=== PATIENT | female | born 1970 | race American Indian/Alaskan Native ===

== ENCOUNTER 2016-07-25 22:22 | Emergency (ER) | payer SELFPAY ==
[2016-07-25] MEDS ORDERED: KEPPRA 1,000 MG/NS 0.75% 100ML 1,000 MG/100 ML BAG IV ONE (22:24)
[2016-07-25] MEDS ORDERED: ATIVAN IV ONE (22:24)
[2016-07-25] MEDS ORDERED: BENADRYL ONE (22:54)
[2016-07-25] MEDS ORDERED: BENADRYL IV ONE (22:57)
--- NOTE | 2016-07-26 01:03 | Emergency Department Report ---
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 Patient had a seizure while at work. Patient has been noncompliant with his seizure medication because she ran out and missed her follow-up appointment. Patient's preceding symptoms include dizziness which is typical prior to her seizures. She denies tongue laceration or urinary incontinence. No pain reported. - Related Data Home Medications Medication Instructions Recorded Confirmed Last Taken HYDROcodone/APAP 5-325 [Alva 1 each PO Q6HR PRN 06/22/15 07/25/16 Unknown 5-325 mg TAB] Meclizine [Antivert] 25 mg PO TID PRN 06/22/15 07/25/16 Unknown Ondansetron [Zofran Odt] 4 mg PO Q8HR 06/22/15 07/25/16 Unknown diphenhydrAMINE [Benadryl CAP] 25 mg PO Q8HR PRN 06/22/15 07/25/16 Unknown Cyclobenzaprine [Flexeril] 10 mg PO TID PRN 07/25/16 07/25/16 Unknown Previous Rx's Medication Instructions Recorded Last Taken Type levETIRAcetam [Keppra TAB] 500 mg PO BID #60 tablet 07/26/16 Unknown Rx Allergies Allergy/AdvReac Type Severity Reaction Status Date / Time promethazine HCl Allergy Unknown Verified 05/14/14 13:31 [From Phenergan] sulfamethoxazole Allergy Hives Verified 05/14/14 13:31 [From Bactrim] trimethoprim [From Bactrim] Allergy Hives Verified 05/14/14 13:31 ED Review of Systems ROS: Stated complaint: CONVULSIONS Other details as noted in HPI Comment: All other systems reviewed and negative Other: Constitutional: No fevers chills Eyes: No eye pain visual changes ENT: No ear pain or throat pain Neck: Denies pain Respiratory: Denies cough wheezing shortness of breath Cardiovascular: Denies chest pain, palpitations, syncope GI: Denies abdominal pain, nausea, vomiting, diarrhea : Denies dysuriay Musculoskeletal: Denies back pain Skin: Denies rash, lesions, erythema Neurologic: Denies headache, numbness, weakness Psychiatric: Denies suicidal ideation, hallucinations ED Past Medical Hx - Past Medical History Previous Medical History?: Yes Hx Hypertension: Yes Hx CVA: No Hx Heart Attack/AMI: No Hx Congestive Heart Failure: No Hx Diabetes: No Hx Deep Vein Thrombosis: No Hx Pulmonary Embolism: No Hx GERD: Yes Hx Liver Disease: No Hx Renal Disease: No Hx Sickle Cell Disease: No Hx Arthritis: Yes Hx Headaches / Migraines: Yes Hx Seizures: Yes Hx Kidney Stones: No Hx Psychiatric Treatment: No Hx Asthma: No Hx COPD: No Hx Tuberculosis: No Hx Dementia: No Hx HIV: No Additional medical history: Recurrent symptomatic anemia. Menorrhagia. Uterine fibroids. Vertigo - Surgical History Hx Coronary Stent: No Hx Open Heart Surgery: No Hx Pacemaker: No Hx Internal Defibrillator: No Hx Cholecystectomy: No Hx Appendectomy: No Hx Breast Surgery: No Additional Surgical History: 3 C- Sections. Right knee repair at age 10. fx femur - Social History Smoking Status: Never Smoker Substance Use Type: None - Medications Home Medications: Home Medications Medication Instructions Recorded Confirmed Last Taken Type HYDROcodone/APAP 5-325 [Alva 1 each PO Q6HR PRN 06/22/15 07/25/16 Unknown History 5-325 mg TAB] Meclizine [Antivert] 25 mg PO TID PRN 06/22/15 07/25/16 Unknown History Ondansetron [Zofran Odt] 4 mg PO Q8HR 06/22/15 07/25/16 Unknown History diphenhydrAMINE [Benadryl CAP] 25 mg PO Q8HR PRN 06/22/15 07/25/16 Unknown History Cyclobenzaprine [Flexeril] 10 mg PO TID PRN 07/25/16 07/25/16 Unknown History levETIRAcetam [Keppra TAB] 500 mg PO BID #60 tablet 07/26/16 Unknown Rx ED Physical Exam - General Limitations: Other - Other Other exam information: General: No limitations, patient is alert in no acute distress Head exam: Atraumatic, normocephalic Eyes exam: Normal appearance ENT: Moist mucous membrane, normal oropharynx Neck exam: Normal inspection, full range of motion, no meningismus nontender Respiratory exam: Clear to auscultation bilateral, no wheezes, rales, crackles Cardiovascular: Normal rate and rhythm, normal heart sounds Abdomen: Soft, nondistended, and nontender, with normal bowel sounds, no rebound, or guarding Extremity: Full range of motion normal inspection no deformity Back: Normal Inspection, full range of motion, no tenderness Neurologic: Alert, oriented x3, cranial nerves intact, no motor or sensory deficit Psychiatric: normal affect, normal mood Skin: Warm, dry, intact ED Course Vital Signs 07/25/16 22:26 Temperature 98.7 F Pulse Rate 104 H Respiratory 24 Rate Blood Pressure 113/73 O2 Sat by Pulse 99 Oximetry - Reevaluation(s) Reevaluation #1: 07/26/16 01:23 Patient received Ativan 1 mg and Keppra 1000 in the ED. Benadryl given for itching ED Medical Decision Making - Medical Decision Making Seizure likely secondary to medication noncompliance. Patient has a known history of seizure without other complaints. Patient received Keppra and Ativan ED. Will be discharged on her current Keppra dose. - Differential Diagnosis medication noncompliance, breakthrough seizure Critical Care Time: No Critical care attestation.: If time is entered above; I have spent that time in minutes in the direct care of this critically ill patient, excluding procedure time. ED Disposition Clinical Impression: Seizure, Noncompliance with medication regimen Disposition: DISCHARGED TO HOME OR SELFCARE Is pt being admited?: No Does the pt Need Aspirin: No Condition: Stable Instructions: Recurrent Seizures Adult (ED) Additional Instructions: Take your medication as prescribed. Follow-up with your doctor. Return if symptoms worsen Prescriptions: levETIRAcetam [Keppra TAB] 500 mg PO BID #60 tablet Referrals: PRIMARY CARE, [Referring] - 3-5 Days Time of Disposition: :24
[2016-07-26 01:09] VITALS: BP 111/60
== END 2016-07-26 01:35 | disposition home or self-care (01) ==
LOC: ED 22:22
DX: R56.9 Unspecified convulsions (principal); Z91.14 Patient's other noncompliance with medication regimen; I10 Essential (primary) hypertension; K21.9 Gastro-esophageal reflux disease without esophagitis; M19.90 Unspecified osteoarthritis, unspecified site; Z88.8 Allergy status to other drugs, medicaments and biological substances; Z88.2 Allergy status to sulfonamides
CPT/HCPCS: 96374; 96375; 99283; J1200; J1953; J2060

== ENCOUNTER 2016-08-22 23:53 | Emergency (ER) | payer BC ==
[2016-08-23 00:01] VITALS: BP 142/86
[2016-08-23 00:47] LABS: Mean Corpuscular HGB Conc 29 % (30-34); Platelet Count 606 K/mm3 (140-440); Red Blood Count 5.51 M/mm3 (3.65-5.03); White Blood Count 11.8 K/mm3 (4.5-11.0)
[2016-08-23 00:54] LABS: Hematocrit 32.1 % (30.3-42.9); Hemoglobin 9.4 gm/dl (10.1-14.3); Mean Corpuscular Hemoglobin 17 pg (28-32); Mean Corpuscular Volume 58 fl (79-97); Red Cell Distribution Width 28.2 % (13.2-15.2)
[2016-08-23 01:14] LABS: Alanine Aminotransferase 20 units/L (7-56); Albumin 4.6 g/dL (3.9-5); Albumin/Globulin Ratio 1.4 %; Alkaline Phosphatase 95 units/L (35-129); Anion Gap 21 mmol/L; BUN/Creatinine Ratio 8.57; Blood Urea Nitrogen 6 mg/dL (7-17); Calcium 9.2 mg/dL (8.4-10.2); Carbon Dioxide 20 mmol/L (22-30); Glucose 125 mg/dL (65-100); Lipase 28 units/L (13-60); Sodium 137 mmol/L (137-145)
[2016-08-23 02:25] LABS: Anisocytosis 3+; Basophils % (Manual) 0 % (0.0-1.8); Blastocytes % (Manual) 0 %; Hypochromasia 3+; Microcytosis 2+
[2016-08-23 02:26] LABS: Diff Status Complete; Platelet Estimate Appears Increased
--- NOTE | 2016-08-27 14:48 | ED Elopement Review ---
ED Pt Elopement review - Results review Lab results: Laboratory Tests 08/23/16 08/23/16 08/23/16 00:34 00:34 00:34 WBC 11.8 H RBC 5.51 H Hgb 9.4 L Hct 32.1 D MCV 58 L D MCH 17 L MCHC 29 L RDW 28.2 H Plt Count 606 H Add Manual Diff Complete Total Counted 100 Seg Neuts % (Manual) 70.0 Band Neutrophils % 0 Lymphocytes % (Manual) 22.0 Reactive Lymphs % (Man) 0 Monocytes % (Manual) 7.0 Eosinophils % (Manual) 1.0 Basophils % (Manual) 0 Metamyelocytes % 0 Myelocytes % 0 Promyelocytes % 0 Blast Cells % 0 Nucleated RBC % 1.0 H Seg Neutrophils # Man 8.3 H Band Neutrophils # 0.0 Lymphocytes # (Manual) 2.6 Abs React Lymphs (Man) 0.0 Monocytes # (Manual) 0.8 Eosinophils # (Manual) 0.1 Basophils # (Manual) 0.0 Metamyelocytes # 0.0 Myelocytes # 0.0 Promyelocytes # 0.0 Blast Cells # 0.0 WBC Morphology Not Reportable Hypersegmented Neuts Not Reportable Hyposegmented Neuts Not Reportable Hypogranular Neuts Not Reportable Smudge Cells Not Reportable Toxic Granulation Not Reportable Toxic Vacuolation Not Reportable Dohle Bodies Not Reportable Pelger-Huet Anomaly Not Reportable Ronaldo Rods Not Reportable Platelet Estimate Appears increased Clumped Platelets Not Reportable Plt Clumps, EDTA Not Reportable Large Platelets Not Reportable Giant Platelets Not Reportable Platelet Satelliting Not Reportable Plt Morphology Comment Not Reportable RBC Morphology Not Reportable Dimorphic RBCs Not Reportable Polychromasia Not Reportable Hypochromasia 3+ Poikilocytosis Not Reportable Anisocytosis 3+ Microcytosis 2+ Macrocytosis Not Reportable Spherocytes Not Reportable Pappenheimer Bodies Not Reportable Sickle Cells Not Reportable Target Cells Not Reportable Tear Drop Cells Not Reportable Ovalocytes Not Reportable Helmet Cells Not Reportable Fernandez-[place] Bodies Not Reportable [place] Rings Not Reportable [place] Cells Not Reportable Bite Cells Not Reportable Crenated Cell Not Reportable Elliptocytes Not Reportable Acanthocytes (Spur) Not Reportable Rouleaux Not Reportable Hemoglobin C Crystals Not Reportable Schistocytes Not Reportable Malaria parasites Not Reportable Celso Bodies Not Reportable Hem Pathologist Commnt No Sodium 137 Potassium 4.0 Chloride 100.0 Carbon Dioxide 20 L Anion Gap 21 BUN 6 L Creatinine 0.7 Estimated GFR > 60 BUN/Creatinine Ratio 8.57 Glucose 125 H Calcium 9.2 Total Bilirubin 0.30 AST 27 ALT 20 Alkaline Phosphatase 95 Total Protein 8.0 Albumin 4.6 Albumin/Globulin Ratio 1.4 Lipase 28 HCG, Qual Negative - Call Back decision Pt Call Back Decision: No action required
== END 2016-08-23 02:00 | disposition left against medical advice (07) ==
LOC: ED 23:53
DX: R10.9 Unspecified abdominal pain (principal); Z53.21 Procedure and treatment not carried out due to patient leaving prior to being seen by health care provider
CPT/HCPCS: 36415; 80053; 83690; 84703; 85007; 85025

== ENCOUNTER 2016-12-07 10:08 | Emergency (ER) | payer BC ==
[2016-12-07] MEDS ORDERED: ATIVAN PO ONE (10:16)
[2016-12-07] MEDS ORDERED: NACL 0.9% 1000 ML 1,000 ML IV ONE (10:22)
--- NOTE | 2016-12-07 10:28 | Emergency Department Report ---
ED Dizziness HPI - General Chief Complaint: Dizziness Stated Complaint: CHEST PAIN Time Seen by Provider: 12/07/16 10:13 Source: patient Mode of arrival: Stretcher Limitations: No Limitations - History of Present Illness Initial Comments: 46-year-old female here with complaint of dizziness. Patient has a known history of vertigo and again to feel spinning while walking home. This is consistent with her prior episodes of vertigo. She has a headache but she's had this headache for approximately 1 month. She is a known history of seizures as well. She does not feel she seized. She felt somewhat short of breath and had some mild chest pain with this episode of vertigo. This is common with her episodes of vertigo. She normally takes meclizine but did not have it on her. No fevers chills nausea vomiting. -: Gradual Timing: sudden onset Description: "room spinning" History of Same: Yes History of Trauma: No Severity: moderate Improves With: medication Worsens With: nothing Associated Symptoms: chest pain, shortness of breath, weakness. denies: diaphoresis, fever/chills, loss of appetite, malaise, rash, seizure, syncope - Related Data Home Medications Medication Instructions Recorded Confirmed Last Taken Meclizine [Antivert] 25 mg PO TID PRN 06/22/15 12/07/16 12/06/16 diphenhydrAMINE [Benadryl CAP] 25 mg PO Q8HR PRN 06/22/15 12/07/16 12/06/16 Loratadine [Claritin] 10 mg PO DAILY 12/07/16 12/07/16 12/06/16 Melatonin [Melatin] 3 mg PO DAILY 12/07/16 12/07/16 12/06/16 Previous Rx's Medication Instructions Recorded Last Taken Type levETIRAcetam [Keppra TAB] 500 mg PO BID #60 tablet 08/22/16 12/06/16 Rx Allergies Allergy/AdvReac Type Severity Reaction Status Date / Time promethazine HCl Allergy Unknown Verified 05/14/14 13:31 [From Phenergan] sulfamethoxazole Allergy Hives Verified 05/14/14 13:31 [From Bactrim] trimethoprim [From Bactrim] Allergy Hives Verified 05/14/14 13:31 ED Review of Systems ROS: Stated complaint: CHEST PAIN Other details as noted in HPI Comment: All other systems reviewed and negative Constitutional: weakness. denies: chills, fever Eyes: denies: eye pain, eye discharge, vision change ENT: denies: ear pain, throat pain Respiratory: shortness of breath. denies: cough, wheezing Cardiovascular: chest pain. denies: palpitations Endocrine: no symptoms reported Gastrointestinal: denies: abdominal pain, nausea, diarrhea Genitourinary: denies: urgency, dysuria, discharge Musculoskeletal: denies: back pain, joint swelling, arthralgia Skin: denies: rash, lesions Neurological: vertigo. denies: headache, weakness, paresthesias Psychiatric: denies: anxiety, depression Hematological/Lymphatic: denies: easy bleeding, easy bruising ED Past Medical Hx - Past Medical History Hx Hypertension: Yes Hx CVA: No Hx Heart Attack/AMI: No Hx Congestive Heart Failure: No Hx Diabetes: No Hx Deep Vein Thrombosis: No Hx Pulmonary Embolism: No Hx GERD: Yes Hx Liver Disease: No Hx Renal Disease: No Hx Sickle Cell Disease: No Hx Arthritis: Yes Hx Headaches / Migraines: Yes Hx Seizures: Yes Hx Kidney Stones: No Hx Psychiatric Treatment: No Hx Asthma: No Hx COPD: No Hx Tuberculosis: No Hx Dementia: No Hx HIV: No Additional medical history: Recurrent symptomatic anemia. Menorrhagia. Uterine fibroids. Vertigo - Surgical History Hx Coronary Stent: No Hx Open Heart Surgery: No Hx Pacemaker: No Hx Internal Defibrillator: No Hx Cholecystectomy: No Hx Appendectomy: No Hx Breast Surgery: No Additional Surgical History: 3 C- Sections. Right knee repair at age 10. fx femur - Family History Family history: no significant - Social History Smoking Status: Never Smoker Substance Use Type: None - Medications Home Medications: Home Medications Medication Instructions Recorded Confirmed Last Taken Type Meclizine [Antivert] 25 mg PO TID PRN 06/22/15 12/07/16 12/06/16 History diphenhydrAMINE [Benadryl CAP] 25 mg PO Q8HR PRN 06/22/15 12/07/16 12/06/16 History levETIRAcetam [Keppra TAB] 500 mg PO BID #60 tablet 08/22/16 12/07/16 12/06/16 Rx Loratadine [Claritin] 10 mg PO DAILY 12/07/16 12/07/16 12/06/16 History Melatonin [Melatin] 3 mg PO DAILY 12/07/16 12/07/16 12/06/16 History ED Physical Exam - General Limitations: No Limitations General appearance: alert, in no apparent distress - Head Head exam: Present: atraumatic, normocephalic - Eye Eye exam: Present: normal appearance, PERRL, EOMI. Absent: scleral icterus, conjunctival injection - ENT ENT exam: Present: mucous membranes moist - Neck Neck exam: Present: normal inspection - Respiratory Respiratory exam: Present: normal lung sounds bilaterally. Absent: respiratory distress, wheezes, rales - Cardiovascular Cardiovascular Exam: Present: regular rate, normal rhythm, normal heart sounds. Absent: systolic murmur, diastolic murmur, rubs, gallop - GI/Abdominal GI/Abdominal exam: Present: soft, normal bowel sounds. Absent: distended, tenderness, guarding - Extremities Exam Extremities exam: Present: normal inspection - Back Exam Back exam: Present: normal inspection - Neurological Exam Neurological exam: Present: alert, oriented X3 - Expanded Neurological Exam Expanded Patient oriented to: Present: person, place, time Speech: Present: fluid speech Cranial nerves: EOM's Intact: Normal Cerebellar function: Finger to Nose: Normal (somewhat tremulous on finger to nose), Romberg: Normal Upper motor neuron: Sergo Neglect: Normal Motor strength exam: RUE: 5, LUE: 5, RLE: 5, LLE: 5 - Psychiatric Psychiatric exam: Present: normal affect, normal mood - Skin Skin exam: Present: warm, dry, intact, normal color. Absent: rash ED Course Vital Signs 12/07/16 12/07/16 10:10 11:50 Temperature 98.1 F Pulse Rate 77 78 Respiratory 20 14 Rate Blood Pressure 148/91 Blood Pressure 128/79 [Left] O2 Sat by Pulse 100 100 Oximetry ED Medical Decision Making - Lab Data Result diagrams: 12/07/16 10:30 12/07/16 10:30 Laboratory Results - last 24 hr 12/07/16 12/07/16 12/07/16 10:30 10:30 10:30 WBC 6.8 RBC 4.53 Hgb 9.5 L Hct 31.4 MCV 69 L MCH 21 L MCHC 30 RDW 20.0 H Plt Count 527 H Add Manual Diff Complete Total Counted 100 Seg Neuts % (Manual) 54.0 Band Neutrophils % 0 Lymphocytes % (Manual) 34.0 Reactive Lymphs % (Man) 0 Monocytes % (Manual) 7.0 Eosinophils % (Manual) 5.0 H Basophils % (Manual) 0 Metamyelocytes % 0 Myelocytes % 0 Promyelocytes % 0 Blast Cells % 0 Nucleated RBC % Not Reportable Seg Neutrophils # Man 3.7 Band Neutrophils # 0.0 Lymphocytes # (Manual) 2.3 Abs React Lymphs (Man) 0.0 Monocytes # (Manual) 0.5 Eosinophils # (Manual) 0.3 Basophils # (Manual) 0.0 Metamyelocytes # 0.0 Myelocytes # 0.0 Promyelocytes # 0.0 Blast Cells # 0.0 WBC Morphology Not Reportable Hypersegmented Neuts Not Reportable Hyposegmented Neuts Not Reportable Hypogranular Neuts Not Reportable Smudge Cells Not Reportable Toxic Granulation Not Reportable Toxic Vacuolation Not Reportable Dohle Bodies Not Reportable Pelger-Huet Anomaly Not Reportable Ronaldo Rods Not Reportable Platelet Estimate Not Reportable Clumped Platelets Not Reportable Plt Clumps, EDTA Not Reportable Large Platelets Not Reportable Giant Platelets Not Reportable Platelet Satelliting Not Reportable Plt Morphology Comment Not Reportable RBC Morphology Not Reportable Dimorphic RBCs Not Reportable Polychromasia Not Reportable Hypochromasia 2+ Poikilocytosis 1+ Anisocytosis 2+ Microcytosis 2+ Macrocytosis Not Reportable Spherocytes Not Reportable Pappenheimer Bodies Not Reportable Sickle Cells Not Reportable Target Cells Not Reportable Tear Drop Cells Not Reportable Ovalocytes Not Reportable Helmet Cells Not Reportable Fernandez-[place] Bodies Not Reportable [place] Rings Not Reportable [place] Cells Not Reportable Bite Cells Not Reportable Crenated Cell Not Reportable Elliptocytes Not Reportable Acanthocytes (Spur) Not Reportable Rouleaux Not Reportable Hemoglobin C Crystals Not Reportable Schistocytes Not Reportable Malaria parasites Not Reportable Celso Bodies Not Reportable Hem Pathologist Commnt No Sodium 138 Potassium 3.9 Chloride 101.0 Carbon Dioxide 22 Anion Gap 19 BUN 6 L Creatinine 0.6 L Estimated GFR > 60 BUN/Creatinine Ratio 10.00 Glucose 109 H Calcium 8.7 Magnesium 1.80 Total Bilirubin 0.20 AST 60 H ALT 115 H Alkaline Phosphatase 110 Troponin T < 0.010 Total Protein 7.4 Albumin 4.2 Albumin/Globulin Ratio 1.3 Urine Color Urine Turbidity Urine pH Ur Specific [place] Urine Protein Urine Glucose (UA) Urine Ketones Urine Blood Urine Nitrite Urine Bilirubin Urine Urobilinogen Ur Leukocyte Esterase Urine WBC (Auto) Urine RBC (Auto) U Epithel Cells (Auto) Urine Bacteria (Auto) Urine Mucus 12/07/16 10:55 WBC RBC Hgb Hct MCV MCH MCHC RDW Plt Count Add Manual Diff Total Counted Seg Neuts % (Manual) Band Neutrophils % Lymphocytes % (Manual) Reactive Lymphs % (Man) Monocytes % (Manual) Eosinophils % (Manual) Basophils % (Manual) Metamyelocytes % Myelocytes % Promyelocytes % Blast Cells % Nucleated RBC % Seg Neutrophils # Man Band Neutrophils # Lymphocytes # (Manual) Abs React Lymphs (Man) Monocytes # (Manual) Eosinophils # (Manual) Basophils # (Manual) Metamyelocytes # Myelocytes # Promyelocytes # Blast Cells # WBC Morphology Hypersegmented Neuts Hyposegmented Neuts Hypogranular Neuts Smudge Cells Toxic Granulation Toxic Vacuolation Dohle Bodies Pelger-Huet Anomaly Ronaldo Rods Platelet Estimate Clumped Platelets Plt Clumps, EDTA Large Platelets Giant Platelets Platelet Satelliting Plt Morphology Comment RBC Morphology Dimorphic RBCs Polychromasia Hypochromasia Poikilocytosis Anisocytosis Microcytosis Macrocytosis Spherocytes Pappenheimer Bodies Sickle Cells Target Cells Tear Drop Cells Ovalocytes Helmet Cells Fernandez-[place] Bodies [place] Rings [place]anna Cells Bite Cells Crenated Cell Elliptocytes Acanthocytes (Spur) Rouleaux Hemoglobin C Crystals Schistocytes Malaria parasites Celso Bodies Hem Pathologist Commnt Sodium Potassium Chloride Carbon Dioxide Anion Gap BUN Creatinine Estimated GFR BUN/Creatinine Ratio Glucose Calcium Magnesium Total Bilirubin AST ALT Alkaline Phosphatase Troponin T Total Protein Albumin Albumin/Globulin Ratio Urine Color Yellow Urine Turbidity Clear Urine pH 7.0 Ur Specific [place] 1.013 Urine Protein <15 mg/dl Urine Glucose (UA) Neg Urine Ketones Neg Urine Blood Neg Urine Nitrite Neg Urine Bilirubin Neg Urine Urobilinogen < 2.0 Ur Leukocyte Esterase Neg Urine WBC (Auto) 1.0 Urine RBC (Auto) 3.0 U Epithel Cells (Auto) 3.0 Urine Bacteria (Auto) 2+ Urine Mucus Few - EKG Data -: EKG Interpreted by Me - EKG Data 12/07/16 10:27 Normal sinus rhythm rate 81 normal axis normal intervals no ST-T wave changes - Medical Decision Making 46-year-old female here with episode of vertigo. This is similar to previous episodes were in the past. She did describe some chest pain with her symptoms. Given this history for workup for a potential cardiac cause of the my suspicion is very low for this. Plan to give her dose of Ativan orally. She has a normal neurological exams no need for head CT at this point. Plan EKG labs troponin chest x-ray and plan to reassess. Patient feeling better after single dose of Ativan. Symptoms are not entirely resolved at this point. Plan to give her her oral meclizine and will discharge home. Portions of this chart were dictated with dictation software. There may be dictation errors contained within this note. Critical care attestation.: If time is entered above; I have spent that time in minutes in the direct care of this critically ill patient, excluding procedure time. ED Disposition Clinical Impression: Vertigo Disposition: DC-01 TO HOME OR SELFCARE Is pt being admited?: No Condition: Stable Instructions: Vertigo (ED) Additional Instructions: Please follow-up with your regular doctor. Referrals: PRIMARY CARE, [Primary Care Provider] - 3-5 Days
[2016-12-07 10:46] LABS: Hematocrit 31.4 % (30.3-42.9); Hemoglobin 9.5 gm/dl (10.1-14.3); Mean Corpuscular HGB Conc 30 % (30-34); Platelet Count 527 K/mm3 (140-440); Red Blood Count 4.53 M/mm3 (3.65-5.03); White Blood Count 6.8 K/mm3 (4.5-11.0)
[2016-12-07 10:47] LABS: Mean Corpuscular Hemoglobin 21 pg (28-32); Mean Corpuscular Volume 69 fl (79-97)
[2016-12-07 11:19] LABS: Bacteria,Urine 2+ /HPF (Negative); Bilirubin,Urine NEG (Negative); Blood,Urine NEG (Negative); Ketones,Urine NEG (Negative); Leukocyte Esterase,Urine NEG (Negative); Mucus,Urine FEW /HPF; Nitrite,Urine NEG (Negative); Protein,Urine <15 mg/dL mg/dL (Negative); Urobilinogen,Urine < 2.0 mg/dL (<2.0)
--- NOTE | 2016-12-07 11:21 | XRay Report ---
CHEST ONE VIEW INDICATION: Weakness. COMPARISON: 08/21/2016. FINDINGS: Portable, single, frontal chest radiograph demonstrates normal cardiomediastinal silhouette. Clear lungs. Unremarkable bones. Extrinsic EKG leads. CONCLUSION: No acute disease in the chest. Thank you for the opportunity to participate in this patient's care.
[2016-12-07 11:40] LABS: Alanine Aminotransferase 115 units/L (7-56); Albumin 4.2 g/dL (3.9-5); Albumin/Globulin Ratio 1.3 %; Alkaline Phosphatase 110 units/L (35-129); Anion Gap 19 mmol/L; Blood Urea Nitrogen 6 mg/dL (7-17); Calcium 8.7 mg/dL (8.4-10.2); Carbon Dioxide 22 mmol/L (22-30); Glucose 109 mg/dL (65-100); Potassium 3.9 mmol/L (3.6-5.0); Sodium 138 mmol/L (137-145); Total Protein 7.4 g/dL (6.3-8.2)
[2016-12-07 11:45] LABS: Basophils % (Manual) 0 % (0.0-1.8); Blastocytes % (Manual) 0 %
[2016-12-07 11:46] LABS: Anisocytosis 2+; Diff Status Complete; Hypochromasia 2+; Microcytosis 2+; Poikilocytosis 1+
[2016-12-07] MEDS ORDERED: ANTIVERT PO ONE (12:46)
[2016-12-07 13:09] VITALS: BP 117/75
== END 2016-12-07 13:12 | disposition home or self-care (01) ==
LOC: ED 10:08
DX: R42 Dizziness and giddiness (principal); I10 Essential (primary) hypertension; K21.9 Gastro-esophageal reflux disease without esophagitis; M19.90 Unspecified osteoarthritis, unspecified site; R56.9 Unspecified convulsions; Z88.2 Allergy status to sulfonamides; Z88.8 Allergy status to other drugs, medicaments and biological substances
CPT/HCPCS: 36415; 71010; 80053; 81001; 83735; 84484; 85007; 85025; 93005; 93010; 96360; 99284; J7030

== ENCOUNTER 2017-02-10 14:08 | Outpatient (CLI) | payer BC ==
--- NOTE | 2017-02-11 07:55 | Ultrasound Report ---
ULTRASOUND PELVIC COMPLETE ULTRASOUND TRANSVAGINAL HISTORY: Pelvic pain, uterine fibroids. TECHNIQUE: Transabdominal and transvaginal ultrasound with color and spectral doppler interrogation. The uterus is enlarged and heterogeneous measuring 14 x 9 x 10 cm. At least 3 fibroids are identified on today's exam. A large submucosal fibroid in the posterior wall measures 7.2 x 5.8 x 6.7 cm. An intramural fibroid in the anterior wall measures 2.7 x 3.4 x 3.6 cm. An intramural fibroid in the right lateral wall measures 2.1 x 2.6 x 2.9 cm. All 3 fibroids demonstrate scattered focal calcifications and trace flow on color Doppler interrogation. The endometrial stripe is displaced anteriorly but is otherwise within normal limits measuring 9 mm. The cervix is unremarkable. The ovaries are normal size, contour and echotexture. No adnexal cyst or mass. No pelvic fluid collection. IMPRESSION: Uterine fibroid disease as described. When comparing to the previous pelvic ultrasound on 11/01/14, there appears to be mild progression of disease.
== END 2017-02-10 14:09 | disposition home or self-care (01) ==
LOC: US 14:08
PROVIDERS: ATTEND Obstetrics & Gynecology
DX: D25.0 Submucous leiomyoma of uterus (principal); D25.1 Intramural leiomyoma of uterus
CPT/HCPCS: 76830; 76856

== ENCOUNTER 2017-03-23 23:27 | Emergency (ER) | payer BC ==
[2017-03-24] MEDS ORDERED: SUBLIMAZE IV ONE (01:57)
[2017-03-24] MEDS ORDERED: ZOFRAN IV ONE (01:57)
--- NOTE | 2017-03-24 01:58 | Emergency Department Report ---
ED General Adult HPI - General Chief complaint: Pain General Stated complaint: VOMITING Time Seen by Provider: 03/24/17 01:49 Source: patient, RN notes reviewed, old records reviewed Mode of arrival: Ambulatory Limitations: No Limitations - History of Present Illness Initial comments: This is a 46-year-old female who was previously unknown to this provider. Past medical history includes hypertension, seizure disorder, anemia, fibroids, 3, para 3003. Private network architect manager: Dr. Santa De Guzman Patient is scheduled for dilatation and curettage with hysteroscopy later on this morning. She is sent to the ER by her network architect manager for lower abdominal pain, cramping, nausea and vomiting. This started after the patient took Cytotec. The abdominal pain is crampy, increases with palpation and decreases with rest. It does not radiate anywhere. Patient vomited 2, nonbloody and nonbilious. Patient has only had a preoperative evaluation by anesthesia, please see their notes. Patient indicates that prior to taking the medication, she was feeling "fine." -: Sudden Location: abdomen Radiation: non-radiation Quality: aching Consistency: constant Improves with: rest Worsens with: movement Associated Symptoms: nausea/vomiting. denies: confusion, chest pain, cough - Related Data Home Medications Medication Instructions Recorded Confirmed Last Taken Meclizine [Antivert] 25 mg PO TID PRN 06/22/15 03/17/17 12/06/16 diphenhydrAMINE [Benadryl CAP] 25 mg PO Q8HR PRN 06/22/15 03/17/17 12/06/16 Loratadine [Claritin] 10 mg PO DAILY PRN 12/07/16 03/17/17 12/06/16 Melatonin [Melatin] 3 mg PO HS PRN 12/07/16 03/17/17 12/06/16 Previous Rx's Medication Instructions Recorded Last Taken Type levETIRAcetam [Keppra TAB] 500 mg PO BID #60 tablet 08/22/16 12/06/16 Rx Allergies Allergy/AdvReac Type Severity Reaction Status Date / Time hydromorphone [From Dilaudid] Allergy Itching Verified 03/17/17 11:27 promethazine HCl Allergy Unknown Verified 03/17/17 11:27 [From Phenergan] sulfamethoxazole Allergy Hives Verified 03/17/17 11:27 [From Bactrim] trimethoprim [From Bactrim] Allergy Hives Verified 03/17/17 11:27 ED Review of Systems ROS: Stated complaint: VOMITING Other details as noted in HPI Constitutional: malaise. denies: fever Eyes: denies: eye discharge ENT: denies: epistaxis Respiratory: denies: cough Cardiovascular: denies: chest pain Gastrointestinal: abdominal pain, nausea, vomiting Genitourinary: as per HPI Musculoskeletal: as per HPI Skin: as per HPI Neurological: as per HPI Psychiatric: as per HPI ED Past Medical Hx - Past Medical History Hx Hypertension: Yes Hx CVA: No Hx Heart Attack/AMI: No Hx Congestive Heart Failure: No Hx Diabetes: No Hx Deep Vein Thrombosis: No Hx Pulmonary Embolism: No Hx GERD: Yes Hx Liver Disease: No Hx Renal Disease: No Hx Sickle Cell Disease: Yes (Trait only) Hx Arthritis: Yes (left leg) Hx Headaches / Migraines: Yes (migraines) Hx Seizures: Yes ("Petite Mal" last ? 11/2016) Hx Kidney Stones: No Hx Psychiatric Treatment: No Hx Asthma: No Hx COPD: No Hx Tuberculosis: No Hx Dementia: No Hx HIV: No Additional medical history: Recurrent symptomatic anemia. Menorrhagia. Uterine fibroids. Vertigo - Surgical History Hx Coronary Stent: No Hx Open Heart Surgery: No Hx Pacemaker: No Hx Internal Defibrillator: No Hx Cholecystectomy: No Hx Appendectomy: No Hx Breast Surgery: No Additional Surgical History: 3 C- Sections. Right knee repair at age 10. fx femur - Social History Smoking Status: Never Smoker Substance Use Type: None - Medications Home Medications: Home Medications Medication Instructions Recorded Confirmed Last Taken Type Meclizine [Antivert] 25 mg PO TID PRN 06/22/15 03/17/17 12/06/16 History diphenhydrAMINE [Benadryl CAP] 25 mg PO Q8HR PRN 06/22/15 03/17/17 12/06/16 History levETIRAcetam [Keppra TAB] 500 mg PO BID #60 tablet 08/22/16 03/17/17 12/06/16 Rx Loratadine [Claritin] 10 mg PO DAILY PRN 12/07/16 03/17/17 12/06/16 History Melatonin [Melatin] 3 mg PO HS PRN 12/07/16 03/17/17 12/06/16 History ED Physical Exam - General Limitations: No Limitations General appearance: alert, in no apparent distress - Head Head exam: Present: atraumatic, normocephalic - Eye Eye exam: Present: normal appearance, EOMI. Absent: nystagmus - ENT ENT exam: Present: normal exam, normal orophraynx, mucous membranes moist, normal external ear exam - Neck Neck exam: Present: normal inspection, full ROM - Respiratory Respiratory exam: Present: normal lung sounds bilaterally. Absent: respiratory distress - Cardiovascular Cardiovascular Exam: Present: regular rate, normal rhythm, normal heart sounds. Absent: systolic murmur, diastolic murmur, rubs, gallop - GI/Abdominal GI/Abdominal exam: Present: soft, tenderness, normal bowel sounds, other ( suprapubic lower abdominal tenderness, no rebound, guarding or peritoneal signs) . Absent: distended, guarding, rebound, rigid, pulsatile mass - Extremities Exam Extremities exam: Present: normal inspection, full ROM, normal capillary refill. Absent: pedal edema, joint swelling, calf tenderness - Back Exam Back exam: Present: normal inspection, full ROM. Absent: paraspinal tenderness , vertebral tenderness - Neurological Exam Neurological exam: Present: alert, oriented X3, normal gait, other (Extraocular movements intact. Tongue midline. No facial droop. Facial sensation intact to light touch in the V1, V2, V3 distribution bilaterally. 5 and 5 strength in 4 extremities.. Sensation is intact to light touch in 4 extremities.). Absent : motor sensory deficit - Psychiatric Psychiatric exam: Present: normal affect, normal mood - Skin Skin exam: Present: warm, dry, intact, normal color. Absent: rash ED Course Vital Signs 03/23/17 03/23/17 03/23/17 23:26 23:30 23:31 Temperature 97.5 F L Pulse Rate 107 H Respiratory 20 Rate Blood Pressure 141/91 127/84 O2 Sat by Pulse 96 95 99 Oximetry 03/23/17 03/24/17 03/24/17 23:34 00:59 01:16 Temperature 97.5 F L Pulse Rate 106 H 82 Respiratory 20 18 18 Rate Blood Pressure 133/90 141/91 O2 Sat by Pulse 99 98 100 Oximetry 03/24/17 03/24/17 03/24/17 01:31 01:45 02:07 Temperature Pulse Rate 80 79 77 Respiratory 15 18 12 Rate Blood Pressure 123/74 117/78 117/78 O2 Sat by Pulse 98 99 Oximetry 03/24/17 03/24/17 03/24/17 02:15 02:31 02:45 Temperature Pulse Rate 74 71 73 Respiratory 18 13 16 Rate Blood Pressure 119/73 117/78 110/75 O2 Sat by Pulse 97 99 99 Oximetry 03/24/17 03/24/17 03/24/17 03:00 03:15 03:31 Temperature Pulse Rate 67 67 66 Respiratory 13 14 14 Rate Blood Pressure 108/68 108/68 110/72 O2 Sat by Pulse 100 99 98 Oximetry 03/24/17 03/24/17 03/24/17 03:45 04:00 04:15 Temperature Pulse Rate 67 82 67 Respiratory 14 15 15 Rate Blood Pressure 111/73 119/69 111/73 O2 Sat by Pulse 99 99 99 Oximetry 03/24/17 03/24/17 04:31 04:45 Temperature Pulse Rate 64 65 Respiratory 14 10 L Rate Blood Pressure 124/79 119/71 O2 Sat by Pulse 99 98 Oximetry - Reevaluation(s) Reevaluation #1: 03/24/17 05:06 Patient has had an uneventful course in the ER. She feels improved. As per discussion with her network architect manager she will be discharged to go to the preoperative area. ED Medical Decision Making - Lab Data Vital Signs 03/23/17 03/23/17 03/23/17 23:26 23:30 23:31 Temperature 97.5 F L Pulse Rate 107 H Respiratory 20 Rate Blood Pressure 141/91 127/84 O2 Sat by Pulse 96 95 99 Oximetry 03/23/17 03/24/17 03/24/17 23:34 00:59 01:16 Temperature 97.5 F L Pulse Rate 106 H 82 Respiratory 20 18 18 Rate Blood Pressure 133/90 141/91 O2 Sat by Pulse 99 98 100 Oximetry 03/24/17 01:31 Temperature Pulse Rate 80 Respiratory 15 Rate Blood Pressure 123/74 O2 Sat by Pulse 98 Oximetry - Medical Decision Making Differential diagnosis, including but not limited to: Dysfunctional uterine bleeding, medication side effect Assessment and plan: 46-year-old female who was scheduled for elective gynecologic surgery later on today. She was sent to the ER by her network architect manager for symptomatic relief. Patient has already had an outpatient perioperative/ preoperative evaluation. I see no reason to repeat her laboratory studies. She is treated with Zofran and fentanyl. Her case was discussed with me by her covering network architect manager, Dr. Heaton prior to arrival to the ER. She requested that we observe the patient in the ER and treat her symptoms, and then discharge her prior to 5:30 AM so she may present for her elective surgery. Critical care attestation.: If time is entered above; I have spent that time in minutes in the direct care of this critically ill patient, excluding procedure time. ED Disposition Clinical Impression: Uterine fibroid Disposition: DC- TO HOME OR SELFCARE Is pt being admited?: No Condition: Good Instructions: Uterine Fibroids (ED) Additional Instructions: Continue current outpatient medications. Please go right to the perioperative area/preoperative area where you are supposed to get her surgery. Please return to the ER right away with new pain, worsened pain, migration of pain, fevers, chills, lethargy, irritability, projectile vomiting, change in mental status, confusion, inability to tolerate liquid feeds. Referrals: JADA NEVAREZ MD [Primary Care Provider] - 3-5 Days SANTA DE GUZMAN MD [Staff Physician] - 3-5 Days
[2017-03-24 05:01] VITALS: BP 119/71
== END 2017-03-24 06:36 | disposition home or self-care (01) ==
LOC: ED 23:27
DX: D25.9 Leiomyoma of uterus, unspecified (principal); I10 Essential (primary) hypertension; K21.9 Gastro-esophageal reflux disease without esophagitis; M19.90 Unspecified osteoarthritis, unspecified site; G43.909 Migraine, unspecified, not intractable, without status migrainosus; R56.9 Unspecified convulsions; Z98.890 Other specified postprocedural states; Z88.1 Allergy status to other antibiotic agents; Z88.6 Allergy status to analgesic agent
CPT/HCPCS: 96374; 96375; 99282; J2405; J3010

== ENCOUNTER 2017-03-24 06:08 | Day surgery (SDC) | payer BC ==
--- NOTE | 2017-03-22 10:26 | Anesthesia Consultation ---
Anesthesia Consult and Med Hx Date of service: 03/24/17 - Airway Anesthetic Teeth Evaluation: Poor ROM Head & Neck: Adequate Mental/Hyoid Distance: Adequate Mallampati Class: Class II Intubation Access Assessment: Probably Good - Pulmonary Exam CTA: Yes - Cardiac Exam Cardiac Exam: RRR - Pre-Operative Health Status ASA Pre-Surgery Classification: ASA3 Proposed Anesthetic Plan: General - Pulmonary Hx Smoking: No Hx Asthma: No COPD: No Hx Pneumonia: No - Cardiovascular System Hx Hypertension: Yes Hx Heart Attack/AMI: No Hx Angina: Yes Hx Pacemaker: No Hx Internal Defibrillator: No - Central Nervous System Hx Seizures: Yes ("Pet[place] Mal" last ? 11/2016) Hx Back Pain: Yes Hx Psychiatric Problems: No - Gastrointestinal Hx Ulcer: Yes - Endocrine Hx Renal Disease: No Hx End Stage Renal Disease: No Hx Liver Disease: No - Hematic Hx Anemia: Yes Hx Sickle Cell Disease: Yes (Trait only) - Other Systems Hx Cancer: No - Additional Comments Anesthesia Medical History Comments: Cardiac clearance on chart. EF 50%
[2017-03-22 10:39] LABS: Eosinophils % (Auto) 4.3 % (0.0-4.3); Hematocrit 26.6 % (30.3-42.9); Mean Corpuscular HGB Conc 30 % (30-34); Platelet Count 519 K/mm3 (140-440); Red Blood Count 4.43 M/mm3 (3.65-5.03); White Blood Count 6.8 K/mm3 (4.5-11.0)
[2017-03-22 10:40] LABS: Mean Corpuscular Hemoglobin 18 pg (28-32); Mean Corpuscular Volume 60 fl (79-97); Red Cell Distribution Width 20.6 % (13.2-15.2)
--- NOTE | 2017-03-23 22:42 | History and Physical Report ---
History of Present Illness Date of examination: 03/22/17 Chief complaint: Dysfunctional Uterine Bleeding, Fibroid Uterus History of present illness: Pt is a 46 year old -[place] female with a known history of uterine fibroids and dysfunctional uterine bleeding who presents for endometrial sampling after failed attempt at in-office biopsy. 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 Family/Genetic History: diabetes, hypertension, cancer Social history: no significant social history Medications and Allergies Allergies Allergy/AdvReac Type Severity Reaction Status Date / Time hydromorphone [From Dilaudid] Allergy Itching Verified 03/17/17 11:27 promethazine HCl Allergy Unknown Verified 03/17/17 11:27 [From Phenergan] sulfamethoxazole Allergy Hives Verified 03/17/17 11:27 [From Bactrim] trimethoprim [From Bactrim] Allergy Hives Verified 03/17/17 11:27 Home Medications Medication Instructions Recorded Confirmed Last Taken Type Meclizine [Antivert] 25 mg PO TID PRN 06/22/15 03/17/17 12/06/16 History diphenhydrAMINE [Benadryl CAP] 25 mg PO Q8HR PRN 06/22/15 03/17/17 12/06/16 History levETIRAcetam [Keppra TAB] 500 mg PO BID #60 tablet 08/22/16 03/17/17 12/06/16 Rx Loratadine [Claritin] 10 mg PO DAILY PRN 12/07/16 03/17/17 12/06/16 History Melatonin [Melatin] 3 mg PO HS PRN 12/07/16 03/17/17 12/06/16 History Active Meds: Active Medications Famotidine (Pepcid) 20 mg IV PREOP NR Stop: 03/24/17 23:00 Lactated Ringer's (Lactated Ringers) 1,000 mls @ 100 mls/hr IV DIRECT VINCENT Midazolam HCl (Versed) 2 mg IV PREOP NR Stop: 03/24/17 23:00 Review of Systems All systems: negative - Vital Signs Vital signs: Vital Signs Temp Pulse Resp BP 98.5 F 78 16 128/78 03/22/17 10:00 03/22/17 10:00 03/22/17 10:00 03/22/17 10:00 Temp Pulse Resp BP Pulse Ox 98.5 F 78 16 128/78 03/22/17 10:00 03/22/17 10:00 03/22/17 10:00 03/22/17 10:00 - Physical Exam Breasts: Positive: deferred Cardiovascular: Regular rate Lungs: Positive: Clear to auscultation Abdomen: Positive: soft Uterus: Positive: enlarged Extremities: Positive: normal Results Result Diagrams: 03/22/17 10:05 All other labs normal. Assessment and Plan A: Dysfunctional Uterine Bleeding Fibroid Uterus Anemia Failed In-office Biopsy P: Proceed with dilation and curettage, hysteroscopy with possible Myosure endometrial sampling
[~2017-03-24 06:08] MED LIST: ANCEF/STERILE WATER 2 GM/20 ML 2 GM/20 ML SYRINGE IV NR; LACTATED RINGERS 1,000 ML IV SCH; PEPCID IV NR; VERSED IV NR
[2017-03-24] MEDS ORDERED: DIPRIVAN 10 MG/ML IV ONE (07:06)
[2017-03-24] MEDS ORDERED: SUBLIMAZE ONE (07:06)
[2017-03-24] MEDS ORDERED: MONSEL'S TP ONE (07:19)
[2017-03-24] MEDS ORDERED: SILVER NITRATE TP ONE (07:19)
[2017-03-24] MEDS ORDERED: NACL 0.9% IR ONE ×2 (07:19→07:20)
--- NOTE | 2017-03-24 07:21 | Anesthesia Day of Surgery ---
Anesthesia Day of Surgery - Day of Surgery Patient Examined: Yes Patient H&P Reviewed: Yes Patient is NPO: Yes Cardiac Clearance: Yes
[2017-03-24] MEDS ORDERED: DILAUDID IV PRN (07:22)
[2017-03-24] MEDS ORDERED: TRANSDERM-SCOP TD ONE (07:33)
[2017-03-24] MEDS ORDERED: ZOFRAN IV PRN (08:00)
[2017-03-24] MEDS ORDERED: PERCOCET 5/325 PO PRN (08:00)
[2017-03-24] MEDS ORDERED: XYLOCAINE MPF 2% ONE (08:24)
[2017-03-24] MEDS ORDERED: QUELICIN ONE (08:24)
[2017-03-24] MEDS ORDERED: ZOFRAN ONE (08:24)
[2017-03-24] MEDS ORDERED: DECADRON ONE (08:24)
[2017-03-24] MEDS ORDERED: MORPHINE IV PRN (09:00)
--- NOTE | 2017-03-24 09:06 | Short Stay Summary ---
Short Stay Documentation Date of service: 03/24/17 - History H&P: dictated Social history: no significant social history - Allergies and Medications Current Medications: Allergies hydromorphone [From Dilaudid] Allergy (Verified 03/17/17 11:27) Itching promethazine HCl [From Phenergan] Allergy (Verified 03/17/17 11:27) Unknown sulfamethoxazole [From Bactrim] Allergy (Verified 03/17/17 11:27) Hives trimethoprim [From Bactrim] Allergy (Verified 03/17/17 11:27) Hives Home Medications Medication Instructions Recorded Confirmed Last Taken Type Meclizine [Antivert] 25 mg PO TID PRN 06/22/15 03/24/17 03/22/17 History diphenhydrAMINE [Benadryl CAP] 25 mg PO Q8HR PRN 06/22/15 03/24/17 03/23/17 History levETIRAcetam [Keppra TAB] 500 mg PO BID #60 tablet 08/22/16 03/24/17 03/23/17 Rx Loratadine [Claritin] 10 mg PO DAILY PRN 12/07/16 03/24/17 1 Week Ago History ~03/17/17 Melatonin [Melatin] 3 mg PO HS PRN 12/07/16 03/24/17 03/22/17 History Active Medications Famotidine (Pepcid) 20 mg IV PREOP NR Stop: 03/24/17 23:00 Last Admin: 03/24/17 07:00 Dose: 20 mg Cefazolin Sodium (Ancef/Sterile Water 2 Gm/20 Ml) 2 gm in 20 mls @ 80 mls/hr IV PREOP NR PRN Reason: Protocol Stop: 03/24/17 23:59 Lactated Ringer's (Lactated Ringers) 1,000 mls @ 100 mls/hr IV DIRECT VINCENT Last Admin: 03/24/17 06:59 Dose: 100 mls/hr Midazolam HCl (Versed) 2 mg IV PREOP NR Stop: 03/24/17 23:00 Last Admin: 03/24/17 07:31 Dose: 2 mg Morphine Sulfate (Morphine) 2 mg IV Q10MIN PRN PRN Reason: Pain, Moderate (4-6) Stop: 03/24/17 16:00 Ondansetron HCl (Zofran) 4 mg IV ONCE PRN PRN Reason: Nausea And Vomiting Oxycodone/Acetaminophen (Percocet 5/325) 1 tab PO ONCE PRN PRN Reason: Pain, Moderate (4-6) - Physical exam Breasts: deferred - Brief post op/procedure progress note Date of procedure: 03/24/17 Pre-op diagnosis: #1 Dysfunctional uterine bleeding Post-op diagnosis: same Procedure: Hysteroscopy, Endometrial sampling with myosure Anesthesia: GETA Findings: #1 16-18 week size uterus on bimanual exam #2 Multiple large submucosal fibroids #3 Scant endometrium Surgeon: ROSEMARY OSORIO Estimated blood loss: minimal Pathology: list (endometrial curettings) Specimen disposition: to lab Condition: stable - Hospital course Hospital course: Patient underwent hysteroscopy with Myosure endometrial sampling which she tolerated well. She was observed in the PACU until she met discharge criteria. - Disposition Condition at discharge: Good Disposition: DC- TO HOME OR SELFCARE - Discharge Diagnoses (1) Dysfunctional uterine bleeding Status: Acute (2) Fibroid uterus Status: Acute Qualifiers: Uterine leiomyoma location: unspecified location Qualified Code(s): D25.9 - Leiomyoma of uterus, unspecified Short Stay Discharge Plan Activity: other (nothing in vagina for 4 weeks) Weight Bearing Status: Full Weight Bearing Diet: regular Additional Instructions: REMOVE SCOPOLAMINE PATCH FROM BEHIND LEFT EAR. Follow up with: PRIMARY CAREMD [Primary Care Provider] - 7 Days ROSEMARY OSORIO MD [Staff Physician] - 04/07/17 (follow up ) Forms: Outpatient Surgery DC Inst. Prescriptions: Ibuprofen [Motrin] 600 mg PO Q6H PRN #30 tablet PRN Reason: Pain oxyCODONE /ACETAMINOPHEN [Percocet 5/325] 1 tab PO Q6HR PRN #40 tablet PRN Reason: Pain
--- NOTE | 2017-03-24 09:06 | Operative Report ---
Operative Report Operative Report: Date of procedure: 03/24/2017 Preoperative diagnosis: #1 Dysfunctional uterine bleeding #2 Fibroid uterus Postoperative diagnosis: Same Procedure: #1 Hysteroscopy #2 Endometrial sampling with Myosure Surgeon: Santa De Guzman M.D. Anesthesia: Gen. endotracheal anesthesia Findings: #1 16-18 week size uterus on bimanual exam #2 Multiple large submucosal fibroids #3 Scant endometrium Estimated blood loss: 25 mL Deficit: 600 mL Drains: None Specimens: Endometrial curettings to pathology Disposition: Stable to PACU Indication for procedure: Patient is a 46-year-old female 3 para 3003 with a history of dysfunctional uterine bleeding and uterine fibroids who presents for hysteroscopy and endometrial sampling secondary to failed attempted in office endometrial biopsy. Operation in detail: After the risks, benefits, alternatives, and complications with the patient she gave informed consent for the procedure. She subsequently taken to the operating room with her IV noted to be running well and placed in the dorsal supine position. Gen. endotracheal anesthesia was then induced without difficulty. The patient was then placed in the dorsal lithotomy position and prepped and draped in the normal sterile fashion. A timeout was performed. The bladder was then drained with a rubber catheter. An open sided bivalve speculum was placed into the vagina for adequate visualization of the cervix. The anterior lip of the cervix was grabbed and grasped with single-tooth tenaculum. An attempt to pass the sound easily was unsuccessful. The cervix was then sequentially dilated to a #19 [place] dilator. The hysteroscope was then placed into the uterine cavity with visualization of the endometrial cavity containing a large submucosal fibroid as well as intramural fibroids that abutted the endometrial cavity. The Myosure device was used in a standard fashion to obtain a sample of endometrium which was subsequently sent to pathology. At this time all instruments were removed from the endometrial cavity. The single-tooth tenaculum was removed from the cervix and the puncture sites were noted to be hemostatic. At this time she was removed from the vagina and the procedure was ended. The patient was replaced into the dorsal supine position and extubated without difficulty. She was subsequently taken to the PACU in stable condition. All instrument and lap counts were correct 2.
[2017-03-24 11:02] VITALS: BP 120/73
--- NOTE | 2017-03-24 17:52 | Post Anesthesia Evaluation ---
- Post Anesthesia Evaluation Patient Participated: Yes Airway Patent: Yes Stable Respiratory Function: Yes Nausea/Vomiting: No Temp > 96.8F: Yes Pain Manageable: Yes Adequeate Hydration: Yes Anesthesia Complications: No
== END 2017-03-24 10:38 | disposition home or self-care (01) ==
LOC: OR 06:08
PROVIDERS: ATTEND Obstetrics & Gynecology
DX: D25.0 Submucous leiomyoma of uterus (principal); D25.1 Intramural leiomyoma of uterus; D57.3 Sickle-cell trait; K21.9 Gastro-esophageal reflux disease without esophagitis; I10 Essential (primary) hypertension; I25.2 Old myocardial infarction; G40.909 Epilepsy, unspecified, not intractable, without status epilepticus; Z98.890 Other specified postprocedural states; Z98.61 Coronary angioplasty status; Z79.899 Other long term (current) drug therapy; Z88.2 Allergy status to sulfonamides; Z88.8 Allergy status to other drugs, medicaments and biological substances
CPT/HCPCS: 36415; 58558; 84703; 85025; 86850; 86900; 86901; 88305; A4217; C1782; J0330; J0690; J1100; J2250; J2405; J2704; J3010; J7120

== ENCOUNTER 2017-04-14 06:34 | Inpatient (IN) | payer BC ==
[2017-04-12 16:57] LABS: Basophils % (Auto) 0.8 % (0.0-1.8); Eosinophils % (Auto) 3.6 % (0.0-4.3); Mean Corpuscular HGB Conc 29 % (30-34); Platelet Count 521 K/mm3 (140-440); Red Blood Count 4.65 M/mm3 (3.65-5.03); White Blood Count 8.8 K/mm3 (4.5-11.0)
[2017-04-12 16:58] LABS: Hematocrit 27.2 % (30.3-42.9); Hemoglobin 7.8 gm/dl (10.1-14.3); Mean Corpuscular Hemoglobin 17 pg (28-32); Mean Corpuscular Volume 59 fl (79-97); Red Cell Distribution Width 20.6 % (13.2-15.2)
[2017-04-12 17:04] LABS: Anion Gap 16 mmol/L; BUN/Creatinine Ratio 9; Blood Urea Nitrogen 6 mg/dL (7-17); Calcium 8.7 mg/dL (8.4-10.2); Carbon Dioxide 24 mmol/L (22-30); Glucose 105 mg/dL (65-100); Potassium 4.1 mmol/L (3.6-5.0); Sodium 139 mmol/L (137-145)
--- NOTE | 2017-04-13 22:18 | History and Physical Report ---
History of Present Illness Date of examination: 04/13/17 Chief complaint: symptomatic uterine fibroids, symptomatic anemia, pelvic pain, dysfunctional uterine bleeding History of present illness: Pt is a 46 year old -[place] female who presents for definitive treatment of symptomatic uterine fibroids, symptomatic anemia requiring transfusion, dysfunctional uterine bleeding, and pelvic pain. 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 ( Hysteroscopy with Mysoure endometrial sampling ), section (x 3 ), other (cardiac catheterization ) [employer]PER[employer]OR [employer]AVE [employer] History: fibroids Family/Genetic History: diabetes, hypertension, cancer Social history: no significant social history Medications and Allergies Allergies Allergy/AdvReac Type Severity Reaction Status Date / Time hydromorphone [From Dilaudid] Allergy Itching Verified 04/13/17 07:50 misoprostol [From Cytotec] Allergy N&V Verified 04/13/17 07:50 promethazine HCl Allergy Unknown Verified 04/13/17 07:50 [From Phenergan] sulfamethoxazole Allergy Hives Verified 04/13/17 07:50 [From Bactrim] trimethoprim [From Bactrim] Allergy Hives Verified 04/13/17 07:50 Home Medications Medication Instructions Recorded Confirmed Last Taken Type Meclizine [Antivert] 25 mg PO TID PRN 06/22/15 04/12/17 03/22/17 History diphenhydrAMINE [Benadryl CAP] 25 mg PO Q8HR PRN 06/22/15 04/12/17 03/23/17 History levETIRAcetam [Keppra TAB] 500 mg PO BID #60 tablet 08/22/16 04/12/17 03/23/17 Rx Loratadine [Claritin] 10 mg PO DAILY PRN 12/07/16 04/12/17 1 Week Ago History ~03/17/17 Melatonin [Melatin] 3 mg PO HS PRN 12/07/16 04/12/17 03/22/17 History Ibuprofen [Motrin] 600 mg PO Q6H PRN #30 tablet 03/24/17 04/12/17 Unknown Rx oxyCODONE /ACETAMINOPHEN [Percocet 1 tab PO Q6HR PRN #40 tablet 03/24/17 Unknown Rx 5/325] Active Meds: Active Medications Cefazolin Sodium (Ancef/Sterile Water 2 Gm/20 Ml) 2 gm in 20 mls @ 80 mls/hr IV PREOP VINCENT PRN Reason: Protocol Lactated Ringer's (Lactated Ringers) 1,000 mls @ 100 mls/hr IV DIRECT VINCENT Sodium Chloride (Nacl 0.9% 500 Ml) 500 mls @ 0 mls/hr IV ONCE ONE PRN Reason: As Directed Stop: 04/14/17 04:01 Review of Systems All systems: negative - Vital Signs Vital signs: Vital Signs Temp Pulse Resp BP 98.2 F 88 16 116/68 04/12/17 16:20 04/12/17 16:20 04/12/17 16:20 04/12/17 16:20 Temp Pulse Resp BP Pulse Ox 98.2 F 88 16 116/68 04/12/17 16:20 04/12/17 16:20 04/12/17 16:20 04/12/17 16:20 - Physical Exam Breasts: Positive: deferred Cardiovascular: Regular rate Lungs: Positive: Clear to auscultation Abdomen: Positive: soft Uterus: Positive: enlarged Extremities: Positive: normal Results Result Diagrams: 04/12/17 16:30 04/12/17 16:30 All other labs normal. Assessment and Plan A: Dysfunctional Uterine Bleeding Fibroid Uterus Pelvic Pain Previous x 3 Anemia Hypertension Seizure Disorder Vertigo P: Transfuse pt 2 units of PRBCs preoperatively then recheck hemoglobin and hematocrit prior to surgery Cell saver during procedure Proceed with total abdominal hysterectomy, bilateral salpingectomy, possible oophorectomy and other indicated procedures.
[~2017-04-14 06:34] MED LIST changes: -ANCEF/STERILE WATER 2 GM/20 ML 2 GM/20 ML SYRINGE IV NR; +ANCEF/STERILE WATER 2 GM/20 ML 2 GM/20 ML SYRINGE IV SCH; +NACL 0.9% 500 ML 500 ML IV ONE; -PEPCID IV NR; -VERSED IV NR
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
[2017-04-14] MEDS ORDERED: NACL 0.9% 1000 ML 1,000 ML ONE ×2 (08:43→08:51)
[2017-04-14] MEDS ORDERED: VERSED IV NR (09:00)
[2017-04-14] MEDS ORDERED: SUBLIMAZE IV NR (09:00)
[2017-04-14] MEDS ORDERED: NEURONTIN PO NR (09:00)
[2017-04-14] MEDS ORDERED: TRANSDERM-SCOP TD NR (09:00)
[2017-04-14] MEDS ORDERED: PEPCID IV NR (09:00)
[2017-04-14] MEDS ORDERED: XYLOCAINE MPF 2% ONE (09:12)
[2017-04-14] MEDS ORDERED: ZEMURON IV ONE ×2 (09:14→11:04)
[2017-04-14] MEDS ORDERED: ACD-A 500 ML IV ONE (09:34)
[2017-04-14] MEDS ORDERED: SUBLIMAZE ONE (10:23)
[2017-04-14] MEDS ORDERED: NEO SYNEPHRINE/NS Syringe(OR USE) IV ONE (11:04)
[2017-04-14] MEDS ORDERED: DECADRON ONE (11:04)
[2017-04-14] MEDS ORDERED: ARTIFICIAL TEARS OPHTH OINT ONE (11:05)
[2017-04-14] MEDS ORDERED: ZOFRAN ONE (11:05)
[2017-04-14] MEDS ORDERED: NACL 0.9% IR ONE ×2 (11:20)
[2017-04-14] MEDS ORDERED: ACD-A IV ONE (11:20)
[2017-04-14] MEDS ORDERED: ROBINUL ONE ×2 (12:52)
--- NOTE | 2017-04-14 13:13 | Post Operative Note ---
Date of procedure: 04/14/17 Pre-op diagnosis: Symptomatic uterine fibroids, pelvic pain, Anemia, Dysfunctional Uterine Bl Post-op diagnosis: same Findings: 1) 14-16 wk sized uterus with multiple fibroids 2) Normal appearing ovaries and fallopian tubes 3) Dense adhesions of the peritoneum to the anterior surface of the uterus Procedure: Total abdominal hysterectomy, bilateral salpingectomy, lysis of adhesions Anesthesia: GETA Surgeon: ROSEMARY OSORIO Cleat Maker: JEREMIHA HAGER Estimated blood loss: other (400 mL) Pathology: list (uterus, cervix, fibroid, bilateral fallopian tubes) Specimen disposition: to lab Condition: stable Disposition: PACU
--- NOTE | 2017-04-14 13:13 | Operative Report ---
Operative Report Operative Report: Date of procedure: April 14, 2017 Preoperative diagnosis: 1) Dysfunctional Uterine Bleeding 2) Pelvic Pain 3) Fibroid Uterus 4) Anemia Postoperative diagnosis: Same 5) Intraabdominal adhesions Procedure: Total Abdominal Hysterectomy, Bilateral Salpingectomy , Lysis of Adhesions Surgeon: Santa De Guzman MD Software Applications Specialist: Natasha Verdin MD Anesthesia:GETA Findings: 1) 14-16 wk sized uterus with multiple uterine fibroids 2) Normal appearing ovaries and tubes EBL: 400 mL IVF: 2500 mL Urine output: 650 mL, clear at the end of the procedure Drains: Shelton to gravity Cell Saver: 125 mL given back to the patient Specimen: Uterus, cervix, bilateral fallopian tubes and fibroid to pathology Complications: None. Counts correct x 2. Disposition: Stable to PACU Indication for procedure: Pt is a 46 year old -[place] female who presents for definitive management of pelvic pain, dysfunctional uterine bleeding causing symptomatic anemia and uterine fibroids. Operation in detail: After the risks, benefits, alternatives and complications were explained to the patient she gave informed consent for the procedure. She was subsequently taken to the operating room with her IV noted to be running well and placed in the dorsal supine position. SCDs were noted to be in place and functioning. General endotracheal anesthesia was induced without difficulty. She was then placed in the dorsal supine position and prepped and draped in a normal sterile fashion. A shelton catheter was inserted and the bladder was emptied. A timeout was performed. A Pfannenstiel skin incision was made with the knife and carried down to the fascia with the Bovie. The fascia was then incised in the midline with the Bovie , and the fascial incision was extended with the Bovie. The anterior edge was then grasped with two Kochers, tented up and dissected off the rectus muscles. The posterior edge was then grasped with two Kochers, tented up, and dissected off the rectus muscles. The rectus muscles were then blunty. The peritoneum was entered sharply between two Monica clamps. The peritoneal incision was then stretched with good visualization of the bladder. Intraabdominal survery was completed and noted as above. Dense adhesions of the parietal peritoneum to the right anterior surface were lysed with Bovie cautery for 20 minutes of the case. Once the uterus was mobilized, the uterus was delivered through the incision. The right round ligament was transected during the previous lysis of adhesions. The anterior leaf of the broad ligament was dissected to the midline of the vesico-uterine peritoneum. An avascular window was created, and the right utero- ovarian ligament and fallopian tube were clamped, cut and suture ligated with 0- Vicryl. The left round ligament was transected and suture ligated. The fallopian tube and utero-ovarian ligaments were also doubly clamped, cut and suture ligated with 0 Vicryl. The anterior leaf of the broad ligament on the left side was also dissected to the midline of the vesico-uterine peritoneum. A moist sponge stick was used to move the bladder inferiorly off of the cervix. A fibroid on the right side of the uterus near the level of the uterine arteries was excised and sent to pathology. Next, both uterine arteries were doubly clamped, cut and suture ligated with 0-Vicryl. The uterus was then amputated and handed off the operative field. The cervix was then grasped with a single- toothed tenaculum. The cardinal ligaments and utero-sacral ligaments were then sequentially clamped, cut and suture ligated with 0-Vicryl. Sharply curved Zeppelin clamps were then placed at the angles of the vagina. The cervix was then excised and sent to pathology. Soham stitches were then used to reapproximate the vaginal angles. The remainder of the vaginal cuff was then reapproximated with figure of eights of 0-Vicryl. Hemostasis was noted. The fallopian tubes were then excised bilaterally and sent to pathology. The remaining pedicles suture ligated with 0-Vicryl. Hemostasis was noted. The abdomen was then irrigated and all pedicles were noted to be hemostatic. Malik AH was then sprinkled over the pedicles. Next, all retractors, laps and instruments were removed from the peritoneal cavity. The peritoneum, rectus muscles, and fascia were reapproximated with 0 Vicryl in an interrupted fashion with figure of eights. The skin was reapproximated with 4-0 Vicryl in a subcuticular fashion. The incision was then covered with steristrips and a pressure dressing. The procedure was then ended. The pt was then extubated without difficulty and taken to the PACU in stable condition. All instrument, lap and needle counts were correct x 2.
[2017-04-14] MEDS ORDERED: MORPHINE IV PRN (13:43)
[2017-04-14] MEDS: MORPHINE IV PRN ×2 (14:10→14:28)
[2017-04-14] MEDS ORDERED: MORPHINE PCA 30MG/30ML IV SCH (15:34)
[2017-04-14] MEDS ORDERED: ZOFRAN IV PRN (15:34)
[2017-04-14] MEDS ORDERED: DULCOLAX PR PRN (15:34)
[2017-04-14] MEDS ORDERED: NARCAN 0.4 MG/1 ML IV PRN ×2 (15:34)
[2017-04-14] MEDS ORDERED: PHENERGAN PR PRN (15:34)
[2017-04-14] MEDS ORDERED: ANCEF/NS 1 GM/50 ML 1 GM/50 ML BAG IV SCH (15:34)
[2017-04-14] MEDS ORDERED: REGLAN IV PRN (15:34)
[2017-04-14] MEDS ORDERED: D5LR 1,000 ML IV SCH (15:34)
[2017-04-14] MEDS: ceFAZolin 1 GM in NACL 0.9% 20 ML IV SCH (17:22)
[2017-04-14] MEDS: TORADOL IV SCH ×2 (17:48→23:16)
[2017-04-14 17:54] LABS: Hematocrit 37.1 % (30.3-42.9); Hemoglobin 11.8 gm/dl (10.1-14.3)
[2017-04-14] MEDS: COLACE PO SCH (22:00)
[2017-04-14] MEDS: PEPCID IV SCH (23:16)
[2017-04-15] MEDS: ceFAZolin 1 GM in NACL 0.9% 20 ML IV SCH ×3 (01:35→16:41)
[2017-04-15] MEDS: BENADRYL IV PRN (02:44)
[2017-04-15] MEDS: MILK OF MAGNESIA PO PRN (04:11)
[2017-04-15 05:31] LABS: Hematocrit 34.6 % (30.3-42.9); Hemoglobin 10.9 gm/dl (10.1-14.3)
[2017-04-15 06:06] LABS: Anion Gap 19 mmol/L; BUN/Creatinine Ratio 7; Blood Urea Nitrogen 4 mg/dL (7-17); Calcium 8.6 mg/dL (8.4-10.2); Carbon Dioxide 22 mmol/L (22-30); Chloride 102.4 mmol/L (98-107); Glucose 96 mg/dL (65-100); Potassium 4.1 mmol/L (3.6-5.0); Sodium 139 mmol/L (137-145)
[2017-04-15] MEDS: TORADOL IV SCH ×3 (06:53→18:10)
--- NOTE | 2017-04-15 08:52 | Progress Note ---
Assessment and Plan A: POD#1 s/p MARE/bilateral salpingectomy Anemia s/p 2 units PRBCs P: Routine postoperative care. 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 Subjective - Subjective Date of service: 04/15/17 Principal diagnosis: POD#1 s/p MARE Interval history: Pt without complaints. Patient reports: pain well controlled, ambulating normally, no voiding normally (shelton ), no nauseated [place]: doing well Objective - Vital Signs Latest vital signs: Vital Signs Temp Pulse Pulse Resp BP BP Pulse Ox 04/15/17 04:13 16 04/15/17 03:49 97.9 F 65 18 131/81 100 04/14/17 23:29 97.7 F 71 18 118/70 97 04/14/17 20:04 97.7 F 79 18 125/82 99 04/14/17 19:30 70 99 04/14/17 17:48 20 04/14/17 15:41 97.5 F L 89 16 120/79 04/14/17 14:40 17 04/14/17 14:30 15 04/14/17 14:28 20 04/14/17 14:10 16 04/14/17 13:30 90 15 103/73 100 04/14/17 13:15 75 15 99/70 100 04/14/17 13:10 78 15 104/65 100 04/14/17 13:05 98.8 F 83 14 96/67 100 04/14/17 10:14 99.1 F 90 16 121/76 100 04/14/17 10:10 99.1 F 90 18 121/76 100 04/14/17 10:05 99.1 F 93 H 20 124/76 100 04/14/17 10:00 99.1 F 90 11 L 141/84 100 04/14/17 09:55 99.1 F 84 14 140/82 100 04/14/17 09:50 99.1 F 80 13 142/91 100 04/14/17 09:45 99.1 F 80 13 142/91 100 04/14/17 09:40 99.1 F 78 23 148/84 100 04/14/17 09:35 99.1 F 77 13 148/84 100 04/14/17 09:30 99.1 F 70 18 140/89 100 04/14/17 09:15 99 F 72 18 147/80 100 04/14/17 09:00 98 F 75 18 135/76 100 04/14/17 08:50 98.9 F 73 18 129/81 100 Intake and Output 04/14/17 04/15/17 04/15/17 22:59 06:59 14:59 Intake Total 590 Output Total 1300 1650 Balance -1300 -1060 Intake: Oral 590 Output: Urine 1300 1650 Indwelling Catheter 1300 1650 Other: Total, Intake Amount 590 Total, Output Amount 150 1650 Voiding Method Indwelling Catheter Weight 45.359 kg 45.4 kg - Exam Breasts: Present: deferred Cardiovascular: Present: Regular rate Lungs: Present: Clear to auscultation Abdomen: Present: soft, normal bowel sounds Extremities: Present: normal - Labs Labs: Abnormal lab results 04/12/17 04/15/17 Range/Units 16:30 04:11 BUN 4 L (7-17) mg/dL Creatinine 0.6 L (0.7-1.2) mg/dL Crossmatch See Detail
[2017-04-15] MEDS ORDERED: MORPHINE IV PRN (08:57)
[2017-04-15] MEDS: PEPCID IV SCH ×2 (09:34→22:12)
[2017-04-15] MEDS: PERCOCET 5/325 PO PRN ×3 (09:34→22:16)
[2017-04-15] MEDS: KEPPRA PO SCH ×2 (09:36→22:12)
[2017-04-15] MEDS: COLACE PO SCH ×2 (09:36→22:12)
[2017-04-15] MEDS ORDERED: PROTONIX IV SCH (10:00)
[2017-04-15] MEDS: BENADRYL PO PRN ×2 (11:35→22:37)
--- NOTE | 2017-04-15 16:16 | Query-Anemia ---
Dear Date: 04/15/17 Traffic Expert/KIMBERLY:[place]ion Phone#:[phone] Exercise your independent professional judgment when responding to this query. Questions asked do not imply a particular answer is desired or expected. We greatly appreciate your clarification on this issue. Clinical Documentation States: 46 year old female was admitted on 04/14/17. Operative Report(Dr. 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 Progress NoteDrJustin De Guzman on 04/15/17) states" Assessment and Plan POD#1 s/p MARE/bilateral salpingectomy Anemia s/p 2 units PRBCs " Clinical Findings Show: 04/12/17 04/04/17 04/15/17 Hgb 7.8 11.8 10.9 Hct 27.2 37.2 34.6 Etiology: [ ] Anemia due to acute blood loss [ X] Anemia due to chronic blood loss [ ] Anemia secondary to ESRD [ ] Anemia secondary to neoplastic disease [ ] Iron deficiency anemia due to malabsorption [ ] GI Bleed from: [ ] Anemia of chronic disease ,Other: [ ] Precipitous Drop in Hemoglobin [ ] Precipitous Drop in Hematocrit [ X] Other:___Pt was transfused 2 units of PRBCs the morning of surgery. Will repeat H/H in the morning (04/16) [ ] Unable to determine [ ] Comment/Explanation: Present on Admission: [X ] Yes (Y) [ ] Clinically undeterminable (W) [ ] No (N) Please also document response in your Progress Notes and/or Discharge Summary and indicate if the condition was present on admission. CLARE
[2017-04-16] MEDS: PERCOCET 5/325 PO PRN ×2 (08:02→13:28)
--- NOTE | 2017-04-16 08:21 | Progress Note ---
Assessment and Plan A: POD#2 s/p MARE/bilateral salpingectomy Anemia s/p 2 units PRBCs P: Routine postoperative care. Subjective - Subjective Date of service: 04/16/17 Principal diagnosis: POD#2 s/p MARE Interval history: No overnight events. Patient reports: appetite normal, voiding normally, pain well controlled, flatus , ambulating normally, no bowel movement Objective - Vital Signs Latest vital signs: Vital Signs Temp Pulse Resp BP Pulse Ox 04/16/17 04:30 98.2 F 72 18 102/62 93 04/16/17 00:41 97.7 F 72 18 96/56 95 04/15/17 21:01 97.6 F 69 18 111/65 100 04/15/17 16:28 98.0 F 64 20 113/61 100 04/15/17 11:39 59 L 20 100/63 100 04/15/17 08:53 98.0 F 63 18 117/75 100 Intake and Output 04/15/17 04/16/17 04/16/17 22:59 06:59 14:59 Intake Total 120 620 Output Total 350 200 Balance -230 420 Intake: Oral 120 620 Output: Urine 350 200 Void 350 200 Other: Total, Intake Amount 120 620 Total, Output Amount 350 200 Voiding Method Toilet # Bowel Movements 0 - Exam Breasts: Present: deferred Cardiovascular: Present: Regular rate Lungs: Present: Clear to auscultation Abdomen: Present: soft, normal bowel sounds Extremities: Present: normal Incision: Present: dressed
[2017-04-16] MEDS ORDERED: MOTRIN PO PRN (09:00)
[2017-04-16] MEDS: ceFAZolin 1 GM in NACL 0.9% 20 ML IV SCH ×2 (09:26→17:26)
[2017-04-16] MEDS: TORADOL IV SCH ×4 (11:28→20:36)
[2017-04-16 11:51] LABS: Hematocrit 34.6 % (30.3-42.9); Hemoglobin 10.7 gm/dl (10.1-14.3)
[2017-04-16] MEDS: COLACE PO SCH ×2 (13:27→21:51)
[2017-04-16] MEDS: PEPCID IV SCH ×2 (13:29→21:52)
[2017-04-16] MEDS: KEPPRA PO SCH ×2 (13:29→21:52)
[2017-04-16] MEDS: BENADRYL IV PRN (13:29)
[2017-04-16] MEDS: BENADRYL PO PRN (21:52)
[2017-04-17] MEDS: ceFAZolin 1 GM in NACL 0.9% 20 ML IV SCH ×2 (10:01→16:39)
[2017-04-17] MEDS: COLACE PO SCH ×2 (10:10→21:50)
[2017-04-17] MEDS: KEPPRA PO SCH ×2 (10:10→21:56)
[2017-04-17] MEDS: PERCOCET 5/325 PO PRN ×2 (10:11→17:02)
[2017-04-17] MEDS: MILK OF MAGNESIA PO PRN (10:11)
[2017-04-17] MEDS: PEPCID IV SCH (10:12)
[2017-04-17] MEDS: TORADOL IV SCH ×2 (11:00→16:39)
[2017-04-17] MEDS: BENADRYL PO PRN ×2 (11:40→21:54)
--- NOTE | 2017-04-17 17:18 | Progress Note ---
Assessment and Plan A: POD#3 s/p MARE/bilateral salpingectomy Anemia s/p 2 units PRBCs- stable Wound infection P: Routine postoperative care. Begin PO Clindamycin Anticipate discharge tomorrow Subjective - Subjective Date of service: 04/17/17 Principal diagnosis: POD#3 s/p MARE Interval history: Pt c/o indurated area in midline of incision Patient reports: appetite normal, voiding normally, pain well controlled, flatus , ambulating normally, no bowel movement, no nauseated Objective - Vital Signs Latest vital signs: Vital Signs Temp Pulse Resp BP BP Pulse Ox 04/17/17 12:19 97.9 F 69 18 131/81 97 04/17/17 11:11 18 04/17/17 09:34 98.5 F 97 H 18 113/78 97 04/17/17 08:55 98.8 F 99 H 18 113/78 98 04/17/17 04:05 98.1 F 88 18 108/73 04/17/17 00:00 98.0 F 67 18 130/75 04/16/17 20:36 18 04/16/17 20:00 98.1 F 71 18 140/84 Intake and Output 04/17/17 04/17/17 04/17/17 06:59 14:59 22:59 Intake Total 240 360 Balance 240 360 Intake: Oral 240 360 Other: Total, Intake Amount 240 360 Voiding Method Toilet # Voids Void 4 1 # Bowel Movements 0 - Exam Breasts: Present: deferred Cardiovascular: Present: Regular rate Lungs: Present: Clear to auscultation Abdomen: Present: soft, abnormal bowel sounds (hypoactive ) Extremities: Present: normal Incision: Present: intact (with induration and somewhat purulent area in midline of incision)
[2017-04-17] MEDS: CLEOCIN PO SCH ×2 (18:33→21:50)
[2017-04-17] MEDS ORDERED: CITRATE OF MAGNESIA PO ONE (23:25)
--- NOTE | 2017-04-18 08:52 | Progress Note ---
Assessment and Plan A: POD#4 s/p MARE/bilateral salpingectomy Anemia s/p 2 units PRBCs- stable Wound infection P: Routine postoperative care. Discharge today. Subjective - Subjective Date of service: 04/18/17 Principal diagnosis: POD#4 s/p MARE Interval history: Pt asking to go home. She had a small bowel movement this morning. Patient reports: appetite normal, voiding normally, pain well controlled, flatus , bowel movement, ambulating normally : doing well Objective - Vital Signs Latest vital signs: Vital Signs Temp Pulse Resp BP BP Pulse Ox 04/18/17 04:00 98.1 F 72 18 114/72 04/18/17 00:00 98.0 F 82 16 116/80 04/17/17 20:00 98.4 F 76 20 115/81 96 04/17/17 17:05 98.2 F 72 18 110/80 97 04/17/17 12:19 97.9 F 69 18 131/81 97 04/17/17 11:11 18 04/17/17 09:34 98.5 F 97 H 18 113/78 97 04/17/17 08:55 98.8 F 99 H 18 113/78 98 Intake and Output 04/17/17 04/18/17 04/18/17 22:59 06:59 14:59 Intake Total 600 Balance 600 Intake: Oral 360 Intake, Free Water 240 Other: Total, Intake Amount 360 # Voids Void 1 # Bowel Movements 0 - Exam Breasts: Present: deferred Cardiovascular: Present: Regular rate Lungs: Present: Clear to auscultation Abdomen: Present: soft Extremities: Present: normal Incision: Present: intact (one area of drainage at the center of incision )
--- NOTE | 2017-04-18 08:55 | Discharge Summary ---
Providers - Providers Date of Admission: 04/14/17 06:34 Date of discharge: 04/18/17 Attending physician: ROSEMARY DE GUZMAN Primary care physician: STAFFING RN Hospitalization Reason for admission: other (hysterectomy ) Procedure details: Please see operative note. Incision: normal, intact Other procedures: none complications: none Hospital course: Pt underwent abdominal hysterectomy which she tolerated well. Her postoperative course was uncomplicated and she met discharge criteria on POD#4. She will follow up in the office in [address] De Guzman. 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 Qualified Code(s): D50.0 - Iron deficiency anemia secondary to blood loss (chronic) (2) S/P abdominal hysterectomy Status: Acute (3) Seizure disorder Status: Acute (4) Anemia requiring transfusions Status: Chronic (5) Uterine fibroid Status: Chronic Qualifiers: Uterine leiomyoma location: unspecified location Qualified Code(s): D25.9 - Leiomyoma of uterus, unspecified Plan - Discharge Medications Prescriptions: Ibuprofen [Motrin] 800 mg PO Q8HR PRN #30 tablet PRN Reason: Pain levETIRAcetam [Keppra] 500 mg PO BID #60 tablet Ondansetron [Zofran TAB] 4 mg PO Q12H PRN #30 tablet PRN Reason: Nausea oxyCODONE /ACETAMINOPHEN [Percocet 5/325] 1 tab PO Q6HR PRN #30 tablet PRN Reason: Pain - Provider Discharge Summary Activity: routine, no sex for 6 weeks, no heavy lifting 4 weeks, no strenuous exercise Diet: routine Instructions: routine Additional instructions: [] Smoking cessation referral if applicable(refer to patient education folder for contact #) [] Refer to [facility]'s [facility] Booklet Call your doctor immediately for: * Fever > 100.5 * Heavy vaginal bleeding ( >1 pad per hour) * Severe persistent headache * Shortness of breath * Reddened, hot, painful area to leg or breast * Drainage or odor from incision. * Keep incision clean and dry at all times and follow doctor's instructions regarding bathing/showering - Follow up plan Follow up: JADA NEVAREZ MD [Primary Care Provider] - 7 Days ROSEMARY DE GUZMAN MD [Staff Physician] - 04/22/17 (incision check - please call for appt )
[2017-04-18] MEDS: COLACE PO SCH (09:00)
[2017-04-18] MEDS: CLEOCIN PO SCH (09:00)
[2017-04-18] MEDS: KEPPRA PO SCH (09:00)
[2017-04-18 09:02] VITALS: BP 134/86
[2017-04-18] MEDS: PEPCID IV SCH (09:35)
== END 2017-04-18 10:05 | disposition home or self-care (01) | DRG 742 ==
LOC: 3A 06:34 → OB 14:05
PROVIDERS: ADMIT Obstetrics & Gynecology; ATTEND Obstetrics & Gynecology
PROC: 0UT94ZZ Resection of Uterus, Percutaneous Endoscopic Approach (ICD-10-PCS; principal; 2017-04-14)
PROC: 0DNW4ZZ Release Peritoneum, Percutaneous Endoscopic Approach (ICD-10-PCS; 2017-04-14)
PROC: 0UT74ZZ Resection of Bilateral Fallopian Tubes, Percutaneous Endoscopic Approach (ICD-10-PCS; 2017-04-14)
PROC: 30233N1 Transfusion of Nonautologous Red Blood Cells into Peripheral Vein, Percutaneous Approach (ICD-10-PCS; 2017-04-14)
DX: D25.9 Leiomyoma of uterus, unspecified (principal); T81.4XXA Infection following a procedure, initial encounter; D50.0 Iron deficiency anemia secondary to blood loss (chronic); N93.8 Other specified abnormal uterine and vaginal bleeding; Z88.8 Allergy status to other drugs, medicaments and biological substances; I10 Essential (primary) hypertension; Z83.3 Family history of diabetes mellitus; Z82.49 Family history of ischemic heart disease and other diseases of the circulatory system; G40.909 Epilepsy, unspecified, not intractable, without status epilepticus
CPT/HCPCS: 36415; 36430; 64450; 80048; 84703; 85014; 85018; 85025; 86850; 86900; 86901; 86920; 88307; J0690; J1100; J1200; J1885; J2250; J2270; J2370; J2405; J3010; J7030; J7120; J7121; P9016

== ENCOUNTER 2017-07-06 14:21 | Outpatient (CLI) | payer BC ==
--- NOTE | 2017-07-07 07:30 | Mammography Report ---
Bilateral mammogram: Compared to 08/07/11. CAD study utilized. Findings: Scattered lingular parenchyma bilaterally. Focal circumscribed 1 cm asymmetry noted upper-outer anterior right breast. No microcalcification. Benign axillary nodes. Impression: New focal asymmetry right breast. Recommend spot mag and if necessary sonographic examination. BI-RADS CATEGORY: 0 = Needs additional imaging evaluation ACR BI-RADS MAMMOGRAPHIC CODES: 0 = Needs additional imaging evaluation; 1 = Negative; 2 = Benign; 3 = Probably benign; 4 = Suspicious; 5 = Malignant; 6 = Known biopsy-proven malignancy COMMENT: 1. Dense breast tissue, i.e., adenosis, fibrocystic changes, etc., may obscure an underlying neoplasm. 2. Approximately 10% of cancers are not detected with mammography. 3. A negative mammography report should not delay biopsy if a clinically suspicious mass is present. COMMENT: Patient follow-up letters are generated in [place].
== END 2017-07-06 14:22 | disposition home or self-care (01) ==
LOC: MAMMO 14:21
PROVIDERS: ATTEND Obstetrics & Gynecology
DX: Z12.31 Encounter for screening mammogram for malignant neoplasm of breast (principal)
CPT/HCPCS: 77067

== ENCOUNTER 2017-07-16 08:54 | Outpatient (CLI) | payer BC ==
--- NOTE | 2017-07-16 10:08 | Mammography Report ---
Right mammogram and right breast ultrasound: Call back for right asymmetry. Lateral compression imaging of the breast demonstrates normal fibroglandular appearing tissue. There is a question of a focal elongated area of tissue density in the upper breast corresponding to the asymmetry on the prior exam. This is somewhat inhomogeneous and has no particularly suspicious characteristics. Ultrasound of the upper half of the breast fails to identify any echogenic abnormality. Impression: Persistent right breast asymmetry having no suspicious characteristics or correlation on CC projection nor ultrasound. Probably benign. Recommendation: Repeat right mammogram in 6 months. BI-RADS CATEGORY: 3 = Probably benign ACR BI-RADS MAMMOGRAPHIC CODES: 0 = Needs additional imaging evaluation; 1 = Negative; 2 = Benign; 3 = Probably benign; 4 = Suspicious; 5 = Malignant; 6 = Known biopsy-proven malignancy COMMENT: 1. Dense breast tissue, i.e., adenosis, fibrocystic changes, etc., may obscure an underlying neoplasm. 2. Approximately 10% of cancers are not detected with mammography. 3. A negative mammography report should not delay biopsy if a clinically suspicious mass is present.
--- NOTE | 2017-07-16 13:53 | Cat Scan Report ---
CT pelvis with contrast: Pain. Transverse images are obtained from the iliac crests to the ischium following IV and oral contrast administration. Coronal and sagittal 2-D reformatted images are included. The left ovary measures approximately 3.5 cm. There are at least 2 cysts within the ovary with the larger measuring 17 and 22 mm respectively. The right ovary contains a less well defined smaller cyst. The uterus is been removed. A small volume of cul-de-sac fluid is present. The visualized bowel is unremarkable. There is no adenopathy. No bone lesions. Impression: Left ovarian cysts.
== END 2017-07-16 08:55 | disposition home or self-care (01) ==
LOC: MAMMO 08:54
PROVIDERS: ATTEND Obstetrics & Gynecology
DX: N83.202 Unspecified ovarian cyst, left side (principal); N83.201 Unspecified ovarian cyst, right side; N64.89 Other specified disorders of breast; R92.2 Inconclusive mammogram; D64.9 Anemia, unspecified; I25.10 Atherosclerotic heart disease of native coronary artery without angina pectoris; Z90.710 Acquired absence of both cervix and uterus
CPT/HCPCS: 72193; 76642; 77065; Q9967

== ENCOUNTER 2017-08-01 01:17 | Emergency (ER) | payer BC ==
[2017-08-01] MEDS ORDERED: ASPIRIN PO ONE (01:35)
[2017-08-01 02:03] LABS: Hematocrit 43.7 % (30.3-42.9); Hemoglobin 13.9 gm/dl (10.1-14.3); Mean Corpuscular HGB Conc 32 % (30-34); Mean Corpuscular Volume 73 fl (79-97); Platelet Count 358 K/mm3 (140-440); Red Blood Count 5.99 M/mm3 (3.65-5.03); Red Cell Distribution Width 16.1 % (13.2-15.2)
[2017-08-01 02:08] LABS: BUN/Creatinine Ratio 13; Blood Urea Nitrogen 8 mg/dL (7-17); Calcium 9.4 mg/dL (8.4-10.2); Hemolysis Index 49
[2017-08-01 02:30] LABS: Mean Corpuscular Hemoglobin 23 pg (28-32)
[2017-08-01] MEDS ORDERED: TORADOL ONE (04:09)
[2017-08-01 04:18] VITALS: BP 162/87
[2017-08-01] MEDS ORDERED: TORADOL IM ONE (04:20)
--- NOTE | 2017-08-01 04:40 | Emergency Department Report ---
ED Chest Pain HPI - General Chief Complaint: Chest Pain Stated Complaint: CHEST PAIN Time Seen by Provider: 08/01/17 02:41 Source: patient Mode of arrival: Ambulatory Limitations: No Limitations - History of Present Illness Initial Comments: Ms. Serra is a 46-year-old female with history of GERD who presents with 2 days of chest pain. She felt as if it was gas. She took Maalox and Pepto- Bismol without relief. Pain has been constant. She also has left arm swelling and left arm pain. Gradual onset of symptoms. No change with exertion or movement. Pain is been constant. She is admitted able to work and watch her grandchildren in spite of the pain. She's had normal cardiac cath. She does not have any cardiac risk factors. She recently returned to work May after hysterectomy for uterine fibroids and anemia. She has had previous chest pain similar. Usually chest pain is related to anemia and GERD. MD Complaint: chest pain -: Gradual, days(s) (2) Onset: during rest Pain Location: substernal Pain Radiation: LUE Severity: moderate Severity scale (0 -10): 10 Quality: aching Consistency: constant Improves With: nothing Worsens With: nothing re: denies: nausea, vomting, dyspnea, sense of impending doom Other Symptoms: cough - Related Data Home Medications Medication Instructions Recorded Confirmed Last Taken Meclizine [Antivert] 25 mg PO TID PRN 06/22/15 04/14/17 04/09/17 diphenhydrAMINE [Benadryl CAP] 25 mg PO Q8HR PRN 06/22/15 04/14/17 04/13/17 Loratadine [Claritin] 10 mg PO DAILY PRN 12/07/16 04/14/17 04/09/17 Melatonin [Melatin] 3 mg PO HS PRN 12/07/16 04/14/17 04/09/17 Previous Rx's Medication Instructions Recorded Last Taken Type levETIRAcetam [Keppra TAB] 500 mg PO BID #60 tablet 08/22/16 04/11/17 Rx Ibuprofen [Motrin] 600 mg PO Q6H PRN #30 tablet 03/24/17 04/09/17 Rx oxyCODONE /ACETAMINOPHEN [Percocet 1 tab PO Q6HR PRN #40 tablet 03/24/17 Rx 5/325] Ibuprofen [Motrin] 800 mg PO Q8HR PRN #30 tablet 04/15/17 Unknown Rx Ondansetron [Zofran TAB] 4 mg PO Q12H PRN #30 tablet 04/15/17 Unknown Rx levETIRAcetam [Keppra] 500 mg PO BID #60 tablet 04/15/17 Unknown Rx oxyCODONE /ACETAMINOPHEN [Percocet 1 tab PO Q6HR PRN #30 tablet 04/15/17 Unknown Rx 5/325] Clindamycin [Clindamycin CAP] 300 mg PO Q6H #28 capsule 04/18/17 Unknown Rx Allergies Allergy/AdvReac Type Severity Reaction Status Date / Time hydromorphone [From Dilaudid] Allergy Itching Verified 04/13/17 07:50 misoprostol [From Cytotec] Allergy N&V Verified 04/13/17 07:50 promethazine HCl Allergy Unknown Verified 04/13/17 07:50 [From Phenergan] sulfamethoxazole Allergy Hives Verified 04/13/17 07:50 [From Bactrim] trimethoprim [From Bactrim] Allergy Hives Verified 04/13/17 07:50 Heart Score - HEART Score History: Slightly suspicious EKG: Normal Age: 45-65 Risk factors: No known risk factors Troponin: < normal limit HEART Score: 1 ED Review of Systems ROS: Stated complaint: CHEST PAIN Other details as noted in HPI Comment: All other systems reviewed and negative Constitutional: denies: fever, malaise Respiratory: cough Cardiovascular: chest pain ED Past Medical Hx - Past Medical History Previous Medical History?: Yes Hx Hypertension: Yes Hx CVA: No Hx GERD: Yes Hx Sickle Cell Disease: Yes (Trait only) Hx Arthritis: Yes (left leg) Hx Headaches / Migraines: Yes (migraines) Hx Seizures: Yes Hx Psychiatric Treatment: No Additional medical history: Recurrent symptomatic anemia. Menorrhagia. Uterine fibroids. Vertigo - Surgical History Past Surgical History?: Yes Additional Surgical History: 3 C- Sections. Right knee repair at age 10. fx femur - Social History Smoking Status: Never Smoker Substance Use Type: None - Medications Home Medications: Home Medications Medication Instructions Recorded Confirmed Last Taken Type Meclizine [Antivert] 25 mg PO TID PRN 06/22/15 04/14/17 04/09/17 History diphenhydrAMINE [Benadryl CAP] 25 mg PO Q8HR PRN 06/22/15 04/14/17 04/13/17 History levETIRAcetam [Keppra TAB] 500 mg PO BID #60 tablet 08/22/16 04/14/17 04/11/17 Rx Loratadine [Claritin] 10 mg PO DAILY PRN 12/07/16 04/14/17 04/09/17 History Melatonin [Melatin] 3 mg PO HS PRN 12/07/16 04/14/17 04/09/17 History Ibuprofen [Motrin] 600 mg PO Q6H PRN #30 tablet 03/24/17 04/14/17 04/09/17 Rx oxyCODONE /ACETAMINOPHEN [Percocet 1 tab PO Q6HR PRN #40 tablet 03/24/1704/13/17 Rx 5/325] Ibuprofen [Motrin] 800 mg PO Q8HR PRN #30 tablet 04/15/17 Unknown Rx Ondansetron [Zofran TAB] 4 mg PO Q12H PRN #30 tablet 04/15/17 Unknown Rx levETIRAcetam [Keppra] 500 mg PO BID #60 tablet 04/15/17 Unknown Rx oxyCODONE /ACETAMINOPHEN [Percocet 1 tab PO Q6HR PRN #30 tablet 04/15/17 Unknown Rx 5/325] Clindamycin [Clindamycin CAP] 300 mg PO Q6H #28 capsule 04/18/17 Unknown Rx ED Physical Exam - General Limitations: No Limitations General appearance: alert, in no apparent distress - Head Head exam: Present: atraumatic, normocephalic - Eye Eye exam: Present: normal appearance - ENT ENT exam: Present: mucous membranes moist - Neck Neck exam: Present: normal inspection - Respiratory Respiratory exam: Present: normal lung sounds bilaterally. Absent: respiratory distress, wheezes, rales, rhonchi - Cardiovascular Cardiovascular Exam: Present: regular rate, normal rhythm. Absent: systolic murmur, diastolic murmur, rubs, gallop - GI/Abdominal GI/Abdominal exam: Present: soft. Absent: distended, tenderness, guarding, rebound - Extremities Exam Extremities exam: Present: normal inspection - Back Exam Back exam: Present: normal inspection - Neurological Exam Neurological exam: Present: alert, oriented X3 - Psychiatric Psychiatric exam: Present: normal affect, normal mood - Skin Skin exam: Present: warm, dry, intact, normal color. Absent: rash - Other Other exam information: Left upper extremity no tenderness no edema 2+ radial pulse bilaterally median ulnar nerve intact range of motion ED Course Vital Signs 08/01/17 08/01/17 08/01/17 01:26 02:42 02:45 Temperature 97.5 F L Pulse Rate 76 72 Respiratory 18 21 23 Rate Blood Pressure 169/94 155/94 Blood Pressure [Left] O2 Sat by Pulse 100 100 Oximetry 08/01/17 08/01/17 08/01/17 02:54 03:00 03:01 Temperature 98 F Pulse Rate 58 L 70 Respiratory 15 20 16 Rate Blood Pressure 160/93 Blood Pressure 155/94 [Left] O2 Sat by Pulse 100 100 100 Oximetry 08/01/17 08/01/17 08/01/17 03:15 03:30 03:45 Temperature Pulse Rate 74 62 63 Respiratory 14 24 15 Rate Blood Pressure 160/93 149/91 149/91 Blood Pressure [Left] O2 Sat by Pulse 100 100 100 Oximetry 08/01/17 08/01/17 04:00 04:22 Temperature Pulse Rate 66 Respiratory 17 14 Rate Blood Pressure 162/87 Blood Pressure [Left] O2 Sat by Pulse 99 Oximetry AMENA score - Amena Score Age > 65: (0) No Aspirin use within the Past 7 Days: (0) No 3 or more CAD Risk Factors: (0) No 2 or more Angina events in past 24 hrs: (1) Yes Known CAD with more than 50% Stenosis: (0) No Elevated Cardiac Markers: (0) No ST Deviation Greater than 0.5mm: (0) No AMENA Score: 1 ED Medical Decision Making - Lab Data Result diagrams: 08/01/17 01:37 08/01/17 01:37 Laboratory Results - last 24 hr 08/01/17 08/01/17 01:37 01:37 WBC 10.2 RBC 5.99 H Hgb 13.9 Hct 43.7 H MCV 73 L MCH 23 L MCHC 32 RDW 16.1 H Plt Count 358 Sodium 140 Potassium 3.9 Chloride 98.6 Carbon Dioxide 24 Anion Gap 21 BUN 8 Creatinine 0.6 L Estimated GFR > 60 BUN/Creatinine Ratio 13 Glucose 97 Calcium 9.4 Troponin T < 0.010 Vital Signs - 24 hr 08/01/17 08/01/17 08/01/17 01:26 02:42 02:45 Temperature 97.5 F L Pulse Rate 76 72 Respiratory 18 21 23 Rate Blood Pressure 169/94 155/94 Blood Pressure [Left] O2 Sat by Pulse 100 100 Oximetry 08/01/17 08/01/17 08/01/17 02:54 03:00 03:01 Temperature 98 F Pulse Rate 58 L 70 Respiratory 15 20 16 Rate Blood Pressure 160/93 Blood Pressure 155/94 [Left] O2 Sat by Pulse 100 100 100 Oximetry 08/01/17 08/01/17 08/01/17 03:15 03:30 03:45 Temperature Pulse Rate 74 62 63 Respiratory 14 24 15 Rate Blood Pressure 160/93 149/91 149/91 Blood Pressure [Left] O2 Sat by Pulse 100 100 100 Oximetry 08/01/17 08/01/17 04:00 04:22 Temperature Pulse Rate 66 Respiratory 17 14 Rate Blood Pressure 162/87 Blood Pressure [Left] O2 Sat by Pulse 99 Oximetry - Medical Decision Making Ms. Serra presents with 2 days of constant chest pain atypical for ACS. No indication of PE. Possibly musculoskeletal pain. I do not see significant edema. ?peripheral neuropathy such as carpal tunnel I strongly encouraged her to f/u with her PCP I review cardiac cath obtained June 2015. Normal coronary artery anatomy. Normal EF. Critical care attestation.: If time is entered above; I have spent that time in minutes in the direct care of this critically ill patient, excluding procedure time. ED Disposition Clinical Impression: Chest pain, Arm pain, left Disposition: DC-01 TO HOME OR SELFCARE Is pt being admited?: No Does the pt Need Aspirin: No Condition: Stable Instructions: Chest Pain (ED) Referrals: KEYLA DAMIAN DO [Primary Care Provider] - 3-5 Days Forms: Work/School Release Form(ED)
[2017-08-01 05:37] LABS: Anisocytosis 1+; Total Cells Counted 100
[2017-08-01 05:38] LABS: Platelet Estimate Consistent w Auto
== END 2017-08-01 06:05 | disposition home or self-care (01) ==
LOC: ED 01:17
DX: R07.9 Chest pain, unspecified (principal); M79.602 Pain in left arm; I10 Essential (primary) hypertension; K21.9 Gastro-esophageal reflux disease without esophagitis
CPT/HCPCS: 36415; 80048; 84484; 85007; 85025; 93005; 93010; 96372; 99284; J1885

== ENCOUNTER 2017-08-03 13:30 | Outpatient (CLI) | payer BC ==
[2017-08-03 14:18] LABS: Creatine Kinase MB 1.2 ng/mL (0.0-4.0)
[2017-08-03 14:22] LABS: % Iron Saturation 14.77 %; Chol/HDL Ratio 5.96 %; HDL Cholesterol 26 mg/dL (40-59); Iron 52 ug/dL (37-170); LDL Cholesterol,Direct 114 mg/dL (50-130); Total Iron Binding Capacity 352 mcg/dL (250-450); Transferrin 301 mg/dl (192-382)
--- NOTE | 2017-08-03 23:51 | XRay Report ---
FINAL REPORT PROCEDURE: XR WRIST 2V LT TECHNIQUE: LEFT wrist radiographs, AP and lateral views. HISTORY: PAIN,CARPALTUNNEL COMPARISON: No prior studies are available for comparison. FINDINGS: Fracture(s)and/or Dislocation(s): None. Alignment: Normal. Joint space(s): Mild narrowing of the joint spaces. Soft tissues: Normal. Bone mineralization: Normal. Foreign bodies: None. IMPRESSION: No evidence of an acute fracture or dislocation. Mild arthritis.
--- NOTE | 2017-08-03 23:52 | XRay Report ---
FINAL REPORT PROCEDURE: XR FOREARM LT TECHNIQUE: LEFT forearm radiographs, AP and lateral views. CPT 64327 HISTORY: PAIN, CARPALTUNNEL COMPARISON: No prior studies are available for comparison. FINDINGS: Fracture (s) and/or Dislocation(s): None . Joint space(s): Mild narrowing of the joint spaces. Soft tissues: Normal . Bone mineralization: Normal . Foreign bodies: None . IMPRESSION: No evidence of an acute fracture. Mild arthritis.
== END 2017-08-03 13:31 | disposition home or self-care (01) ==
LOC: XRAY 13:30
PROVIDERS: ATTEND Internal Medicine Hematology & Oncology
DX: M19.032 Primary osteoarthritis, left wrist (principal); M19.042 Primary osteoarthritis, left hand; Z79.899 Other long term (current) drug therapy
CPT/HCPCS: 36415; 80061; 82306; 82553; 83036; 83550; 84484

== ENCOUNTER 2017-11-19 08:21 | Outpatient (CLI) | payer BC ==
--- NOTE | 2017-11-19 13:34 | Ultrasound Report ---
Chest 9 sonography colon History: Pelvic pain. Left lower quadrant. Findings: Patient status post hysterectomy. Right ovary 1.9 x 1.3 x 1.2 cm. No mass. Left ovary 4.1 x 2.2 x 3.7 cm. Cyst in the left ovary measures 1.6 x 1.8 x 1.6 cm. Impression: Left ovarian cyst.
== END 2017-11-19 08:22 | disposition home or self-care (01) ==
LOC: US 08:21
PROVIDERS: ATTEND Obstetrics & Gynecology
DX: N83.202 Unspecified ovarian cyst, left side (principal); Z90.710 Acquired absence of both cervix and uterus; Z88.5 Allergy status to narcotic agent; Z88.8 Allergy status to other drugs, medicaments and biological substances; Z88.9 Allergy status to unspecified drugs, medicaments and biological substances
CPT/HCPCS: 76830; 76856

== ENCOUNTER 2017-12-28 13:51 | Outpatient (CLI) | payer BC ==
--- NOTE | 2017-12-28 15:16 | Mammography Report ---
Right mammogram and right breast ultrasound: Followup examination to prior mammogram on July 16. Comparison is also made to prior mammography on July 06. In the CC projection there is asymmetric appearing dense tissue in the upper-outer right breast. On the current examination this is noted superiorly and appear somewhat dense or than seen on the prior exams. The small nodular density identified initially on July 06 is no longer noted as a discrete finding and could be obscured by the larger density. Right breast ultrasound in the upper outer portion demonstrates that in the 9:00 location there is an irregular shaped almost completely anechoic mass but having fine speckled echoes within it. It measures 7.4 x 10 mm. There is no enhancement of distal echoes. No internal flow with color imaging. This was not present on the prior ultrasound on 07/16. Impression: Interval development of right breast mass which may represent a cyst but not conclusive. Recommendation: Ultrasound guided aspiration/biopsy. The patient has been informed of the findings and recommendation. BI-RADS CATEGORY: 4 = Suspicious ACR BI-RADS MAMMOGRAPHIC CODES: 0 = Needs additional imaging evaluation; 1 = Negative; 2 = Benign; 3 = Probably benign; 4 = Suspicious; 5 = Malignant; 6 = Known biopsy-proven malignancy COMMENT: 1. Dense breast tissue, i.e., adenosis, fibrocystic changes, etc., may obscure an underlying neoplasm. 2. Approximately 10% of cancers are not detected with mammography. 3. A negative mammography report should not delay biopsy if a clinically suspicious mass is present.
== END 2017-12-28 13:52 | disposition home or self-care (01) ==
LOC: MAMMO 13:51
PROVIDERS: ATTEND Surgery
DX: R92.8 Other abnormal and inconclusive findings on diagnostic imaging of breast (principal); I25.10 Atherosclerotic heart disease of native coronary artery without angina pectoris; I10 Essential (primary) hypertension; K21.9 Gastro-esophageal reflux disease without esophagitis; M19.90 Unspecified osteoarthritis, unspecified site; Z90.710 Acquired absence of both cervix and uterus

== ENCOUNTER 2018-01-03 15:33 | Outpatient (CLI) | payer BC ==
[2018-01-03 15:54] LABS: Basophils # (Auto) 0.1 K/mm3 (0.0-0.1); Basophils % (Auto) 1.3 % (0.0-1.8); Eosinophils # (Auto) 0.4 K/mm3 (0.0-0.4); Eosinophils % (Auto) 4.6 % (0.0-4.3); Hematocrit 41.2 % (30.3-42.9); Hemoglobin 13.3 gm/dl (10.1-14.3); Lymphocytes # (Auto) 2.6 K/mm3 (1.2-5.4); Lymphocytes % (Auto) 32.3 % (13.4-35.0); Mean Corpuscular HGB Conc 32 % (30-34); Mean Corpuscular Hemoglobin 24 pg (28-32); Mean Corpuscular Volume 75 fl (79-97); Monocytes # (Auto) 0.4 K/mm3 (0.0-0.8); Monocytes % (Auto) 4.5 % (0.0-7.3); Platelet Count 323 K/mm3 (140-440); Red Blood Count 5.48 M/mm3 (3.65-5.03); Red Cell Distribution Width 14.7 % (13.2-15.2)
[2018-01-03 16:14] LABS: Alanine Aminotransferase 67 units/L (7-56); Albumin 4.5 g/dL (3.9-5); BUN/Creatinine Ratio 13; Blood Urea Nitrogen 9 mg/dL (7-17); Calcium 9.3 mg/dL (8.4-10.2); Chol/HDL Ratio 5.35 %; HDL Cholesterol 28 mg/dL (40-59); Hemolysis Index 12; LDL Cholesterol,Direct 114 mg/dL (50-130)
== END 2018-01-03 15:34 | disposition home or self-care (01) ==
LOC: LAB 15:33
PROVIDERS: ATTEND Internal Medicine Hematology & Oncology
DX: D64.9 Anemia, unspecified (principal); R53.83 Other fatigue; I25.10 Atherosclerotic heart disease of native coronary artery without angina pectoris; I10 Essential (primary) hypertension; K21.9 Gastro-esophageal reflux disease without esophagitis; M19.90 Unspecified osteoarthritis, unspecified site
CPT/HCPCS: 36415; 80053; 80061; 82306; 83036; 85025

== ENCOUNTER 2018-01-06 09:28 | Outpatient (CLI) | payer BC ==
--- NOTE | 2018-01-06 11:51 | Ultrasound Report ---
ULTRASOUND GUIDED NEEDLE CORE BIOPSY RIGHT BREAST WITH CLIP PLACEMENT: 01/06/18 CLINICAL: Complex cyst versus solid right breast mass. COMPARISON :12/28/17 FINDINGS: The procedure was explained to the patient and informed consent was obtained. Ultrasound demonstrated the previously described lesion at 9 o'clock 5 cm from the nipple. The margin is irregular and it contains internal echoes. No posterior enhancement but mild shadowing. I determined that a cyst aspiration was not indicated based on the morphology of the lesion. I marked the breast with a felt tip marker and a time out was called. The skin was prepped with Betadine and anesthetized with 1% lidocaine. Needle core biopsy was performed through a tiny dermatotomy using ultrasound guidance, 2% lidocaine with epinephrine for deep anesthesia and a 14-gauge Achieve biopsy device. 4 cores were obtained and placed in formalin. A clip was deployed within the mass. The patient tolerated the procedure well and there were no apparent complications. Hemostasis was achieved with minimal pressure and a sterile dressing was applied. A two view mammogram demonstrated satisfactory placement of the clip. However, the clip position is discordant with the original asymmetry marked on the mammogram. She left the department in good condition and was given instructions for wound care and followup. IMPRESSION: Uncomplicated ultrasound guided needle core biopsy with clip placement right breast.
--- NOTE | 2018-01-06 12:50 | Mammography Report ---
RIGHT DIGITAL DIAGNOSTIC MAMMOGRAM: 01/06/18 09:28:00 CLINICAL: For clip placement immediately status post ultrasound guided needle biopsy of a mass at 9 o'clock 5 cm from the nipple. COMPARISON:12/28/17 FINDINGS: A biopsy clip is now identified at 9 o'clock. However, no distinct lesion is identified mammographically at the clip. The clip position is discordant with the original asymmetry on the MLO view identified at screening. However after reviewing comparison mammograms going back to 2011, the asymmetry appears to be stable. IMPRESSION: Satisfactory clip deployment after ultrasound biopsy. Although the clip position is discordant with a mammographic asymmetry, the clip position is concordant with the ultrasound finding. BI-RADS CATEGORY: 4--Suspicious Pathology pending.
== END 2018-01-06 09:29 | disposition home or self-care (01) ==
LOC: SPVWC 09:28
PROVIDERS: ATTEND Surgery
DX: D24.1 Benign neoplasm of right breast (principal); D50.0 Iron deficiency anemia secondary to blood loss (chronic); I10 Essential (primary) hypertension; G40.909 Epilepsy, unspecified, not intractable, without status epilepticus; I25.118 Atherosclerotic heart disease of native coronary artery with other forms of angina pectoris; K21.9 Gastro-esophageal reflux disease without esophagitis; M19.90 Unspecified osteoarthritis, unspecified site; Z98.891 History of uterine scar from previous surgery; Z88.2 Allergy status to sulfonamides; Z88.8 Allergy status to other drugs, medicaments and biological substances; Z79.899 Other long term (current) drug therapy; Z79.1 Long term (current) use of non-steroidal anti-inflammatories (NSAID); Z82.49 Family history of ischemic heart disease and other diseases of the circulatory system; Z82.61 Family history of arthritis; Z82.5 Family history of asthma and other chronic lower respiratory diseases; Z83.3 Family history of diabetes mellitus; Z84.1 Family history of disorders of kidney and ureter
CPT/HCPCS: 19083; 77065; 88305; A4648

== ENCOUNTER 2018-01-12 13:09 | Emergency (ER) | payer BC ==
[~2018-01-12 13:09] MED LIST changes: -ANCEF/STERILE WATER 2 GM/20 ML 2 GM/20 ML SYRINGE IV SCH; +ATIVAN IV ONE; -LACTATED RINGERS 1,000 ML IV SCH; -NACL 0.9% 500 ML 500 ML IV ONE
[2018-01-12] MEDS ORDERED: NACL 0.9% 1000 ML 1,000 ML IV ONE (13:18)
[2018-01-12] MEDS ORDERED: KEPPRA 1,000 MG/NS 0.75% 100ML 1,000 MG/100 ML BAG IV ONE (13:18)
--- NOTE | 2018-01-12 13:24 | Emergency Department Report ---
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 patient had a seizure which was witnessed by the staff and patient was immediately brought to emergency department for evaluation. Patient had a seizure and initially was able to state that she did not have urinary incontinence and did not bite her tongue. Patient then had a second seizure while here in the emergency department. Patient stated prior to her seizure that she is on Keppra therapy which she states she's been compliant with. - Related Data Home Medications Medication Instructions Recorded Confirmed Last Taken diphenhydrAMINE [Benadryl CAP] 25 mg PO Q8HR PRN 06/22/15 01/12/18 04/13/17 Previous Rx's Medication Instructions Recorded Last Taken Type Ondansetron [Zofran TAB] 4 mg PO Q12H PRN #30 tablet 04/15/17 Unknown Rx levETIRAcetam [Keppra] 500 mg PO BID #60 tablet 04/15/17 Unknown Rx oxyCODONE /ACETAMINOPHEN [Percocet 1 tab PO Q6HR PRN #30 tablet 04/15/17 Unknown Rx 5/325] levETIRAcetam [Keppra TAB] 500 mg PO BID #60 tablet 01/12/18 Unknown Rx Allergies Allergy/AdvReac Type Severity Reaction Status Date / Time hydromorphone [From Dilaudid] Allergy Itching Verified 04/13/17 07:50 misoprostol [From Cytotec] Allergy N&V Verified 04/13/17 07:50 promethazine HCl Allergy Unknown Verified 04/13/17 07:50 [From Phenergan] sulfamethoxazole Allergy Hives Verified 04/13/17 07:50 [From Bactrim] trimethoprim [From Bactrim] Allergy Hives Verified 04/13/17 07:50 ED Review of Systems ROS: Stated complaint: Seizure Other details as noted in HPI Constitutional: denies: chills, fever Eyes: denies: eye pain, eye discharge, vision change ENT: denies: ear pain, throat pain Respiratory: denies: cough, shortness of breath, wheezing Cardiovascular: denies: chest pain, palpitations Endocrine: no symptoms reported Gastrointestinal: denies: abdominal pain, nausea, diarrhea Genitourinary: denies: urgency, dysuria, discharge Musculoskeletal: denies: back pain, joint swelling, arthralgia Skin: denies: rash, lesions Neurological: other (seizure). denies: headache, weakness, paresthesias Psychiatric: denies: anxiety, depression Hematological/Lymphatic: denies: easy bleeding, easy bruising ED Past Medical Hx - Past Medical History Hx Hypertension: Yes Hx CVA: No Hx GERD: Yes Hx Sickle Cell Disease: Yes (Trait only) Hx Arthritis: Yes (left leg) Hx Headaches / Migraines: Yes (migraines) Hx Seizures: Yes Hx Psychiatric Treatment: No Additional medical history: Recurrent symptomatic anemia. Menorrhagia. Uterine fibroids. Vertigo - Surgical History Additional Surgical History: 3 C- Sections. Right knee repair at age 10. fx femur - Social History Smoking Status: Never Smoker Substance Use Type: None - Medications Home Medications: Home Medications Medication Instructions Recorded Confirmed Last Taken Type diphenhydrAMINE [Benadryl CAP] 25 mg PO Q8HR PRN 06/22/15 01/12/18 04/13/17 History Ondansetron [Zofran TAB] 4 mg PO Q12H PRN #30 tablet 04/15/17 01/12/18 Unknown Rx levETIRAcetam [Keppra] 500 mg PO BID #60 tablet 04/15/17 01/12/18 Unknown Rx oxyCODONE /ACETAMINOPHEN [Percocet 1 tab PO Q6HR PRN #30 tablet 04/15/17 Unknown Rx 5/325] levETIRAcetam [Keppra TAB] 500 mg PO BID #60 tablet 01/12/18 Unknown Rx ED Physical Exam - General Limitations: Altered Mental Status General appearance: postictal - Head Head exam: Present: atraumatic, normocephalic - Eye Eye exam: Present: normal appearance - ENT ENT exam: Present: mucous membranes dry - Neck Neck exam: Present: normal inspection - Respiratory Respiratory exam: Present: normal lung sounds bilaterally. Absent: respiratory distress - Cardiovascular Cardiovascular Exam: Present: regular rate, normal rhythm. Absent: systolic murmur, diastolic murmur, rubs, gallop - GI/Abdominal GI/Abdominal exam: Present: soft, normal bowel sounds - Extremities Exam Extremities exam: Present: normal inspection - Back Exam Back exam: Present: normal inspection - Neurological Exam Neurological exam: Present: alert, other (moving all four extremities) - Psychiatric Psychiatric exam: Present: normal affect, normal mood - Skin Skin exam: Present: warm, dry, intact, normal color. Absent: rash ED Course Vital Signs 01/12/18 01/12/18 01/12/18 13:12 13:13 13:30 Temperature 98.1 F Pulse Rate 90 89 92 H Respiratory 24 16 18 Rate Blood Pressure 152/87 128/92 O2 Sat by Pulse 99 99 97 Oximetry 01/12/18 01/12/18 01/12/18 14:10 14:30 15:00 Temperature Pulse Rate 101 H 84 79 Respiratory 12 19 13 Rate Blood Pressure 128/92 129/100 123/79 O2 Sat by Pulse 100 99 99 Oximetry ED Medical Decision Making - Lab Data Result diagrams: 01/12/18 13:26 01/12/18 13:26 - Radiology Data Radiology results: image reviewed - Medical Decision Making Patient received Keppra and Ativan while here in the emergency department. Patient has had no subsequent seizures while being here in emergency department since the initial one. patient states that she has only been taking her Keppra 500 mg therapy once a day and she needs to be taking it twice a day. Patient comfortable with the dispostion to home and will follow up with her neurologist as well as her PCP. - Differential Diagnosis Seizure; Intracranial Hemorrhage; Dehydration; Anemia Critical care attestation.: If time is entered above; I have spent that time in minutes in the direct care of this critically ill patient, excluding procedure time. ED Disposition Clinical Impression: Seizure Disposition: DC-01 TO HOME OR SELFCARE Is pt being admited?: No Condition: Stable Instructions: Epilepsy (ED) Prescriptions: levETIRAcetam [Keppra TAB] 500 mg PO BID #60 tablet Referrals: PRIMARY CARE, [Primary Care Provider] - 3-5 Days Time of Disposition: 17:32
[2018-01-12 13:39] LABS: Basophils # (Auto) 0.1 K/mm3 (0.0-0.1); Eosinophils # (Auto) 0.3 K/mm3 (0.0-0.4); Hematocrit 41.8 % (30.3-42.9); Hemoglobin 13.2 gm/dl (10.1-14.3); Lymphocytes # (Auto) 2.1 K/mm3 (1.2-5.4); Lymphocytes % (Auto) 29.4 % (13.4-35.0); Mean Corpuscular HGB Conc 32 % (30-34); Mean Corpuscular Volume 77 fl (79-97); Monocytes # (Auto) 0.4 K/mm3 (0.0-0.8); Monocytes % (Auto) 5.5 % (0.0-7.3); Platelet Count 326 K/mm3 (140-440); Red Blood Count 5.45 M/mm3 (3.65-5.03); Red Cell Distribution Width 14.7 % (13.2-15.2)
[2018-01-12 13:42] LABS: Mean Corpuscular Hemoglobin 24 pg (28-32)
[2018-01-12] MEDS ORDERED: ATIVAN ONE (13:45)
[2018-01-12 14:14] LABS: Alanine Aminotransferase 61 units/L (7-56); Albumin 4.4 g/dL (3.9-5); BUN/Creatinine Ratio 10; Blood Urea Nitrogen 6 mg/dL (7-17); Hemolysis Index 6
--- NOTE | 2018-01-12 14:50 | Cat Scan Report ---
CT HEAD WITHOUT CONTRAST: HISTORY: Seizure. TECHNIQUE: Sequential 2.5mm CT images. COMPARISON: none. FINDINGS: Cerebral Parenchyma: Within normal limits. Cerebellum: Within normal limits. Brainstem: Within normal limits. Ventricles: Normal. Sella: Normal. Extra-axial spaces: Normal. Basal Cisterns: Normal. Intracranial Hemorrhage: None. Midline Shift: None. Calvarium: Normal. Sinuses: Normal. Mastoid Air Cells: Normal. Visualized Orbits: Normal. IMPRESSION: Cranial CT scan within normal limits.
[2018-01-12 15:27] VITALS: BP 123/79
[2018-01-12 16:47] LABS: Bilirubin,Urine NEG (Negative); Blood,Urine NEG (Negative); Color,Urine Amber (Yellow); Protein,Urine <15 mg/dL mg/dL (Negative); RBC,Urine < 1.0 /HPF (0.0-6.0); Urobilinogen,Urine < 2.0 mg/dL (<2.0)
[2018-01-12 16:49] LABS: HCG Qualitative,Urine Negative (Negative)
[2018-01-12 17:10] LABS: Amphetamine Screen,Urine PRESUMPTIVE NEGATIVE; Benzodiazepines Screen,Urine PRESUMPTIVE NEGATIVE; Cannabinoid Screen,Urine PRESUMPTIVE NEGATIVE; Cocaine Screen,Urine PRESUMPTIVE NEGATIVE; Methadone Screen,Urine PRESUMPTIVE NEGATIVE; Opiate Screen,Urine PRESUMPTIVE NEGATIVE
== END 2018-01-12 17:44 | disposition home or self-care (01) ==
LOC: ED 13:09
DX: R56.9 Unspecified convulsions (principal); I10 Essential (primary) hypertension; K21.9 Gastro-esophageal reflux disease without esophagitis; G43.909 Migraine, unspecified, not intractable, without status migrainosus; M13.88 Other specified arthritis, other site; D57.3 Sickle-cell trait; Z88.4 Allergy status to anesthetic agent; Z88.2 Allergy status to sulfonamides; Z79.899 Other long term (current) drug therapy
CPT/HCPCS: 36415; 70450; 80053; 80307; 81001; 81025; 85025; 96374; 96375; 99284; G0480; J1953; J2060; 80320

== ENCOUNTER 2018-01-18 13:28 | Emergency (ER) | payer BC ==
[2018-01-18] MEDS ORDERED: ASPIRIN PO ONE (13:39)
[2018-01-18] MEDS ORDERED: KEPPRA 1,000 MG/NS 0.75% 100ML 0 MG/0 ML BAG IV ONE (13:51)
[2018-01-18] MEDS ORDERED: ATIVAN IV ONE (13:53)
--- NOTE | 2018-01-18 13:53 | Emergency Department Report ---
ED Seizure HPI - General Chief Complaint: Seizure Stated Complaint: SEIZURE Time Seen by Provider: 01/18/18 13:43 Source: patient, EMS Mode of arrival: Stretcher Limitations: No Limitations - History of Present Illness Initial Comments: Patient is 47 years old female with past medical history of seizure on Keppra 500 twice a day. Patient brought to the ER via EMS after one episode of tonic colonic seizure. Patient was still post ictal when she moved to the ER. Patient stated that she had a chest pain before she started having the seizure and her blood pressure was high also. She stated that WHEN ever Her blood pressure is high she would have a seizure. She also complained about headache but admitted that she had history of headache migraine. She stated that she had a cardiac cath in 2016 and she was told that it was normal. MD Complaint: seizure -: Sudden Description of Episode: loss of consciousness, tonic-clonic movement, post- event confusion Witnessed:: Yes Seizure History: known seizure disorder Place: work Possible Precipitating Event: none - Related Data Home Medications Medication Instructions Recorded Confirmed Last Taken diphenhydrAMINE [Benadryl CAP] 25 mg PO Q8HR PRN 06/22/15 01/12/18 04/13/17 Previous Rx's Medication Instructions Recorded Last Taken Type Ondansetron [Zofran TAB] 4 mg PO Q12H PRN #30 tablet 04/15/17 Unknown Rx levETIRAcetam [Keppra] 500 mg PO BID #60 tablet 04/15/17 Unknown Rx oxyCODONE /ACETAMINOPHEN [Percocet 1 tab PO Q6HR PRN #30 tablet 04/15/17 Unknown Rx 5/325] levETIRAcetam [Keppra TAB] 500 mg PO BID #60 tablet 01/12/18 Unknown Rx Allergies Allergy/AdvReac Type Severity Reaction Status Date / Time hydromorphone [From Dilaudid] Allergy Itching Verified 04/13/17 07:50 misoprostol [From Cytotec] Allergy N&V Verified 04/13/17 07:50 promethazine HCl Allergy Unknown Verified 04/13/17 07:50 [From Phenergan] sulfamethoxazole Allergy Hives Verified 04/13/17 07:50 [From Bactrim] trimethoprim [From Bactrim] Allergy Hives Verified 04/13/17 07:50 ED Review of Systems ROS: Stated complaint: SEIZURE Other details as noted in HPI Comment: All other systems reviewed and negative Constitutional: denies: chills, fever Respiratory: denies: cough, orthopnea, shortness of breath, SOB with exertion, SOB at rest, wheezing Cardiovascular: chest pain. denies: palpitations, dyspnea on exertion Gastrointestinal: denies: abdominal pain, nausea, vomiting, diarrhea, constipation, hematemesis, melena, hematochezia Neurological: headache. denies: weakness, numbness, paresthesias, confusion, abnormal gait, vertigo ED Past Medical Hx - Past Medical History Previous Medical History?: Yes Hx Hypertension: Yes Hx CVA: No Hx GERD: Yes Hx Sickle Cell Disease: Yes (Trait only) Hx Arthritis: Yes (left leg) Hx Headaches / Migraines: Yes (migraines) Hx Seizures: Yes Hx Psychiatric Treatment: No Additional medical history: Recurrent symptomatic anemia. Menorrhagia. Uterine fibroids. Vertigo - Surgical History Past Surgical History?: Yes Additional Surgical History: 3 C- Sections. Right knee repair at age 10. fx femur - Social History Smoking Status: Never Smoker Substance Use Type: None - Medications Home Medications: Home Medications Medication Instructions Recorded Confirmed Last Taken Type diphenhydrAMINE [Benadryl CAP] 25 mg PO Q8HR PRN 06/22/15 01/12/18 04/13/17 History Ondansetron [Zofran TAB] 4 mg PO Q12H PRN #30 tablet 04/15/17 01/12/18 Unknown Rx levETIRAcetam [Keppra] 500 mg PO BID #60 tablet 04/15/17 01/12/18 Unknown Rx oxyCODONE /ACETAMINOPHEN [Percocet 1 tab PO Q6HR PRN #30 tablet 04/15/17 Unknown Rx 5/325] levETIRAcetam [Keppra TAB] 500 mg PO BID #60 tablet 01/12/18 Unknown Rx ED Physical Exam - General Limitations: No Limitations General appearance: alert, in no apparent distress, anxious - Head Head exam: Present: atraumatic, normocephalic, normal inspection - Eye Eye exam: Present: normal appearance, PERRL - ENT ENT exam: Present: normal exam, normal orophraynx, mucous membranes moist - Neck Neck exam: Present: normal inspection, full ROM. Absent: tenderness, meningismus, lymphadenopathy, thyromegaly - Respiratory Respiratory exam: Present: normal lung sounds bilaterally. Absent: respiratory distress, wheezes, rales, rhonchi, stridor, chest wall tenderness, accessory muscle use, decreased breath sounds, prolonged expiratory - Cardiovascular Cardiovascular Exam: Present: regular rate, normal rhythm, normal heart sounds - GI/Abdominal GI/Abdominal exam: Present: soft, normal bowel sounds. Absent: distended, tenderness, guarding, rebound, rigid, organomegaly, mass, bruit, pulsatile mass , hernia - Extremities Exam Extremities exam: Present: normal inspection, full ROM, normal capillary refill - Back Exam Back exam: Present: normal inspection, full ROM. Absent: tenderness, CVA tenderness (R), CVA tenderness (L), muscle spasm, paraspinal tenderness, vertebral tenderness - Neurological Exam Neurological exam: Present: alert, oriented X3, CN II-XII intact, normal gait, reflexes normal - Skin Skin exam: Present: warm, intact, normal color ED Course Vital Signs 01/18/18 01/18/18 01/18/18 13:35 14:00 14:05 Temperature 98 F Pulse Rate 84 72 Respiratory 16 16 20 Rate Blood Pressure 135/92 Blood Pressure [Left] O2 Sat by Pulse 99 99 99 Oximetry 01/18/18 01/18/18 01/18/18 14:47 15:06 15:26 Temperature Pulse Rate 76 79 85 Respiratory 14 15 15 Rate Blood Pressure 135/82 142/89 Blood Pressure 123/87 [Left] O2 Sat by Pulse 99 97 Oximetry 01/18/18 15:56 Temperature Pulse Rate Respiratory 16 Rate Blood Pressure Blood Pressure [Left] O2 Sat by Pulse Oximetry - Reevaluation(s) Reevaluation #1: 01/18/18 14:58 Patient stated that she is feeling fine. No seizure activity observed in the ER. ED Medical Decision Making - Lab Data Result diagrams: 01/18/18 14:06 01/18/18 14:06 - Radiology Data Radiology results: report reviewed Referring Physician: GUME DIEGO Patient Name: IBAN SARKAR Date of : 1970 Sex: Female Report Date: 2018-01-18 Report Status: Finalized Findings [facility] [address] [place] [address] Cat Scan Report Signed Patient: IBAN SARKAR MR#: [id number] : 1970 Acct:[id number] Age/Sex: 47 / F ADM Date: 01/18/18 Loc: ED Attending Dr: Ordering Physician: GUME DIEGO Date of Service: 01/18/18 Procedure(s): CT head/brain wo con Accession Number(s): [id number] cc: GUME DIEGO CT HEAD WITHOUT CONTRAST: HISTORY: Headache, high blood pressure. TECHNIQUE: Sequential 2.5mm CT images. COMPARISON: 01/12/18. FINDINGS: Cerebral Parenchyma: Within normal limits. Cerebellum: Within normal limits. Brainstem: Within normal limits. Ventricles: Normal. Sella: Normal. Extra-axial spaces: Normal. Basal Cisterns: Normal. Intracranial Hemorrhage: None. Midline Shift: None. Calvarium: Normal. Sinuses: Normal. Mastoid Air Cells: Normal. Visualized Orbits: Normal. IMPRESSION: Cranial CT scan within normal limits. Transcribed By: TTR Dictated By: TAMIKO SQUIRES JR, MD Electronically Authenticated By: TAMIKO SQUIRES JR, MD Signed Date/Time: 01/18/181516 DD/ 16 TD/TT: 01/18/181516 - Medical Decision Making Patient is 47 years old female with past medical history of seizure on Keppra 500 twice a day. Patient brought to the ER via EMS after one episode of tonic colonic seizure. Patient was still post ictal when she moved to the ER. Patient stated that she had a chest pain before she started having the seizure and her blood pressure was high also. She stated that WHEN ever Her blood pressure is high she would have a seizure. She also complained about headache but admitted that she had history of headache migraine. She stated that she had a cardiac cath in 2016 and she was told that he was normal. Patient stated that she feel much better. no seizure observed in the ER. Patient received Keppra, ativan and morphine. Ct scan brain is negative for acute finding. Critical care attestation.: If time is entered above; I have spent that time in minutes in the direct care of this critically ill patient, excluding procedure time. ED Disposition Clinical Impression: Seizure, Malignant hypertension, Headache Disposition: DC-01 TO HOME OR SELFCARE Is pt being admited?: No Condition: Stable Instructions: Acute Headache (ED), Hypertension (ED), Recurrent Seizures Adult (ED) Referrals: PRIMARY CARE,MD [Primary Care Provider] - 3-5 Days Forms: Work/School Release Form(ED)
[2018-01-18 14:16] LABS: Basophils # (Auto) 0.1 K/mm3 (0.0-0.1); Basophils % (Auto) 1.3 % (0.0-1.8); Eosinophils # (Auto) 0.3 K/mm3 (0.0-0.4); Eosinophils % (Auto) 3.3 % (0.0-4.3); Hematocrit 40.6 % (30.3-42.9); Hemoglobin 13.6 gm/dl (10.1-14.3); Lymphocytes # (Auto) 1.7 K/mm3 (1.2-5.4); Lymphocytes % (Auto) 18.9 % (13.4-35.0); Mean Corpuscular HGB Conc 33 % (30-34); Mean Corpuscular Volume 75 fl (79-97); Monocytes # (Auto) 0.3 K/mm3 (0.0-0.8); Platelet Count 366 K/mm3 (140-440); Red Blood Count 5.42 M/mm3 (3.65-5.03); Red Cell Distribution Width 14.5 % (13.2-15.2)
[2018-01-18 14:18] LABS: Mean Corpuscular Hemoglobin 25 pg (28-32)
[2018-01-18] MEDS ORDERED: KEPPRA 500 MG/NS 0.82% 100 ML 500 MG/100 ML BAG IV ONE (14:30)
[2018-01-18 14:46] LABS: BUN/Creatinine Ratio 8; Blood Urea Nitrogen 5 mg/dL (7-17); Calcium 9.2 mg/dL (8.4-10.2); Hemolysis Index 16
[2018-01-18] MEDS ORDERED: MORPHINE IV ONE (15:17)
[2018-01-18] MEDS ORDERED: ZOFRAN IV ONE (15:17)
--- NOTE | 2018-01-18 15:19 | Cat Scan Report ---
CT HEAD WITHOUT CONTRAST: HISTORY: Headache, high blood pressure. TECHNIQUE: Sequential 2.5mm CT images. COMPARISON: 01/12/18. FINDINGS: Cerebral Parenchyma: Within normal limits. Cerebellum: Within normal limits. Brainstem: Within normal limits. Ventricles: Normal. Sella: Normal. Extra-axial spaces: Normal. Basal Cisterns: Normal. Intracranial Hemorrhage: None. Midline Shift: None. Calvarium: Normal. Sinuses: Normal. Mastoid Air Cells: Normal. Visualized Orbits: Normal. IMPRESSION: Cranial CT scan within normal limits.
[2018-01-18 15:27] VITALS: BP 123/87
== END 2018-01-18 16:58 | disposition home or self-care (01) ==
LOC: ED 13:28
DX: G40.909 Epilepsy, unspecified, not intractable, without status epilepticus (principal); I10 Essential (primary) hypertension; G43.909 Migraine, unspecified, not intractable, without status migrainosus; K21.9 Gastro-esophageal reflux disease without esophagitis; M19.90 Unspecified osteoarthritis, unspecified site; Z88.8 Allergy status to other drugs, medicaments and biological substances
CPT/HCPCS: 36415; 70450; 80048; 84484; 85025; 96374; 96375; 99285; J1953; J2060; J2270; J2405

== ENCOUNTER 2018-07-05 12:55 | Outpatient (CLI) | payer BC ==
--- NOTE | 2018-07-05 14:29 | Mammography Report ---
BILATERAL DIGITAL DIAGNOSTIC MAMMOGRAM with CAD: 07/05/18 12:55:00 CLINICAL: Status post right benign surgical excision 02/21/18 COMPARISON:07/06/17 FINDINGS: The breasts are heterogeneously dense, which may obscure small masses. Right outer postsurgical scar.No mass, suspicious architectural distortion or suspicious calcifications. IMPRESSION: No mammographic evidence of malignancy. BI-RADS CATEGORY: 2 - - Benign RECOMMENDATION: Routine mammographic screening in one year. ACR BI-RADS MAMMOGRAPHIC CODES: 0 = Needs additional imaging evaluation; 1 = Negative; 2 = Benign; 3 = Probably benign; 4 = Suspicious; 5 = Malignant; 6 = Known biopsy-proven malignancy COMMENT: 1. Dense breast tissue, i.e., adenosis, fibrocystic changes, etc., may obscure an underlying neoplasm. 2. Approximately 10% of cancers are not detected with mammography. 3. A negative mammography report should not delay biopsy if a clinically suspicious mass is present. COMMENT: Patient follow-up letters are generated by our [employer] application.
== END 2018-07-05 12:56 | disposition home or self-care (01) ==
LOC: SPVWC 12:55
PROVIDERS: ATTEND Surgery
DX: R92.8 Other abnormal and inconclusive findings on diagnostic imaging of breast (principal); I10 Essential (primary) hypertension
CPT/HCPCS: 77066

== ENCOUNTER 2018-08-17 13:48 | Outpatient (CLI) | payer BC ==
[2018-08-17 14:21] LABS: Basophils # (Auto) 0.1 K/mm3 (0.0-0.1); Basophils % (Auto) 1.4 % (0.0-1.8); Eosinophils # (Auto) 0.3 K/mm3 (0.0-0.4); Eosinophils % (Auto) 4.9 % (0.0-4.3); Hematocrit 42.8 % (30.3-42.9); Hemoglobin 13.8 gm/dl (10.1-14.3); Lymphocytes # (Auto) 1.9 K/mm3 (1.2-5.4); Lymphocytes % (Auto) 28.5 % (13.4-35.0); Mean Corpuscular HGB Conc 32 % (30-34); Mean Corpuscular Volume 77 fl (79-97); Monocytes # (Auto) 0.3 K/mm3 (0.0-0.8); Monocytes % (Auto) 4.6 % (0.0-7.3); Platelet Count 263 K/mm3 (140-440); Red Blood Count 5.59 M/mm3 (3.65-5.03); Red Cell Distribution Width 14.5 % (13.2-15.2)
[2018-08-17 14:36] LABS: Alanine Aminotransferase 85 units/L (7-56)
== END 2018-08-17 13:49 | disposition home or self-care (01) ==
LOC: LAB 13:48
PROVIDERS: ATTEND Psychiatry & Neurology Neurology
DX: D64.9 Anemia, unspecified (principal); R56.9 Unspecified convulsions; I25.10 Atherosclerotic heart disease of native coronary artery without angina pectoris; I10 Essential (primary) hypertension; E78.00 Pure hypercholesterolemia, unspecified; K21.9 Gastro-esophageal reflux disease without esophagitis; Z90.710 Acquired absence of both cervix and uterus
CPT/HCPCS: 36415; 80177; 84450; 84460; 85025

== ENCOUNTER 2018-09-22 18:59 | Emergency (ER) | payer BC ==
[~2018-09-22 18:59] MED LIST changes: -ATIVAN IV ONE; +ATIVAN IV PRN
[2018-09-22] MEDS ORDERED: KEPPRA 1,000 MG/NS 0.75% 100ML 1,000 MG/100 ML BAG IV ONE ×2 (19:08→19:09)
[2018-09-22] MEDS ORDERED: ATIVAN ONE (19:28)
[2018-09-22 19:43] LABS: Hematocrit 40.2 % (30.3-42.9); Hemoglobin 13.1 gm/dl (10.1-14.3); Mean Corpuscular HGB Conc 33 % (30-34); Mean Corpuscular Volume 76 fl (79-97); Platelet Count 273 K/mm3 (140-440); Red Blood Count 5.26 M/mm3 (3.65-5.03)
[2018-09-22] MEDS ORDERED: VIMPAT PO STA (19:56)
[2018-09-22] MEDS ORDERED: PEPCID IV ONE (19:56)
[2018-09-22] MEDS ORDERED: NACL 0.9% 500 ML 500 ML IV ONE (19:57)
--- NOTE | 2018-09-22 19:58 | Emergency Department Report ---
ED General Adult HPI - General Chief complaint: Seizure Stated complaint: SEIZURE Time Seen by Provider: 09/22/18 19:42 Source: patient, RN notes reviewed, old records reviewed Mode of arrival: Stretcher Limitations: No Limitations - History of Present Illness Initial comments: Cardiology: cath by Dr Garcia, [facility] Neurology: Joann Peralta Past medical history: Reported seizure disorder, on Keppra, 500 mg twice daily, vimpat 100 mg qhs, history of hypertension, anemia, fibroids and hysterectomy Patient had a cardiac catheterization in this hospital June 2015, which was negative for angiographic disease. In addition, patient has presented to this hospital in the past with chest pain and nonspecific upper extremity complaints, the patient was seen by my colleague, Dr. Campos, in July 2017, for chest pain, and nonspecific neurologic symptoms. It was surmised that the patient likely has peripheral neuropathy and/or carpal tunnel syndrome. This is a 48-year-old female. 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 The patient is brought to the ER after reportedly having a seizure on the floor. The patient had a negative MRI in June 2018. Patient endorses compliance with her antiepileptic drug medication. She reports not missing any doses. Her last seizure was last month. The patient thinks that she hit her head. She has a mild headache. She has no neck pain. She has no loss of vision. She has no fevers. She denies urinary symptoms. She also complains of left-sided shoulder and chest wall pain. The pain is apparently intermittent since 2015. A the shoulder pain stops at the shoulder, increases with palpation of the chest wall, and decreases with rest. She endorses intermittent upper extremity numbness. This has been present since 2015. She has no vomiting or diaphoresis. She denies DVT or pulmonary embolus risk factors. She reports her chest wall discomfort is present for the past 72 hours. -: Gradual, Sudden, days(s), year(s) Location: left, lower extremity Radiation: extremity Severity scale (0 -10): 0 Quality: burning, aching Consistency: intermittent Improves with: rest Worsens with: movement - Related Data Home Medications Medication Instructions Recorded Confirmed Last Taken diphenhydrAMINE [Benadryl CAP] 25 mg PO Q8HR PRN 06/22/15 02/21/18 02/20/18 Butalbital/Aspirin/Caffeine 1 each PO BID PRN 02/17/18 02/21/18 02/14/18 [Obqvwu-Skljifw-Ntlwf 50-325-40] Meclizine [Antivert] 25 mg PO TID PRN 02/17/18 02/21/18 02/14/18 Metoprolol [Lopressor TAB] 25 mg PO DAILY 02/17/18 02/21/18 02/20/18 ` Ondansetron [Zofran TAB] 4 mg PO Q6H PRN 02/17/18 02/21/18 02/14/18 Simvastatin 20 mg PO DAILY 02/17/18 02/21/18 02/20/18 oxyCODONE /ACETAMINOPHEN 1 tab PO Q6H PRN 02/17/18 02/21/18 02/20/18 Previous Rx's Medication Instructions Recorded Last Taken Type levETIRAcetam [Keppra TAB] 500 mg PO BID #60 tablet 01/12/18 02/20/18 Rx Ibuprofen [Ibuprofen 800] 800 mg PO Q8HR PRN #25 tablet 02/21/18 Unknown Rx Allergies Allergy/AdvReac Type Severity Reaction Status Date / Time hydromorphone [From Dilaudid] Allergy Itching Verified 02/17/18 16:25 misoprostol [From Cytotec] Allergy N&V Verified 02/17/18 16:25 promethazine HCl Allergy Unknown Verified 02/17/18 16:25 [From Phenergan] sulfamethoxazole Allergy Hives Verified 02/17/18 16:25 [From Bactrim] trimethoprim [From Bactrim] Allergy Hives Verified 02/17/18 16:25 lisinopril AdvReac Cough Verified 02/17/18 16:25 ED Review of Systems ROS: Stated complaint: SEIZURE Other details as noted in HPI Constitutional: malaise. denies: diaphoresis, fever Eyes: denies: eye discharge ENT: denies: epistaxis Respiratory: denies: wheezing Cardiovascular: chest pain Gastrointestinal: denies: vomiting Genitourinary: denies: urgency Musculoskeletal: arthralgia, myalgia Skin: denies: lesions Neurological: paresthesias, confusion Psychiatric: anxiety ED Past Medical Hx - Past Medical History Hx Hypertension: Yes (RECENTLY DX) Hx CVA: No Hx GERD: Yes Hx Sickle Cell Disease: Yes (Trait only) Hx Arthritis: Yes (left leg AND ARM) Hx Headaches / Migraines: Yes (migraines) Hx Seizures: Yes (Last seizure 2017) Hx Psychiatric Treatment: No Hx HIV: No Additional medical history: Recurrent symptomatic anemia. Menorrhagia. Uterine fibroids. Vertigo - Surgical History Additional Surgical History: 3 C- Sections. Right knee repair at age 10. fx femur - Social History Smoking Status: Never Smoker - Medications Home Medications: Home Medications Medication Instructions Recorded Confirmed Last Taken Type diphenhydrAMINE [Benadryl CAP] 25 mg PO Q8HR PRN 06/22/15 02/21/18 02/20/18 History levETIRAcetam [Keppra TAB] 500 mg PO BID #60 tablet 01/12/18 02/21/18 02/20/18 Rx Butalbital/Aspirin/Caffeine 1 each PO BID PRN 02/17/18 02/21/18 02/14/18 History [Ojztje-Mdrdzxe-Yfgei 50-325-40] Meclizine [Antivert] 25 mg PO TID PRN 02/17/18 02/21/18 02/14/18 History Metoprolol [Lopressor TAB] 25 mg PO DAILY 02/17/18 02/21/18 02/20/18 History ` Ondansetron [Zofran TAB] 4 mg PO Q6H PRN 02/17/18 02/21/18 02/14/18 History Simvastatin 20 mg PO DAILY 02/17/18 02/21/18 02/20/18 History oxyCODONE /ACETAMINOPHEN 1 tab PO Q6H PRN 02/17/18 02/21/18 02/20/18 History Ibuprofen [Ibuprofen 800] 800 mg PO Q8HR PRN #25 tablet 02/21/18 Unknown Rx ED Physical Exam - General Limitations: No Limitations General appearance: alert, in no apparent distress - Head Head exam: Present: atraumatic, normocephalic - Eye Eye exam: Present: normal appearance, EOMI, other (visual acuity intact to finger counting, color perception, reading at a close distance). Absent: nyst agmus - ENT ENT exam: Present: normal exam, normal orophraynx, mucous membranes moist, normal external ear exam - Neck Neck exam: Present: normal inspection, full ROM. Absent: tenderness, meningismus - Respiratory Respiratory exam: Present: normal lung sounds bilaterally, chest wall tenderness, other (there is no breast redness, tenderness, pus or streaking. There is reproducible left-sided lateral chest wall tenderness. Chaperoned by nurse Kathryn Judd). Absent: respiratory distress, wheezes, rales, rhonchi, stridor - Cardiovascular Cardiovascular Exam: Present: regular rate, normal rhythm, normal heart sounds. Absent: bradycardia, tachycardia, irregular rhythm, systolic murmur, diastolic murmur, rubs, gallop - GI/Abdominal GI/Abdominal exam: Present: soft. Absent: distended, tenderness, guarding, rebound, rigid, pulsatile mass - Extremities Exam Extremities exam: Present: normal inspection, full ROM, other (2+ pulses noted in the bilateral upper, lower extremities. Compartments soft. No long bony tenderness. The pelvis is stable.). Absent: pedal edema, joint swelling, calf tenderness - Back Exam Back exam: Present: normal inspection, full ROM. Absent: tenderness, CVA tenderness (R), CVA tenderness (L), paraspinal tenderness, vertebral tenderness - Neurological Exam Neurological exam: Present: alert, oriented X3, normal gait, other (Extraocular movements intact. Tongue midline. No facial droop. Facial sensation intact to light touch in the V1, V2, V3 distribution bilaterally. 5 and 5 strength in 4 extremities.. Sensation is intact to light touch in 4 extremities.). Absent: motor sensory deficit - Psychiatric Psychiatric exam: Present: anxious - Skin Skin exam: Present: warm, dry, intact, normal color. Absent: rash ED Course Vital Signs 09/22/18 09/22/18 09/22/18 18:58 19:00 19:08 Temperature Pulse Rate 82 Respiratory 20 Rate Blood Pressure Blood Pressure 120/79 [Right] O2 Sat by Pulse 99 99 99 Oximetry 09/22/18 09/22/18 09/22/18 19:15 19:30 19:42 Temperature Pulse Rate Respiratory 14 Rate Blood Pressure 132/77 132/77 Blood Pressure [Right] O2 Sat by Pulse 99 99 99 Oximetry 09/22/18 09/22/18 09/22/18 19:46 20:00 20:15 Temperature Pulse Rate Respiratory Rate Blood Pressure 120/76 141/94 135/97 Blood Pressure [Right] O2 Sat by Pulse 98 95 95 Oximetry 05/09/22/18 09/22/18 21:31 21:45 22:00 Temperature Pulse Rate Respiratory Rate Blood Pressure 164/104 164/104 158/104 Blood Pressure [Right] O2 Sat by Pulse 99 97 100 Oximetry 09/22/18 09/22/18 09/22/18 22:11 22:15 22:31 Temperature 98.3 F Pulse Rate Respiratory Rate Blood Pressure 164/104 164/104 Blood Pressure [Right] O2 Sat by Pulse 96 96 Oximetry 09/22/18 09/22/18 09/22/18 22:45 23:00 23:15 Temperature Pulse Rate Respiratory Rate Blood Pressure 164/104 121/82 121/82 Blood Pressure [Right] O2 Sat by Pulse 97 96 96 Oximetry 09/22/18 23:32 Temperature Pulse Rate 80 Respiratory Rate Blood Pressure Blood Pressure [Right] O2 Sat by Pulse Oximetry - Reevaluation(s) Reevaluation #1: 09/23/18 00:32 X-ray of the chest is negative for acute disease. ED Medical Decision Making - Lab Data Result diagrams: 09/22/18 19:25 09/22/18 19:25 Vital Signs 09/22/18 09/22/18 09/22/18 18:58 19:00 19:08 Temperature Pulse Rate 82 Respiratory 20 Rate Blood Pressure Blood Pressure 120/79 [Right] O2 Sat by Pulse 99 99 99 Oximetry 09/22/18 09/22/18 09/22/18 19:15 19:30 19:42 Temperature Pulse Rate Respiratory 14 Rate Blood Pressure 132/77 132/77 Blood Pressure [Right] O2 Sat by Pulse 99 99 99 Oximetry 09/22/18 09/22/18 09/22/18 19:46 20:00 20:15 Temperature Pulse Rate Respiratory Rate Blood Pressure 120/76 141/94 135/97 Blood Pressure [Right] O2 Sat by Pulse 98 95 95 Oximetry 09/22/18 09/22/18 09/22/18 21:31 21:45 22:00 Temperature Pulse Rate Respiratory Rate Blood Pressure 164/104 164/104 158/104 Blood Pressure [Right] O2 Sat by Pulse 99 97 100 Oximetry 09/22/18 09/22/18 09/22/18 22:11 22:15 22:31 Temperature 98.3 F Pulse Rate Respiratory Rate Blood Pressure 164/104 164/104 Blood Pressure [Right] O2 Sat by Pulse 96 96 Oximetry 09/22/18 09/22/18 09/22/18 22:45 23:00 23:15 Temperature Pulse Rate Respiratory Rate Blood Pressure 164/104 121/82 121/82 Blood Pressure [Right] O2 Sat by Pulse 97 96 96 Oximetry 09/22/18 23:32 Temperature Pulse Rate 80 Respiratory Rate Blood Pressure Blood Pressure [Right] O2 Sat by Pulse Oximetry Lab Results 09/22/18 09/22/18 09/22/18 Range/Units 19:25 19:25 20:10 WBC 8.6 (4.5-11.0) K/mm3 RBC 5.26 H (3.65-5.03) M/mm3 Hgb 13.1 (10.1-14.3) gm/dl Hct 40.2 (30.3-42.9) % MCV 76 L (79-97) fl MCH 25 L (28-32) pg MCHC 33 (30-34) % RDW 15.0 (13.2-15.2) % Plt Count 273 (140-440) K/mm3 PT 13.4 (12.2-14.9) Sec. INR 0.96 (0.87-1.13) APTT 29.0 (24.2-36.6) Sec. D-Dimer 141.38 (0-234) ng/mlDDU Sodium 135 L (137-145) mmol/L Potassium 3.5 L (3.6-5.0) mmol/L Chloride 99.5 (98-107) mmol/L Carbon Dioxide 19 L (22-30) mmol/L Anion Gap 20 mmol/L BUN 11 (7-17) mg/dL Creatinine 0.7 (0.7-1.2) mg/dL Estimated GFR > 60 ml/min BUN/Creatinine Ratio 16 % Glucose 105 H (65-100) mg/dL Calcium 8.8 (8.4-10.2) mg/dL Magnesium 1.90 (1.7-2.3) mg/dL Troponin T (0.00-0.029) ng/mL Urine Color (Yellow) Urine Turbidity (Clear) Urine pH (5.0-7.0) Ur Specific [place] (1.003-1.030) Urine Protein (Negative) mg/dL Urine Glucose (UA) (Negative) mg/dL Urine Ketones (Negative) mg/dL Urine Blood (Negative) Urine Nitrite (Negative) Urine Bilirubin (Negative) Urine Urobilinogen (<2.0) mg/dL Ur Leukocyte Esterase (Negative) Urine WBC (Auto) (0.0-6.0) /HPF Urine RBC (Auto) (0.0-6.0) /HPF U Epithel Cells (Auto) (0-13.0) /HPF Urine Bacteria (Auto) (Negative) /HPF Salicylates (2.8-20.0) mg/dL Urine Opiates Screen Urine Methadone Screen Acetaminophen (10.0-30.0) ug/mL Ur Barbiturates Screen Ur Phencyclidine Scrn Ur Amphetamines Screen U Benzodiazepines Scrn Urine Cocaine Screen U Marijuana (THC) Screen Drugs of Abuse Note 09/22/18 09/22/18 09/22/18 Range/Units 20:10 20:10 20:10 WBC (4.5-11.0) K/mm3 RBC (3.65-5.03) M/mm3 Hgb (10.1-14.3) gm/dl Hct (30.3-42.9) % MCV (79-97) fl MCH (28-32) pg MCHC (30-34) % RDW (13.2-15.2) % Plt Count (140-440) K/mm3 PT (12.2-14.9) Sec. INR (0.87-1.13) APTT (24.2-36.6) Sec. D-Dimer (0-234) ng/mlDDU Sodium (137-145) mmol/L Potassium (3.6-5.0) mmol/L Chloride (98-107) mmol/L Carbon Dioxide (22-30) mmol/L Anion Gap mmol/L BUN (7-17) mg/dL Creatinine (0.7-1.2) mg/dL Estimated GFR ml/min BUN/Creatinine Ratio % Glucose (65-100) mg/dL Calcium (8.4-10.2) mg/dL Magnesium (1.7-2.3) mg/dL Troponin T < 0.010 (0.00-0.029) ng/mL Urine Color (Yellow) Urine Turbidity (Clear) Urine pH (5.0-7.0) Ur Specific [place] (1.003-1.030) Urine Protein (Negative) mg/dL Urine Glucose (UA) (Negative) mg/dL Urine Ketones (Negative) mg/dL Urine Blood (Negative) Urine Nitrite (Negative) Urine Bilirubin (Negative) Urine Urobilinogen (<2.0) mg/dL Ur Leukocyte Esterase (Negative) Urine WBC (Auto) (0.0-6.0) /HPF Urine RBC (Auto) (0.0-6.0) /HPF U Epithel Cells (Auto) (0-13.0) /HPF Urine Bacteria (Auto) (Negative) /HPF Salicylates 0.4 L (2.8-20.0) mg/dL Urine Opiates Screen Urine Methadone Screen Acetaminophen < 5.0 L (10.0-30.0) ug/mL Ur Barbiturates Screen Ur Phencyclidine Scrn Ur Amphetamines Screen U Benzodiazepines Scrn Urine Cocaine Screen U Marijuana (THC) Screen Drugs of Abuse Note 09/22/18 09/22/18 09/22/18 Range/Units 21:35 21:35 22:23 WBC (4.5-11.0) K/mm3 RBC (3.65-5.03) M/mm3 Hgb (10.1-14.3) gm/dl Hct (30.3-42.9) % MCV (79-97) fl MCH (28-32) pg MCHC (30-34) % RDW (13.2-15.2) % Plt Count (140-440) K/mm3 PT (12.2-14.9) Sec. INR (0.87-1.13) APTT (24.2-36.6) Sec. D-Dimer (0-234) ng/mlDDU Sodium (137-145) mmol/L Potassium (3.6-5.0) mmol/L Chloride (98-107) mmol/L Carbon Dioxide (22-30) mmol/L Anion Gap mmol/L BUN (7-17) mg/dL Creatinine (0.7-1.2) mg/dL Estimated GFR ml/min BUN/Creatinine Ratio % Glucose (65-100) mg/dL Calcium (8.4-10.2) mg/dL Magnesium (1.7-2.3) mg/dL Troponin T < 0.010 (0.00-0.029) ng/mL Urine Color Straw (Yellow) Urine Turbidity Clear (Clear) Urine pH 7.0 (5.0-7.0) Ur Specific [place] 1.011 (1.003-1.030) Urine Protein <15 mg/dl (Negative) mg/dL Urine Glucose (UA) Neg (Negative) mg/dL Urine Ketones Neg (Negative) mg/dL Urine Blood Sm (Negative) Urine Nitrite Neg (Negative) Urine Bilirubin Neg (Negative) Urine Urobilinogen < 2.0 (<2.0) mg/dL Ur Leukocyte Esterase Neg (Negative) Urine WBC (Auto) < 1.0 (0.0-6.0) /HPF Urine RBC (Auto) 4.0 (0.0-6.0) /HPF U Epithel Cells (Auto) 1.0 (0-13.0) /HPF Urine Bacteria (Auto) 1+ (Negative) /HPF Salicylates (2.8-20.0) mg/dL Urine Opiates Screen Presumptive negative Urine Methadone Screen Presumptive negative Acetaminophen (10.0-30.0) ug/mL Ur Barbiturates Screen Presumptive negative Ur Phencyclidine Scrn Presumptive negative Ur Amphetamines Screen Presumptive negative U Benzodiazepines Scrn Presumptive negative Urine Cocaine Screen Presumptive negative U Marijuana (THC) Screen Presumptive negative Drugs of Abuse Note Disclamer - EKG Data 09/22/18 23:58 EKG #1 shows a normal sinus rhythm, 87 bpm, normal axis, normal intervals, high left ventricular voltage, this EKG is not consistent with ST elevation myocardial infarction. EKG #2. To be unchanged from prior EKG. Both EKGs are unchanged when compared to prior EKG from 2017 - Radiology Data Radiology results: report reviewed, image reviewed CT scan of the brain is negative for acute disease. - Medical Decision Making Differential diagnosis, including but not limited to: Breakthrough seizure, intracranial injury, concussion, postictal confusion, costochondritis, GERD, gastritis, peripheral neuropathy, pulmonary embolus Assessment and plan: 48-year-old female here with 2 complaints. Complaint #1, reported breakthrough seizure. Patient is on antiepileptic drug medication. She was given additional doses of her medications here in the emergency room. She is clinically sober, with a Gino Coma Scale of 15. She walks with a steady gait.Patient is clinically sober at this time. The cervical spine is cleared through nexus and [place] c spine rule She had an unremarkable MRI of the brain within the past 3 months. She is counseled to continue her current outpatient AED medications, not to drive or operate motor vehicles, and she can follow up with her outpatient neurologist. Patient is observed in the emergency room for greater than 4 hours without clinical decompensation, we'll recurrent convulsive event. Complaint #2, chest pain: Had a negative cardiac cath. This was done in 2016. Patient is low risk by the heart score, low risk by well's criteria, troponin negative 2, EKG unchanged 2, chest wall pain appears to be reproducible, has a negative d-dimer, and is perc negative The patient may follow up with her outpatient primary care doctor or electrical lineman for further evaluation of her chronic chest wall pain. Her primary care doctor or neurologist can follow up for her nonspecific left upper extremity presumed peripheral neuropathy, which as documented in prior medical records, has been present since July 2017. Critical care attestation.: If time is entered above; I have spent that time in minutes in the direct care of this critically ill patient, excluding procedure time. ED Disposition Clinical Impression: Chest wall pain, Seizure Disposition: [id number] TO HOME OR SELFCARE Is pt being admited?: No Does the pt Need Aspirin: No Condition: Stable Additional Instructions: Do not drive or operate motor vehicles for the next 6 months. Please continue current outpatient seizure medications. Please follow-up with your primary care doctor or electrical lineman for chest wall pain within the next 3-5 days. Please follow-up with your primary care doctor or neurology specialist for breakthrough seizures within the next 7-10 days. Please return to the emergency room right away with new pain, worsening pain, migration of pain, projectile vomiting, change in mental status, confusion, inability to tolerate liquid feeds. The patient may take [id number] ibuprofen, or acetaminophen, as needed for chest wall pain, and upper extremity discomfort. Referrals: TYLER GARCIA MD [Staff Physician] - 3-5 Days SARAI BLUM MD [Staff Physician] - 7-10 days
[2018-09-22 20:05] LABS: BUN/Creatinine Ratio 16; Blood Urea Nitrogen 11 mg/dL (7-17); Calcium 8.8 mg/dL (8.4-10.2); Hemolysis Index 22
[2018-09-22 20:37] LABS: INR 0.96 (0.87-1.13)
--- NOTE | 2018-09-22 21:10 | Cat Scan Report ---
PROCEDURE: CT HEAD/BRAIN WO CON TECHNIQUE: Computerized tomography of the head was performed without contrast material. CT DOSE LENGTH PRODUCT: 805.4 mGycm HISTORY: Head. Seizure. COMPARISONS: Prior CT scan of the brain 01/18/2018 . FINDINGS: Brain: Brain density appears normal. No evidence of intracranial hemorrhage. No parenchymal hemorr brittni, mass lesions or mass effect are seen. No abnormal extra-axial fluid collects or masses are see n. Ventricles: Ventricles are normal size and are midline. Bone Windows: No evidence of skull fracture. Paranasal sinuses: Visualized portions are clear. Mastoid air cells: Clear. IMPRESSION: Negative unenhanced CT scan of the brain. If clinically indicated MRI of the brain could be obtained for further evaluation. This document is electronically signed by Alfred Brenner MD., Sep 22 2018 09:08:10 PM ET
[2018-09-22] MEDS ORDERED: TORADOL IV ONE (21:49)
[2018-09-22 22:20] LABS: Bacteria,Urine 1+ /HPF (Negative); Bilirubin,Urine NEG (Negative); Blood,Urine SM (Negative); Color,Urine Straw (Yellow); Protein,Urine <15 mg/dL mg/dL (Negative); Urobilinogen,Urine < 2.0 mg/dL (<2.0); WBC,Urine < 1.0 /HPF (0.0-6.0)
[2018-09-22 22:24] LABS: Amphetamine Screen,Urine PRESUMPTIVE NEGATIVE; Benzodiazepines Screen,Urine PRESUMPTIVE NEGATIVE; Cannabinoid Screen,Urine PRESUMPTIVE NEGATIVE; Cocaine Screen,Urine PRESUMPTIVE NEGATIVE; Methadone Screen,Urine PRESUMPTIVE NEGATIVE; Opiate Screen,Urine PRESUMPTIVE NEGATIVE
[2018-09-22 23:18] VITALS: BP 121/82
--- NOTE | 2018-09-23 00:59 | XRay Report ---
PROCEDURE: XR CHEST 1V AP TECHNIQUE: Chest radiograph single view. HISTORY: cp COMPARISONS: No priors FINDINGS: Heart: Normal. Mediastinum/Vessels: Normal. Lungs/Pleural space: Normal. Bony thorax: No acute osseous abnormality. Life support devices: None. IMPRESSION: No acute cardiopulmonary abnormality. This document is electronically signed by Alfred Fernandez MD., Sep 23 2018 12:57:32 AM ET
== END 2018-09-23 01:00 | disposition home or self-care (01) ==
LOC: ED 18:59
DX: R07.89 Other chest pain (principal); G40.909 Epilepsy, unspecified, not intractable, without status epilepticus; I10 Essential (primary) hypertension; K21.9 Gastro-esophageal reflux disease without esophagitis; M19.90 Unspecified osteoarthritis, unspecified site; G43.909 Migraine, unspecified, not intractable, without status migrainosus; Z88.6 Allergy status to analgesic agent; Z88.1 Allergy status to other antibiotic agents; Z88.2 Allergy status to sulfonamides; Z88.8 Allergy status to other drugs, medicaments and biological substances
CPT/HCPCS: 36415; 70450; 71045; 80048; 80307; 81001; 83735; 84484; 85027; 85379; 85610; 85730; 93005; 93010; 96374; 96375; 99284; G0480; J1885; J1953; J2060; J7040; 80320

== ENCOUNTER 2018-10-03 11:16 | Outpatient (CLI) | payer BC ==
--- NOTE | 2018-10-03 13:18 | XRay Report ---
LEFT FOREARM: History: Left forearm pain. AP and lateral views of the forearm demonstrate normal mineralization and contours for this patient's age. No destructive changes are noted and the adjacent soft tissues are normal. IMPRESSION: Normal left forearm.
--- NOTE | 2018-10-03 13:19 | XRay Report ---
LEFT HUMERUS: History: Left humerus pain. AP and lateral views of the humerus demonstrate normal mineralization and contours for this patient's age. No destructive changes are noted and the adjacent soft tissues are normal. IMPRESSION: Normal left humerus.
--- NOTE | 2018-10-03 13:19 | XRay Report ---
LEFT SHOULDER, 3 views: History: Left shoulder pain. Routine views demonstrate normal bony and soft tissue structures with normal joint alignment of the shoulder. IMPRESSION: Normal study.
[2018-10-03 14:08] LABS: Iron 61 ug/dL (37-170); Total Iron Binding Capacity 266 mcg/dL (250-450)
== END 2018-10-03 11:17 | disposition home or self-care (01) ==
LOC: XRAY 11:16
PROVIDERS: ATTEND Internal Medicine Hematology & Oncology
DX: M25.512 Pain in left shoulder (principal); M79.602 Pain in left arm; M79.632 Pain in left forearm; D50.9 Iron deficiency anemia, unspecified; E78.00 Pure hypercholesterolemia, unspecified; I10 Essential (primary) hypertension; K21.9 Gastro-esophageal reflux disease without esophagitis; Z90.710 Acquired absence of both cervix and uterus
CPT/HCPCS: 36415; 82607; 82728; 82747; 83550

== ENCOUNTER 2018-10-13 09:15 | Emergency (ER) | payer BC ==
[2018-10-13] MEDS ORDERED: KEPPRA 1,000 MG/NS 0.75% 100ML 1,000 MG/100 ML BAG IV ONE ×2 (09:24)
[2018-10-13] MEDS ORDERED: ATIVAN ONE (09:28)
[2018-10-13] MEDS ORDERED: NACL 0.9% 1000 ML 1,000 ML IV ONE (09:33)
[2018-10-13] MEDS ORDERED: ATIVAN IV ONE (09:34)
--- NOTE | 2018-10-13 09:34 | Emergency Department Report ---
ED Seizure HPI - General Chief Complaint: Seizure Stated Complaint: SEIZURE Time Seen by Provider: 10/13/18 09:20 Source: patient Mode of arrival: Stretcher Limitations: No Limitations, Other - History of Present Illness Initial Comments: Patient is a 48-year-old female Emergency room with complaints of seizure activity. Patient was in our vascular lab today having a stress test and began having a seizure on the treadmill. The vascular lab in place and brought her down to be evaluated in the ER. Patient has a known history of seizure. Patient states she took all of her medications but she missed her Keppra this morning due to having to be nothing by mouth for her stress test. MD Complaint: seizure -: Sudden - Related Data Home Medications Medication Instructions Recorded Confirmed Last Taken diphenhydrAMINE [Benadryl CAP] 25 mg PO Q8HR PRN 06/22/15 02/21/18 02/20/18 Butalbital/Aspirin/Caffeine 1 each PO BID PRN 02/17/18 02/21/18 02/14/18 [Hefure-Bvecwjr-Idjmh 50-325-40] Meclizine [Antivert] 25 mg PO TID PRN 02/17/18 02/21/18 02/14/18 Metoprolol [Lopressor TAB] 25 mg PO DAILY 02/17/18 02/21/18 02/20/18 ` Ondansetron [Zofran TAB] 4 mg PO Q6H PRN 02/17/18 02/21/18 02/14/18 Simvastatin 20 mg PO DAILY 02/17/18 02/21/18 02/20/18 oxyCODONE /ACETAMINOPHEN 1 tab PO Q6H PRN 02/17/18 02/21/18 02/20/18 Previous Rx's Medication Instructions Recorded Last Taken Type levETIRAcetam [Keppra TAB] 500 mg PO BID #60 tablet 01/12/18 02/20/18 Rx Ibuprofen [Ibuprofen 800] 800 mg PO Q8HR PRN #25 tablet 02/21/18 Unknown Rx Amoxicillin/K Clav Tab [Augmentin 1 tab PO Q12HR 7 Days #14 tab 10/13/18 Unknown Rx 875 mg] Allergies Allergy/AdvReac Type Severity Reaction Status Date / Time hydromorphone [From Dilaudid] Allergy Itching Verified 02/17/18 16:25 misoprostol [From Cytotec] Allergy N&V Verified 02/17/18 16:25 promethazine HCl Allergy Unknown Verified 02/17/18 16:25 [From Phenergan] sulfamethoxazole Allergy Hives Verified 02/17/18 16:25 [From Bactrim] trimethoprim [From Bactrim] Allergy Hives Verified 02/17/18 16:25 lisinopril AdvReac Cough Verified 02/17/18 16:25 ED Review of Systems ROS: Stated complaint: SEIZURE Other details as noted in HPI Constitutional: denies: chills, fever Eyes: denies: eye pain, eye discharge, vision change ENT: denies: ear pain, throat pain Respiratory: denies: cough, shortness of breath, wheezing Cardiovascular: denies: chest pain, palpitations Endocrine: no symptoms reported Gastrointestinal: denies: abdominal pain, nausea, diarrhea Genitourinary: denies: urgency, dysuria, discharge Musculoskeletal: denies: back pain, joint swelling, arthralgia Skin: denies: rash, lesions Neurological: denies: headache, weakness, paresthesias Psychiatric: denies: anxiety, depression Hematological/Lymphatic: denies: easy bleeding, easy bruising ED Past Medical Hx - Past Medical History Previous Medical History?: Yes Hx Hypertension: Yes (RECENTLY DX) Hx CVA: No Hx GERD: Yes Hx Sickle Cell Disease: Yes (Trait only) Hx Arthritis: Yes (left leg AND ARM) Hx Headaches / Migraines: Yes (migraines) Hx Seizures: Yes (Last seizure 2017) Hx Psychiatric Treatment: No Hx HIV: No Additional medical history: Recurrent symptomatic anemia. Menorrhagia. Uterine fibroids. Vertigo - Surgical History Past Surgical History?: Yes Additional Surgical History: 3 C- Sections. Right knee repair at age 10. fx femur - Family History Family history: no significant - Social History Smoking Status: Never Smoker Substance Use Type: None - Medications Home Medications: Home Medications Medication Instructions Recorded Confirmed Last Taken Type diphenhydrAMINE [Benadryl CAP] 25 mg PO Q8HR PRN 06/22/15 02/21/18 02/20/18 History levETIRAcetam [Keppra TAB] 500 mg PO BID #60 tablet 01/12/18 02/21/18 02/20/18 Rx Butalbital/Aspirin/Caffeine 1 each PO BID PRN 02/17/18 02/21/18 02/14/18 History [Mcbuvi-Hgmyagd-Endmz 50-325-40] Meclizine [Antivert] 25 mg PO TID PRN 02/17/18 02/21/18 02/14/18 History Metoprolol [Lopressor TAB] 25 mg PO DAILY 02/17/18 02/21/18 02/20/18 History ` Ondansetron [Zofran TAB] 4 mg PO Q6H PRN 02/17/18 02/21/18 02/14/18 History Simvastatin 20 mg PO DAILY 02/17/18 02/21/18 02/20/18 History oxyCODONE /ACETAMINOPHEN 1 tab PO Q6H PRN 02/17/18 02/21/18 02/20/18 History Ibuprofen [Ibuprofen 800] 800 mg PO Q8HR PRN #25 tablet 02/21/18 Unknown Rx Amoxicillin/K Clav Tab [Augmentin 1 tab PO Q12HR 7 Days #14 tab 10/13/18 Unknown Rx 875 mg] ED Physical Exam - General Limitations: No Limitations General appearance: alert, in no apparent distress - Head Head exam: Present: atraumatic, normocephalic - Eye Eye exam: Present: normal appearance - ENT ENT exam: Present: mucous membranes moist - Neck Neck exam: Present: normal inspection - Respiratory Respiratory exam: Present: normal lung sounds bilaterally. Absent: respiratory distress - Cardiovascular Cardiovascular Exam: Present: regular rate, normal rhythm. Absent: systolic murmur, diastolic murmur, rubs, gallop - GI/Abdominal GI/Abdominal exam: Present: soft, normal bowel sounds - Extremities Exam Extremities exam: Present: normal inspection - Back Exam Back exam: Present: normal inspection - Neurological Exam Neurological exam: Present: alert, oriented X3 - Psychiatric Psychiatric exam: Present: normal affect, normal mood - Skin Skin exam: Present: warm, dry, intact, normal color. Absent: rash ED Course Vital Signs 10/13/18 10/13/18 10/13/18 09:28 10:30 11:31 Temperature 98.3 F Pulse Rate 60 56 L 62 Respiratory 36 H 19 Rate Blood Pressure 150/87 123/75 123/75 Blood Pressure [Left] O2 Sat by Pulse 99 100 99 Oximetry 10/13/18 14:00 Temperature 98.6 F Pulse Rate 72 Respiratory 16 Rate Blood Pressure Blood Pressure 120/76 [Left] O2 Sat by Pulse 100 Oximetry - Reevaluation(s) Reevaluation #1: During initial evaluation. Patient began to have a seizure. Patient given 2 mg of Ativan and seizure stopped. Patient also given a gram of Keppra. 10/13/18 09:33 She is answering questions appropriately. Patient almost back to baseline. Patient is awake but tired. No further seizure activity noted. 10/13/18 11:07 Patient is becoming more awake. Patient denies pain. Patient has not had any seizure activity. 10/13/18 12:11 She does not any seizure activity while in the ER. Discussed all results with patient. Patient is stable for discharge. Patient will be discharged home.. Patient agrees to plan of care.. Patient given discharge instructions. Patient voiced understanding of discharge instructions. 10/13/18 13:40 ED Medical Decision Making - Lab Data Result diagrams: 10/13/18 09:43 10/13/18 09:43 - EKG Data -: EKG Interpreted by Me EKG shows normal: sinus rhythm, axis, intervals, QRS complexes, ST-T waves Rate: normal - Medical Decision Making Patient is a 48-year-old female that presents emergency room with seizure like activity. The patient was having a stress test in house when she began to have seizure-like activity. Patient has a long history of seizure. Patient did not take the medication the morning of her procedure. Patient had seizure-like activity in the ER as well. Patient given Ativan and seizure responded. Patient stable for discharge. Patient discharged home. The patient's labs unremarkable except for UTI. Patient will be treated with antibiotics. - Differential Diagnosis seizure. Critical care attestation.: If time is entered above; I have spent that time in minutes in the direct care of this critically ill patient, excluding procedure time. ED Disposition Clinical Impression: Seizure disorder, Seizure UTI (urinary tract infection) Qualifiers: Urinary tract infection type: acute cystitis Hematuria presence: with hematuria Qualified Code(s): N30.01 - Acute cystitis with hematuria Disposition: TO HOME OR SELFCARE Is pt being admited?: No Does the pt Need Aspirin: No Condition: Stable Instructions: Urinary Tract Infection in Women (ED), Epilepsy (ED), Dysuria (ED), Recurrent Seizures Adult (ED), Women and Epilepsy (ED) Additional Instructions: Patient to follow-up with primary care in 2-3 days. Patient to follow up with cardiology for repeat stress test. Patient to follow up with neurologist within 2-3 days. Patient to take Tylenol or ibuprofen when necessary for pain. Patient to return to ER if condition worsens. Patient to take meds as directed. Patient to increase water. Patient to rest. Patient to continue all meds. Patient to avoid driving and strenuous activity. Prescriptions: Amoxicillin/K Clav Tab [Augmentin 875 mg] 1 tab PO Q12HR 7 Days #14 tab Referrals: ZOEY DAMON MD [Primary Care Provider] - 2-3 Days Time of Disposition: 13:43
[2018-10-13 10:20] LABS: Alanine Aminotransferase 189 units/L (7-56); Albumin 4.3 g/dL (3.9-5); BUN/Creatinine Ratio 13; Blood Urea Nitrogen 8 mg/dL (7-17); Calcium 8.7 mg/dL (8.4-10.2); Hemolysis Index 70
[2018-10-13 10:26] LABS: Basophils # (Auto) 0.1 K/mm3 (0.0-0.1); Basophils % (Auto) 1.2 % (0.0-1.8); Eosinophils # (Auto) 0.2 K/mm3 (0.0-0.4); Eosinophils % (Auto) 3.6 % (0.0-4.3); Hematocrit 42.2 % (30.3-42.9); Hemoglobin 13.6 gm/dl (10.1-14.3); Lymphocytes % (Auto) 32.9 % (13.4-35.0); Mean Corpuscular HGB Conc 32 % (30-34); Mean Corpuscular Volume 77 fl (79-97); Monocytes # (Auto) 0.3 K/mm3 (0.0-0.8); Monocytes % (Auto) 5.6 % (0.0-7.3); Platelet Count 302 K/mm3 (140-440); Red Blood Count 5.47 M/mm3 (3.65-5.03); Red Cell Distribution Width 14.9 % (13.2-15.2)
[2018-10-13 11:39] LABS: Color,Urine Straw (Yellow)
[2018-10-13 11:40] LABS: Bilirubin,Urine Negative (Negative)
[2018-10-13 11:45] LABS: Ictotest,Urine Negative (Negative)
[2018-10-13 11:47] LABS: RBC,Urine < 1.0 /HPF (0.0-6.0); Urobilinogen,Urine < 2.0 mg/dL (<2.0)
[2018-10-13 11:48] LABS: WBC,Urine < 1.0 /HPF (0.0-6.0)
[2018-10-13 14:29] VITALS: BP 120/76
== END 2018-10-13 14:00 | disposition home or self-care (01) ==
LOC: ED 09:15
DX: G40.909 Epilepsy, unspecified, not intractable, without status epilepticus (principal); N30.01 Acute cystitis with hematuria; I10 Essential (primary) hypertension; K21.9 Gastro-esophageal reflux disease without esophagitis; M19.90 Unspecified osteoarthritis, unspecified site; G43.909 Migraine, unspecified, not intractable, without status migrainosus; Z88.8 Allergy status to other drugs, medicaments and biological substances; Z88.6 Allergy status to analgesic agent
CPT/HCPCS: 36415; 80053; 81001; 82962; 85025; 93005; 93010; 96374; 96375; 99283; J1953; J2060; J7030

== ENCOUNTER 2018-11-11 10:03 | Outpatient (CLI) | payer BC ==
[2018-11-11] MEDS ORDERED: DOBUTamine 100 MG in D5W 92 ML IV ONE (11:56)
[2018-11-11] MEDS: ATIVAN IV SCH ×2 (13:15→13:20)
[2018-11-11] MEDS ORDERED: ATIVAN ONE ×3 (13:20→13:28)
--- NOTE | 2018-11-12 03:15 | Treadmill Report ---
THALLIUM REPORT REASON FOR STUDY: Chest pain. IMAGING PROTOCOL: The patient received 10 mCi of technetium-99m Tetrofosmin for rest imaging, and 28 mCi of technetium-99m Tetrofosmin for stress imaging. Imaging for all procedures was completed 30-90 minutes following the initial injection of technetium-99m Tetrofosmin. SPECT imaging in the 180 degree arc was performed in the right anterior oblique projection. Computerized reconstruction of the images was performed for analysis. NUCLEAR IMAGING RESULTS: Normal left ventricular cavity size with no change from stress to rest. Distribution of radionuclide within the left ventricle revealed normal myocardial photon uptake with stress and rest imaging. Gated SPECT imaging revealed normal global LV systolic function with no significant wall motion abnormalities. The calculated left ventricular ejection fraction is 64%. IMPRESSION: Normal stress and rest myocardial perfusion imaging. Normal global LV systolic function with no significant wall motion abnormalities. EF 64%. No evidence of significant stress-induced ischemia or prior infarction. JOB# [id number] ULISES/CHRISTOS
--- NOTE | 2018-11-12 03:22 | Treadmill Report ---
DOBUTAMINE STRESS TEST REPORT REASON FOR STUDY: Chest pain. STRESS TEST PROTOCOL: The patient underwent dobutamine infusion protocol receiving up to 20 mcg per kilogram per minute of dobutamine intravenously. She attained a peak heart rate of 144 per minute, which is 83% of age predicted maximum. No ischemic ECG changes. No chest pain. No arrhythmias. The patient developed focal seizure activity involving right upper extremity and subsequently becoming generalized requiring termination of the test. She received intravenous Ativan with resolution of seizure activity. Tc-99m Tetrofosmin was injected at peak dobutamine infusion. The patient was stable and appropriately responsive at the end of the test. IMPRESSION: Electrocardiographically negative submaximal stress test. Nuclear imaging report to follow. JOB# [id number] ULISES/NTS
== END 2018-11-11 10:04 | disposition home or self-care (01) ==
LOC: CARD 10:03
PROVIDERS: ATTEND Internal Medicine Cardiovascular Disease
DX: R07.89 Other chest pain (principal); I10 Essential (primary) hypertension; E78.49 Other hyperlipidemia; D64.89 Other specified anemias; E78.00 Pure hypercholesterolemia, unspecified; K21.9 Gastro-esophageal reflux disease without esophagitis; Z90.710 Acquired absence of both cervix and uterus
CPT/HCPCS: 78452; 93017; 96374; A9502; J1250; J2060

== ENCOUNTER 2018-11-19 00:37 | Emergency (ER) | payer BC ==
[2018-11-19 01:33] LABS: Basophils # (Auto) 0.1 K/mm3 (0.0-0.1); Eosinophils # (Auto) 0.4 K/mm3 (0.0-0.4); Eosinophils % (Auto) 3.7 % (0.0-4.3); Hematocrit 43.5 % (30.3-42.9); Hemoglobin 14.3 gm/dl (10.1-14.3); Lymphocytes # (Auto) 3.3 K/mm3 (1.2-5.4); Lymphocytes % (Auto) 31.7 % (13.4-35.0); Mean Corpuscular HGB Conc 33 % (30-34); Mean Corpuscular Volume 77 fl (79-97); Monocytes # (Auto) 0.5 K/mm3 (0.0-0.8); Monocytes % (Auto) 4.4 % (0.0-7.3); Platelet Count 292 K/mm3 (140-440); Red Blood Count 5.65 M/mm3 (3.65-5.03); Red Cell Distribution Width 14.6 % (13.2-15.2)
[2018-11-19 02:07] LABS: BUN/Creatinine Ratio 10; Blood Urea Nitrogen 7 mg/dL (7-17); Calcium 9.4 mg/dL (8.4-10.2); Hemolysis Index 7
[2018-11-19] MEDS ORDERED: KEPPRA 1,000 MG/NS 0.75% 100ML 1,000 MG/100 ML BAG IV ONE (06:59)
[2018-11-19] MEDS ORDERED: FIORICET PO ONE (07:04)
[2018-11-19] MEDS ORDERED: TORADOL IV ONE (07:04)
[2018-11-19] MEDS ORDERED: FLEXERIL PO ONE (07:04)
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
[2018-11-19] MEDS ORDERED: LOPRESSOR PO ONE (07:16)
[2018-11-19 08:01] VITALS: BP 134/90
== END 2018-11-19 08:45 | disposition home or self-care (01) ==
LOC: ED 00:37
DX: R56.9 Unspecified convulsions (principal); I10 Essential (primary) hypertension; K21.0 Gastro-esophageal reflux disease with esophagitis; M19.90 Unspecified osteoarthritis, unspecified site; G43.909 Migraine, unspecified, not intractable, without status migrainosus; Z98.890 Other specified postprocedural states; Z90.710 Acquired absence of both cervix and uterus; Z79.899 Other long term (current) drug therapy; Z88.6 Allergy status to analgesic agent; Z88.8 Allergy status to other drugs, medicaments and biological substances
CPT/HCPCS: 36415; 80048; 83735; 85025; 96365; 96375; 99283; J1885; J1953

== ENCOUNTER 2019-04-09 11:34 | Emergency (ER) | payer SELFPAY ==
[2019-04-09] MEDS ORDERED: levETIRAcetam 1000 MG/NS 0.75% 1,000 MG/100 ML BAG IV ONE (11:53)
--- NOTE | 2019-04-09 11:55 | Emergency Department Report ---
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 Had negative MRI at this hospital June 2018. 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 Was apparently working and had a convulsive event, terminated by Ativan as per verbal report. In the emergency room, the patient is awake, but somewhat confused. Complains of left-sided shoulder pain, left-sided paracervical neck pain. The patient can't recall her last seizure. She endorses complies with her seizure medications. She can't recall her last seizure. As per verbal report from team working with the patient while she was working as a community youth secretary, she appeared to be in her usual state of health, and had a sudden convulsive event. Not sure how long it lasted for. -: Sudden Consistency: now resolved Improves with: none Worsens with: none - Related Data Home Medications Medication Instructions Recorded Confirmed Last Taken diphenhydrAMINE [Benadryl CAP] 25 mg PO Q8HR PRN 06/22/15 02/21/18 02/20/18 Butalbital/Aspirin/Caffeine 1 each PO BID PRN 02/17/18 02/21/18 02/14/18 [Ldnsyl-Olswlla-Leoqx 50-325-40] Meclizine [Antivert] 25 mg PO TID PRN 02/17/18 02/21/18 02/14/18 Metoprolol [Lopressor TAB] 25 mg PO DAILY 02/17/18 02/21/18 02/20/18 ` Ondansetron [Zofran TAB] 4 mg PO Q6H PRN 02/17/18 02/21/18 02/14/18 Simvastatin 20 mg PO DAILY 02/17/18 02/21/18 02/20/18 Previous Rx's Medication Instructions Recorded Last Taken Type Butalb/Acetamin/Caff 50-325-40 1 tab PO Q8HR PRN #7 tablet 11/19/18 Unknown Rx [Fioricet 50-325-40] levETIRAcetam [Keppra TAB] 500 mg PO BID #60 tablet 11/19/18 Unknown Rx Allergies Allergy/AdvReac Type Severity Reaction Status Date / Time hydromorphone [From Dilaudid] Allergy Itching Verified 02/17/18 16:25 misoprostol [From Cytotec] Allergy N&V Verified 02/17/18 16:25 promethazine HCl Allergy Unknown Verified 02/17/18 16:25 [From Phenergan] sulfamethoxazole Allergy Hives Verified 02/17/18 16:25 [From Bactrim] trimethoprim [From Bactrim] Allergy Hives Verified 02/17/18 16:25 lisinopril AdvReac Cough Verified 02/17/18 16:25 ED Review of Systems Constitutional: malaise Eyes: denies: eye discharge ENT: denies: congestion Respiratory: denies: wheezing Cardiovascular: as per HPI Gastrointestinal: denies: vomiting Genitourinary: denies: dysuria Musculoskeletal: myalgia Neurological: weakness, confusion ED Past Medical Hx - Past Medical History Hx Hypertension: Yes (RECENTLY DX) Hx CVA: No Hx GERD: Yes Hx Sickle Cell Disease: Yes (Trait only) Hx Arthritis: Yes (left leg AND ARM) Hx Headaches / Migraines: Yes (migraines) Hx Seizures: Yes (Last seizure 2017) Additional medical history: Recurrent symptomatic anemia. Menorrhagia. Uterine fibroids. Vertigo - Surgical History Past Surgical History?: Yes Additional Surgical History: 3 C- Sections, HYSTERECTOMY. Right knee repair at age 10. fx femur - Social History Smoking Status: Never Smoker Substance Use Type: None - Medications Home Medications: Home Medications Medication Instructions Recorded Confirmed Last Taken Type diphenhydrAMINE [Benadryl CAP] 25 mg PO Q8HR PRN 06/22/15 02/21/18 02/20/18 History Butalbital/Aspirin/Caffeine 1 each PO BID PRN 02/17/18 02/21/18 02/14/18 History [Loijgy-Wqqmgpa-Imndn 50-325-40] Meclizine [Antivert] 25 mg PO TID PRN 02/17/18 02/21/18 02/14/18 History Metoprolol [Lopressor TAB] 25 mg PO DAILY 02/17/18 02/21/18 02/20/18 History ` Ondansetron [Zofran TAB] 4 mg PO Q6H PRN 02/17/18 02/21/18 02/14/18 History Simvastatin 20 mg PO DAILY 02/17/18 02/21/18 02/20/18 History Butalb/Acetamin/Caff 50-325-40 1 tab PO Q8HR PRN #7 tablet 11/19/18 Unknown Rx [Fioricet 50-325-40] levETIRAcetam [Keppra TAB] 500 mg PO BID #60 tablet 11/19/18 Unknown Rx ED Physical Exam - General Limitations: Other (post ictal) General appearance: alert, in no apparent distress, anxious - Head Head exam: Present: atraumatic, normocephalic - Eye Eye exam: Present: normal appearance, EOMI. Absent: nystagmus - ENT ENT exam: Present: normal exam, normal orophraynx, mucous membranes moist, normal external ear exam, other (visual acuity intact to finger counting and color perception at a close distance) - Neck Neck exam: Present: normal inspection, full ROM, other (there is no midline cervical spine tenderness or step-offs). Absent: tenderness, meningismus - Respiratory Respiratory exam: Present: normal lung sounds bilaterally. Absent: respiratory distress - Cardiovascular Cardiovascular Exam: Present: regular rate, normal rhythm, normal heart sounds. Absent: bradycardia, tachycardia, irregular rhythm, systolic murmur, diastolic murmur, rubs, gallop - GI/Abdominal GI/Abdominal exam: Present: soft. Absent: distended, tenderness, guarding, rebound, rigid, pulsatile mass - Extremities Exam Extremities exam: Present: normal inspection, full ROM, other (2+ pulses noted in the bilateral upper and lower extremities. There is no palpable cord. negative Homans sign. Muscular compartments are soft. The pelvis is stable.). Absent: pedal edema, joint swelling, calf tenderness - Back Exam Back exam: Present: normal inspection. Absent: tenderness, CVA tenderness (R), CVA tenderness (L), paraspinal tenderness, vertebral tenderness - Neurological Exam Neurological exam: Present: alert, other (there is no facial droop. The tongue is midline. Extraocular movements are intact bilaterally. Speaking in complete sentences. Sensation is intact to light touch in 4 extremities. 5 out of 5 strength 4 extremities.) - Psychiatric Psychiatric exam: Present: flat affect - Skin Skin exam: Present: warm, dry, intact, normal color. Absent: rash ED Course - Reevaluation(s) Reevaluation #1: 04/09/19 12:02 Differential diagnosis, including but not limited to: Breakthrough seizure, noncompliance, urinary tract infection, intracranial injury, electrolyte d erangement, anemia Assessment and plan: 48-year-old female with recurrent breakthrough seizure. Sh e is afebrile with reassuring vital signs. She has a nonfocal neurologic and motor examination. She is clinically not intoxicated at this time. This is similar to prior presentation in which I evaluated this patient in august 2018 Patient placed on seizure precautions, Keppra ordered, Vimpat ordered, screening laboratory studies, urinalysis, x-ray the chest, EKG, noncontrast CT scan of the brain ordered. Reassess after data points have resulted. Reevaluation #2: 04/09/19 13:[address] scan of the brain is negative for acute disease. X-ray interpretation to my eye appears to be negative on the chest. Urinalysis and laboratory studies pending. Patient awake and alert and oriented, not in any acute distress. Phlebotomy/laboratory studies pending at this time. Reevaluation #3: 04/09/19 14:07 Laboratory studies reviewed and appreciated. Transaminitis chronic, improved from prior. An anion gap and decreased CO2 likely secondary to convulsive event. Patient can follow up with her primary care doctor for her chronic tra nsaminitis. Hypocalcemia reviewed and appreciated. Calcium gluconate and calcium carbonate ordered. IV fluids ordered. Urinalysis pending. Repeat basic metabolic panel pending at this time. Care will be transferred to the oncoming physician, Dr. Vik Steel, to follow up on repeat basic metabolic panel, urinalysis, and arrange final disposition. Anticipate discharge with close outpatient primary care and/or neurology follow- up. ED Medical Decision Making - Lab Data Result diagrams: 04/09/19 13:29 04/09/19 13:29 Vital Signs 04/09/19 04/09/19 04/09/19 11:37 11:47 12:02 Temperature 98.3 F Pulse Rate 75 72 Respiratory 22 18 22 Rate Blood Pressure 138/91 Blood Pressure 148/93 [Left] O2 Sat by Pulse 96 94 96 Oximetry - EKG Data -: EKG Interpreted by Ak EKG shows normal: sinus rhythm Rate: normal - EKG Data 04/09/19 13:50 The EKG today is unchanged from prior. It shows a sinus rhythm, 68 bpm, normal axis, normal intervals, High left ventricular voltage, not a STEMI. Unchanged from prior EKG 2018. - Radiology Data Radiology results: report reviewed, image reviewed ED Disposition Clinical Impression: Seizure disorder, Elevated LFTs Disposition: TO HOME OR SELFCARE Condition: Stable Additional Instructions: Do not drive or operate motor vehicles for the next 6 months, or until cleared to do so by her primary care doctor or neurologist. Continue current outpatient seizure medications. Follow-up with your primary care doctor or neurology physician within the next 7-10 days for repeat checkup/evaluation. Avoid alcohol consumption, Motrin consumption, acetaminophen consumption. Laboratory studies today demonstrated elevated liver panel, improved from prior, and subtly decreased calcium level. Recommend patient take a daily multivitamin [id number], as well as calcium supplements, zzzv-bye-kfrncml. Return to the emergency room right away with projectile vomiting, change in mental status, confusion, inability to tolerate liquid feeds, new, worsening or different symptoms not present on the initial emergency room evaluation. Referrals: SARAI BLUM MD [Staff Physician] - 7-10 days [facility] [Provider Group] - 7-10 days <EDUARDA STEEL III - Last Filed: 04/09/19 18:44> ED Review of Systems ROS: Stated complaint: PASSED OUT Other details as noted in HPI ED Course Vital Signs 04/09/19 04/09/19 04/09/19 11:37 11:47 12:02 Temperature 98.3 F Pulse Rate 75 72 Respiratory 22 18 22 Rate Blood Pressure 138/91 Blood Pressure 148/93 [Left] O2 Sat by Pulse 96 94 96 Oximetry 04/09/19 04/09/19 13:37 17:03 Temperature Pulse Rate 73 97 H Respiratory 21 16 Rate Blood Pressure Blood Pressure 160/98 163/91 [Left] O2 Sat by Pulse 98 97 Oximetry - Reevaluation(s) Reevaluation #4: Patient is ambulatory in the ER. Patient states she is back to baseline. Patient states feeling good. Patient's metabolic acidosis improved. I discussed all results with patient. Discussed plan of care patient. I discussed discharge for patient. Patient agrees with plan of care. 04/09/19 18:43 ED Medical Decision Making - Lab Data Result diagrams: 04/09/19 13:29 04/09/19 15:08 Critical care attestation.: If time is entered above; I have spent that time in minutes in the direct care of this critically ill patient, excluding procedure time. ED Disposition Is pt being admited?: No Does the pt Need Aspirin: No Time of Disposition: 18:44
[2019-04-09] MEDS ORDERED: LACOSAMIDE 100 MG in SODIUM CHLORIDE 0.9% 100 ML IV ONE (11:56)
--- NOTE | 2019-04-09 12:47 | Cat Scan Report ---
CT BRAIN: 04/09/2019 INDICATION / CLINICAL INFORMATION: seizure head tyrauma. COMPARISON: None available. FINDINGS: BRAIN/INTRACRANIAL STRUCTURES: Unenhanced CT images of the brain demonstrate no evidence of acute int racranial abnormality. Ventricles and sulci are normal in size and shape. There is no evidence of hemorrhage or mass. There are no abnormal extra-axial fluid collections. EXTRACRANIAL STRUCTURES: Unremarkable. IMPRESSION: No acute abnormality. All CT scans at this location are performed using dose reduction to ALARA by means of automated expos ure control. Signer Name: Kian John MD Signed: 04/09/2019 12:42 PM Workstation Name: [id number]
[2019-04-09] MEDS ORDERED: LORazepam 2 MG/ML VIAL ONE ×2 (13:19→13:21)
[2019-04-09 13:56] LABS: Hematocrit 38.6 % (30.3-42.9); Hemoglobin 12.9 gm/dl (10.1-14.3); Mean Corpuscular HGB Conc 33 % (30-34); Mean Corpuscular Volume 76 fl (79-97); Red Cell Distribution Width 13.7 % (13.2-15.2)
[2019-04-09 14:00] LABS: Platelet Count 251 K/mm3 (140-440)
[2019-04-09 14:03] LABS: Alanine Aminotransferase 75 units/L (7-56); BUN/Creatinine Ratio 14; Blood Urea Nitrogen 7 mg/dL (7-17); Calcium 7.9 mg/dL (8.4-10.2); Hemolysis Index 18
[2019-04-09] MEDS ORDERED: SODIUM CHLORIDE 0.9% 1000 ML 2,000 ML IV ONE (14:06)
[2019-04-09 14:27] LABS: Bilirubin,Urine NEG (Negative); Blood,Urine SM (Negative); Color,Urine Colorless (Yellow); Protein,Urine <15 mg/dL mg/dL (Negative); Urobilinogen,Urine < 2.0 mg/dL (<2.0)
[2019-04-09 14:43] LABS: Amphetamine Screen,Urine PRESUMPTIVE NEGATIVE; Benzodiazepines Screen,Urine PRESUMPTIVE NEGATIVE; Cannabinoid Screen,Urine PRESUMPTIVE NEGATIVE; Cocaine Screen,Urine PRESUMPTIVE NEGATIVE; Methadone Screen,Urine PRESUMPTIVE NEGATIVE; Opiate Screen,Urine PRESUMPTIVE NEGATIVE
[2019-04-09] MEDS ORDERED: CALCIUM GLUCONATE 2,000 MG in SODIUM CHLORIDE 0.9% 100 ML IV ONE (15:00)
[2019-04-09] MEDS ORDERED: CALCIUM CARBONATE 500 MG TAB CHEW PO ONE (15:00)
--- NOTE | 2019-04-09 15:11 | XRay Report ---
CHEST 1 VIEW INDICATION / CLINICAL INFORMATION: sz weak. History of seizure COMPARISON: 09/23/2018 FINDINGS: SUPPORT DEVICES: None. HEART / MEDIASTINUM: No significant abnormality. LUNGS / PLEURA: No significant pulmonary or pleural abnormality. No pneumothorax. ADDITIONAL FINDINGS: No significant additional findings. IMPRESSION: 1. No acute findings. No interval change. Signer Name: Kathryn Hernandez MD Signed: 04/09/2019 3:06 PM Workstation Name: [id number]
[2019-04-09 15:53] LABS: BUN/Creatinine Ratio 12; Blood Urea Nitrogen 7 mg/dL (7-17); Calcium 9.1 mg/dL (8.4-10.2); Hemolysis Index 45
[2019-04-09 19:06] VITALS: BP 168/102
== END 2019-04-09 19:05 | disposition home or self-care (01) ==
LOC: ED 11:34
DX: G40.909 Epilepsy, unspecified, not intractable, without status epilepticus (principal); R79.89 Other specified abnormal findings of blood chemistry; I10 Essential (primary) hypertension; K21.9 Gastro-esophageal reflux disease without esophagitis; G43.909 Migraine, unspecified, not intractable, without status migrainosus; Z90.710 Acquired absence of both cervix and uterus; Z79.899 Other long term (current) drug therapy; Z98.890 Other specified postprocedural states; Z88.6 Allergy status to analgesic agent; Z88.1 Allergy status to other antibiotic agents; Z88.2 Allergy status to sulfonamides
CPT/HCPCS: 36415; 70450; 71045; 80048; 80053; 80307; 81001; 82550; 83735; 85027; 93005; 93010; 96365; 96375; 99285; C9254; J0610; J1953; J2060; J7030; 80320; G0480

== ENCOUNTER 2019-07-14 09:44 | Outpatient (CLI) | payer BC ==
--- NOTE | 2019-07-14 15:16 | Mammography Report ---
DIGITAL SCREENING MAMMOGRAM WITH CAD, 07/14/2019 INDICATION: Routine screening mammography. TECHNIQUE: Digital bilateral 2D mammography was obtained in the craniocaudal and mediolateral obliq ue projections. This examination was interpreted with the benefit of Computer-Aided Detection analysi s. COMPARISON: 07/05/2018 FINDINGS: Breast Density: The breasts are heterogeneously dense, which may obscure small masses. There is no evidence of dominant mass, suspicious calcifications or architectural distortion in eithe r breast. IMPRESSION: No mammographic evidence of malignancy. Follow up recommendation: Routine yearly BI-RADS Category 1: Negative. A "normal" or negative report should not discourage follow up or biopsy of a clinically significant f inding. A written summary of these findings will be mailed to the patient. The patient will be entered into a mammography reporting system which will generate a reminder letter for the patient's next appointmen t at the appropriate interval. The [employer] recommends yearly mammograms starting at age 40 and continuing as l della as a woman is in good health. Breast MRI is recommended for women with an approximate 20-25% or greater lifetime risk of breast cancer, including women with a strong family history of breast or ova earline cancer or who have been treated for Hodgkin's disease. Signer Name: Matt Duron MD Signed: 07/14/2019 3:12 PM Workstation Name: [id number]
== END 2019-07-14 09:45 | disposition home or self-care (01) ==
LOC: MAMMO 09:44
PROVIDERS: ATTEND Surgery
DX: Z12.31 Encounter for screening mammogram for malignant neoplasm of breast (principal); N64.89 Other specified disorders of breast
CPT/HCPCS: 77067

== ENCOUNTER 2019-08-28 12:58 | Emergency (ER) | payer BC ==
[2019-08-28] MEDS ORDERED: levETIRAcetam 1000 MG/NS 0.75% 1,000 MG/100 ML BAG IV ONE (13:01)
--- NOTE | 2019-08-28 13:05 | Emergency Department Report ---
HPI - General PUI?: No Time Seen by Provider: 08/28/19 13:01 - HPI HPI: Room 20 The patient is a 48-year-old female present with a chief complaint of seizure. 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 Patient admits to having a history of seizures and states she has been compliant with her Keppra. ED Past Medical Hx - Past Medical History Hx Hypertension: Yes (RECENTLY DX) Hx GERD: Yes Hx Sickle Cell Disease: Yes (Trait only) Hx Arthritis: Yes (left leg AND ARM) Hx Headaches / Migraines: Yes (migraines) Hx Seizures: Yes (Last seizure 2017) Additional medical history: Recurrent symptomatic anemia. Menorrhagia. Uterine fibroids. Vertigo - Surgical History Additional Surgical History: 3 C- Sections, HYSTERECTOMY. Right knee repair at age 10. fx femur - Family History Family history: no significant - Social History Smoking Status: Never Smoker Substance Use Type: None - Medications Home Medications: Home Medications Medication Instructions Recorded Confirmed Last Taken Type diphenhydrAMINE [Benadryl CAP] 25 mg PO Q8HR PRN 06/22/15 02/21/18 02/20/18 History Butalbital/Aspirin/Caffeine 1 each PO BID PRN 02/17/18 02/21/18 02/14/18 History [Dpjngd-Zdolgru-Hlfuw 50-325-40] Meclizine [Antivert] 25 mg PO TID PRN 02/17/18 02/21/18 02/14/18 History Metoprolol [Lopressor TAB] 25 mg PO DAILY 02/17/18 02/21/18 02/20/18 History ` Ondansetron [Zofran TAB] 4 mg PO Q6H PRN 02/17/18 02/21/18 02/14/18 History Simvastatin 20 mg PO DAILY 02/17/18 02/21/18 02/20/18 History Butalb/Acetamin/Caff 50-325-40 1 tab PO Q8HR PRN #7 tablet 11/19/18 Unknown Rx [Fioricet 50-325-40] levETIRAcetam [Keppra TAB] 500 mg PO BID #60 tablet 08/28/19 Unknown Rx ED Review of Systems ROS: Stated complaint: SEIZURE Other details as noted in HPI Comment: Unobtainable due to pts medical conditions Physical Exam - Physical Exam Physical Exam: GENERAL: The patient is well-developed well-nourished female lying on stretcher responding to tactile and occasionally verbal stimuli. [] HEENT: Normocephalic. Atraumatic. Extraocular motions are intact. Patient has moist mucous membranes. NECK: Supple. Trachea midline CHEST/LUNGS: Clear to auscultation. There is no respiratory distress noted. HEART/CARDIOVASCULAR: Regular. There is no tachycardia. There is no gallop rub or murmur. ABDOMEN: Abdomen is soft, nontender. Patient has normal bowel sounds. There is no abdominal distention. SKIN: There is no rash. There is no edema. There is no diaphoresis. NEURO: The patient is postictal so appears somewhat confused but answers questions. The patient is cooperative. The patient has no focal neurologic deficits. The patient has normal speech MUSCULOSKELETAL: There is no evidence of acute injury. ED Course - Reevaluation(s) Reevaluation #1: 08/28/19 14:26 Patient sitting comfortably on edge of stretcher. Patient states she feels okay. ED Medical Decision Making - Lab Data Result diagrams: 08/28/19 13:12 08/28/19 13:12 Laboratory Tests 08/28/19 08/28/19 08/28/19 13:12 13:12 13:12 WBC 9.8 RBC 5.86 H Hgb 14.4 H Hct 44.3 H MCV 76 L MCH 25 L MCHC 33 RDW 14.4 Plt Count 325 Lymph % (Auto) Ammonium Nitrate Crystallizer [place] % (Auto) Ammonium Nitrate Crystallizer Eos % (Auto) Ammonium Nitrate Crystallizer Baso % (Auto) Ammonium Nitrate Crystallizer Lymph # Ammonium Nitrate Crystallizer [place] # Ammonium Nitrate Crystallizer Eos # Ammonium Nitrate Crystallizer Baso # Ammonium Nitrate Crystallizer Seg Neutrophils % Ammonium Nitrate Crystallizer Seg Neutrophils # Ammonium Nitrate Crystallizer Sodium 136 L Potassium 4.0 Chloride 100.4 Carbon Dioxide 17 L Anion Gap 23 BUN 11 Creatinine 0.7 Estimated GFR > 60 BUN/Creatinine Ratio 16 Glucose 99 Calcium 9.2 Magnesium 2.10 HCG, Qual Negative - Differential Diagnosis Seizure Critical care attestation.: If time is entered above; I have spent that time in minutes in the direct care of this critically ill patient, excluding procedure time. ED Disposition Clinical Impression: Seizure Disposition: DC-01 TO HOME OR SELFCARE Is pt being admited?: No Does the pt Need Aspirin: No Condition: Stable Instructions: Epilepsy (ED) Additional Instructions: Return to the emergency department should you develop worsening symptoms, inability to tolerate food or liquids, high fever or any other concerns Prescriptions: levETIRAcetam [Keppra TAB] 500 mg PO BID #60 tablet Referrals: PRIMARY CARE, [Primary Care Provider] - 3-5 Days Time of Disposition: 14:27
[2019-08-28 13:35] LABS: Hematocrit 44.3 % (30.3-42.9); Hemoglobin 14.4 gm/dl (10.1-14.3); Mean Corpuscular HGB Conc 33 % (30-34); Mean Corpuscular Volume 76 fl (79-97); Platelet Count 325 K/mm3 (140-440); Red Blood Count 5.86 M/mm3 (3.65-5.03); Red Cell Distribution Width 14.4 % (13.2-15.2)
[2019-08-28 13:53] LABS: BUN/Creatinine Ratio 16; Blood Urea Nitrogen 11 mg/dL (7-17); Calcium 9.2 mg/dL (8.4-10.2); Hemolysis Index 13
[2019-08-28] MEDS ORDERED: LORazepam 2 MG/ML VIAL ONE (14:34)
== END 2019-08-28 14:45 | disposition home or self-care (01) ==
LOC: ED 12:58
DX: G40.89 Other seizures (principal); I10 Essential (primary) hypertension; K21.9 Gastro-esophageal reflux disease without esophagitis; D57.1 Sickle-cell disease without crisis; M19.91 Primary osteoarthritis, unspecified site; G43.909 Migraine, unspecified, not intractable, without status migrainosus; Z90.710 Acquired absence of both cervix and uterus; Z98.890 Other specified postprocedural states; Z79.899 Other long term (current) drug therapy; Z88.8 Allergy status to other drugs, medicaments and biological substances
CPT/HCPCS: 36415; 80048; 83735; 84703; 85025; 96374; 99283; J1953; J2060

== ENCOUNTER 2020-02-06 09:35 | Outpatient (CLI) | payer BC ==
--- NOTE | 2020-02-06 11:40 | Ultrasound Report ---
EXAMINATION: Left Complete Breast Ultrasound, 02/06/2020 INDICATION: The patient reports generalized left breast pain and skin changes. COMPARISON: Screening mammogram, 07/14/2019 FINDINGS: Complete sonographic evaluation of all 4 quadrants and retroareolar region was performed. There is no evidence of suspicious solid mass or shadowing. There is no focal sonographic abnormality to account for the patient's pain. There is no evidence of soft tissue edema. IMPRESSION: Follow up recommendation: Clinical exam BI-RADS Category 1: Negative. Clinical correlation is recommended for the patient's left breast pain and possible skin changes. A normal or "negative" report should not preclude biopsy or follow-up of a clinically suspicious find ing. Signer Name: Isela Spears MD Signed: 02/06/2020 11:35 AM Workstation Name: [id number]
== END 2020-02-06 09:36 | disposition home or self-care (01) ==
LOC: SPVWC 09:35
PROVIDERS: ATTEND Surgery
DX: N60.11 Diffuse cystic mastopathy of right breast (principal); N60.12 Diffuse cystic mastopathy of left breast; N64.4 Mastodynia

== ENCOUNTER 2020-02-14 09:21 | Inpatient (IN) | payer BC ==
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
[2020-02-12 11:04] LABS: Basophils % (Auto) 0.2 % (0.0-1.8); Eosinophils # (Auto) 0.6 K/mm3 (0.0-0.4); Hematocrit 41.5 % (30.3-42.9); Hemoglobin 13.6 gm/dl (10.1-14.3); Lymphocytes # (Auto) 2.7 K/mm3 (1.2-5.4); Lymphocytes % (Auto) 29.4 % (13.4-35.0); Mean Corpuscular HGB Conc 33 % (30-34); Mean Corpuscular Volume 75 fl (79-97); Monocytes # (Auto) 0.5 K/mm3 (0.0-0.8); Monocytes % (Auto) 5.2 % (0.0-7.3); Platelet Count 299 K/mm3 (140-440); Red Blood Count 5.53 M/mm3 (3.65-5.03); Red Cell Distribution Width 14.1 % (13.2-15.2)
[2020-02-14] MEDS ORDERED: LACTATED RINGERS 1,000 ML ONE (09:44)
[2020-02-14] MEDS ORDERED: MAGNESIUM OXIDE 400 MG TAB PO NR (10:46)
[2020-02-14] MEDS ORDERED: fentaNYL 100 MCG/2 ML INJ IV NR (10:46)
[2020-02-14] MEDS ORDERED: ONDANSETRON 4 MG/2 ML INJ IV PRN (10:46)
[2020-02-14] MEDS ORDERED: ACETAMINOPHEN 325 MG TAB PO NR (10:46)
[2020-02-14] MEDS ORDERED: HYDROmorphone 1 MG/1 ML INJ IV PRN ×2 (10:46)
[2020-02-14] MEDS ORDERED: METOPROLOL TARTRATE 50 MG TAB PO NR (10:46)
--- NOTE | 2020-02-14 10:46 | Anesthesia Day of Surgery ---
Anesthesia Day of Surgery - Day of Surgery Patient Examined: Yes Patient H&P Reviewed: Yes Patient is NPO: Yes Beta Blockers: Yes
--- NOTE | 2020-02-14 10:49 | Short Stay Summary ---
Short Stay Documentation Date of service: 02/14/20 Narrative H&P: 49y/o who presents with a complaint of worsening pelvic pain. The patient has history of a prior MARE for uterine fibroids. She has elected to undergo definitive surgical management of her symptoms. - History Principal diagnosis: Chronic Pelvic pain Past Medical History: hypertension, seizures, other (vertigo) Past Surgical History: , Other (MARE; cardiac stent; breast biopsy) Social history: - Allergies and Medications Current Medications: Allergies hydromorphone [From Dilaudid] Allergy (Verified 02/07/20 10:00) Itching misoprostol [From Cytotec] Allergy (Verified 02/07/20 10:00) N&V promethazine HCl [From Phenergan] Allergy (Verified 02/07/20 10:00) Unknown sulfamethoxazole [From Bactrim] Allergy (Verified 02/07/20 10:00) Hives trimethoprim [From Bactrim] Allergy (Verified 02/07/20 10:00) Hives lisinopril Adverse Reaction (Verified 02/07/20 10:00) Cough Home Medications Medication Instructions Recorded Confirmed Last Taken Type Metoprolol [Lopressor TAB] 25 mg PO BID 02/17/18 02/12/20 02/20/18 History ` Ondansetron [Zofran TAB] 4 mg PO Q6H PRN 02/17/18 02/12/20 02/14/18 History Simvastatin 20 mg PO DAILY 02/17/18 02/12/20 02/20/18 History levETIRAcetam [Keppra TAB] 500 mg PO BID #60 tablet 08/28/19 02/12/20 Unknown Rx Butalb/Acetaminophen/Caffeine 1 each PO PRN PRN 02/12/20 02/12/20 Unknown History [Qdpdqb-Aptsjtww-Hcgp 50-325-40] Cyclobenzaprine [Flexeril] 10 mg PO TID PRN 02/12/20 02/12/20 Unknown History Ibuprofen [Motrin] 800 mg PO Q8HR PRN 02/12/20 02/12/20 Unknown History - Physical exam General appearance: no acute distress Integumentary: no rash HEENT: Atraumatic Lungs: Clear to auscultation Breasts: deferred Heart: Regular rate Gastrointestinal: normal Female Genitourinary: deferred Rectal Exam: deferred Extremities: no ischemia Neurological: Normal gait - Brief post op/procedure progress note Date of procedure: 02/14/20 Pre-op diagnosis: Chronic pelvic pain and left ovarian cyst Post-op diagnosis: same Procedure: Robotic assisted bilateral salpingo-oophorectomy Lysis of adhesions Anesthesia: GETA Surgeon: YESENIA BRYSON Estimated blood loss: minimal Pathology: list (Bilateral fallopian tubes and ovaries; portion of small bowel) Specimen disposition: to lab Condition: stable Short Stay Discharge Plan Follow up with: KEYLA DAMIAN DO [Primary Care Provider] - 7 Days
[2020-02-14] MEDS ORDERED: METOPROLOL TARTRATE 25 MG TAB ONE (10:52)
[2020-02-14] MEDS ORDERED: ceFAZolin/Water 2 GM/20 ML 2 GM/20 ML SYRINGE IV NR (11:00)
[2020-02-14] MEDS ORDERED: LACTATED RINGERS 1,000 ML IV SCH (11:00)
[2020-02-14] MEDS ORDERED: GABAPENTIN 300 MG CAP PO NR (11:00)
[2020-02-14] MEDS ORDERED: CELECOXIB 200 MG CAP PO NR (11:00)
[2020-02-14] MEDS ORDERED: MIDAZOLAM 2 MG/2 ML INJ IV NR (11:00)
[2020-02-14] MEDS ORDERED: BUPIVACAINE/PF (0.25%) 2.5 MG/ML 30 ML VIAL INFILTRATI ONE (11:17)
[2020-02-14] MEDS ORDERED: dexAMETHasone 20 MG/5 ML VIAL ONE ×2 (11:17→14:38)
[2020-02-14] MEDS ORDERED: MORPHINE 2 MG/1 ML INJ IV PRN (11:23)
[2020-02-14] MEDS ORDERED: MORPHINE 4 MG/1 ML INJ IV PRN (11:23)
[2020-02-14] MEDS ORDERED: ROCURONIUM 50 MG/5 ML INJ IV ONE (11:55)
[2020-02-14] MEDS ORDERED: propofoL 200 MG/20 ML VIAL IV ONE (11:55)
[2020-02-14] MEDS ORDERED: SODIUM CHLORIDE 0.9% IRR 1,500 ML BOTTLE IR ONE (12:54)
[2020-02-14] MEDS ORDERED: HYDROmorphone 1 MG/1 ML INJ ONE (14:00)
[2020-02-14] MEDS ORDERED: ONDANSETRON 4 MG/2 ML INJ ONE (14:38)
[2020-02-14] MEDS ORDERED: NEOSTIGMINE 10MG/10 ML INJ MDV ONE (14:38)
[2020-02-14] MEDS ORDERED: KETOROLAC 30 MG/1 ML INJ ONE (14:38)
[2020-02-14] MEDS ORDERED: GLYCOPYRROLATE 0.4 MG/2 ML INJ ONE (14:38)
--- NOTE | 2020-02-14 14:38 | Operative Report ---
Operative Report Operative Report: Date of surgery: February 14, 2020 Preoperative diagnoses: Chronic pelvic pain Postoperative diagnoses: Chronic pelvic pain; left ovarian cyst; pelvic and bowel adhesions; incidental of bowel injury Procedure: Robotic assisted bilateral salpingo-oophorectomy; lysis of adhesions Small bowel resection and repair of enterotomy performed by Dr. Ibrahim Surgeon: Josee Gambino M.D. Race Car Mechanic: Denise De Guzman Anesthesia: Gen. endotracheal anesthesia Estimated blood loss: Less than 50 mL Pathology: Bilateral tubes and ovaries; portion of small bowel Complication: Incidental enterotomy Indication: 49-year-old -0-0-3 with a history of worsening chronic pelvic pain the patient elected to undergo definitive surgical management. Procedure: The patient was taken to the operating room and given general endotracheal anesthesia without complication. She is prepped and draped in a normal sterile fashion. A bivalve speculum was placed in the patient's vagina and a single- tooth tenaculum placed on the anterior lip of the cervix. The uterus was sounded with the uterine sound. A [place] [employer] uterine manipulator was placed in the bivalve speculum was then removed. Attention was then turned to the patient's abdomen where a millimeter supra umbilical skin incision was then made. A Karen ess needle was placed and peritoneal entry was verified water-filled syringe. Insufflation of the peritoneal cavity was performed with CO2 gas. The 12 mm trocar was then placed under direct visualization. An additional 8 mm trocar was placed on the patient's left and right lateral side just opposite of the supraumbilical trocar. An additional 12 mm right lateral trocar was then placed as the accessory port. The supraumbilical and right lateral 12 mm trocar sites were closed with the Jian Cerna device and 0-vicryl suture. The patient was then placed in steep Trendelenburg. The da Tony robot was then engaged. A fenestrated forcep was placed in arm 2 and a vessel sealer was placed in arm 1. General survey revealed evidence of multiple omental and bowel adhesions to the anterior abdominal wall. The left ovary was enlarged with a hemorrhagic cyst. The surgeon then transferred to the surgical console. Lysis of adhesions were performed of the omentum from the anterior abdominal wall in order to improve visualization. An incidental enterotomy was performed secondary to the adhesions and an attempt to release the adhesions from the anterior abdominal wall. Dr. Ibrahim was consulted for further evaluation of the bowel and repair of the defect. The right adnexa was isolated. The infundibular pelvic ligament was identified. The vessel sealer was used to coagulate and transect the ligament. Attention was then turned to the patient's left side where the vessel sealer was used for lysis of adhesions and and coagulation and transection of the infundibulopelvic ligament to remove the left adnexa which was enlarged from the hemorrhagic cyst. The Endo Catch bag was placed into the pelvis through the right lateral trocar. The ovaries were removed without difficulty. Repair of the enterotomy in the small bowel resection were performed by Dr. Ibrahim and assisted by Dr. Gambino. A mini laparotomy was performed. Please see Dr. Ibrahim's operative note for details of the surgery. After the bowel injury was repaired the the fascia was closed with #1 PDS suture. The skin was then reapproximated with 4-0 Monocryl. The laparoscope was reinserted to evaluate t he fascial repair. Irrigation of the pelvis was performed. The tissue was sent to pathology which included bilateral tubes and ovaries and small bowel. The patient was then successfully extubated. She was then taken to the recovery room in stable condition. All sponge laps and needle counts were correct x2.
[2020-02-14] MEDS ORDERED: ACETAMINOPHEN 325 MG TAB PO PRN (15:00)
[2020-02-14] MEDS ORDERED: D5W/LACTATED RINGERS 1,000 ML IV SCH (15:00)
--- NOTE | 2020-02-14 16:42 | Post Operative Note ---
Pre-op diagnosis: enterotomy, intraabdominal adhesions Post-op diagnosis: same Findings: Intraoperative consult called by Dr. Solorzano during robotic bilateral oophorectomy. Patient with history of many years ago with densely adhered small bowel to the anterior abdominal wall at the site of the P fannenstiel scar. During adhesiolysis, an enterotomy was noted in the small bowel. General surgery consulted for evaluation and treatment. Patient stable and already under anesthesia. Dense adhesions noted from the loop of of small bowel with enterotomy to the peritoneum and exposed muscle in the mid lower abdomen. Enterotomy approximately 50% of the diameter of the small bowel, could not be p rimarily repaired. Procedure: Robotic assisted lysis of adhesions, open small bowel resection with primary anastomosis Anesthesia: BREN Surgeon: MARK MONTEIRO Clinical Project Coordinator: YESENIA BRYSON Estimated blood loss: minimal Pathology: list (portion of small bowel) Specimen disposition: to lab Condition: stable Disposition: other (Stable in OR for completion of DIRECTOR AND PROFESSOR case)
[2020-02-14] MEDS: ONDANSETRON 4 MG/2 ML INJ IV PRN (17:20)
[2020-02-14] MEDS: KETOROLAC 30 MG/1 ML INJ IV SCH (18:15)
[2020-02-14] MEDS: metroNIDAZOLE/NS 500 MG/100 ML 500 MG/100 ML BAG IV SCH (18:16)
--- NOTE | 2020-02-14 19:21 | Post Anesthesia Evaluation ---
- Post Anesthesia Evaluation Patient Participated: Yes Airway Patent: Yes Stable Respiratory Function: Yes Nausea/Vomiting: No Temp > 96.8F: Yes Pain Manageable: Yes Adequeate Hydration: Yes Anesthesia Complications: No Block Receding Appropriately: Yes Patient on Ventilator: No
--- NOTE | 2020-02-14 19:27 | Event Note ---
Date: 02/14/20 Post op check: Pt seen. VSS. No complaints. Pain well managed. No n/v, f/c. Explained to patient my role intraop today, need for small bowel resection due to very dense adhesive disease in the surgical field resulting from prior csections. She understands and all questions answered. Will follow up tomorrow.
[2020-02-14] MEDS: MORPHINE 4 MG/1 ML INJ IV PRN (21:39)
[2020-02-15] MEDS: levETIRAcetam 500 MG TAB PO SCH ×3 (00:13→22:13)
[2020-02-15] MEDS: KETOROLAC 30 MG/1 ML INJ IV SCH ×4 (00:13→15:29)
[2020-02-15] MEDS: IBUPROFEN 600 MG TAB PO SCH ×4 (01:29→17:22)
[2020-02-15] MEDS: ONDANSETRON 4 MG/2 ML INJ IV PRN ×3 (01:32→17:09)
[2020-02-15] MEDS: metroNIDAZOLE/NS 500 MG/100 ML 500 MG/100 ML BAG IV SCH (02:23)
[2020-02-15] MEDS: MORPHINE 4 MG/1 ML INJ IV PRN (02:24)
[2020-02-15] MEDS ORDERED: FLU VACC QUAD 2020-2021 (6 months +)/PF 60 0.5 ML SYRINGE IM ONE (06:00)
--- NOTE | 2020-02-15 07:45 | Progress Note ---
Assessment and Plan - Patient Problems (1) Chronic pelvic pain in female Current Visit: Yes Status: Acute Plan to address problem: Status post robotic assisted bilateral salpingopleurectomy complicated by incidental enterotomy with small bowel resection Clinically the patient is doing well Advance diet as tolerated Subjective - Subjective Date of service: 02/15/20 Principal diagnosis: Chronic Pelvic pain Interval history: The patient reports feeling well today. She states last night she had a few episodes of emesis. She is currently tolerating a clear diet without complication. The details of her surgical procedure were discussed. Images of the surgery were given to the patient. Patient reports: appetite normal, voiding normally, pain well controlled Objective - Vital Signs Latest vital signs: Vital Signs Temp Pulse Pulse Resp BP Pulse Ox 02/15/20 06:34 18 02/15/20 06:04 18 02/15/20 04:36 97.3 F L 87 18 134/86 100 02/15/20 02:54 18 02/15/20 02:24 18 02/15/20 01:29 18 02/15/20 00:43 18 02/15/20 00:13 18 02/14/20 23:59 97.3 F L 99 H 18 137/95 99 02/14/20 22:09 18 02/14/20 22:00 80 18 100 02/14/20 21:39 18 02/14/20 19:51 97.5 F L 86 18 97 02/14/20 19:49 97.5 F L 91 H 18 133/85 92 02/14/20 18:54 97.5 F L 02/14/20 17:07 97.2 F L 02/14/20 16:41 75 16 129/84 100 02/14/20 16:40 100 02/14/20 16:10 97.4 F L 76 14 132/86 100 02/14/20 15:55 79 14 135/87 99 02/14/20 15:40 71 12 123/81 100 02/14/20 15:25 66 12 113/75 100 02/14/20 15:10 97.1 F L 66 12 109/69 100 02/14/20 15:05 65 6 L 103/69 100 02/14/20 15:00 67 8 L 101/63 100 02/14/20 14:56 96.7 F L 67 8 L 96/64 99 02/14/20 11:54 12 02/14/20 11:48 73 11 L 134/90 98 02/14/20 11:44 70 12 132/92 98 02/14/20 11:39 72 11 L 132/90 95 02/14/20 11:36 73 9 L 129/92 95 02/14/20 11:29 76 9 L 139/100 91 02/14/20 11:24 75 13 130/102 93 02/14/20 11:20 20 02/14/20 11:19 71 10 L 149/101 100 02/14/20 11:14 75 28 H 159/91 98 02/14/20 11:01 20 02/14/20 11:00 88 148/98 02/14/20 10:59 20 02/14/20 10:30 97.4 F L 88 24 149/98 98 02/14/20 10:05 97.4 F L 88 24 149/98 98 Intake and Output 02/14/20 02/15/20 02/15/20 22:59 06:59 14:59 Intake Total 230 Output Total 2400 2100 Balance -2170 -2100 Intake: IV 200 FLAGYL 500 MG/100 ML 500 100 mg In 100 ml @ 100 mls/hr IV Q8HR [facility] Rx#: [id number] ceFAZolin 2 GM In NaCl 0. 100 9% 100 ml @ 200 mls/hr IV Q8H [facility] Rx#:[id number] Oral 30 Output: Urine 2400 1700 Indwelling Catheter 1200 1700 Emesis 400 Other: Total, Intake Amount 30 Total, Output Amount 1200 400 Voiding Method Indwelling Catheter Indwelling Catheter - Exam Abdomen: Present: normal appearance, soft
[2020-02-15] MEDS: oxyCODONE /ACETAMINOPHEN 5-325MG TAB PO PRN ×3 (09:02→19:51)
[2020-02-15 11:05] LABS: Hematocrit 39.9 % (30.3-42.9); Hemoglobin 12.8 gm/dl (10.1-14.3)
--- NOTE | 2020-02-15 13:41 | Progress Note ---
Assessment and Plan 49 yo F s/p Robotic assisted bilateral salpingo-oophorectomy; lysis of adhesions, Small bowel resection and repair of enterotomy, POD 1 Plan: 1. adv to full liquid diet for dinner 2. maintenance IVF 3. prn pain control 4. OOB/ambulate 5. may restart home meds 6. Anticipate DC planning for am Thank you, please call with questions. Subjective Date of service: 02/15/20 Narrative: Pt seen and examined. No complaints. Had emesis overnight. Attributes emesis to medication. Today she has tolerated clear liquids without difficulty. Has been OOB and ambulating. No f/c. Objective Vital Signs - 12hr 02/15/20 02/15/20 02/15/20 02:24 02:54 04:36 Temperature 97.3 F L Pulse Rate 87 Respiratory 18 18 18 Rate Blood Pressure 134/86 O2 Sat by Pulse 100 Oximetry 02/15/20 02/15/20 02/15/20 06:04 06:34 08:04 Temperature 97.2 F L Pulse Rate 81 Respiratory 18 18 16 Rate Blood Pressure 157/94 O2 Sat by Pulse 99 Oximetry 02/15/20 02/15/20 09:09 12:22 Temperature 99.1 F Pulse Rate 90 Respiratory 18 Rate Blood Pressure 148/90 138/89 O2 Sat by Pulse 98 Oximetry - General physical appearance Narrative Exam: Gen: AAOx3. NAD CV: s1, S2+ Resp: even and unlabored Abd: soft, NT, ND. Incisions c/d/i Ext: no c/c/e - Labs 02/15/20 10:37
--- NOTE | 2020-02-15 14:24 | Operative Report ---
Operative Report Operative Report: Patient Name: IBAN SARKAR Date of : 70 Attending Provider: YESENIA GAMBINO Date: 02/14/20 16:38 Pre-op diagnosis: incidental enterotomy, intraabdominal adhesions Post-op diagnosis: same Findings: Intraoperative consult called by Dr. Solorzano during robotic bilateral oophorectomy. Patient with history of many years ago with densely adhered small bowel to the anterior abdominal wall at the site of the Pfannenstiel scar. During adhesiolysis, an incidental enterotomy was noted in the small bowel. General surgery consulted for evaluation and treatment. Patient stable and already under anesthesia. Dense adhesions noted from the loop of of small bowel with enterotomy to the peritoneum and exposed muscle in the mid lower abdomen. Enterotomy approximately 50% of the diameter of the small bowel, could not be primarily repaired. Procedure: Robotic assisted lysis of adhesions, open small bowel resection with primary anastomosis Anesthesia: ROBERTA Surgeon: MARK MONTEIRO Casing In Line Setter: YESENIA GAMBINO Estimated blood loss: minimal Pathology: list (portion of small bowel) Specimen disposition: to lab Condition: stable Disposition: other (Stable in OR for completion of TUNG NUT GROWER case) Procedure in detail: Surgery already in progress with robot docked. Bowel in question examined robotically. Short segment of small bowel densly adhered to anterior abdominal wall at site of Pfannenstiel scar. The enterotomy was easily identified and there was no spillage of bowel contents. Enterotomy approximately 50% of the circumference of the small bowel, could not be primarily repaired. Lysis of adhesions performed using monopolar scissor and fenestrated bipolar. A portion of the bowel was able to be freed. The remainder of the adhesed small bowel could not safely be dissected from the abdominal wall as there was no plane. The enterotomy was closed using a running 3-0 vloc stitch. The decision was then made to complete the lysis of adhesions and small bowel resection in an open fashion. The robot was undocked and I scrubbed in. Using a 10 blade, an incision was made through the old pfannenstiel scar. Dissection was carried down through the skin and subcutaneous tissue using Bovie electrocautery until the fascia was identified. The fascia was scored and then tented up between 2 hemostats. The fascia was then incised using Metzenbaum scissors until the peritoneum was entered. Once the peritoneum was entered, the fascial incision was then completed over 2 gloved fingers using electrocautery. The loop of small bowel that was adhesed to the anterior abdominal wall was visualized and very meticulously dissected from the anterior abdominal wall using Metzenbaum scissors. Once the loop was freed it was brought out into the field and examined. There was no spillage of bowel contents. It was a short segment measuring approximately 3 cm. The proximal and distal small bowel was healthy. A small [place] wound protector was placed through this incision. We then turned our attention to performing the small bowel resection. A window was made in the mesentery at the proximal and distal resection margins and the small bowel was transected using a EDUARDO 75 mm blue load stapler x2. The small bowel was then aligned at its antimesenteric border in an antiperistaltic fashion. The mesentery was examined and not twisted. Enterotomies were created and a [id number] functional end-to-end small bowel anastomosis was created using a EDUARDO 75 mm blue load stapler. The common channel was checked for hemostasis which was ensured. Allis clamps were then applied to approximate the common channel and it was closed using a EDUARDO 75 mm blue load stapler. Any oozing from the staple line was controlled with 3-0 silk [id number] stitches. The mesentery was closed with several interrupted 3-0 silk stitches. A 3-0 silk interrupted stitch was placed at the crotch of the anastomosis. The anastomosis was palpated and widely patent. The bowel was placed back into the abdomen in anatomic position. The fascia was closed using #1 running PDS. The abdomen was then reinsufflated and the fascial closure examined and was satisfactory. The small bowel was seen to be laying in normal anatomic position without twisting of the mesentery. The pelvis was then irrigated and the irrigant returned clear. Hemostasis was ensured. The wound was irrigated. The incisions were closed as per Dr. Gambino's operative report. The patient remained stable throughout the procedure. The patient was left in the care of Dr. Solorzano for the completion of the procedure. All sharps, instrument, sponge counts were correct.
[2020-02-15] MEDS: ONDANSETRON 4 MG ODT TAB PO PRN (19:41)
[2020-02-15] MEDS ORDERED: diphenhydrAMINE 50 MG CAP PO PRN (21:02)
[2020-02-15] MEDS ORDERED: PRAVASTATIN 40 MG TAB PO SCH (22:00)
[2020-02-15] MEDS: METOPROLOL TARTRATE 25 MG TAB PO SCH (22:12)
[2020-02-16] MEDS: IBUPROFEN 600 MG TAB PO SCH (05:37)
--- NOTE | 2020-02-16 07:58 | Progress Note ---
Assessment and Plan A: POD#2 s/p Robotic assisted bilateral salpingo-oophorectomy; lysis of adhesions Small bowel resection and repair of enterotomy performed by Dr. Ibrahim Doing well Pt requests discharge later today if possible P: Advance diet as tolerated Ensure no further recs from Dr Ibrahim Anticipate discharge later today Subjective - Subjective Date of service: 02/16/20 Principal diagnosis: Chronic Pelvic pain s/p Robotic BSO, lysis of adhesions, repair of incident Interval history: Pt reports feeling well overnight. Tolerating full liquid diet. Ambulating. Pain well-controlled. Patient reports: appetite normal, voiding normally, pain well controlled, flatus, ambulating normally, no bowel movement Objective - Vital Signs Latest vital signs: Vital Signs Temp Pulse Resp BP Pulse Ox 02/16/20 04:36 97.2 F L 78 20 121/73 91 02/15/20 23:20 97.7 F 65 20 133/86 98 02/15/20 22:12 74 155/94 02/15/20 19:43 97.8 F 83 20 157/94 99 02/15/20 16:29 97.8 F 79 18 138/90 98 02/15/20 12:22 99.1 F 90 18 138/89 98 02/15/20 09:09 148/90 02/15/20 08:04 97.2 F L 81 16 157/94 99 Intake and Output 02/15/20 02/16/20 02/16/20 22:59 06:59 14:59 Intake Total 480 Output Total 900 100 Balance -420 -100 Intake: Oral 480 Output: Urine 900 100 Void 900 100 Other: Total, Intake Amount 240 Total, Output Amount 300 100 Voiding Method Toilet - Exam Breasts: Present: deferred Abdomen: Present: soft, distention (mild ), other (incisions intact with skin glue) Extremities: Present: normal Incision: Present: intact
[2020-02-16] MEDS ORDERED: SIMETHICONE 80 MG CHEW TAB PO PRN (09:00)
--- NOTE | 2020-02-16 09:24 | Progress Note ---
Assessment and Plan 49 yo F s/p Robotic assisted bilateral salpingo-oophorectomy; lysis of adhesions, Small bowel resection and repair of enterotomy, POD 1 Plan: 1. adv to soft diet - patient instructed to continue soft diet for the next 3-4 days 2. dc IVF 3. prn PO pain control 4. OOB/ambulate OK to dc from general surgery standpoint. Pt to follow up with Dr. Randolph after dc. Thank you, please call with questions. Subjective Date of service: 02/16/20 Narrative: Patient seen and examined. No acute complaints. Pain is very well managed. She has had flatus but no bowel movement. She is tolerating a full liquid diet. No nausea or vomiting. She is ambulating. Objective Vital Signs - 12hr 02/15/20 02/15/20 02/16/20 22:12 23:20 04:36 Temperature 97.7 F 97.2 F L Pulse Rate 74 65 78 Respiratory 20 20 Rate Blood Pressure 155/94 133/86 121/73 O2 Sat by Pulse 98 91 Oximetry 02/16/20 08:00 Temperature Pulse Rate Respiratory 20 Rate Blood Pressure O2 Sat by Pulse Oximetry - General physical appearance Narrative Exam: Gen.: Awake, alert, oriented 3. No apparent distress ENT: Trachea midline. No lymphadenopathy. No scleral icterus or conjunctival pallor CV: S1, S2 present Respiratory: No audible wheezes Abdomen: Soft, nondistended, nontender. Incisions clean, dry, intact. Mild ecchymosis inferior to the suprapubic incision. No rebound, rigidity, guarding Extremities: No clubbing, cyanosis, edema - Labs 02/15/20 10:37
[2020-02-16] MEDS: levETIRAcetam 500 MG TAB PO SCH (10:09)
[2020-02-16] MEDS: METOPROLOL TARTRATE 25 MG TAB PO SCH (10:10)
[2020-02-16] MEDS: oxyCODONE /ACETAMINOPHEN 5-325MG TAB PO PRN (10:11)
[2020-02-16] MEDS: ONDANSETRON 4 MG ODT TAB PO PRN (10:21)
--- NOTE | 2020-02-16 11:36 | Discharge Summary ---
Providers - Providers Date of Admission: 02/14/20 14:38 Date of discharge: 02/16/20 Attending physician: YESENIA BRYSON Primary care physician: KEYLA DAMIAN Hospitalization Reason for admission: other (Chronic Pelvic Pain, Ovarian Cyst ) Procedure details: Robotic assisted bilateral salpingo-oophorectomy; lysis of adhesions Small bowel resection and repair of enterotomy performed by Dr. Ibrahim Incision: intact (with skin glue) Hospital course: Pt was admitted for robotic assisted bilateral salpingo-oophorectomy; lysis of adhesions, Small bowel resection and repair of enterotomy performed by Dr. Ibrahim. Her postoperative course was uncomplicated and she met discharge criteria on POD#2. She will follow up in two weeks with Dr Bryson. She will consume a soft diet for another 3-4 days as directed. Condition at discharge: Stable Disposition: - TO HOME OR SELFCARE - Discharge Diagnoses (1) Ovarian cyst Status: Acute Qualifiers: Laterality: left Qualified Code(s): N83.202 - Unspecified ovarian cyst, left side (2) Chronic pelvic pain in female Status: Acute Plan - Discharge Medications Prescriptions: Docusate Sodium [Colace] 100 mg PO BID PRN #30 capsule PRN Reason: Constipation Ibuprofen [Motrin] 800 mg PO Q8HR PRN #60 tablet PRN Reason: Pain , Severe (7-10) oxyCODONE /ACETAMINOPHEN [Percocet 5/325] 1 tab PO Q6HR PRN #30 tablet PRN Reason: Pain Ondansetron [Zofran ODT TAB] 8 mg PO Q12HR PRN #30 tab.rapdis PRN Reason: Nausea - Provider Discharge Summary Activity: routine, no sex for 6 weeks, no heavy lifting 4 weeks, no strenuous exercise Diet: other (soft diet for 3-4 days) Instructions: routine Additional instructions: [] Smoking cessation referral if applicable(refer to patient education folder for contact #) [] Refer to [facility] Booklet Call your doctor immediately for: * Fever > 100.5 * Heavy vaginal bleeding ( >1 pad per hour) * Severe persistent headache * Shortness of breath * Reddened, hot, painful area to leg or breast * Drainage or odor from incision. * Keep incision clean and dry at all times and follow doctor's instructions r egarding bathing/showering - Follow up plan Follow up: KEYLA DAMIAN DO [Primary Care Provider] - 7 Days YESENIA BRYSON MD [Staff Physician] - 14 Days
[2020-02-16 12:28] VITALS: BP 139/87
== END 2020-02-16 12:10 | disposition home or self-care (01) | DRG 742 ==
LOC: OR 09:21 → OB 14:38
PROVIDERS: ADMIT Obstetrics & Gynecology; ATTEND Obstetrics & Gynecology
PROC: 0UT74ZZ Resection of Bilateral Fallopian Tubes, Percutaneous Endoscopic Approach (ICD-10-PCS; principal; 2020-02-14)
PROC: 0UT24ZZ Resection of Bilateral Ovaries, Percutaneous Endoscopic Approach (ICD-10-PCS; 2020-02-14)
PROC: 8E0W4CZ Robotic Assisted Procedure of Trunk Region, Percutaneous Endoscopic Approach (ICD-10-PCS; 2020-02-14)
PROC: 0DNU0ZZ Release Omentum, Open Approach (ICD-10-PCS; 2020-02-14)
PROC: 0DQ80ZZ Repair Small Intestine, Open Approach (ICD-10-PCS; 2020-02-14)
DX: N83.202 Unspecified ovarian cyst, left side (principal); S36.498A Other injury of other part of small intestine, initial encounter; K66.0 Peritoneal adhesions (postprocedural) (postinfection); G89.29 Other chronic pain; Y83.8 Other surgical procedures as the cause of abnormal reaction of the patient, or of later complication, without mention of misadventure at the time of the procedure; Y73.8 Miscellaneous gastroenterology and urology devices associated with adverse incidents, not elsewhere classified; Y92.234 Operating room of hospital as the place of occurrence of the external cause
CPT/HCPCS: 36415; 64450; 85014; 85018; 85025; 86850; 86900; 86901; 88305; 88307; G0378; A9270-GY; J0690; J1100; J1170; J1885; J2250; J2270; J2405; J2704; J2710; J3010; J7120; J7121; Q0162; U0003-CS

== ENCOUNTER 2020-03-25 10:55 | Emergency (ER) | payer BC ==
--- NOTE | 2020-03-25 14:11 | Event Note ---
ED Screening Note ED Screening Note: states she had a hysterectomy by Dr. 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 Gambino or Dr. Ibrahim (+) N/V states she has bright red blood streaks in the stool PMHx seizures, vertigo, SVT This initial assessment/diagnostic orders/clinical plan/treatment(s) is/are subject to change based on patients health status, clinical progression and re- assessment by fellow clinical providers in the ED. Further treatment and workup at subsequent clinical providers discretion. Patient/guardian urged not to elope from the ED as their condition may be serious if not clinically assessed and managed. Initial orders include: labs, CT abd pelvis, UA
[2020-03-25 15:04] LABS: Bilirubin,Urine NEG (Negative); Blood,Urine MOD (Negative); Color,Urine Yellow (Yellow); Mucus,Urine 3+ /HPF; Protein,Urine <15 mg/dL mg/dL (Negative); Urobilinogen,Urine < 2.0 mg/dL (<2.0)
[2020-03-25 15:45] LABS: Basophils # (Auto) 0.1 K/mm3 (0.0-0.1); Basophils % (Auto) 1.2 % (0.0-1.8); Eosinophils # (Auto) 0.6 K/mm3 (0.0-0.4); Eosinophils % (Auto) 6.7 % (0.0-4.3); Hematocrit 44.1 % (30.3-42.9); Hemoglobin 14.3 gm/dl (10.1-14.3); Lymphocytes % (Auto) 36.2 % (13.4-35.0); Mean Corpuscular HGB Conc 32 % (30-34); Mean Corpuscular Volume 77 fl (79-97); Monocytes # (Auto) 0.3 K/mm3 (0.0-0.8); Monocytes % (Auto) 4.2 % (0.0-7.3); Platelet Count 303 K/mm3 (140-440); Red Blood Count 5.76 M/mm3 (3.65-5.03); Red Cell Distribution Width 14.5 % (13.2-15.2)
[2020-03-25 15:57] LABS: INR 0.96 (0.87-1.13)
[2020-03-25 15:58] LABS: Partial Thromboplastin Time 29.2 Sec. (24.2-36.6)
[2020-03-25 16:10] LABS: Alanine Aminotransferase 152 units/L (7-56); Albumin 5.1 g/dL (3.9-5); Blood Urea Nitrogen 7 mg/dL (7-17); Calcium 10.1 mg/dL (8.4-10.2); Hemolysis Index 9
[2020-03-25 16:14] LABS: BUN/Creatinine Ratio 12
[2020-03-25] MEDS ORDERED: ONDANSETRON 4 MG/2 ML INJ IV ONE (21:56)
[2020-03-25] MEDS ORDERED: MORPHINE 4 MG/1 ML INJ IV ONE (21:56)
[2020-03-25] MEDS ORDERED: SODIUM CHLORIDE 0.9% 1000 ML 1,000 ML IV ONE (21:56)
--- NOTE | 2020-03-25 22:05 | Emergency Department Report ---
ED General Adult HPI - General Chief complaint: GI Bleed Stated complaint: VOMIT/CONSTANT/BLOOD IN STOOL PUI?: No Time Seen by Provider: 03/25/20 14:08 Source: patient, RN notes reviewed, old records reviewed Mode of arrival: Ambulatory Limitations: No Limitations - History of Present Illness Initial comments: The patient was evaluated in the emergency department for symptoms described in the history of present illness. He/she was evaluated in the context of the global COVID-19 pandemic, which necessitated consideration that the patient might be at risk for infection with the virus that causes COVID-19. Institutional protocols and algorithms that pertain to the evaluation of patients at risk for COVID-19 are in a state of rapid change based on information released by regulatory bodies including the CDC and federal and state organizations. These policies and algorithms were followed during the patient's care in the emergency department. Please note that these policies, procedures and recommendations changed on a rapid basis. During the entire history and physical examination, I am chaperoned by nurse Darinel Huang Patient is a 49-year-old female. Her train clerk is Dr. Osorio, Dr. [place]. Her general surgeon is Dr. Cassi Monteiro Last month, at this hospital, the patient was admitted to the gynecologic service, for bilateral salpingo-oophorectomy. She also had robotic assisted lysis of adhesions, and accidental enterotomy, with open small bowel resection, and primary anastomosis. She was discharged with ibuprofen, 800 mg, as well as Colace, oxycodone/acetaminophen, and Zofran. She has follow-up in 2 days with the aforementioned general surgeon. She has not followed up with her train clerk secondary to lack of transportation. She presents to the ER with a complaint of approximately 6 weeks of intermittent nausea, vomiting, and intermittent abdominal pain. The symptoms have basically been present since her hospitalization. She denies headache, neck pain, chest pain, shortness of breath, dysuria. She does not smoke cigarettes or use recreational drugs. Her abdominal pain is primarily in left lower quadrant, intermittent, increases with palpation, and decreases with rest. Her emesis is clear/green, nonbloody. It is intermittent. She also endorses constipation, straining, and intermittent red stool. No colonoscopy that she is aware of. She defecated blood once today, once yesterday, and prior to that, 2 to 3 days ago. There is brown stool/with red blood is intermittent. -: Gradual, week(s) Location: abdomen Quality: aching Consistency: intermittent Improves with: rest Worsens with: movement - Related Data Home Medications Medication Instructions Recorded Confirmed Last Taken Metoprolol [Lopressor TAB] 25 mg PO BID 02/17/18 02/14/20 02/13/20 19:30 Ondansetron [Zofran TAB] 4 mg PO Q6H PRN 02/17/18 02/14/20 02/09/20 09:00 Simvastatin 20 mg PO DAILY 02/17/18 02/14/20 02/13/20 19:00 Butalb/Acetaminophen/Caffeine 1 each PO PRN PRN 02/12/20 02/14/20 02/09/20 09:00 [Apcows-Ujvicxgf-Xanp 50-325-40] Cyclobenzaprine [Flexeril] 10 mg PO TID PRN 02/12/20 02/14/20 02/13/20 19:00 Previous Rx's Medication Instructions Recorded Last Taken Type levETIRAcetam [Keppra TAB] 500 mg PO BID #60 tablet 08/28/19 02/14/20 08:30 Rx Docusate Sodium [Colace] 100 mg PO BID PRN #30 capsule 02/15/20 Unknown Rx oxyCODONE /ACETAMINOPHEN [Percocet 1 tab PO Q6HR PRN #30 tablet 02/15/20 Unknown Rx 5/325] Ondansetron [Zofran ODT TAB] 8 mg PO Q12HR PRN #30 tab.rapdis 02/16/20 Unknown Rx Acetaminophen [Non-Aspirin Extra 500 mg PO Q6HR PRN #30 tablet 03/26/20 Unknown Rx Strength] Tiff Root [Tiff] 250 mg PO QID PRN #30 capsule 03/26/20 Unknown Rx Ondansetron [Zofran Odt] 4 mg PO Q8HR PRN #20 tab.rapdis 03/26/20 Unknown Rx Allergies Allergy/AdvReac Type Severity Reaction Status Date / Time hydromorphone [From Dilaudid] Allergy Itching Verified 02/07/20 10:00 misoprostol [From Cytotec] Allergy N&V Verified 02/07/20 10:00 promethazine HCl Allergy Unknown Verified 02/07/20 10:00 [From Phenergan] sulfamethoxazole Allergy Hives Verified 02/07/20 10:00 [From Bactrim] trimethoprim [From Bactrim] Allergy Hives Verified 02/07/20 10:00 lisinopril AdvReac Cough Verified 02/07/20 10:00 ED Review of Systems ROS: Stated complaint: VOMIT/CONSTANT/BLOOD IN STOOL Other details as noted in HPI Constitutional: other (Denies loss of taste, loss of smell, fever). denies: fever, malaise, weakness Eyes: denies: eye discharge ENT: denies: epistaxis Respiratory: denies: cough Cardiovascular: denies: chest pain Gastrointestinal: abdominal pain, nausea, vomiting, hematochezia. denies: hematemesis, melena Genitourinary: denies: dysuria Musculoskeletal: denies: back pain Skin: denies: lesions Neurological: denies: weakness Hematological/Lymphatic: denies: easy bleeding ED Past Medical Hx - Past Medical History Previous Medical History?: Yes Hx Hypertension: Yes Hx GERD: Yes Hx Liver Disease: Yes (Pt reports elevated LFTs) Hx Sickle Cell Disease: Yes (Trait only) Hx Arthritis: Yes (Left leg and arm) Hx Headaches / Migraines: Yes (migraines) Hx Seizures: Yes (Last seizure 2017) Hx HIV: No Additional medical history: Recurrent symptomatic anemia. Menorrhagia. Uterine fibroids. Vertigo - Surgical History Past Surgical History?: Yes Additional Surgical History: 3 C- Sections, HYSTERECTOMY. Right knee repair at age 10. fx femur - Social History Smoking Status: Never Smoker - Medications Home Medications: Home Medications Medication Instructions Recorded Confirmed Last Taken Type Metoprolol [Lopressor TAB] 25 mg PO BID 02/17/18 02/14/20 02/13/20 19:30 History Ondansetron [Zofran TAB] 4 mg PO Q6H PRN 02/17/18 02/14/20 02/09/20 09:00 History Simvastatin 20 mg PO DAILY 02/17/18 02/14/20 02/13/20 19:00 History levETIRAcetam [Keppra TAB] 500 mg PO BID #60 tablet 08/28/19 02/14/20 02/14/20 08:30 Rx Butalb/Acetaminophen/Caffeine 1 each PO PRN PRN 02/12/20 02/14/20 02/09/20 09:00 History [Mrlkyt-Lnkgdhva-Ixof 50-325-40] Cyclobenzaprine [Flexeril] 10 mg PO TID PRN 02/12/20 02/14/20 02/13/20 19:00 History Docusate Sodium [Colace] 100 mg PO BID PRN #30 capsule 02/15/20 Unknown Rx oxyCODONE /ACETAMINOPHEN [Percocet 1 tab PO Q6HR PRN #30 tablet 02/15/20 Unknown Rx 5/325] Ondansetron [Zofran ODT TAB] 8 mg PO Q12HR PRN #30 tab.rapdis 02/16/20 Unknown Rx Acetaminophen [Non-Aspirin Extra 500 mg PO Q6HR PRN #30 tablet 03/26/20 Unknown Rx Strength] Tiff Root [Tiff] 250 mg PO QID PRN #30 capsule 03/26/20 Unknown Rx Ondansetron [Zofran Odt] 4 mg PO Q8HR PRN #20 tab.rapdis 03/26/20 Unknown Rx ED Physical Exam - General Limitations: No Limitations General appearance: alert, in no apparent distress - Head Head exam: Present: atraumatic, normocephalic - Eye Eye exam: Present: normal appearance, EOMI. Absent: nystagmus - ENT ENT exam: Present: normal exam, normal orophraynx, mucous membranes moist, normal external ear exam - Neck Neck exam: Present: normal inspection, full ROM. Absent: tenderness, meningismus - Respiratory Respiratory exam: Present: normal lung sounds bilaterally. Absent: respiratory distress, wheezes, rales, rhonchi, stridor, decreased breath sounds - Cardiovascular Cardiovascular Exam: Present: regular rate, normal rhythm, normal heart sounds. Absent: bradycardia, tachycardia, irregular rhythm, systolic murmur, diastolic murmur, rubs, gallop - GI/Abdominal GI/Abdominal exam: Present: soft, tenderness, normal bowel sounds, other (There is left lower quadrant tenderness to deep palpation.). Absent: distended, guarding, rebound, rigid, pulsatile mass - Rectal Rectal exam: Present: normal inspection (Chaperoned by nurse Amanda Huang), normal rectal tone, other (Anal fissure at 6:00). Absent: heme (-) stool, heme (+) stool, black stool, bloody stool - Extremities Exam Extremities exam: Present: normal inspection, full ROM, other (2+ pulses noted in the bilateral upper and lower extremities. There is no palpable cord. negative Homans sign. Muscular compartments are soft. The pelvis is stable.). Absent: pedal edema, calf tenderness - Back Exam Back exam: Present: normal inspection, full ROM. Absent: tenderness, CVA tenderness (R), CVA tenderness (L), paraspinal tenderness, vertebral tenderness - Neurological Exam Neurological exam: Present: alert, other (No facial droop. Tongue midline. Extraocular movements intact bilaterally. Facial sensation intact to light touch in V1, V2, V3 distribution bilaterally. 5 and a 5 strength in 4 extremities. Sensation intact to light touch in 4 extremities.) - Psychiatric Psychiatric exam: Present: normal affect, normal mood - Skin Skin exam: Present: warm, dry, intact, normal color. Absent: rash ED Course Vital Signs 03/25/20 03/25/20 14:00 23:08 Temperature 97.8 F 98.5 F Pulse Rate 79 69 Respiratory 18 16 Rate Blood Pressure 143/101 131/86 [Right] O2 Sat by Pulse 100 100 Oximetry - Reevaluation(s) Reevaluation #1: 03/25/20 22:07 Differential diagnosis, including but not limited to: Postoperative complicat ion, bleeding, infection, damage to adjacent structures, obstruction, colitis, diverticulitis, perforated viscus, cyclic vomiting syndrome, narcotic bowel syndrome, cannabinoid hyperemesis syndrome, anal fissure Assessment and plan: 49-year-old female who endorses intermittent abdominal pain, nausea and vomiting since being in the hospital approximately 6 weeks ago. She is afebrile with reassuring vital signs. She is somewhat tender in her left lower quadrant. She reports she has not followed up with either her train clerk, or her general surgeon. I have contacted her general surgeon on- call, Dr. Cassi Monteiro, and discussed the patient's history, physical, and available laboratory studies. She advises the patient has a history of chronic abdominal pain, chronic nausea and vomiting, and has had her surgical intervention as the etiology of her chronic pain was unclear to her primary physicians. She is in agreement with acquisition of CT scan of the abdomen pelvis with IV and oral contrast. If no acute pathology identified, and if patient able to tolerate liquid feeds, she is amenable to following up the patient in 2 days in her clinic. We will also discussed with her train clerk iron erector. We will treat the patient's symptoms. Her discharge medications I reviewed and appreciated, it appears that she was discharged on ibuprofen, 800 mg, given her body weight of approximately 50 kg, this is likely supratherapeutic. We can adjust this to a more suitable dose. She also appears to have an anal fissure. There is no blood on rectal exam. Blood counts are stable when compared to prior. Stool softeners, fluids, vegetables, fiber, lean protein, continue Colace. She can follow-up with outpatient primary care, or gastroenterology for this. Elevated liver panel appears to be chronic. 03/25/20 22:15 I have discussed the patient's history, physical, pertinent laboratory studies with her train clerk record, Dr. Osorio. Dr. Osorio is in agreement with the aforementioned plan, and advises that if CT scan does not demonstrate any emergent pathology, the patient should call her office first thing in the morning to arrange close outpatient follow-up, and she advises that her group will be very happy to see the patient as an outpatient later on this week Reevaluation #2: 03/25/20 23:39 Reassessed. No active vomiting. Drank oral contrast without difficulty. CT scan abdomen pelvis pending. I discussed my discussions with the patient's surgeons of record. She has verbalized understanding Reevaluation #3: 03/26/20 01:[address] scan of the abdomen pelvis negative for acute disease. Patient resting comfortably in stretcher. Both her surgeon and her train clerk of record will be happy to see the patient later on this week to follow-up. Patient states the symptoms have been going on for 6 weeks, as per discussion with both her train clerk and surgeon, her abdominal pain, and intermittent nausea and vomiting appear to be chronic. We can discharge with tiff and Zofran as needed for nausea, she we will discontinue NSAIDs, she can take acetaminophen as needed for pain, and initiate diet lifestyle modifications, including sits baths, to assist with her anal fissure. ED Medical Decision Making - Lab Data Result diagrams: 03/25/20 15:17 03/25/20 15:17 Vital Signs 03/25/20 14:00 Temperature 97.8 F Pulse Rate 79 Respiratory 18 Rate Blood Pressure 143/101 [Right] O2 Sat by Pulse 100 Oximetry Lab Results 03/25/20 03/25/20 03/25/20 Range/Units 14:29 14:29 15:17 WBC 8.4 (4.5-11.0) K/mm3 RBC 5.76 H (3.65-5.03) M/mm3 Hgb 14.3 (10.1-14.3) gm/dl Hct 44.1 H (30.3-42.9) % MCV 77 L (79-97) fl MCH 25 L (28-32) pg MCHC 32 (30-34) % RDW 14.5 (13.2-15.2) % Plt Count 303 (140-440) K/mm3 Lymph % (Auto) 36.2 H (13.4-35.0) % [place] % (Auto) 4.2 (0.0-7.3) % Eos % (Auto) 6.7 H (0.0-4.3) % Baso % (Auto) 1.2 (0.0-1.8) % Lymph # (Auto) 3.0 (1.2-5.4) K/mm3 [place] # (Auto) 0.3 (0.0-0.8) K/mm3 Eos # (Auto) 0.6 H (0.0-0.4) K/mm3 Baso # (Auto) 0.1 (0.0-0.1) K/mm3 Seg Neutrophils % 51.7 (40.0-70.0) % Seg Neutrophils # 4.3 (1.8-7.7) K/mm3 PT (12.2-14.9) Sec. INR (0.87-1.13) APTT (24.2-36.6) Sec. Sodium (137-145) mmol/L Potassium (3.6-5.0) mmol/L Chloride (98-107) mmol/L Carbon Dioxide (22-30) mmol/L Anion Gap mmol/L BUN (7-17) mg/dL Creatinine (0.6-1.2) mg/dL Estimated GFR ml/min BUN/Creatinine Ratio % Glucose (65-100) mg/dL Calcium (8.4-10.2) mg/dL Total Bilirubin (0.1-1.2) mg/dL AST (5-40) units/L ALT (7-56) units/L Alkaline Phosphatase (35-129) units/L Total Protein (6.3-8.2) g/dL Albumin (3.9-5) g/dL Albumin/Globulin Ratio % Lipase (13-60) units/L Urine Color Yellow (Yellow) Urine Turbidity Clear (Clear) Urine pH 6.0 (5.0-7.0) Ur Specific [place] 1.018 (1.003-1.030) Urine Protein <15 mg/dl (Negative) mg/dL Urine Glucose (UA) Neg (Negative) mg/dL Urine Ketones Neg (Negative) mg/dL Urine Blood Mod (Negative) Urine Nitrite Neg (Negative) Urine Bilirubin Neg (Negative) Urine Urobilinogen < 2.0 (<2.0) mg/dL Ur Leukocyte Esterase Neg (Negative) Urine WBC (Auto) 3.0 (0.0-6.0) /HPF Urine RBC (Auto) 7.0 (0.0-6.0) /HPF U Epithel Cells (Auto) 9.0 (0-13.0) /HPF Urine Mucus 3+ /HPF Urine HCG, Qual Negative (Negative) Blood Type Antibody Screen 03/25/20 03/25/20 03/25/20 Range/Units 15:17 15:17 15:17 WBC (4.5-11.0) K/mm3 RBC (3.65-5.03) M/mm3 Hgb (10.1-14.3) gm/dl Hct (30.3-42.9) % MCV (79-97) fl MCH (28-32) pg MCHC (30-34) % RDW (13.2-15.2) % Plt Count (140-440) K/mm3 Lymph % (Auto) (13.4-35.0) % [place] % (Auto) (0.0-7.3) % Eos % (Auto) (0.0-4.3) % Baso % (Auto) (0.0-1.8) % Lymph # (Auto) (1.2-5.4) K/mm3 [place] # (Auto) (0.0-0.8) K/mm3 Eos # (Auto) (0.0-0.4) K/mm3 Baso # (Auto) (0.0-0.1) K/mm3 Seg Neutrophils % (40.0-70.0) % Seg Neutrophils # (1.8-7.7) K/mm3 PT 12.6 (12.2-14.9) Sec. INR 0.96 (0.87-1.13) APTT 29.2 (24.2-36.6) Sec. Sodium 138 (137-145) mmol/L Potassium 4.2 (3.6-5.0) mmol/L Chloride 103.3 (98-107) mmol/L Carbon Dioxide 22 (22-30) mmol/L Anion Gap 17 mmol/L BUN 7 (7-17) mg/dL Creatinine 0.6 (0.6-1.2) mg/dL Estimated GFR > 60 ml/min BUN/Creatinine Ratio 12 % Glucose 91 (65-100) mg/dL Calcium 10.1 (8.4-10.2) mg/dL Total Bilirubin 0.20 (0.1-1.2) mg/dL AST 83 H (5-40) units/L ALT 152 H (7-56) units/L Alkaline Phosphatase 165 H (35-129) units/L Total Protein 8.7 H (6.3-8.2) g/dL Albumin 5.1 H (3.9-5) g/dL Albumin/Globulin Ratio 1.4 % Lipase 24 (13-60) units/L Urine Color (Yellow) Urine Turbidity (Clear) Urine pH (5.0-7.0) Ur Specific [place] (1.003-1.030) Urine Protein (Negative) mg/dL Urine Glucose (UA) (Negative) mg/dL Urine Ketones (Negative) mg/dL Urine Blood (Negative) Urine Nitrite (Negative) Urine Bilirubin (Negative) Urine Urobilinogen (<2.0) mg/dL Ur Leukocyte Esterase (Negative) Urine WBC (Auto) (0.0-6.0) /HPF Urine RBC (Auto) (0.0-6.0) /HPF U Epithel Cells (Auto) (0-13.0) /HPF Urine Mucus /HPF Urine HCG, Qual (Negative) Blood Type O NEGATIVE Antibody Screen Negative - EKG Data -: EKG Interpreted by Al EKG shows normal: sinus rhythm Rate: normal - EKG Data 03/25/20 23:39 Sinus rhythm, 73 bpm, normal axis, normal intervals, high left ventricular voltage, minimal motion artifact. The EKG is not a STEMI. - Radiology Data Radiology results: pending, report reviewed, image reviewed Print Report Referring Physician: LUIS HAJI Patient Name: IBAN SARKAR Date of : 1970 Sex: Female Report Date: 2020-03-26 Report Status: Finalized Findings [facility] [address] [place] [address] Cat Scan Report Signed Patient: IBAN SARKAR MR #: [id number] : 1970 Acct:[id number] Age/Sex: 49 / F ADM Date: 03/25/20 Loc: ED [facility] Dr: Ordering Physician: LUIS HAJI MD Date of Service: 03/25/20 Procedure(s): CT abdomen pelvis w con Accession Number(s): [id number] cc: LUIS HAJI MD CT ABDOMEN AND PELVIS WITH CONTRAST HISTORY: Post-Op L.L.Q. abd pain with nausea and vomiting.. COMPARISON: CT abdomen/pelvis from 05/14/2014 TECHNIQUE: CT images of the abdomen and pelvis were obtained following administration of intravenous contrast. All CT scans at this location are performed using CT dose reduction for ALARA by means of automated exposure control. CONTRAST: 100 ml of intravenous contrast administered. FINDINGS: Lungs/bones: Lung bases are clear. No acute osseous abnormality identified. There is again a sclerotic lesion located within the L2 vertebral body with no pathologic fracture. Abdomen/pelvis: No acute abnormality involving the liver, gallbladder, spleen, pancreas, adrenals, kidneys, and proximal GI tract. Urinary bladder is mildly distended and there is a small hernia right of midline ventrally with no inflammatory change. No pelvic free fluid or acute colonic abnormality identified. IMPRESSION: 1. Incidental/postoperative changes in the abdomen with no acute abnormality identified. Signer Name: Cj Ni MD Signed: 03/26/2020 1:04 AM Workstation Name: [id number] Transcribed By: CHELE Dictated By: Cj Ni MD Electronically Authenticated By: Cj Ni MD Signed Date/Time: 03/26/20103 DD/ TD/TT: Critical care attestation.: If time is entered above; I have spent that time in minutes in the direct care of this critically ill patient, excluding procedure time. ED Disposition Clinical Impression: Left lower quadrant abdominal pain, History of nausea and vomiting, Anal fissure Disposition: TO HOME OR SELFCARE Is pt being admited?: No Does the pt Need Aspirin: No Condition: Stable Instructions: How to Take a Sitz Bath Additional Instructions: Do not take metformin medication for the next 2 days, if patient takes this medication. Recommend that patient discontinue Motrin, ibuprofen, Naprosyn, Aleve consumption. Avoid consumption of heavy, spicy foods, alcohol. Patient may take the prescribed medications as needed and directed for abdominal pain, nausea and vomiting. Please follow-up with your general surgeon on March 27 as scheduled. Please follow-up with your train clerk, Dr. Osorio, within the next 3 to 5 days. Please call her office first thing in the morning to arrange outpatient follow- up. Please follow-up with primary care doctor, or breastfeeding program coordinator within the next month for complaint of abdominal pain. Patient may drink 4 to 6 cups of water per day indefinitely, consume plenty of fiber, vegetables, lean protein, which may assist with anal fissure and inter mittent difficulty with defecation. Patient may also use a sitz bath, as directed, as often as she likes for sensation of rectal discomfort. Please return to the emergency room right away with new pain, worsened pain, migration of pain, projectile vomiting, change in mental status, confusion, inab ility to tolerate liquid feeds, new, worsened or different symptoms not present on the initial emergency room evaluation. Referrals: MARK MONTEIRO DO [Staff Physician] - 03/27/20 ROSEMARY OSORIO MD [Staff Physician] - 3-5 Days [facility] [Provider Group] - 7-10 days Forms: Accompanied Note
[2020-03-25 22:08] LABS: HCG Qualitative,Urine Negative (Negative)
[2020-03-25 22:15] LABS: Amphetamine Screen,Urine PRESUMPTIVE NEGATIVE; Benzodiazepines Screen,Urine PRESUMPTIVE NEGATIVE; Cannabinoid Screen,Urine PRESUMPTIVE NEGATIVE; Cocaine Screen,Urine PRESUMPTIVE NEGATIVE; Methadone Screen,Urine PRESUMPTIVE NEGATIVE; Opiate Screen,Urine PRESUMPTIVE NEGATIVE
[2020-03-25 23:09] VITALS: BP 131/86
--- NOTE | 2020-03-26 01:09 | Cat Scan Report ---
CT ABDOMEN AND PELVIS WITH CONTRAST HISTORY: Post-Op L.L.Q. abd pain with nausea and vomiting.. COMPARISON: CT abdomen/pelvis from 05/14/2014 TECHNIQUE: CT images of the abdomen and pelvis were obtained following administration of intravenous contrast. All CT scans at this location are performed using CT dose reduction for ALARA by means of automated exposure control. CONTRAST: 100 ml of intravenous contrast administered. FINDINGS: Lungs/bones: Lung bases are clear. No acute osseous abnormality identified. There is again a sclerot ic lesion located within the L2 vertebral body with no pathologic fracture. Abdomen/pelvis: No acute abnormality involving the liver, gallbladder, spleen, pancreas, adrenals, k idneys, and proximal GI tract. Urinary bladder is mildly distended and there is a small hernia right of midline ventrally with no in flammatory change. No pelvic free fluid or acute colonic abnormality identified. IMPRESSION: 1. Incidental/postoperative changes in the abdomen with no acute abnormality identified. Signer Name: Cj Ni MD Signed: 03/26/2020 1:04 AM Workstation Name: [id number]
== END 2020-03-26 01:46 | disposition home or self-care (01) ==
LOC: ED 10:55
DX: K60.2 Anal fissure, unspecified (principal); R10.32 Left lower quadrant pain; R11.2 Nausea with vomiting, unspecified; I10 Essential (primary) hypertension; K21.9 Gastro-esophageal reflux disease without esophagitis; M19.90 Unspecified osteoarthritis, unspecified site; G43.909 Migraine, unspecified, not intractable, without status migrainosus; Z86.69 Personal history of other diseases of the nervous system and sense organs; Z88.8 Allergy status to other drugs, medicaments and biological substances; Z79.899 Other long term (current) drug therapy; Z90.710 Acquired absence of both cervix and uterus; Z98.890 Other specified postprocedural states
CPT/HCPCS: 36415; 74177; 80053; 80307; 81001; 81025; 83690; 85025; 85610; 85730; 86850; 86900; 86901; 93005; 96361; 96374; 96375; 99284; J2270; J2405; J7030; Q9967

== ENCOUNTER 2020-05-07 07:57 | Day surgery (SDC) | payer BC ==
[~2020-05-07 07:57] MED LIST changes: -ATIVAN IV PRN; +SODIUM CHLORIDE 0.9% 1000 ML 1,000 ML IV SCH
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
--- NOTE | 2020-05-07 08:30 | Anesthesia Day of Surgery ---
Anesthesia Day of Surgery - Day of Surgery Patient Examined: Yes Patient H&P Reviewed: Yes Patient is NPO: Yes
[2020-05-07] MEDS ORDERED: LIDOCAINE MPF (2%) 20 MG/1 ML VIAL 5 ML ONE (08:40)
[2020-05-07] MEDS ORDERED: propofoL 200 MG/20 ML VIAL IV ONE ×2 (08:40→09:31)
--- NOTE | 2020-05-07 10:06 | Short Stay Summary ---
Short Stay Documentation Date of service: 05/07/20 Narrative H&P: see office H&P - History H&P: obtained from office - Allergies and Medications Current Medications: Allergies hydromorphone [From Dilaudid] Allergy (Verified 02/07/20 10:00) Itching misoprostol [From Cytotec] Allergy (Verified 02/07/20 10:00) N&V promethazine HCl [From Phenergan] Allergy (Verified 02/07/20 10:00) Unknown sulfamethoxazole [From Bactrim] Allergy (Verified 02/07/20 10:00) Hives trimethoprim [From Bactrim] Allergy (Verified 02/07/20 10:00) Hives lisinopril Adverse Reaction (Verified 02/07/20 10:00) Cough Home Medications Medication Instructions Recorded Confirmed Last Taken Type Metoprolol [Lopressor TAB] 25 mg PO BID 02/17/18 05/07/20 05/06/20 20:00 History Ondansetron [Zofran TAB] 4 mg PO Q6H PRN 02/17/18 05/07/20 02/09/20 09:00 History Simvastatin 20 mg PO DAILY 02/17/18 05/07/20 05/06/20 20:00 History levETIRAcetam [Keppra TAB] 500 mg PO BID #60 tablet 08/28/19 05/07/20 05/06/20 20:00 Rx Butalb/Acetaminophen/Caffeine 1 each PO PRN PRN 02/12/20 05/07/20 02/09/20 09:00 History [Ckexci-Cwhobzhs-Kbaj 50-325-40] Cyclobenzaprine [Flexeril] 10 mg PO TID PRN 02/12/20 05/07/20 02/13/20 19:00 History Docusate Sodium [Colace] 100 mg PO BID PRN #30 capsule 02/15/20 05/07/20 Unknown Rx oxyCODONE /ACETAMINOPHEN [Percocet 1 tab PO Q6HR PRN #30 tablet 02/15/20 05/07/20 Unknown Rx 5/325] Ondansetron [Zofran ODT TAB] 8 mg PO Q12HR PRN #30 tab.rapdis 02/16/20 05/07/20 Unknown Rx Acetaminophen [Non-Aspirin Extra 500 mg PO Q6HR PRN #30 tablet 03/26/20 05/07/20 Unknown Rx Strength] Sydney Root [Sydney] 250 mg PO QID PRN #30 capsule 03/26/20 05/07/20 Unknown Rx Ondansetron [Zofran Odt] 4 mg PO Q8HR PRN #20 tab.rapdis 03/26/20 05/07/20 Unknown Rx Active Medications Sodium Chloride (Nacl 0.9% 1000 Ml) 1,000 mls @ 50 mls/hr IV DIRECT VINCENT Last Admin: 05/07/20 08:30 Dose: 50 mls/hr Documented by: - Brief post op/procedure progress note Date of procedure: 05/07/20 Findings: see dictations Estimated blood loss: none Pathology: list (1. duodenal biopsies to r/o celiac disease 2. antral biopsies for H.pylori) Specimen disposition: to lab Condition: stable - Disposition Condition at discharge: Good Disposition: DC- TO HOME OR SELFCARE - Discharge Diagnoses (1) Iron deficiency anemia due to chronic blood loss Status: Acute (2) Nausea & vomiting Status: Acute Short Stay Discharge Plan Activity: other (No driving for 24 hours) Weight Bearing Status: Full Weight Bearing Diet: regular Follow up with: PRIMARY CAREMD [Primary Care Provider] - 7 Days
--- NOTE | 2020-05-07 10:09 | Operative Report ---
Operative Report Operative Report: Date of procedure: 05/16/2020 Procedure: Esophagogastroduodenoscopy with biopsies of the duodenum to exclude celiac disease and biopsies of the stomach for H. pylori. Preprocedure diagnosis: Iron deficiency anemia, chronic nausea and vomiting. Post procedure diagnosis: Normal-appearing upper digestive tract. Endoscopist: Dr. Blount Anesthesia: Monitored anesthesia care per anesthesia department Medications: Propofol per anesthesia. Estimated blood loss: 0 After careful discussion of the nature and purpose of the procedure as well as details the technique risks benefits and alternatives consent was obtained. The patient was placed in the left lateral decubitus position and medicated per anesthesia. The tip of the Comuto EQ 570 video scope was passed per orum under direct vision into the esophagus and advanced into the stomach and descending duodenum. The descending duodenum the duodenal bulb and pylorus were symmetrical and normal. 5 biopsies were taken between the second and third portion of the duodenum and 1 biopsy in the bulb to assess for possible celiac disease as a potential cause of iron deficiency anemia. The scope was withdrawn into the stomach and the stomach then gently insufflated with air. The antrum was normal. Biopsies in the antrum were taken for H. pylori testing. The stomach was further insufflated and the scope was then retroflexed and partially withdrawn. The cardia, fundus, and body of the stomach were within normal limits and easily distensible.The scope was then withdrawn in the forward position. The esophagogastric junction was at 38 cm. The esophageal body was normal throughout. The procedure was was well tolerated and the patient was observed in recovery. Impressions: Normal-appearing upper digestive tract. Plan: Await pathology results from the duodenum and stomach. Avoidance of NSAIDs and opiate medications is advised. Electronically signed: Asad Blount MD
--- NOTE | 2020-05-07 10:11 | Operative Report ---
Operative Report Operative Report: Date of procedure: 05/16/2020 Preprocedure diagnosis: Iron deficiency anemia. Post procedure diagnosis: Normal study. Procedure: Colonoscopy to the cecum Endoscopist: Dr. Blount Anesthesia: Monitored anesthesia care per anesthesia department Estimated blood loss: 0 Medications: Monitored anesthesia care. See separate report by anesthesia for details. After careful discussion of the nature and purpose of the procedure as well as details of the technique risks benefits and alternatives the patient gave consent. Please see recent history and physical from the office. The patient was placed in the left lateral decubitus position and medicated per anesthesia. A rectal exam was performed sphincter tone was normal there were no masses palpable. The Olympus pediatric colonoscope was passed transanally and advanced under continuous direct vision without difficulty to the cecum. The colon preparation was fair in some areas although the colon was well seen overall with irrigation.. The cecum was normal. The ascending colon was normal and on forward and retroflexed views. The transverse colon, descending colon, and sigmoid colon were normal. The rectum was normal on forward and retroflexed views. The procedure was well-tolerated overall and the patient was observed in recovery. Conclusions: Normal colonoscopy to the cecum. Plan: Repeat colonoscopy in 10 years for screening. Signed electronically: Asad Blount M.D.
--- NOTE | 2020-05-07 16:15 | Post Anesthesia Evaluation ---
- Post Anesthesia Evaluation Patient Participated: Yes Airway Patent: Yes Stable Respiratory Function: Yes Nausea/Vomiting: No Temp > 96.8F: Yes Pain Manageable: Yes Adequeate Hydration: Yes Anesthesia Complications: No Block Receding Appropriately: Not Applicable Patient on Ventilator: No
[2020-05-07 19:12] VITALS: BP 107/47
== END 2020-05-07 07:58 | disposition home or self-care (01) ==
LOC: GIO 07:57
PROVIDERS: ATTEND Internal Medicine Gastroenterology
DX: D50.0 Iron deficiency anemia secondary to blood loss (chronic) (principal); R11.2 Nausea with vomiting, unspecified; K29.50 Unspecified chronic gastritis without bleeding; K29.80 Duodenitis without bleeding; I10 Essential (primary) hypertension; I25.10 Atherosclerotic heart disease of native coronary artery without angina pectoris; G40.909 Epilepsy, unspecified, not intractable, without status epilepticus; E78.00 Pure hypercholesterolemia, unspecified; K21.9 Gastro-esophageal reflux disease without esophagitis; M19.90 Unspecified osteoarthritis, unspecified site; Z90.710 Acquired absence of both cervix and uterus; Z79.899 Other long term (current) drug therapy; Z88.8 Allergy status to other drugs, medicaments and biological substances; Z98.890 Other specified postprocedural states; Z98.891 History of uterine scar from previous surgery; Z82.61 Family history of arthritis; Z83.3 Family history of diabetes mellitus; Z80.8 Family history of malignant neoplasm of other organs or systems; Z82.5 Family history of asthma and other chronic lower respiratory diseases; Z84.1 Family history of disorders of kidney and ureter; Z82.49 Family history of ischemic heart disease and other diseases of the circulatory system
CPT/HCPCS: 43239; 45378; 88305; 88342; J2704; J7030

== ENCOUNTER 2020-06-13 15:05 | Outpatient (CLI) | payer BC | END 2020-06-13 15:06 | disposition home or self-care (01) | LOC: LAB 15:05 | PROVIDERS: ATTEND Internal Medicine Gastroenterology | DX: R14.0 Abdominal distension (gaseous) (principal) | CPT/HCPCS: 36415; 83516 ==

== ENCOUNTER 2020-07-15 10:00 | Outpatient (CLI) | payer BC ==
--- NOTE | 2020-07-15 12:41 | Mammography Report ---
DIGITAL SCREENING MAMMOGRAM WITH TOMOSYNTHESIS WITH CAD, 07/15/2020 CLINICAL INFORMATION / INDICATION: Screening TECHNIQUE: Digital bilateral 2D and 3D mammography with tomosynthesis was obtained in the craniocaud al and mediolateral oblique projections. Computer-Aided Detection (CAD) analysis was used for interp retation of this study. COMPARISON: 07/14/2019 FINDINGS: Breast Density: The breasts are heterogeneously dense, which may obscure small masses. No dominant mass, suspicious calcifications, or architectural distortion in either breast. Right surgical and core biopsy changes are again seen. IMPRESSION: No mammographic evidence of malignancy. Follow up recommendation: Clinical follow-up of patient's complaint of left breast pain and discolora tion is suggested. If there is continued clinical concern, ultrasound might be an option. BI-RADS Category 2: Benign. A "normal" or negative report should not discourage follow up or biopsy of a clinically significant f inding. A written summary of these findings will be mailed to the patient. The patient will be entered into a mammography reporting system which will generate a reminder letter for the patient's next appointmen t at the appropriate interval. The [employer] recommends yearly mammograms starting at age 40 and continuing as l della as a woman is in good health. Breast MRI is recommended for women with an approximate 20-25% or greater lifetime risk of breast cancer, including women with a strong family history of breast or ova earline cancer or who have been treated for Hodgkin's disease. Signer Name: Chidi Ward MD Signed: 07/15/2020 12:36 PM Workstation Name: [email or web address]
== END 2020-07-15 10:01 | disposition home or self-care (01) ==
LOC: SPVWC 10:00
PROVIDERS: ATTEND Surgery
DX: Z12.31 Encounter for screening mammogram for malignant neoplasm of breast (principal)
CPT/HCPCS: 77063; 77067

== ENCOUNTER 2020-08-12 09:47 | Outpatient (CLI) | payer BC ==
[2020-08-12 10:38] LABS: % Iron Saturation 29.59 %; Alanine Aminotransferase 111 units/L (7-56); Albumin 4.3 g/dL (3.9-5); Blood Urea Nitrogen 6 mg/dL (7-17); Calcium 9.3 mg/dL (8.4-10.2); Hemoglobin 13.9 gm/dl (10.1-14.3); Hemolysis Index 9; Iron 87 ug/dL (37-170); Mean Corpuscular HGB Conc 32 % (30-34); Mean Corpuscular Volume 76 fl (79-97); Platelet Count 328 K/mm3 (140-440); Red Cell Distribution Width 15.3 % (13.2-15.2); Total Iron Binding Capacity 294 mcg/dL (250-450)
[2020-08-12 10:44] LABS: BUN/Creatinine Ratio 9
--- NOTE | 2020-08-12 13:58 | Magnetic Resonance Report ---
MRI PELVIS WITHOUT AND WITH CONTRAST INDICATION / CLINICAL INFORMATION: MAIN. 49-year-old female with lower back and pelvic pain TECHNIQUE: Multiplanar, multisequence MR images were obtained. Pre and postcontrast imaging obtained. COMPARISON: MR lumbar spine 08/12/2020 FINDINGS: BONES: No significant bone marrow edema. No fracture. No osseous lesion. SACROILIAC JOINT(S): No significant abnormality. RIGHT HIP JOINT: No significant abnormality. LEFT HIP JOINT: No significant abnormality. MUSCULOTENDINOUS: Visualized structures demonstrate no significant abnormality. SOFT TISSUES: No significant abnormality. LOWER LUMBAR SPINE: No acute abnormality visualized on these images. See the report from MR lumbar sp ine 08/12/2020 4 further details. SOFT TISSUE WITHIN PELVIS: No significant abnormality. ADDITIONAL FINDINGS: None. IMPRESSION: 1. No significant abnormality or specific finding to expand this patient's clinical signs/symptoms.. Signer Name: Abran Garcia MD FACR Signed: 08/12/2020 1:54 PM Workstation Name: [id number]
--- NOTE | 2020-08-12 14:39 | Magnetic Resonance Report ---
MR lumbar spine wo/w con INDICATION / CLINICAL INFORMATION: 49 years Female; back pain. TECHNIQUE: Multisequence, multiplanar images of the lumbar spine were obtained. COMPARISON: The study is compared to the previous CT abdomen and pelvis of 03/26/2020. FINDINGS: ALIGNMENT: There is no significant spondylolisthesis or scoliosis of the lumbar spine. VERTEBRAE:There is a sclerotic lesion within the L2 vertebral body measuring 1.5 cm in greatest sagit thompson dimension. The findings correlate with the previous CT without significant interval change from 05/27/2019 given the different modalities. There is no surrounding edema on the current study. The lumb ar vertebral bodies otherwise demonstrate appropriate signal intensity. VISUALIZED SPINAL CORD: The motion degrades the image quality. However, the distal spinal cord appear s to demonstrate appropriate signal intensity and terminates at L1-2. UWBQE-EK-TIYCY ANALYSIS: L1-2: No significant abnormality. L2-3: No significant abnormality. L3-4: No significant abnormality. L4-5: There is no disc protrusion or significant stenosis. L5-S1: There is a slight disc bulge and mild facet joint hypertrophy with mild foraminal narrowing bi laterally. There is no significant central spinal stenosis. PARASPINAL SOFT TISSUES: No significant abnormality. ADDITIONAL FINDINGS: No epidural collections are identified. IMPRESSION: 1. There are mild degenerative the changes L5-S1 with mild neural foraminal narrowing bilaterally. 2. There is no disc protrusion or significant central spinal stenosis involving lumbar spine. 3. There is a 1.5 similar sclerotic lesion within the L2 vertebral body which correlates with the pre vious CT abdomen of 03/26/2020 Signer Name: Edward Sweeney MD Signed: 08/12/2020 2:34 PM Workstation Name: [id number]
== END 2020-08-12 09:48 | disposition home or self-care (01) ==
LOC: MRI 09:47
PROVIDERS: ATTEND Internal Medicine Hematology & Oncology
DX: M47.817 Spondylosis without myelopathy or radiculopathy, lumbosacral region (principal); M48.07 Spinal stenosis, lumbosacral region; D49.9 Neoplasm of unspecified behavior of unspecified site; G95.89 Other specified diseases of spinal cord
CPT/HCPCS: 36415; 72158; 72197; 80053; 82306; 82728; 83036; 83550; 85027; 86140; A9575

== ENCOUNTER 2020-10-16 10:58 | Outpatient (CLI) | payer BC ==
--- NOTE | 2020-10-16 15:08 | Fluoroscopy Report ---
Upper GI with small bowel follow-through HISTORY: R10.9 ABDOMINAL PAIN. Recent small bowel obstruction with adhesion lysis, here for follow-u p Technique: Single and double contrast barium technique utilized to evaluate the esophagus, stomach, and duodenal C-loop. The small bowel was also evaluated separately. Findings: On the upper GI portion of the exam, there was no mucosal irregularity, mass, mass effect, or critical stenosis. There were no abnormal tertiary contractions as seen with dysmotility. No gas troesophageal reflux. On the small bowel series, the transit time was within 45 minutes which is normal. No fold thickening , stenosis, or emilia obstruction identified on this exam. The terminal ileum was normal. Impression: Unremarkable upper GI and small bowel series with no residual/recurrent obstruction or o ther abnormality identified. Fluoroscopic time: 2.6 minutes Number of fluoroscopic images: 17 Signer Name: Cj Ni MD Signed: 10/16/2020 3:03 PM Workstation Name: [id number]
== END 2020-10-16 10:59 | disposition home or self-care (01) ==
LOC: FLUORO 10:58
PROVIDERS: ATTEND Surgery
DX: R10.9 Unspecified abdominal pain (principal)
CPT/HCPCS: 74246; 74248

== ENCOUNTER 2021-01-18 09:30 | Inpatient (IN) | payer BC ==
--- NOTE | 2021-01-18 11:03 | Emergency Department Report ---
ED Abdominal Pain HPI - General Chief Complaint: Abdominal Pain Stated Complaint: ABD PAIN,N/V Time Seen by Provider: 01/18/21 10:57 Source: patient Mode of arrival: Ambulatory Limitations: No Limitations - History of Present Illness Initial Comments: 50-year-old female presents to the ER today with complaints of abdominal pain. Patient states that she had a small bowel obstruction diagnosed in September 2020 secondary to adhesions from her previous abdominal surgeries. She did have to have a bowel resection. She states that she has been having pain intermittently since the surgery, but this morning had severe pain in the left side of her abdomen to the point where she was bent over. She also has vomited 8 times since last night, emesis has been mainly food in the last time she had a bowel movement was this past Wednesday. Patient states that she became concerned that she may be developing another obstruction and so came into the ER to get checked out. A past medical history significant for hypertension, GERD, vertigo, HPL D and seizures. Her General surgeon is Dr Patrice POSADAS Complaint: abdominal pain -: Gradual, month(s) - Related Data Home Medications Medication Instructions Recorded Confirmed Last Taken Metoprolol [Lopressor TAB] 25 mg PO BID 02/17/18 09/23/20 09/23/20 15:13 Ondansetron [Zofran TAB] 4 mg PO Q6H PRN 02/17/18 09/23/20 09/23/20 15:13 Simvastatin 20 mg PO DAILY 02/17/18 09/23/20 09/22/20 22:00 Cyclobenzaprine [Flexeril 10 MG 10 mg PO TID PRN 02/12/20 09/23/20 09/22/20 20:30 TAB] Previous Rx's Medication Instructions Recorded Last Taken Type Docusate Sodium [Colace CAP] 100 mg PO BID PRN #30 capsule 02/15/20 09/22/20 10:00 Rx oxyCODONE /ACETAMINOPHEN [Percocet 1 tab PO Q6HR PRN #30 tablet 02/15/20 08/23/20 10:00 Rx 5/325 mg] Ondansetron [Zofran ODT TAB] 8 mg PO Q12HR PRN #30 tab.rapdis 02/16/20 09/22/20 10:00 Rx Acetaminophen [Non-Aspirin Extra 500 mg PO Q6HR PRN #30 tablet 12/01/20 05/30/21 07:00 Rx Strength] Sydney Root [Sydney] 250 mg PO QID PRN #30 capsule 03/26/20 Unknown Rx Ondansetron [Zofran ODT TAB] 4 mg PO Q8HR PRN #20 tab.rapdis 03/26/20 Unknown Rx Butalb/Acetaminophen/Caffeine 1 each PO PRN PRN #14 cap 09/25/20 Unknown Rx [Nrtwuu-Mnacejbh-Onnn 50-325-40] levETIRAcetam [Keppra TAB] 500 mg PO BID #60 tablet 09/25/20 Unknown Rx Allergies Allergy/AdvReac Type Severity Reaction Status Date / Time hydromorphone [From Dilaudid] Allergy Itching Verified 02/07/20 10:00 misoprostol [From Cytotec] Allergy N&V Verified 02/07/20 10:00 promethazine HCl Allergy Unknown Verified 02/07/20 10:00 [From Phenergan] sulfamethoxazole Allergy Hives Verified 02/07/20 10:00 [From Bactrim] trimethoprim [From Bactrim] Allergy Hives Verified 02/07/20 10:00 lisinopril AdvReac Cough Verified 02/07/20 10:00 ED Review of Systems ROS: Stated complaint: ABD PAIN,N/V Other details as noted in HPI Comment: All other systems reviewed and negative Constitutional: denies: chills, fever Eyes: denies: eye pain, eye discharge, vision change ENT: denies: ear pain, throat pain, dental pain, hearing loss, epistaxis, congestion Respiratory: denies: cough, shortness of breath, SOB with exertion, SOB at rest, wheezing Cardiovascular: denies: chest pain, palpitations, dyspnea on exertion, edema, syncope, paroxysmal nocturnal dyspnea Gastrointestinal: abdominal pain, nausea, vomiting, constipation. denies: diarrhea, hematemesis, melena, hematochezia Genitourinary: denies: urgency, dysuria, discharge, abnormal menses, dyspareunia Musculoskeletal: denies: back pain, joint swelling, arthralgia Skin: denies: rash, lesions, change in color, change in hair/nails, pruritus Neurological: denies: headache, weakness, numbness, paresthesias, confusion, vertigo Psychiatric: denies: anxiety, depression, auditory hallucinations, visual hallucinations, homicidal thoughts, suicidal thoughts Hematological/Lymphatic: denies: easy bleeding, easy bruising ED Past Medical Hx - Past Medical History Previous Medical History?: Yes Hx Hypertension: Yes Hx GERD: Yes Hx Liver Disease: Yes (Pt reports elevated LFTs) Hx Sickle Cell Disease: Yes (Trait only) Hx Arthritis: Yes (Left leg and arm) Hx Headaches / Migraines: Yes (migraines) Hx Seizures: Yes (Last seizure 2017) Hx HIV: No Additional medical history: Recurrent symptomatic anemia. Menorrhagia. Uterine fibroids. Vertigo. Small bowel obstruction - Surgical History Past Surgical History?: Yes Additional Surgical History: 3 C- Sections, HYSTERECTOMY. Right knee repair at age 10. fx femur, Small bowel resection - Social History Smoking Status: Never Smoker Substance Use Type: Alcohol, Prescribed - Medications Home Medications: Home Medications Medication Instructions Recorded Confirmed Last Taken Type Metoprolol [Lopressor TAB] 25 mg PO BID 02/17/18 09/23/20 09/23/20 15:13 History Ondansetron [Zofran TAB] 4 mg PO Q6H PRN 02/17/18 09/23/20 09/23/20 15:13 History Simvastatin 20 mg PO DAILY 02/17/18 09/23/20 09/22/20 22:00 History Cyclobenzaprine [Flexeril 10 MG 10 mg PO TID PRN 02/12/20 09/23/20 09/22/20 20:30 History TAB] Docusate Sodium [Colace CAP] 100 mg PO BID PRN #30 capsule 02/15/20 09/23/20 09/22/20 10:00 Rx oxyCODONE /ACETAMINOPHEN [Percocet 1 tab PO Q6HR PRN #30 tablet 02/15/20 09/23/20 08/23/20 10:00 Rx 5/325 mg] Ondansetron [Zofran ODT TAB] 8 mg PO Q12HR PRN #30 tab.rapdis 02/16/20 09/23/20 09/22/20 10:00 Rx Acetaminophen [Non-Aspirin Extra 500 mg PO Q6HR PRN #30 tablet 03/26/20 09/23/20 09/22/20 07:00 Rx Strength] Sydney Root [Sydney] 250 mg PO QID PRN #30 capsule 03/26/20 05/07/20 Unknown Rx Ondansetron [Zofran ODT TAB] 4 mg PO Q8HR PRN #20 tab.rapdis 03/26/20 09/23/20 Unknown Rx Butalb/Acetaminophen/Caffeine 1 each PO PRN PRN #14 cap 09/25/20 Unknown Rx [Bhkove-Svmrjzbm-Rbyv 50-325-40] levETIRAcetam [Keppra TAB] 500 mg PO BID #60 tablet 09/25/20 Unknown Rx ED Physical Exam - General Limitations: No Limitations General appearance: alert, in no apparent distress - Head Head exam: Present: atraumatic, normocephalic, normal inspection - Eye Eye exam: Present: normal appearance, PERRL, EOMI Pupils: Present: normal accommodation - Neck Neck exam: Present: normal inspection, full ROM - Respiratory Respiratory exam: Present: normal lung sounds bilaterally. Absent: respiratory distress, wheezes, rales, rhonchi, stridor - Cardiovascular Cardiovascular Exam: Present: regular rate, normal rhythm, normal heart sounds - GI/Abdominal GI/Abdominal exam: Present: soft, tenderness (Moderate LLQ and epigastric with mild guarding but no rebound). Absent: distended - Neurological Exam Neurological exam: Present: alert, oriented X3, CN II-XII intact, normal gait - Psychiatric Psychiatric exam: Present: normal affect, normal mood ED Course Vital Signs 01/18/21 01/18/21 10:56 14:40 Temperature 98.5 F Pulse Rate 80 Respiratory 20 Rate Blood Pressure 149/97 O2 Sat by Pulse 98 95 Oximetry ED Medical Decision Making - Lab Data Result diagrams: 01/18/21 11:26 01/18/21 11:26 - Radiology Data Radiology results: report reviewed Patient: IBAN SARKAR MR #: [id number] : 1970 Acct:[id number] Age/Sex: 50 / F ADM Date: 01/18/21 Loc: ED Attending Dr: Ordering Physician: DANYELL HERNANDEZ Date of Service: 01/18/21 Procedure(s): CT abdomen pelvis w con Accession Number(s): [id number] cc: DANYELL J. MARY CT ABDOMEN AND PELVIS WITH CONTRAST INDICATION / CLINICAL INFORMATION: severe left abd pain/hx SBO 100 ML OMNI 300 . TECHNIQUE: Axial CT images were obtained through the abdomen and pelvis after IV contrast. All CT scans at this location are performed using CT dose reduction for ALARA by means of automated exposure control. COMPARISON: CT dated 09/23/20 FINDINGS: LOWER CHEST: No significant abnormality. LIVER: Liver is enlarged and diffusely hypodense characteristic of fatty infiltration. GALLBLADDER: No significant abnormality. BILE DUCTS: No significant abnormality. PANCREAS: No significant abnormality. SPLEEN: No significant abnormality. ADRENALS: No significant abnormality. RIGHT KIDNEY / URETER: No significant abnormality. LEFT KIDNEY / URETER: No significant abnormality. STOMACH / SMALL BOWEL: Several loops of correlate dilated mid small bowel containing feculent material appears similar to the previous study. Transition point is at an anastomotic suture line similar to the previous study. Distal small bowel loops are normal in caliber. COLON: No significant abnormality. APPENDIX: No significant abnormality. PERITONEUM: Small amount of free fluid in the pelvis. No free air. No fluid collection. LYMPH NODES: No significant adenopathy. AORTA / ARTERIES: No significant abnormality. IVC / VEINS: No significant abnormality. URINARY BLADDER: No significant abnormality. REPRODUCTIVE ORGANS: Uterus is absent. No significant adnexal abnormality. ADDITIONAL FINDINGS: None. SKELETAL SYSTEM: Benign-appearing sclerotic lesion at L2 is unchanged. IMPRESSION: 1. Mild to moderate partial small bowel obstruction at anastomotic suture line. 2. Hepatomegaly with hepatic steatosis. Signer Name: Evelyn Arndt MD Signed: 01/18/2021 1:53 PM Workstation Name: [id number] Transcribed By: DT Dictated By: Erasmo Arndt MD Electronically Authenticated By: Erasmo Arndt MD Signed Date/Time: 01/18/21 1353 DD/ 1349 TD/TT: - Medical Decision Making CBC reviewed and unremarkable. CMP shows elevation to LFTs, but reviewed patient past labs and she has had elevation to LFTs in the past, today is not any worse than previous, CMP otherwise unremarkable. CT abdomen pelvis with IV contrast shows IMPRESSION: 1. Mild to moderate partial small bowel obstruction at anastomotic suture line. 2. Hepatomegaly with hepatic steatosis. 1429: Discussed case with Dr Galdamez, he agree with admitting patient, and recommend inserting NG tube low to intermittent suction. Patient will be admitted to the hospitalist service. Patient currently resting comfortably. She is not toxic or ill-appearing. She has not had any vomiting during stay. Discussed all lab results including CT results, the decision to admit with patient. She expressed understanding and agree with plan. 1452: Discussed case with Dr Nguyễn (hospitalist), he will admit patient. Critical care attestation.: If time is entered above; I have spent that time in minutes in the direct care of this critically ill patient, excluding procedure time. ED Disposition Clinical Impression: Partial small bowel obstruction Disposition: ADMITTED INPATIENT Is pt being admited?: Yes Condition: Stable Instructions: Abdominal Pain (ED) Referrals: PRIMARY CARE, [Primary Care Provider] - 3-5 Days
[2021-01-18] MEDS ORDERED: ONDANSETRON 4 MG/2 ML INJ IV ONE (11:06)
[2021-01-18] MEDS ORDERED: MORPHINE 4 MG/1 ML INJ IV ONE (11:06)
[2021-01-18] MEDS ORDERED: SODIUM CHLORIDE 0.9% 1000 ML 1,000 ML IV ONE (11:06)
[2021-01-18 12:34] LABS: Alanine Aminotransferase 118 units/L (7-56); Albumin 5.1 g/dL (3.9-5); Blood Urea Nitrogen 7 mg/dL (7-17); Calcium 10.4 mg/dL (8.4-10.2); Hemolysis Index 8
[2021-01-18 12:35] LABS: BUN/Creatinine Ratio 12; Bilirubin,Direct < 0.2 mg/dL (0-0.2)
[2021-01-18 12:37] LABS: Basophils # (Auto) 0.1 K/mm3 (0.0-0.1); Eosinophils # (Auto) 0.3 K/mm3 (0.0-0.4); Eosinophils % (Auto) 2.6 % (0.0-4.3); Hematocrit 48.6 % (30.3-42.9); Hemoglobin 15.9 gm/dl (10.1-14.3); Lymphocytes # (Auto) 2.4 K/mm3 (1.2-5.4); Lymphocytes % (Auto) 24.3 % (13.4-35.0); Mean Corpuscular HGB Conc 33 % (30-34); Mean Corpuscular Volume 76 fl (79-97); Monocytes # (Auto) 0.4 K/mm3 (0.0-0.8); Monocytes % (Auto) 3.9 % (0.0-7.3); Platelet Count 361 K/mm3 (140-440); Red Blood Count 6.39 M/mm3 (3.65-5.03); Red Cell Distribution Width 14.9 % (13.2-15.2)
--- NOTE | 2021-01-18 13:58 | Cat Scan Report ---
CT ABDOMEN AND PELVIS WITH CONTRAST INDICATION / CLINICAL INFORMATION: severe left abd pain/hx SBO 100 ML OMNI 300 . TECHNIQUE: Axial CT images were obtained through the abdomen and pelvis after IV contrast. All CT sc ans at this location are performed using CT dose reduction for ALARA by means of automated exposure c ontrol. COMPARISON: CT dated 09/23/20 FINDINGS: LOWER CHEST: No significant abnormality. LIVER: Liver is enlarged and diffusely hypodense characteristic of fatty infiltration. GALLBLADDER: No significant abnormality. BILE DUCTS: No significant abnormality. PANCREAS: No significant abnormality. SPLEEN: No significant abnormality. ADRENALS: No significant abnormality. RIGHT KIDNEY / URETER: No significant abnormality. LEFT KIDNEY / URETER: No significant abnormality. STOMACH / SMALL BOWEL: Several loops of correlate dilated mid small bowel containing feculent materia l appears similar to the previous study. Transition point is at an anastomotic suture line similar to the previous study. Distal small bowel loops are normal in caliber. COLON: No significant abnormality. APPENDIX: No significant abnormality. PERITONEUM: Small amount of free fluid in the pelvis. No free air. No fluid collection. LYMPH NODES: No significant adenopathy. AORTA / ARTERIES: No significant abnormality. IVC / VEINS: No significant abnormality. URINARY BLADDER: No significant abnormality. REPRODUCTIVE ORGANS: Uterus is absent. No significant adnexal abnormality. ADDITIONAL FINDINGS: None. SKELETAL SYSTEM: Benign-appearing sclerotic lesion at L2 is unchanged. IMPRESSION: 1. Mild to moderate partial small bowel obstruction at anastomotic suture line. 2. Hepatomegaly with hepatic steatosis. Signer Name: Evelyn Arndt MD Signed: 01/18/2021 1:53 PM Workstation Name: [id number]
[2021-01-18] MEDS ORDERED: diazePAM 10 MG/2 ML SYRINGE IV ONE (14:41)
[2021-01-18] MEDS ORDERED: LORazepam 2 MG/ML VIAL IV ONE (14:50)
[2021-01-18 15:55] LABS: Bilirubin,Urine NEG (Negative); Blood,Urine MOD (Negative); Color,Urine Straw (Yellow); Protein,Urine <15 mg/dL mg/dL (Negative); Urobilinogen,Urine < 2.0 mg/dL (<2.0)
[2021-01-18] MEDS ORDERED: ONDANSETRON 4 MG/2 ML INJ IV PRN (20:51)
[2021-01-18] MEDS ORDERED: HYDROmorphone 1 MG/1 ML INJ IV PRN (20:51)
[2021-01-18] MEDS ORDERED: METOCLOPRAMIDE 10 MG/2 ML INJ IV PRN (20:51)
[2021-01-18] MEDS ORDERED: ACETAMINOPHEN 325 MG TAB PO PRN (20:51)
[2021-01-18] MEDS ORDERED: cloNIDine TTS 0.2 MG/24 HR PATCH TD SCH (21:00)
[2021-01-18] MEDS ORDERED: HEPARIN 5,000 UNIT/1 ML VIAL SUB-Q SCH (22:00)
[2021-01-18] MEDS: FAMOTIDINE 20 MG/2 ML INJ IV SCH (23:19)
[2021-01-18] MEDS: levETIRAcetam 500 MG in DEXTROSE 5% IN WATER 100 ML IV SCH (23:19)
[2021-01-19] MEDS: SODIUM CHLORIDE 0.9% 1000 ML 1,000 ML IV SCH ×3 (01:08→20:18)
[2021-01-19] MEDS: MORPHINE 2 MG/1 ML INJ IV PRN ×3 (02:15→20:18)
[2021-01-19 04:42] LABS: Basophils # (Auto) 0.1 K/mm3 (0.0-0.1); Basophils % (Auto) 0.6 % (0.0-1.8); Eosinophils # (Auto) 0.4 K/mm3 (0.0-0.4); Hematocrit 42.3 % (30.3-42.9); Hemoglobin 13.9 gm/dl (10.1-14.3); Lymphocytes # (Auto) 2.3 K/mm3 (1.2-5.4); Lymphocytes % (Auto) 25.1 % (13.4-35.0); Mean Corpuscular HGB Conc 33 % (30-34); Mean Corpuscular Volume 76 fl (79-97); Monocytes # (Auto) 0.4 K/mm3 (0.0-0.8); Monocytes % (Auto) 4.3 % (0.0-7.3); Platelet Count 298 K/mm3 (140-440); Red Blood Count 5.58 M/mm3 (3.65-5.03); Red Cell Distribution Width 14.8 % (13.2-15.2)
[2021-01-19 05:05] LABS: Alanine Aminotransferase 94 units/L (7-56); Albumin 4.4 g/dL (3.9-5); Blood Urea Nitrogen 8 mg/dL (7-17); Calcium 9.8 mg/dL (8.4-10.2); Hemolysis Index 2
[2021-01-19 05:10] LABS: BUN/Creatinine Ratio 13
--- NOTE | 2021-01-19 06:34 | History and Physical Report ---
History of Present Illness Date of examination: 01/18/21 Date of admission: 01/18/21 16:58 Chief complaint: Vomiting since yesterday History of present illness: 50-year-old -Portuguese female with history of hypertension, hyperlipidemia and seizure disorder and recent small bowel obstruction in September secondary to additions with readmission to this facility followed by bowel resection and removal of additions comes in for vomiting and abdominal pain since yesterday. Patient vomited about 8 times. During my examination patient was not vomiting for the last couple of hours. Abdominal pain is 5-8 on a range of 1-10. Sharp and intermittent in nature. Food is a precipitating factor. Not consuming anything orally gives some relief. No fever or chills. No exposure to Covid. Covid vaccination was not asked. Previous Medical History?: Yes --Hypertension: Yes --GERD: Yes --Liver Disease: Yes (Pt reports elevated LFTs) --Sickle Cell Disease: Yes (Trait only) --Arthritis: Yes (Left leg and arm) --Headaches / Migraines: Yes (migraines) --Seizures: Yes (Last seizure 2017) Additional medical history: Recurrent symptomatic anemia. Menorrhagia. Uterine fibroids. Vertigo. Small bowel obstruction - Surgical History Past Surgical History?: Yes Additional Surgical History: 3 C- Sections, HYSTERECTOMY. Right knee repair at age 10. fx femur, Small bowel resection - Social History --Smoking Status: Never Smoker --Substance Use Type: Alcohol, Prescribed -Family history Htn Review of Systems ROS: Stated complaint: ABD PAIN,N/V Other details as noted in HPI Comment: All other systems reviewed and negative Constitutional: denies: chills, fever Eyes: denies: eye pain, eye discharge, vision change ENT: denies: ear pain, throat pain, dental pain, hearing loss, epistaxis, congestion Respiratory: denies: cough, shortness of breath, SOB with exertion, SOB at rest, wheezing Cardiovascular: denies: chest pain, palpitations, dyspnea on exertion, edema, syncope, paroxysmal nocturnal dyspnea Gastrointestinal: abdominal pain, nausea, vomiting, constipation. denies: diarrhea, hematemesis, melena, hematochezia Genitourinary: denies: urgency, dysuria, discharge, abnormal menses, dyspareunia Musculoskeletal: denies: back pain, joint swelling, arthralgia Skin: denies: rash, lesions, change in color, change in hair/nails, pruritus Neurological: denies: headache, weakness, numbness, paresthesias, confusion, vertigo Psychiatric: denies: anxiety, depression, auditory hallucinations, visual hallucinations, homicidal thoughts, suicidal thoughts Hematological/Lymphatic: denies: easy bleeding, easy bruising Medications and Allergies Allergies Allergy/AdvReac Type Severity Reaction Status Date / Time hydromorphone [From Dilaudid] Allergy Itching Verified 02/07/20 10:00 misoprostol [From Cytotec] Allergy N&V Verified 02/07/20 10:00 promethazine HCl Allergy Unknown Verified 02/07/20 10:00 [From Phenergan] sulfamethoxazole Allergy Hives Verified 02/07/20 10:00 [From Bactrim] trimethoprim [From Bactrim] Allergy Hives Verified 02/07/20 10:00 lisinopril AdvReac Cough Verified 02/07/20 10:00 Home Medications Medication Instructions Recorded Confirmed Last Taken Type Metoprolol [Lopressor TAB] 25 mg PO BID 02/17/18 01/19/21 01/18/21 10:00 History Ondansetron [Zofran TAB] 4 mg PO Q6H PRN 02/17/18 01/19/21 09/23/20 15:13 History Simvastatin 20 mg PO DAILY 02/17/18 01/19/21 01/18/21 10:00 History Cyclobenzaprine [Flexeril 10 MG 10 mg PO TID PRN 02/12/20 01/19/21 01/17/21 22:00 History TAB] Docusate Sodium [Colace CAP] 100 mg PO BID PRN #30 capsule 02/15/20 01/19/21 01/18/21 10:00 Rx Ondansetron [Zofran ODT TAB] 8 mg PO Q12HR PRN #30 tab.rapdis 02/16/20 01/19/21 09/22/20 10:00 Rx Ondansetron [Zofran ODT TAB] 4 mg PO Q8HR PRN #20 tab.rapdis 03/26/20 01/19/21 Unknown Rx Butalb/Acetaminophen/Caffeine 1 each PO PRN PRN #14 cap 09/25/20 01/19/21 22:00 Rx [Pyofct-Snmyttcl-Wvwa 50-325-40] levETIRAcetam [Keppra TAB] 500 mg PO BID #60 tablet 09/25/20 01/19/21 01/18/21 10:00 Rx LORazepam [Ativan] 0.5 mg PO DAILY PRN 01/19/21 01/19/21 Unknown History Meclizine [Antivert] 25 mg PO TID PRN 01/19/21 01/19/21 Unknown History Active Meds: Active Medications Acetaminophen (Acetaminophen 325 Mg Tab) 650 mg PO Q4H PRN PRN Reason: Pain MILD(1-3)/Fever >100.5/[place] Clonidine HCl (Clonidine Tts 0.2 Mg/24 Hr Patch) 0.2 mg TD Sa [facility] Last Admin: 01/18/21 23:24 Dose: 0.2 mg Documented by: Famotidine (Famotidine 20 Mg/2 Ml Inj) 20 mg IV BID [facility] Last Admin: 01/18/21 23:19 Dose: 20 mg Documented by: Heparin Sodium (Porcine) (Heparin 5,000 Unit/1 Ml Vial) 5,000 unit SUB-Q Q12HR [facility] Last Admin: 01/18/21 23:19 Dose: 5,000 unit Documented by: Sodium Chloride (Nacl 0.9% 1000 Ml) 1,000 mls @ 100 mls/hr IV DIRECT [facility] Last Admin: 01/19/21 01:08 Dose: 100 mls/hr Documented by: Levetiracetam 500 mg/ Dextrose 105 mls @ 400 mls/hr IV Q12HR [facility] Last Admin: 01/18/21 23:19 Dose: 400 mls/hr Documented by: Metoclopramide HCl (Metoclopramide 10 Mg/2 Ml Inj) 10 mg IV Q6H PRN PRN Reason: Nausea And Vomiting Morphine Sulfate (Morphine 2 Mg/1 Ml Inj) 2 mg IV Q4H PRN PRN Reason: Pain, Moderate (4-6) Last Admin: 01/19/21 02:15 Dose: 2 mg Documented by: Ondansetron HCl (Ondansetron 4 Mg/2 Ml Inj) 4 mg IV Q3H PRN PRN Reason: Nausea And Vomiting Sodium Chloride (Sodium Chloride 0.9% 10 Ml Flush Syringe) 10 ml IV BID [facility] Last Admin: 01/18/21 23:24 Dose: 10 ml Documented by: Sodium Chloride (Sodium Chloride 0.9% 10 Ml Flush Syringe) 10 ml IV PRN PRN PRN Reason: LINE FLUSH Exam - Constitutional Vitals: Temp Pulse Resp BP Pulse Ox 97.4 F L 75 20 146/100 97 01/19/21 01:04 01/19/21 00:15 01/19/21 02:45 01/19/21 01:04 01/19/21 02:00 General appearance: Present: mild distress, well-nourished - EENT Eyes: Present: PERRL ENT: hearing intact, clear oral mucosa - Neck Neck: Present: supple, normal ROM - Respiratory Respiratory effort: normal Respiratory: bilateral: CTA - Cardiovascular Heart rate: 78 Rhythm: regular Heart Sounds: Present: S1 & S2. Absent: rub, click - Extremities Extremities: no ischemia, pulses symmetrical, No edema Peripheral Pulses: within normal limits - Abdominal General gastrointestinal: Present: tender, hypoactive bowel sounds Localized gastrointestinal: tender: diffuse Female genitourinary: Present: normal - Rectal Rectal Exam: deferred - Integumentary Integumentary: Present: clear, warm, dry - Musculoskeletal Musculoskeletal: gait normal, strength equal bilaterally - Psychiatric Psychiatric: appropriate mood/affect, intact judgment & insight - Neurologic Neurologic: CNII-XII intact, moves all extremities - Allied Health Allied health notes reviewed: nursing, case management Results - Labs CBC & Chem 7: 01/19/21 04:20 01/19/21 04:20 Labs: Laboratory Last Values WBC 9.3 K/mm3 (4.5-11.0) 01/19/21 04:20 RBC 5.58 M/mm3 (3.65-5.03) H 01/19/21 04:20 Hgb 13.9 gm/dl (10.1-14.3) 01/19/21 04:20 Hct 42.3 % (30.3-42.9) D 01/19/21 04:20 MCV 76 fl (79-97) L 01/19/21 04:20 MCH 25 pg (28-32) L 01/19/21 04:20 MCHC 33 % (30-34) 01/19/21 04:20 RDW 14.8 % (13.2-15.2) 01/19/21 04:20 Plt Count 298 K/mm3 (140-440) 01/19/21 04:20 Lymph % (Auto) 25.1 % (13.4-35.0) 01/19/21 04:20 [place] % (Auto) 4.3 % (0.0-7.3) 01/19/21 04:20 Eos % (Auto) 4.0 % (0.0-4.3) 01/19/21 04:20 Baso % (Auto) 0.6 % (0.0-1.8) 01/19/21 04:20 Lymph # (Auto) 2.3 K/mm3 (1.2-5.4) 01/19/21 04:20 [place] # (Auto) 0.4 K/mm3 (0.0-0.8) 01/19/21 04:20 Eos # (Auto) 0.4 K/mm3 (0.0-0.4) 01/19/21 04:20 Baso # (Auto) 0.1 K/mm3 (0.0-0.1) 01/19/21 04:20 Seg Neutrophils % 66.0 % (40.0-70.0) 01/19/21 04:20 Seg Neutrophils # 6.1 K/mm3 (1.8-7.7) 01/19/21 04:20 Sodium 139 mmol/L (137-145) 01/19/21 04:20 Potassium 3.8 mmol/L (3.6-5.0) 01/19/21 04:20 Chloride 101.2 mmol/L (98-107) 01/19/21 04:20 Carbon Dioxide 27 mmol/L (22-30) 01/19/21 04:20 Anion Gap 15 mmol/L 01/19/21 04:20 BUN 8 mg/dL (7-17) 01/19/21 04:20 Creatinine 0.6 mg/dL (0.6-1.2) 01/19/21 04:20 Estimated GFR > 60 ml/min 01/19/21 04:20 BUN/Creatinine Ratio 13 % 01/19/21 04:20 Glucose 110 mg/dL (65-100) H 01/19/21 04:20 Calcium 9.8 mg/dL (8.4-10.2) 01/19/21 04:20 Total Bilirubin 0.50 mg/dL (0.1-1.2) 01/19/21 04:20 Direct Bilirubin < 0.2 mg/dL (0-0.2) 01/18/21 11:26 Indirect Bilirubin 0.2 mg/dL 01/18/21 11:26 AST 52 units/L (5-40) H 01/19/21 04:20 ALT 94 units/L (7-56) H 01/19/21 04:20 Alkaline Phosphatase 152 units/L (35-129) H 01/19/21 04:20 Total Protein 7.3 g/dL (6.3-8.2) 01/19/21 04:20 Albumin 4.4 g/dL (3.9-5) 01/19/21 04:20 Albumin/Globulin Ratio 1.5 % 01/19/21 04:20 Lipase 18 units/L (13-60) 01/18/21 11:26 Urine Color Straw (Yellow) 01/18/21 14:40 Urine Turbidity Clear (Clear) 01/18/21 14:40 Urine pH 7.0 (5.0-7.0) 01/18/21 14:40 Urine Protein <15 mg/dl mg/dL (Negative) 01/18/21 14:40 Urine Glucose (UA) Neg mg/dL (Negative) 01/18/21 14:40 Urine Ketones Neg mg/dL (Negative) 01/18/21 14:40 Urine Blood Mod (Negative) 01/18/21 14:40 Urine Nitrite Neg (Negative) 01/18/21 14:40 Ur Reducing Substances Not Reportable 01/18/21 14:40 Urine Bilirubin Neg (Negative) 01/18/21 14:40 Urine Ictotest Not Reportable 01/18/21 14:40 Urine Urobilinogen < 2.0 mg/dL (<2.0) 01/18/21 14:40 Ur Leukocyte Esterase Neg (Negative) 01/18/21 14:40 Urine WBC (Auto) 1.0 /HPF (0.0-6.0) 01/18/21 14:40 Urine RBC (Auto) 4.0 /HPF (0.0-6.0) 01/18/21 14:40 U Epithel Cells (Auto) 14.0 /HPF (0-13.0) H 01/18/21 14:40 Short CBC 01/18/21 01/19/21 Range/Units 11:26 04:20 WBC 9.7 9.3 (4.5-11.0) K/mm3 Hgb 15.9 H 13.9 (10.1-14.3) gm/dl Hct 48.6 H 42.3 D (30.3-42.9) % Plt Count 361 298 (140-440) K/mm3 BMP 01/18/21 01/19/21 11:26 04:20 Sodium 137 139 Potassium 4.2 3.8 Chloride 99.3 101.2 Carbon Dioxide 23 27 BUN 7 8 Creatinine 0.6 0.6 Glucose 119 H 110 H Calcium 10.4 H 9.8 Liver Function 01/18/21 01/19/21 Range/Units 11:26 04:20 Total Bilirubin 0.40 0.50 (0.1-1.2) mg/dL Direct Bilirubin < 0.2 (0-0.2) mg/dL AST 69 H 52 H (5-40) units/L ALT 118 H 94 H (7-56) units/L Alkaline Phosphatase 175 H 152 H (35-129) units/L Albumin 5.1 H 4.4 (3.9-5) g/dL Urine 01/18/21 Range/Units 14:40 Urine Color Straw (Yellow) Urine pH 7.0 (5.0-7.0) Urine Protein <15 mg/dl (Negative) mg/dL Urine Glucose (UA) Neg (Negative) mg/dL - Imaging and Cardiology Imaging and Cardiology: -CAT scan of the abdomen Partial small bowel obstruction at the anastomotic line Pierre/IV: Voiding Method Toilet Assessment and Plan Advance Directives: Yes (Full code) VTE prophylaxis?: Chemical Plan of care discussed with patient/family: Yes - Patient Problems (1) Partial small bowel obstruction Current Visit: Yes Status: Acute Plan to address problem: NG tube to suction IV fluids Surgery consult by Dr. Galdamez requested Patient has history of small bowel obstruction in the past especially October 22 followed by a small bowel resection and removal of additions (2) Hypertension Current Visit: Yes Status: Chronic Qualifiers: Hypertension type: primary hypertension Qualified Code(s): I10 - Essential (primary) hypertension Plan to address problem: Initiated on Catapres patch Hydralazine IV as needed No oral antihypertensives (3) Seizure disorder Current Visit: Yes Status: Chronic Plan to address problem: Patient initiated on IV Keppra 500 every 12 because she is n.p.o. (4) Hyperlipidemia Current Visit: Yes Status: Chronic Qualifiers: Hyperlipidemia type: mixed hyperlipidemia Qualified Code(s): E78.2 - Mixed hyperlipidemia Plan to address problem: Hold statins for now because patient is n.p.o. (5) Transaminitis Current Visit: Yes Status: Chronic Plan to address problem: Patient has hepatic steatosis Check acute hepatitis profile (6) Polycythemia due to fall in plasma volume Current Visit: Yes Status: Acute Plan to address problem: IV fluids and recheck hemoglobin and hematocrit (7) DVT prophylaxis Current Visit: Yes Status: Acute Plan to address problem: On heparin and GI prophylaxis
--- NOTE | 2021-01-19 08:21 | Progress Note ---
Assessment and Plan Assessment and plan: (1) Partial small bowel obstruction Current Visit: Yes Status: Acute Plan to address problem: NG tube to suction IV fluids Surgery consult by Dr. Galdamez requested Patient has history of small bowel obstruction in the past especially October 22 followed by a small bowel resection and removal of additions (2) Hypertension Current Visit: Yes Status: Chronic Qualifiers: Hypertension type: primary hypertension Qualified Code(s): I10 - Essential (primary) hypertension Plan to address problem: Initiated on Catapres patch Hydralazine IV as needed No oral antihypertensives (3) Seizure disorder Current Visit: Yes Status: Chronic Plan to address problem: Patient initiated on IV Keppra 500 every 12 because she is n.p.o. (4) Hyperlipidemia Current Visit: Yes Status: Chronic Qualifiers: Hyperlipidemia type: mixed hyperlipidemia Qualified Code(s): E78.2 - Mixed hyperlipidemia Plan to address problem: Hold statins for now because patient is n.p.o. (5) Transaminitis Current Visit: Yes Status: Chronic Plan to address problem: Patient has hepatic steatosis Check acute hepatitis profile (6) Polycythemia due to fall in plasma volume Current Visit: Yes Status: Acute Plan to address problem: IV fluids and recheck hemoglobin and hematocrit (7) DVT prophylaxis Current Visit: Yes Status: Acute Plan to address problem: On heparin and GI prophylaxis 01/19/2021 -Discussed with general surgery Dr. Galdamez and said he will see the patient today. -Patient is complaining pain 6 out of 10 -We will check tube -Vital signs stable -Blood pressures controlled -Continue current medications -I discontinued heparin pending surgical evaluation. History Interval history: Patient was seen and evaluated this morning Patient is admitted for partial small bowel obstruction. Patient is complaining terminal pain 6 out of 10 Abdomen is distended Hospitalist Physical - Physical exam Narrative exam: Not in cardiopulmonary distress. The patient appeared well nourished and normally developed. Vital signs as documented. Head exam is unremarkable. No scleral icterus . Neck is without jugular venous distension, thyromegaly, or carotid bruits. Lungs are clear to auscultation. Cardiac exam reveals regular rate and Rhythm. Abdominal exam reveals tenderness with hypoactive bowel sounds. Distended abdomen Extremities are nonedematous and both femoral and pedal pulses are normal. PATTERNMAKER HAND: Alert and oriented 3. No focal weakness. - Constitutional Vitals: Temp Pulse Resp BP Pulse Ox 97.4 F L 112 H 16 132/86 95 01/19/21 05:15 01/19/21 05:10 01/19/21 05:15 01/19/21 05:15 01/19/21 05:10 General appearance: Present: mild distress, well-nourished Results - Labs CBC & Chem 7: 01/19/21 04:20 01/19/21 04:20 Labs: Laboratory Last Values WBC 9.3 K/mm3 (4.5-11.0) 01/19/21 04:20 RBC 5.58 M/mm3 (3.65-5.03) H 01/19/21 04:20 Hgb 13.9 gm/dl (10.1-14.3) 01/19/21 04:20 Hct 42.3 % (30.3-42.9) D 01/19/21 04:20 MCV 76 fl (79-97) L 01/19/21 04:20 MCH 25 pg (28-32) L 01/19/21 04:20 MCHC 33 % (30-34) 01/19/21 04:20 RDW 14.8 % (13.2-15.2) 01/19/21 04:20 Plt Count 298 K/mm3 (140-440) 01/19/21 04:20 Lymph % (Auto) 25.1 % (13.4-35.0) 01/19/21 04:20 [place] % (Auto) 4.3 % (0.0-7.3) 01/19/21 04:20 Eos % (Auto) 4.0 % (0.0-4.3) 01/19/21 04:20 Baso % (Auto) 0.6 % (0.0-1.8) 01/19/21 04:20 Lymph # (Auto) 2.3 K/mm3 (1.2-5.4) 01/19/21 04:20 [place] # (Auto) 0.4 K/mm3 (0.0-0.8) 01/19/21 04:20 Eos # (Auto) 0.4 K/mm3 (0.0-0.4) 01/19/21 04:20 Baso # (Auto) 0.1 K/mm3 (0.0-0.1) 01/19/21 04:20 Seg Neutrophils % 66.0 % (40.0-70.0) 01/19/21 04:20 Seg Neutrophils # 6.1 K/mm3 (1.8-7.7) 01/19/21 04:20 Sodium 139 mmol/L (137-145) 01/19/21 04:20 Potassium 3.8 mmol/L (3.6-5.0) 01/19/21 04:20 Chloride 101.2 mmol/L (98-107) 01/19/21 04:20 Carbon Dioxide 27 mmol/L (22-30) 01/19/21 04:20 Anion Gap 15 mmol/L 01/19/21 04:20 BUN 8 mg/dL (7-17) 01/19/21 04:20 Creatinine 0.6 mg/dL (0.6-1.2) 01/19/21 04:20 Estimated GFR > 60 ml/min 01/19/21 04:20 BUN/Creatinine Ratio 13 % 01/19/21 04:20 Glucose 110 mg/dL (65-100) H 01/19/21 04:20 Calcium 9.8 mg/dL (8.4-10.2) 01/19/21 04:20 Total Bilirubin 0.50 mg/dL (0.1-1.2) 01/19/21 04:20 Direct Bilirubin < 0.2 mg/dL (0-0.2) 01/18/21 11:26 Indirect Bilirubin 0.2 mg/dL 01/18/21 11:26 AST 52 units/L (5-40) H 01/19/21 04:20 ALT 94 units/L (7-56) H 01/19/21 04:20 Alkaline Phosphatase 152 units/L (35-129) H 01/19/21 04:20 Total Protein 7.3 g/dL (6.3-8.2) 01/19/21 04:20 Albumin 4.4 g/dL (3.9-5) 01/19/21 04:20 Albumin/Globulin Ratio 1.5 % 01/19/21 04:20 Lipase 18 units/L (13-60) 01/18/21 11:26 Urine Color Straw (Yellow) 01/18/21 14:40 Urine Turbidity Clear (Clear) 01/18/21 14:40 Urine pH 7.0 (5.0-7.0) 01/18/21 14:40 Urine Protein <15 mg/dl mg/dL (Negative) 01/18/21 14:40 Urine Glucose (UA) Neg mg/dL (Negative) 01/18/21 14:40 Urine Ketones Neg mg/dL (Negative) 01/18/21 14:40 Urine Blood Mod (Negative) 01/18/21 14:40 Urine Nitrite Neg (Negative) 01/18/21 14:40 Ur Reducing Substances Not Reportable 01/18/21 14:40 Urine Bilirubin Neg (Negative) 01/18/21 14:40 Urine Ictotest Not Reportable 01/18/21 14:40 Urine Urobilinogen < 2.0 mg/dL (<2.0) 01/18/21 14:40 Ur Leukocyte Esterase Neg (Negative) 01/18/21 14:40 Urine WBC (Auto) 1.0 /HPF (0.0-6.0) 01/18/21 14:40 Urine RBC (Auto) 4.0 /HPF (0.0-6.0) 01/18/21 14:40 U Epithel Cells (Auto) 14.0 /HPF (0-13.0) H 01/18/21 14:40 Pierre/IV: Voiding Method Toilet Active Medications - Current Medications Current Medications: Generic Name Dose Route Start Last Admin Trade Name Freq PRN Reason Stop Dose Admin Acetaminophen 650 mg 01/18/21 20:51 Acetaminophen 325 Mg Tab PO Q4H PRN Pain MILD(1-3)/Fever >100.5/[place] Clonidine HCl 0.2 mg 01/18/21 21:00 01/18/21 23:24 Clonidine Tts 0.2 Mg/24 Hr Patch TD 0.2 mg Sa [facility] Administration Famotidine 20 mg 01/18/21 22:00 01/18/21 23:19 Famotidine 20 Mg/2 Ml Inj IV 20 mg BID [facility] Administration Sodium Chloride 1,000 mls @ 100 mls/hr 01/18/21 21:00 01/19/21 01:08 Nacl 0.9% 1000 Ml IV 100 mls/hr DIRECT [facility] Administration Levetiracetam 500 mg/ Dextrose 105 mls @ 400 mls/hr 01/18/21 22:00 01/18/21 23:19 IV 400 mls/hr Q12HR [facility] Administration Metoclopramide HCl 10 mg 01/18/21 20:51 Metoclopramide 10 Mg/2 Ml Inj IV Q6H PRN Nausea And Vomiting Morphine Sulfate 2 mg 01/18/21 20:51 01/19/21 02:15 Morphine 2 Mg/1 Ml Inj IV 2 mg Q4H PRN Administration Pain, Moderate (4-6) Ondansetron HCl 4 mg 01/18/21 20:51 Ondansetron 4 Mg/2 Ml Inj IV Q3H PRN Nausea And Vomiting Sodium Chloride 10 ml 01/18/21 22:00 01/18/21 23:24 Sodium Chloride 0.9% 10 Ml Flush Syringe IV 10 ml BID [facility] Administration Sodium Chloride 10 ml 01/18/21 20:51 Sodium Chloride 0.9% 10 Ml Flush Syringe IV PRN PRN LINE FLUSH
[2021-01-19] MEDS: FAMOTIDINE 20 MG/2 ML INJ IV SCH ×2 (10:05→23:05)
[2021-01-19] MEDS: levETIRAcetam 500 MG in DEXTROSE 5% IN WATER 100 ML IV SCH ×2 (11:04→23:05)
--- NOTE | 2021-01-19 12:53 | XRay Report ---
ABDOMEN 1 VIEW 01/19/2021 12:23 PM INDICATION / CLINICAL INFORMATION: Partial small bowel obstruction. COMPARISON: CT dated 01/18/21 FINDINGS: TUBES / LINES: None. BOWEL GAS PATTERN: Mildly dilated small bowel. Normal amount of fecal material and gas throughout the colon. FREE AIR / EXTRALUMINAL GAS: None. ADDITIONAL FINDINGS: No significant additional findings. IMPRESSION: 1. Mildly dilated small bowel with normal amount of fecal material and gas throughout the colon. Signer Name: Evelyn Arndt MD Signed: 01/19/2021 12:48 PM Workstation Name: [id number]
--- NOTE | 2021-01-19 13:34 | Consultation ---
History of Present Illness Consult date: 01/19/21 Reason for consult: abdominal pain - History of present illness History of present illness: 50 yo female with 36 hour h/o diffuse crampy abdominal pain with nausea and vomiting. She has a prior h/o SBO requiring surgery. Last emesis was prior to admission. Last BM was several days ago. Past History Past Surgical History: , hysterectomy, bowel surgery, Other (KARLA and SBR) Medications and Allergies Allergies Allergy/AdvReac Type Severity Reaction Status Date / Time hydromorphone [From Dilaudid] Allergy Itching Verified 02/07/20 10:00 misoprostol [From Cytotec] Allergy N&V Verified 02/07/20 10:00 promethazine HCl Allergy Unknown Verified 02/07/20 10:00 [From Phenergan] sulfamethoxazole Allergy Hives Verified 02/07/20 10:00 [From Bactrim] trimethoprim [From Bactrim] Allergy Hives Verified 02/07/20 10:00 lisinopril AdvReac Cough Verified 02/07/20 10:00 Home Medications Medication Instructions Recorded Confirmed Last Taken Type Metoprolol [Lopressor TAB] 25 mg PO BID 02/17/18 01/19/21 01/18/21 10:00 History Ondansetron [Zofran TAB] 4 mg PO Q6H PRN 02/17/18 01/19/21 09/23/20 15:13 History Simvastatin 20 mg PO DAILY 02/17/18 01/19/21 01/18/21 10:00 History Cyclobenzaprine [Flexeril 10 MG 10 mg PO TID PRN 02/12/20 01/19/21 01/17/21 22:00 History TAB] Docusate Sodium [Colace CAP] 100 mg PO BID PRN #30 capsule 02/15/20 01/19/21 01/18/21 10:00 Rx Ondansetron [Zofran ODT TAB] 8 mg PO Q12HR PRN #30 tab.rapdis 02/16/20 01/19/21 09/22/20 10:00 Rx Ondansetron [Zofran ODT TAB] 4 mg PO Q8HR PRN #20 tab.rapdis 03/26/20 01/19/21 Unknown Rx Butalb/Acetaminophen/Caffeine 1 each PO PRN PRN #14 cap 09/25/20 01/19/21 01/17/21 22:00 Rx [Tmfjgs-[id number] 50-325-40] levETIRAcetam [Keppra TAB] 500 mg PO BID #60 tablet 09/25/20 01/19/21 01/18/21 10:00 Rx LORazepam [Ativan] 0.5 mg PO DAILY PRN 01/19/21 01/19/21 Unknown History Meclizine [Antivert] 25 mg PO TID PRN 01/19/21 01/19/21 Unknown History Active Meds: Active Medications Acetaminophen (Acetaminophen 325 Mg Tab) 650 mg PO Q4H PRN PRN Reason: Pain MILD(1-3)/Fever >100.5/[place] Clonidine HCl (Clonidine Tts 0.2 Mg/24 Hr Patch) 0.2 mg TD Sa [facility] Last Admin: 01/18/21 23:24 Dose: 0.2 mg Documented by: Famotidine (Famotidine 20 Mg/2 Ml Inj) 20 mg IV BID [facility] Last Admin: 01/19/21 10:05 Dose: 20 mg Documented by: Sodium Chloride (Nacl 0.9% 1000 Ml) 1,000 mls @ 100 mls/hr IV DIRECT [facility] Last Admin: 01/19/21 10:06 Dose: 100 mls/hr Documented by: Levetiracetam 500 mg/ Dextrose 105 mls @ 400 mls/hr IV Q12HR [facility] Last Admin: 01/19/21 11:04 Dose: 400 mls/hr Documented by: Metoclopramide HCl (Metoclopramide 10 Mg/2 Ml Inj) 10 mg IV Q6H PRN PRN Reason: Nausea And Vomiting Morphine Sulfate (Morphine 2 Mg/1 Ml Inj) 2 mg IV Q4H PRN PRN Reason: Pain, Moderate (4-6) Last Admin: 01/19/21 10:05 Dose: 2 mg Documented by: Ondansetron HCl (Ondansetron 4 Mg/2 Ml Inj) 4 mg IV Q3H PRN PRN Reason: Nausea And Vomiting Sodium Chloride (Sodium Chloride 0.9% 10 Ml Flush Syringe) 10 ml IV BID [facility] Last Admin: 01/19/21 10:07 Dose: 10 ml Documented by: Sodium Chloride (Sodium Chloride 0.9% 10 Ml Flush Syringe) 10 ml IV PRN PRN PRN Reason: LINE FLUSH Review of Systems All systems: negative (none) Exam Vital Signs Temp Pulse Resp BP Pulse Ox 98.5 F 80 20 149/97 98 01/18/21 10:56 01/18/21 10:56 01/18/21 10:56 01/18/21 10:56 01/18/21 10:56 - General physical appearance Positive: well developed, well nourished, no distress - Eyes Positive: PERRL, normal occular movement - ENT Positive: normal pinna, normal nares, normal mucosa, no hearing loss, no congestion - Neck Positive: no masses, no bruits, trachea midline, no venous distension - Respiratory Positive: normal expansion, normal respiratory effort, clear to auscultation - Cardiovascular Rhythm: regular Heart Sounds: Present: S1 & S2. Absent: rub, click - Extremities Extremities: no ischemia, pulses symmetrical, No edema - Breasts Breasts: normal, no mass, no skin changes - Abdomen Abdomen: Present: soft, bowel sounds hypoactive (Mildly distended without rebound or guarding.). Absent: tender Hernia: none - Genitourinary Male Genitourinary: normal Female Genitourinary: normal - Integumentary no rash, no growths, no abnormal pigmentation - Neurologic Neurologic: alert and oriented to time, place and person, motor strength and sensation are grossly intact - Musculoskeletal normal gait, normal posture - Psychiatric Psychiatric: appropriate mood/affect, intact judgment & insight Results - Labs 01/19/21 04:20 01/19/21 04:20 Abnormal lab results 01/18/21 01/19/21 01/19/21 Range/Units 14:40 04:20 04:20 RBC 5.58 H (3.65-5.03) M/mm3 MCV 76 L (79-97) fl MCH 25 L (28-32) pg Glucose 110 H (65-100) mg/dL AST 52 H (5-40) units/L ALT 94 H (7-56) units/L Alkaline Phosphatase 152 H (35-129) units/L U Epithel Cells (Auto) 14.0 H (0-13.0) /HPF Diabetes panel 01/19/21 Range/Units 04:20 Sodium 139 (137-145) mmol/L Potassium 3.8 (3.6-5.0) mmol/L Chloride 101.2 (98-107) mmol/L Carbon Dioxide 27 (22-30) mmol/L BUN 8 (7-17) mg/dL Creatinine 0.6 (0.6-1.2) mg/dL Glucose 110 H (65-100) mg/dL Calcium 9.8 (8.4-10.2) mg/dL AST 52 H (5-40) units/L ALT 94 H (7-56) units/L Alkaline Phosphatase 152 H (35-129) units/L Total Protein 7.3 (6.3-8.2) g/dL Albumin 4.4 (3.9-5) g/dL Calcium panel 01/19/21 Range/Units 04:20 Calcium 9.8 (8.4-10.2) mg/dL Albumin 4.4 (3.9-5) g/dL Pituitary panel 01/19/21 Range/Units 04:20 Sodium 139 (137-145) mmol/L Potassium 3.8 (3.6-5.0) mmol/L Chloride 101.2 (98-107) mmol/L Carbon Dioxide 27 (22-30) mmol/L BUN 8 (7-17) mg/dL Creatinine 0.6 (0.6-1.2) mg/dL Glucose 110 H (65-100) mg/dL Calcium 9.8 (8.4-10.2) mg/dL Adrenal panel 01/19/21 Range/Units 04:20 Sodium 139 (137-145) mmol/L Potassium 3.8 (3.6-5.0) mmol/L Chloride 101.2 (98-107) mmol/L Carbon Dioxide 27 (22-30) mmol/L BUN 8 (7-17) mg/dL Creatinine 0.6 (0.6-1.2) mg/dL Glucose 110 H (65-100) mg/dL Calcium 9.8 (8.4-10.2) mg/dL Total Bilirubin 0.50 (0.1-1.2) mg/dL AST 52 H (5-40) units/L ALT 94 H (7-56) units/L Alkaline Phosphatase 152 H (35-129) units/L Total Protein 7.3 (6.3-8.2) g/dL Albumin 4.4 (3.9-5) g/dL - Imaging Abdominal x-ray: report reviewed CT scan - abdomen: report reviewed CT scan - pelvis: report reviewed Assessment and Plan - Patient Problems (1) Small bowel obstruction Current Visit: Yes Status: Acute Plan to address problem: 1) NPO 2) NG to LIS 3) IVF 4) AXR, CBC and BMP in the am.
[2021-01-20 04:53] LABS: Basophils % (Auto) 0.8 % (0.0-1.8); Eosinophils # (Auto) 0.3 K/mm3 (0.0-0.4); Eosinophils % (Auto) 5.4 % (0.0-4.3); Hematocrit 39.5 % (30.3-42.9); Hemoglobin 12.8 gm/dl (10.1-14.3); Lymphocytes # (Auto) 2.4 K/mm3 (1.2-5.4); Lymphocytes % (Auto) 38.7 % (13.4-35.0); Mean Corpuscular HGB Conc 33 % (30-34); Mean Corpuscular Volume 77 fl (79-97); Monocytes # (Auto) 0.3 K/mm3 (0.0-0.8); Platelet Count 284 K/mm3 (140-440); Red Blood Count 5.17 M/mm3 (3.65-5.03); Red Cell Distribution Width 14.4 % (13.2-15.2)
[2021-01-20 05:11] LABS: Blood Urea Nitrogen 6 mg/dL (7-17); Calcium 8.9 mg/dL (8.4-10.2); Hemolysis Index 4
[2021-01-20 05:21] LABS: BUN/Creatinine Ratio 10
[2021-01-20] MEDS: SODIUM CHLORIDE 0.9% 1000 ML 1,000 ML IV SCH ×2 (05:37→22:06)
[2021-01-20] MEDS: MORPHINE 2 MG/1 ML INJ IV PRN ×3 (05:37→21:58)
[2021-01-20] MEDS ORDERED: MAGNESIUM CITRATE 300 ML ORAL LIQD PO NR (09:30)
[2021-01-20] MEDS: FAMOTIDINE 20 MG/2 ML INJ IV SCH ×2 (09:38→22:04)
[2021-01-20] MEDS: levETIRAcetam 500 MG in DEXTROSE 5% IN WATER 100 ML IV SCH ×2 (09:39→22:01)
--- NOTE | 2021-01-20 13:18 | Progress Note ---
Assessment and Plan Assessment and plan: (1) Partial small bowel obstruction Current Visit: Yes Status: Acute Plan to address problem: NG tube to suction IV fluids Surgery consult by Dr. Galdamez requested Patient has history of small bowel obstruction in the past especially October 22 followed by a small bowel resection and removal of additions (2) Hypertension Current Visit: Yes Status: Chronic Qualifiers: Hypertension type: primary hypertension Qualified Code(s): I10 - Essential (primary) hypertension Plan to address problem: Initiated on Catapres patch Hydralazine IV as needed No oral antihypertensives (3) Seizure disorder Current Visit: Yes Status: Chronic Plan to address problem: Patient initiated on IV Keppra 500 every 12 because she is n.p.o. (4) Hyperlipidemia Current Visit: Yes Status: Chronic Qualifiers: Hyperlipidemia type: mixed hyperlipidemia Qualified Code(s): E78.2 - Mixed hyperlipidemia Plan to address problem: Hold statins for now because patient is n.p.o. (5) Transaminitis Current Visit: Yes Status: Chronic Plan to address problem: Patient has hepatic steatosis Check acute hepatitis profile (6) Polycythemia due to fall in plasma volume Current Visit: Yes Status: Acute Plan to address problem: IV fluids and recheck hemoglobin and hematocrit (7) DVT prophylaxis Current Visit: Yes Status: Acute Plan to address problem: On heparin and GI prophylaxis 01/19/2021 -Discussed with general surgery Dr. Galdamez and said he will see the patient today. -Patient is complaining pain 6 out of 10 -We will check tube -Vital signs stable -Blood pressures controlled -Continue current medications -I discontinued heparin pending surgical evaluation. 01/20: Patient seen and examined, still with abdominal pain but improving. awaiting further Surgical input, encourage to ambulate. History Interval history: Patient was seen and evaluated this morning. Patient is admitted for partial small bowel obstruction. Patient is complaining terminal pain 3 out of 10 Abdomen is distended Hospitalist Physical - Physical exam Narrative exam: Not in cardiopulmonary distress. The patient appeared well nourished and normally developed. Vital signs as documented. Head exam is unremarkable. No scleral icterus . Neck is without jugular venous distension, thyromegaly, or carotid bruits. Lungs are clear to auscultation. Cardiac exam reveals regular rate and Rhythm. Abdominal exam reveals tenderness with hypoactive bowel sounds. Distended abdo men Extremities are nonedematous and both femoral and pedal pulses are normal. AGRICULTURE TEACHER: Alert and oriented 3. No focal weakness. - Constitutional Vitals: Temp Pulse Resp BP Pulse Ox 97.3 F L 64 18 113/58 97 01/19/21 22:09 01/19/21 22:09 01/20/21 06:07 01/19/21 22:09 01/20/21 11:22 General appearance: Present: mild distress, well-nourished Results - Labs CBC & Chem 7: 01/20/21 04:10 01/20/21 04:10 Labs: Laboratory Last Values WBC 6.2 K/mm3 (4.5-11.0) 01/20/21 04:10 RBC 5.17 M/mm3 (3.65-5.03) H 01/20/21 04:10 Hgb 12.8 gm/dl (10.1-14.3) 01/20/21 04:10 Hct 39.5 % (30.3-42.9) 01/20/21 04:10 MCV 77 fl (79-97) L 01/20/21 04:10 MCH 25 pg (28-32) L 01/20/21 04:10 MCHC 33 % (30-34) 01/20/21 04:10 RDW 14.4 % (13.2-15.2) 01/20/21 04:10 Plt Count 284 K/mm3 (140-440) 01/20/21 04:10 Lymph % (Auto) 38.7 % (13.4-35.0) H 01/20/21 04:10 [place] % (Auto) 5.0 % (0.0-7.3) 01/20/21 04:10 Eos % (Auto) 5.4 % (0.0-4.3) H 01/20/21 04:10 Baso % (Auto) 0.8 % (0.0-1.8) 01/20/21 04:10 Lymph # (Auto) 2.4 K/mm3 (1.2-5.4) 01/20/21 04:10 [place] # (Auto) 0.3 K/mm3 (0.0-0.8) 01/20/21 04:10 Eos # (Auto) 0.3 K/mm3 (0.0-0.4) 01/20/21 04:10 Baso # (Auto) 0.0 K/mm3 (0.0-0.1) 01/20/21 04:10 Seg Neutrophils % 50.1 % (40.0-70.0) 01/20/21 04:10 Seg Neutrophils # 3.1 K/mm3 (1.8-7.7) 01/20/21 04:10 Sodium 140 mmol/L (137-145) 01/20/21 04:10 Potassium 3.7 mmol/L (3.6-5.0) 01/20/21 04:10 Chloride 104.4 mmol/L (98-107) 01/20/21 04:10 Carbon Dioxide 26 mmol/L (22-30) 01/20/21 04:10 Anion Gap 13 mmol/L 01/20/21 04:10 BUN 6 mg/dL (7-17) L 01/20/21 04:10 Creatinine 0.6 mg/dL (0.6-1.2) 01/20/21 04:10 Estimated GFR > 60 ml/min 01/20/21 04:10 BUN/Creatinine Ratio 10 % 01/20/21 04:10 Glucose 85 mg/dL (65-100) 01/20/21 04:10 Calcium 8.9 mg/dL (8.4-10.2) 01/20/21 04:10 Total Bilirubin 0.50 mg/dL (0.1-1.2) 01/19/21 04:20 Direct Bilirubin < 0.2 mg/dL (0-0.2) 01/18/21 11:26 Indirect Bilirubin 0.2 mg/dL 01/18/21 11:26 AST 52 units/L (5-40) H 01/19/21 04:20 ALT 94 units/L (7-56) H 01/19/21 04:20 Alkaline Phosphatase 152 units/L (35-129) H 01/19/21 04:20 Total Protein 7.3 g/dL (6.3-8.2) 01/19/21 04:20 Albumin 4.4 g/dL (3.9-5) 01/19/21 04:20 Albumin/Globulin Ratio 1.5 % 01/19/21 04:20 Lipase 18 units/L (13-60) 01/18/21 11:26 Urine Color Straw (Yellow) 01/18/21 14:40 Urine Turbidity Clear (Clear) 01/18/21 14:40 Urine pH 7.0 (5.0-7.0) 01/18/21 14:40 Urine Protein <15 mg/dl mg/dL (Negative) 01/18/21 14:40 Urine Glucose (UA) Neg mg/dL (Negative) 01/18/21 14:40 Urine Ketones Neg mg/dL (Negative) 01/18/21 14:40 Urine Blood Mod (Negative) 01/18/21 14:40 Urine Nitrite Neg (Negative) 01/18/21 14:40 Ur Reducing Substances Not Reportable 01/18/21 14:40 Urine Bilirubin Neg (Negative) 01/18/21 14:40 Urine Ictotest Not Reportable 01/18/21 14:40 Urine Urobilinogen < 2.0 mg/dL (<2.0) 01/18/21 14:40 Ur Leukocyte Esterase Neg (Negative) 01/18/21 14:40 Urine WBC (Auto) 1.0 /HPF (0.0-6.0) 01/18/21 14:40 Urine RBC (Auto) 4.0 /HPF (0.0-6.0) 01/18/21 14:40 U Epithel Cells (Auto) 14.0 /HPF (0-13.0) H 01/18/21 14:40 Microbiology: Microbiology 01/19/21 02:45 Nares - Left MRSA Culture - Preliminary Pierre/IV: Voiding Method Toilet Active Medications - Current Medications Current Medications: Generic Name Dose Route Start Last Admin Trade Name Freq PRN Reason Stop Dose Admin Acetaminophen 650 mg 01/18/21 20:51 Acetaminophen 325 Mg Tab PO Q4H PRN Pain MILD(1-3)/Fever >100.5/[place] Bisacodyl 10 mg 01/20/21 09:30 01/20/21 09:38 Bisacodyl 10 Mg Rect Supp LA 01/20/21 14:00 10 mg ONCE@0930 NR Administration Clonidine HCl 0.2 mg 01/18/21 21:00 01/18/21 23:24 Clonidine Tts 0.2 Mg/24 Hr Patch TD 0.2 mg Sa [facility]INCENT Administration Famotidine 20 mg 01/18/21 22:00 09/27/21 09:38 Famotidine 20 Mg/2 Ml Inj IV 20 mg BID [facility]ENT Administration Sodium Chloride 1,000 mls @ 100 mls/hr 01/18/21 21:00 01/20/21 05:37 Nacl 0.9% 1000 Ml IV 100 mls/hr DIRECT [facility]ENT Administration Levetiracetam 500 mg/ Dextrose 105 mls @ 400 mls/hr 01/18/21 22:00 01/20/21 09:39 IV 400 mls/hr Q12HR [facility]ENT Administration Magnesium Citrate 300 ml 01/20/21 09:30 01/20/21 13:00 Magnesium Citrate 300 Ml Oral Liqd PO 01/20/21 14:00 300 ml ONCE@0930 NR Administration Morphine Sulfate 2 mg 01/18/21 20:51 01/20/21 09:38 Morphine 2 Mg/1 Ml Inj IV 2 mg Q4H PRN Administration Pain, Moderate (4-6) Ondansetron HCl 4 mg 01/18/21 20:51 Ondansetron 4 Mg/2 Ml Inj IV Q3H PRN Nausea And Vomiting Sodium Chloride 10 ml 01/18/21 22:00 01/20/21 09:39 Sodium Chloride 0.9% 10 Ml Flush Syringe IV 10 ml BID [facility]ENT Administration Sodium Chloride 10 ml 01/18/21 20:51 Sodium Chloride 0.9% 10 Ml Flush Syringe IV PRN PRN LINE FLUSH
--- NOTE | 2021-01-20 16:28 | Progress Note ---
Assessment and Plan 50 yo F with pSBO, chronic constipation, chronic abd pain Obs series - improvement in SBO dilatation. Stool throughout colon Plan: 1. bowel regimen 2. may start CLD 3. IVF 4. prn pain and nausea control - do not give reglan 5. monitor for further bloody BMs pSBO appears to be improving. I feel based on patient's history abdominal symp toms are related to history of severe constipation. Will monitor, no acute surgical intervention at this time. May need colonic motility study as outpatient. Thank you, please call with questions. Subjective Date of service: 01/20/21 Narrative: Pt seen and examined. Admitted on 01/18/21 for SBO. Patient well known to me. Has long standing history of constipation and abdominal pain. Patient states she has been having intermittent crampy abdominal pain. However pain became worse two days ago and was severe which prompted her visit to ER. Pain is diffuse. She has also been having intermittent n/v (NB/NB). Patient is dependant on laxative and stool softeners at baseline to have a BM. She states she was unable to pass gas or have BM for past [address] in ER which was concerning for SBO. She refused NGT placement. She states she had multiple small hard pellets of stool today after bowel regimen was administered and passed a small blood clot as well. She is passing some flatus. No vomiting. Patient has a past medical history of seizure disorder, hypertension. She has a history of robotic assisted bilateral salpingo-oophorectomy; lysis of adhesions on 02/14/2020 for chronic pelvic pain with Dr. Gambino. During surgery an enterotomy was noted in the small bowel which resulted in general surgery consultation and an open small bowel resection with primary anastomosis. Patient presented to hospital again in October with SBO and underwent dx lap, KARLA which identified a band adhesion in right lower quadrant causing SBO. Patient continued to have symptoms of intermittent n/v and crampy abdominal pain on 2 w nulato follow up. She was sent for SBFT which was normal without evidence of stricture of obstruction. Patient has been referred to gastroenterology as an outpatient. On 05/16/2020 the patient underwent a colonoscopy and endoscopy. The colonoscopy was normal. The upper digestive tract appeared normal on EGD. Pathology from duodenum and gastric antrum biopsies showed chronic duodenitis and mild chronic inactive gastritis. Negative for H. pylori. No intestinal metaplasia or dysplasia or malignancy. Patient has not returned to see Dr. Blount since her last surgery. Objective Vital Signs - 12hr 01/20/21 01/20/21 01/20/21 04:26 05:37 06:07 Temperature 97.7 F Pulse Rate Respiratory 16 19 18 Rate Blood Pressure 115/67 O2 Sat by Pulse Oximetry 01/20/21 01/20/21 11:22 12:21 Temperature 97.8 F Pulse Rate 78 Respiratory 16 Rate Blood Pressure 128/87 O2 Sat by Pulse 97 100 Oximetry - General physical appearance Narrative Exam: Gen.: Awake, alert, oriented x3. No apparent distress ENT: Trachea midline. No lymphadenopathy. No scleral icterus or conjunctival pallor CV: S1, S2 present Respiratory: No audible wheezes Abdomen: Soft, distended, mild TTP in LLQ. No rebound, rigidity, guarding Extremities: No clubbing, cyanosis, edema - Labs 01/20/21 04:10 01/20/21 04:10 Diabetes panel 01/20/21 Range/Units 04:10 Sodium 140 (137-145) mmol/L Potassium 3.7 (3.6-5.0) mmol/L Chloride 104.4 (98-107) mmol/L Carbon Dioxide 26 (22-30) mmol/L BUN 6 L (7-17) mg/dL Creatinine 0.6 (0.6-1.2) mg/dL Glucose 85 (65-100) mg/dL Calcium 8.9 (8.4-10.2) mg/dL Calcium panel 01/20/21 Range/Units 04:10 Calcium 8.9 (8.4-10.2) mg/dL Pituitary panel 01/20/21 Range/Units 04:10 Sodium 140 (137-145) mmol/L Potassium 3.7 (3.6-5.0) mmol/L Chloride 104.4 (98-107) mmol/L Carbon Dioxide 26 (22-30) mmol/L BUN 6 L (7-17) mg/dL Creatinine 0.6 (0.6-1.2) mg/dL Glucose 85 (65-100) mg/dL Calcium 8.9 (8.4-10.2) mg/dL Adrenal panel 01/20/21 Range/Units 04:10 Sodium 140 (137-145) mmol/L Potassium 3.7 (3.6-5.0) mmol/L Chloride 104.4 (98-107) mmol/L Carbon Dioxide 26 (22-30) mmol/L BUN 6 L (7-17) mg/dL Creatinine 0.6 (0.6-1.2) mg/dL Glucose 85 (65-100) mg/dL Calcium 8.9 (8.4-10.2) mg/dL
--- NOTE | 2021-01-20 17:54 | XRay Report ---
ABDOMEN 1 VIEW INDICATION / CLINICAL INFORMATION: sbo. COMPARISON: 01/19/2021 FINDINGS: TUBES / LINES: None. BOWEL GAS PATTERN: There is a single mildly dilated gas-filled loop of bowel just left of midline at L4. Mild colonic stool burden FREE AIR / EXTRALUMINAL GAS: None seen. ADDITIONAL FINDINGS: No significant additional findings. IMPRESSION: 1. Single gaseous distended loop of bowel just left of midline is nonspecific. Otherwise, gas pattern is nonobstructive. 2. Mild colonic stool burden which can be seen with constipation in the proper clinical setting. Signer Name: Alfred Tomas MD Signed: 01/20/2021 5:50 PM Workstation Name: [email or web address]
[2021-01-20] MEDS ORDERED: MECLIZINE 25 MG TAB PO PRN (20:43)
[2021-01-20] MEDS ORDERED: CYCLOBENZAPRINE 10 MG TAB PO PRN (20:43)
[2021-01-20] MEDS ORDERED: BUTALB/ACETAMINOPHEN/CAFFEINE TAB PO PRN (20:43)
[2021-01-20] MEDS ORDERED: PRAVASTATIN 40 MG TAB PO SCH (22:00)
[2021-01-20] MEDS: DOCUSATE SODIUM 100 MG/10 ML ORAL LIQD PO SCH (22:03)
[2021-01-20] MEDS: METOPROLOL TARTRATE 25 MG TAB PO SCH (22:03)
[2021-01-21] MEDS: SODIUM CHLORIDE 0.9% 1000 ML 1,000 ML IV SCH (08:13)
[2021-01-21] MEDS ORDERED: NON-FORMULARY EACH (Simvastatin [Simvastatin] 20 MG Tablet) PO SCH (10:00)
--- NOTE | 2021-01-21 10:52 | Progress Note ---
Assessment and Plan Assessment and plan: (1) Partial small bowel obstruction Current Visit: Yes Status: Acute Plan to address problem: NG tube to suction IV fluids Surgery consult by Dr. Galdamez requested Patient has history of small bowel obstruction in the past especially October 22 followed by a small bowel resection and removal of additions (2) Hypertension Current Visit: Yes Status: Chronic Qualifiers: Hypertension type: primary hypertension Qualified Code(s): I10 - Essential (primary) hypertension Plan to address problem: Initiated on Catapres patch Hydralazine IV as needed No oral antihypertensives (3) Seizure disorder Current Visit: Yes Status: Chronic Plan to address problem: Patient initiated on IV Keppra 500 every 12 because she is n.p.o. (4) Hyperlipidemia Current Visit: Yes Status: Chronic Qualifiers: Hyperlipidemia type: mixed hyperlipidemia Qualified Code(s): E78.2 - Mixed hyperlipidemia Plan to address problem: Hold statins for now because patient is n.p.o. (5) Transaminitis Current Visit: Yes Status: Chronic Plan to address problem: Patient has hepatic steatosis Check acute hepatitis profile (6) Polycythemia due to fall in plasma volume Current Visit: Yes Status: Acute Plan to address problem: IV fluids and recheck hemoglobin and hematocrit (7) Chronica abdominal pain (8) Chronic Constipation (9) DVT prophylaxis Current Visit: Yes Status: Acute Plan to address problem: On heparin and GI prophylaxis 01/19/2021 -Discussed with general surgery Dr. Galdamez and said he will see the patient today. -Patient is complaining pain 6 out of 10 -We will check tube -Vital signs stable -Blood pressures controlled -Continue current medications -I discontinued heparin pending surgical evaluation. 01/20: Patient seen and examined, still with abdominal pain but improving. awaiting further Surgical input, encourage to ambulate. 01/21: Patient showing some clinically improvement, Per surgery -revaluation Obs series - improvement in SBO dilatation. Stool throughout colon. Patient tolerating some clear liquid diet at this time. No Reglan per surgery will review and discontinue Reglan if ordered. Patient may need an outpatient colonic motility study per the surgeon. Discharge when okay by surgery anticipate possibly tomorrow History Interval history: Patient was seen and evaluated this morning. reports moved bowel this am x3 Hospitalist Physical - Physical exam Narrative exam: Not in cardiopulmonary distress. The patient appeared well nourished and normally developed. Vital signs as documented. Head exam is unremarkable. No scleral icterus . Neck is without jugular venous distension, thyromegaly, or carotid bruits. Lungs are clear to auscultation. Cardiac exam reveals regular rate and Rhythm. Abdominal exam reveals tenderness with hypoactive bowel sounds. Distended abdomen-improved Extremities are nonedematous and both femoral and pedal pulses are normal. 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 No focal weakness. - Constitutional Vitals: Temp Pulse Resp BP Pulse Ox 97.4 F L 67 16 127/78 97 01/21/21 04:47 01/21/21 04:47 01/21/21 04:47 01/21/21 04:47 01/21/21 08:26 General appearance: Present: mild distress, well-nourished Results - Labs CBC & Chem 7: 01/20/21 04:10 01/20/21 04:10 Labs: Laboratory Last Values WBC 6.2 K/mm3 (4.5-11.0) 01/20/21 04:10 RBC 5.17 M/mm3 (3.65-5.03) H 01/20/21 04:10 Hgb 12.8 gm/dl (10.1-14.3) 01/20/21 04:10 Hct 39.5 % (30.3-42.9) 01/20/21 04:10 MCV 77 fl (79-97) L 01/20/21 04:10 MCH 25 pg (28-32) L 01/20/21 04:10 MCHC 33 % (30-34) 01/20/21 04:10 RDW 14.4 % (13.2-15.2) 01/20/21 04:10 Plt Count 284 K/mm3 (140-440) 01/20/21 04:10 Lymph % (Auto) 38.7 % (13.4-35.0) H 01/20/21 04:10 [place] % (Auto) 5.0 % (0.0-7.3) 01/20/21 04:10 Eos % (Auto) 5.4 % (0.0-4.3) H 01/20/21 04:10 Baso % (Auto) 0.8 % (0.0-1.8) 01/20/21 04:10 Lymph # (Auto) 2.4 K/mm3 (1.2-5.4) 01/20/21 04:10 [place] # (Auto) 0.3 K/mm3 (0.0-0.8) 01/20/21 04:10 Eos # (Auto) 0.3 K/mm3 (0.0-0.4) 01/20/21 04:10 Baso # (Auto) 0.0 K/mm3 (0.0-0.1) 01/20/21 04:10 Seg Neutrophils % 50.1 % (40.0-70.0) 01/20/21 04:10 Seg Neutrophils # 3.1 K/mm3 (1.8-7.7) 01/20/21 04:10 Sodium 140 mmol/L (137-145) 01/20/21 04:10 Potassium 3.7 mmol/L (3.6-5.0) 01/20/21 04:10 Chloride 104.4 mmol/L (98-107) 01/20/21 04:10 Carbon Dioxide 26 mmol/L (22-30) 01/20/21 04:10 Anion Gap 13 mmol/L 01/20/21 04:10 BUN 6 mg/dL (7-17) L 01/20/21 04:10 Creatinine 0.6 mg/dL (0.6-1.2) 01/20/21 04:10 Estimated GFR > 60 ml/min 01/20/21 04:10 BUN/Creatinine Ratio 10 % 01/20/21 04:10 Glucose 85 mg/dL (65-100) 01/20/21 04:10 Calcium 8.9 mg/dL (8.4-10.2) 01/20/21 04:10 Total Bilirubin 0.50 mg/dL (0.1-1.2) 01/19/21 04:20 Direct Bilirubin < 0.2 mg/dL (0-0.2) 01/18/21 11:26 Indirect Bilirubin 0.2 mg/dL 01/18/21 11:26 AST 52 units/L (5-40) H 01/19/21 04:20 ALT 94 units/L (7-56) H 01/19/21 04:20 Alkaline Phosphatase 152 units/L (35-129) H 01/19/21 04:20 Total Protein 7.3 g/dL (6.3-8.2) 01/19/21 04:20 Albumin 4.4 g/dL (3.9-5) 01/19/21 04:20 Albumin/Globulin Ratio 1.5 % 01/19/21 04:20 Lipase 18 units/L (13-60) 01/18/21 11:26 Urine Color Straw (Yellow) 01/18/21 14:40 Urine Turbidity Clear (Clear) 01/18/21 14:40 Urine pH 7.0 (5.0-7.0) 01/18/21 14:40 Urine Protein <15 mg/dl mg/dL (Negative) 01/18/21 14:40 Urine Glucose (UA) Neg mg/dL (Negative) 01/18/21 14:40 Urine Ketones Neg mg/dL (Negative) 01/18/21 14:40 Urine Blood Mod (Negative) 01/18/21 14:40 Urine Nitrite Neg (Negative) 01/18/21 14:40 Ur Reducing Substances Not Reportable 01/18/21 14:40 Urine Bilirubin Neg (Negative) 01/18/21 14:40 Urine Ictotest Not Reportable 01/18/21 14:40 Urine Urobilinogen < 2.0 mg/dL (<2.0) 01/18/21 14:40 Ur Leukocyte Esterase Neg (Negative) 01/18/21 14:40 Urine WBC (Auto) 1.0 /HPF (0.0-6.0) 01/18/21 14:40 Urine RBC (Auto) 4.0 /HPF (0.0-6.0) 01/18/21 14:40 U Epithel Cells (Auto) 14.0 /HPF (0-13.0) H 01/18/21 14:40 Microbiology: Microbiology 01/19/21 02:45 Nares - Left MRSA Culture - Final Pierre/IV: Voiding Method Toilet Active Medications - Current Medications Current Medications: Generic Name Dose Route Start Last Admin Trade Name Freq PRN Reason Stop Dose Admin Acetaminophen 650 mg 01/18/21 20:51 Acetaminophen 325 Mg Tab PO Q4H PRN Pain MILD(1-3)/Fever >100.5/[place] Acetaminophen/Butalbital/Caffeine 1 tab 01/20/21 20:43 Butalb/Acetaminophen/Caffeine Tab PO Q6H PRN Headache Bisacodyl 10 mg 01/21/21 11:00 Bisacodyl 10 Mg Rect Supp SC 01/21/21 15:00 ONCE@1100 NR Cyclobenzaprine HCl 10 mg 01/20/21 20:43 Cyclobenzaprine 10 Mg Tab PO TID PRN Muscle Spasm Docusate Sodium 100 mg 01/20/21 22:00 01/20/21 22:03 Docusate Sodium 100 Mg/10 Ml Oral Liqd PO 100 mg BID VINCENT Administration Famotidine 20 mg 01/18/21 22:00 01/20/21 22:04 Famotidine 20 Mg/2 Ml Inj IV 20 mg BID VINCENT Administration Sodium Chloride 1,000 mls @ 100 mls/hr 01/18/21 21:00 01/21/21 08:13 Nacl 0.9% 1000 Ml IV 100 mls/hr DIRECT VINCENT Administration Levetiracetam 500 mg/ Dextrose 105 mls @ 400 mls/hr 01/18/21 22:00 01/20/21 22:01 IV 400 mls/hr Q12HR VINCENT Administration Magnesium Citrate 300 ml 01/21/21 11:00 Magnesium Citrate 300 Ml Oral Liqd PO 01/21/21 15:00 ONCE@1100 NR Meclizine HCl 25 mg 01/20/21 20:43 Meclizine 25 Mg Tab PO TID PRN Vertigo Metoprolol Tartrate 25 mg 01/20/21 22:00 01/20/21 22:03 Metoprolol Tartrate 25 Mg Tab PO 25 mg BID VINCENT Administration Morphine Sulfate 2 mg 01/18/21 20:51 01/20/21 21:58 Morphine 2 Mg/1 Ml Inj IV 2 mg Q4H PRN Administration Pain, Moderate (4-6) Ondansetron HCl 4 mg 01/18/21 20:51 Ondansetron 4 Mg/2 Ml Inj IV Q3H PRN Nausea And Vomiting Pravastatin Sodium 40 mg 01/20/21 22:00 01/20/21 22:20 Pravastatin 40 Mg Tab PO 40 mg QHS VINCENT Administration Sodium Chloride 10 ml 01/18/21 22:00 01/20/21 21:59 Sodium Chloride 0.9% 10 Ml Flush Syringe IV 10 ml BID VINCENT Administration Sodium Chloride 10 ml 01/18/21 20:51 Sodium Chloride 0.9% 10 Ml Flush Syringe IV PRN PRN LINE FLUSH
[2021-01-21] MEDS ORDERED: MAGNESIUM CITRATE 300 ML ORAL LIQD PO NR (11:00)
[2021-01-21] MEDS: METOPROLOL TARTRATE 25 MG TAB PO SCH (11:02)
[2021-01-21] MEDS: DOCUSATE SODIUM 100 MG/10 ML ORAL LIQD PO SCH (11:02)
[2021-01-21] MEDS: levETIRAcetam 500 MG in DEXTROSE 5% IN WATER 100 ML IV SCH (11:03)
[2021-01-21] MEDS: FAMOTIDINE 20 MG/2 ML INJ IV SCH (11:03)
--- NOTE | 2021-01-21 15:46 | Progress Note ---
Assessment and Plan 50 yo F with pSBO, chronic constipation, chronic abd pain Plan: 1. Continue bowel regimen 2. Continue clear liquids. Patient advised to continue clear liquids for the next 3 to 4 days and then slowly advance to a soft diet. 3. Gentle IVF 4. prn pain and nausea control - do not give reglan 5. Will consider a trial of Linzess as outpatient 6. Okay to DC in a.m. if continues to show improvement. Discussed with Windy. Thank you, please call with questions. Subjective Date of service: 01/21/21 Narrative: Patient seen and examined. Feels better today. States she is having multiple bowel movements. No further blood clots seen in the bowel movements. Tolerating clear liquids without nausea or vomiting. Objective Vital Signs - 12hr 01/21/21 01/21/21 01/21/21 04:47 08:26 10:47 Temperature 97.4 F L 98.2 F Pulse Rate 67 71 Respiratory 16 16 Rate Blood Pressure 127/78 122/75 O2 Sat by Pulse 100 97 100 Oximetry 01/21/21 11:02 Temperature Pulse Rate 79 Respiratory Rate Blood Pressure 122/75 O2 Sat by Pulse Oximetry - General physical appearance Narrative Exam: Gen.: Awake, alert, oriented x3. No apparent distress ENT: Trachea midline. No lymphadenopathy. No scleral icterus or conjunctival pallor CV: S1, S2 present Respiratory: No audible wheezes Abdomen: Soft, nontender, mildly distended.. No rebound, rigidity, guarding Extremities: No clubbing, cyanosis, edema - Labs 01/20/21 04:10 01/20/21 04:10
--- NOTE | 2021-01-21 18:22 | Discharge Summary ---
Providers - Providers Date of Admission: 01/20/21 09:56 Attending physician: JULIENNE VENTURA MD 01/18/21 20:51 Consult to Physician [CONS] Routine Comment: Consulting Provider: BENJAMÍN GALDAMEZ Physician Instructions: Reason For Exam: Small bowel obstruction 01/20/21 15:13 Midline [Consult to PICC Line RN] [CONS] Urgent Reason For Exam: difficult iv stick Type Line:: Midline Primary care physician: INCOMING FREIGHT CLERK Hospitalization Reason for admission: SBO Condition: Stable Hospital course: 50-year-old -[place] female with history of hypertension, hyperlipidemia and seizure disorder and recent small bowel obstruction in September secondary to additions with readmission to this facility followed by bowel resection and [place] of additions comes in for vomiting and abdominal pain since yesterday. Patient vomited about 8 times. During my examination patient was not vomiting for the last couple of hours. Abdominal pain is 5-8 on a range of 1-10. Sharp and intermittent in nature. Food is a precipitating factor. Not consuming anything orally gives some relief. No fever or chills. No exposure to Covid. Covid vaccination was not asked. (1) Partial small bowel obstruction Current Visit: Yes Status: Acute Plan to address problem: NG tube to suction IV fluids Surgery consult by Dr. Galdamez requested Patient has history of small bowel obstruction in the past especially October 22 followed by a small bowel resection and removal of additions (2) Hypertension Current Visit: Yes Status: Chronic Qualifiers: Hypertension type: primary hypertension Qualified Code(s): I10 - Essential (primary) hypertension Plan to address problem: Initiated on Catapres patch Hydralazine IV as needed No oral antihypertensives (3) Seizure disorder Current Visit: Yes Status: Chronic Plan to address problem: Patient initiated on IV Keppra 500 every 12 because she is n.p.o. (4) Hyperlipidemia Current Visit: Yes Status: Chronic Qualifiers: Hyperlipidemia type: mixed hyperlipidemia Qualified Code(s): E78.2 - Mixed hyperlipidemia Plan to address problem: Hold statins for now because patient is n.p.o. (5) Transaminitis Current Visit: Yes Status: Chronic Plan to address problem: Patient has hepatic steatosis Check acute hepatitis profile (6) Polycythemia due to fall in plasma volume Current Visit: Yes Status: Acute Plan to address problem: IV fluids and recheck hemoglobin and hematocrit (7) Chronica abdominal pain (8) Chronic Constipation (9) DVT prophylaxis Current Visit: Yes Status: Acute Plan to address problem: On heparin and GI prophylaxis 01/19/2021 -Discussed with general surgery Dr. Galdamez and said he will see the patient today. -Patient is complaining pain 6 out of 10 -We will check tube -Vital signs stable -Blood pressures controlled -Continue current medications -I discontinued heparin pending surgical evaluation. 01/20: Patient seen and examined, still with abdominal pain but improving. awaiting further Surgical input, encourage to ambulate. 01/21: Patient showing some clinically improvement, Per surgery -revaluation Obs series - improvement in SBO dilatation. Stool throughout colon. Patient tolerating some clear liquid diet at this time. No Reglan per surgery will review and discontinue Reglan if ordered. Patient may need an outpatient colonic motility study per the surgeon. Discharge when okay by surgery anti cipate possibly tomorrow PATIENT DEMANDED TO LEAVE Disposition: LEFT AGAINST MEDICAL ADVICE Final Discharge Diagnosis (Prints w/discharge instructions): PARTIAL SBO Time spent for discharge: 35 MINS Core Measure Documentation - Palliative Care Palliative Care/ Comfort Measures: Not Applicable - Core Measures Any of the following diagnoses?: none Exam - Physical Exam Narrative exam: Not in cardiopulmonary distress. The patient appeared well nourished and normally developed. Vital signs as documented. Head exam is unremarkable. No scleral icterus . Neck is without jugular venous distension, thyromegaly, or carotid bruits. Lungs are clear to auscultation. Cardiac exam reveals regular rate and Rhythm. Abdominal exam reveals tenderness with hypoactive bowel sounds. Distended abdomen-improved Extremities are nonedematous and both femoral and pedal pulses are normal. 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 No focal weakness. - Constitutional Vitals: Temp Pulse Resp BP Pulse Ox 98.2 F 79 16 122/75 100 01/21/21 10:47 01/21/21 11:02 01/21/21 10:47 01/21/21 11:02 01/21/21 10:47 Plan Activity: advance as tolerated, fall precautions Diet: low fat (CLEAR LIQUIDS FOR THE NEXT 3 DAYS THEN SLOWLY ADVANCE) Special Instructions: record daily weights, record daily BP diary Follow up with: PRIMARY CARE, [Primary Care Provider] - 3-5 Days MARK MONTEIRO DO [Staff Physician] - 7 Days Prescriptions: Pravastatin [Pravachol] 40 mg PO QHS #30 tablet
[2021-01-21 19:09] VITALS: BP 148/92
== END 2021-01-21 19:40 | disposition home or self-care (01) | DRG 390 ==
LOC: ED 09:30 → 3A 16:58 → OBSVTOIN 01-20 09:56
PROVIDERS: ADMIT Internal Medicine; ATTEND Internal Medicine
DX: K56.600 Partial intestinal obstruction, unspecified as to cause (principal); G40.909 Epilepsy, unspecified, not intractable, without status epilepticus; Z53.20 Procedure and treatment not carried out because of patient's decision for unspecified reasons; D75.1 Secondary polycythemia; I10 Essential (primary) hypertension; K21.9 Gastro-esophageal reflux disease without esophagitis; M19.90 Unspecified osteoarthritis, unspecified site; G43.909 Migraine, unspecified, not intractable, without status migrainosus; Z90.710 Acquired absence of both cervix and uterus; E78.2 Mixed hyperlipidemia; K59.00 Constipation, unspecified; K76.0 Fatty (change of) liver, not elsewhere classified; Z86.79 Personal history of other diseases of the circulatory system; D57.3 Sickle-cell trait
CPT/HCPCS: 36415; 74018; 74019; 74177; 80048; 80053; 80076; 81001; 83690; 85025; 87116; G0378; J1644; J1953; J2060; J2270; J2405; J7030; Q9967

== ENCOUNTER 2021-02-18 12:55 | Outpatient (CLI) | payer BC ==
[2021-02-18 13:30] LABS: Hematocrit 44.7 % (30.3-42.9); Hemoglobin 14.1 gm/dl (10.1-14.3); Mean Corpuscular HGB Conc 31 % (30-34); Mean Corpuscular Volume 76 fl (79-97); Platelet Count 323 K/mm3 (140-440); Red Blood Count 5.92 M/mm3 (3.65-5.03); Red Cell Distribution Width 15.1 % (13.2-15.2)
[2021-02-18 13:49] LABS: % Iron Saturation 32.64 %; Chol/HDL Ratio 3.87 %
[2021-02-22 15:03] LABS: Vitamin D, 25-OH, D2 13 ng/mL
== END 2021-02-18 12:56 | disposition home or self-care (01) ==
LOC: LAB 12:55
PROVIDERS: ATTEND Internal Medicine Hematology & Oncology
DX: E55.9 Vitamin D deficiency, unspecified (principal)
CPT/HCPCS: 36415; 80061; 82306; 83550; 85027

== ENCOUNTER 2021-04-17 15:45 | Emergency (ER) | payer BC ==
[2021-04-17] MEDS ORDERED: levETIRAcetam 1000 MG/NS 0.75% 1,000 MG/100 ML BAG IV ONE (16:14)
--- NOTE | 2021-04-17 16:19 | Emergency Department Report ---
HPI - General Chief Complaint: Abdominal Pain Time Seen by Provider: 04/17/21 16:12 - HPI HPI: 50 year old female presents to the emergency department, through triage, from her job over at [email or web address], initially with the complaint of "not feeling well." Upon arrival to triage, the patient was found to have moderate to severe tachycardia and then began having a seizure. At the time of my initial examination the patient is more awake and alert, but still a poor historian and possibly still post-ictal. She has a past medical history that includes a seizure disorder for which she is on Keppra, recent SBO with surgery, hypertension, anemia. An IV was placed in triage but she had not yet recieved any treatment. Her accucheck was 132. ED Past Medical Hx - Past Medical History Hx Hypertension: Yes Hx Congestive Heart Failure: No Hx Diabetes: No Hx Deep Vein Thrombosis: No Hx GERD: Yes Hx Liver Disease: Yes (Pt reports elevated LFTs) Hx Sickle Cell Disease: Yes (Trait only) Hx Arthritis: Yes (Left leg and arm) Hx Headaches / Migraines: Yes (migraines) Hx Seizures: Yes (Last seizure 2017) Hx Asthma: No Hx COPD: No Hx HIV: No Additional medical history: Recurrent symptomatic anemia. Menorrhagia. Uterine fibroids. Vertigo. Small bowel obstruction - Surgical History Hx Pacemaker: No Hx Internal Defibrillator: No Additional Surgical History: 3 C- Sections, HYSTERECTOMY. Right knee repair at age 10. fx femur, Small bowel resection - Social History Smoking Status: Never Smoker - Medications Home Medications: Home Medications Medication Instructions Recorded Confirmed Last Taken Type Metoprolol [Lopressor TAB] 25 mg PO BID 02/17/18 01/19/21 01/18/21 10:00 History Simvastatin 20 mg PO DAILY 02/17/18 01/19/21 01/18/21 10:00 History Cyclobenzaprine [Flexeril 10 MG 10 mg PO TID PRN 02/12/20 01/19/21 01/17/21 22:00 History TAB] Ondansetron [Zofran ODT TAB] 4 mg PO Q8HR PRN #20 tab.rapdis 03/26/20 01/19/21 Unknown Rx Butalb/Acetaminophen/Caffeine 1 each PO PRN PRN #14 cap 09/25/20 01/19/21 01/17/21 22:00 Rx [Jbbqag-Pobwqvnd-Lvjz 50-325-40] levETIRAcetam [Keppra TAB] 500 mg PO BID #60 tablet 09/25/20 01/19/21 01/18/21 10:00 Rx LORazepam [Ativan] 0.5 mg PO DAILY PRN 01/19/21 01/19/21 Unknown History Meclizine [Antivert] 25 mg PO TID PRN 01/19/21 01/19/21 Unknown History Pravastatin [Pravachol] 40 mg PO QHS #30 tablet 01/21/21 Unknown Rx Dicyclomine [Bentyl] 10 mg PO QID PRN #20 capsule 04/17/21 Unknown Rx Docusate Sodium [Colace CAP] 100 mg PO BID PRN #30 capsule 04/17/21 Unknown Rx ED Review of Systems ROS: Stated complaint: N/V SEVERE ABD PAIN Other details as noted in HPI Comment: Unobtainable due to pts medical conditions Respiratory: shortness of breath Neurological: other (seizure) Physical Exam - Physical Exam Vital Signs: Vital Signs 04/17/21 04/17/21 15:46 16:10 Temperature 98.4 F Pulse Rate 139 H 109 H Respiratory 24 19 Rate Blood Pressure 172/124 170/120 [Left] O2 Sat by Pulse 100 100 Oximetry Physical Exam: GENERAL: The patient is well-developed well-nourished. HENT: Normocephalic. Atraumatic. Patient has moist mucous membranes. EYES: Extraocular motions are intact. Pupils equal reactive to light bilaterally. NECK: Supple. Trachea is midline. CHEST/LUNGS: Clear to auscultation. There is no respiratory distress noted. HEART/CARDIOVASCULAR: Regular. There is mild tachycardia. There is no murmur. ABDOMEN: Abdomen is soft. Generalized abdominal tenderness to palpation. No guarding. Patient has normal bowel sounds. There is no abdominal distention. SKIN: Skin is warm and dry. NEURO: The patient is awake and attempts to be cooperative and/or follow commands but still may be somewhat postictal. MUSCULOSKELETAL: There is no tenderness or deformity. There is no limitation range of motion. ED Course Vital Signs 04/17/21 04/17/21 15:46 16:10 Temperature 98.4 F Pulse Rate 139 H 109 H Respiratory 24 19 Rate Blood Pressure 172/124 170/120 [Left] O2 Sat by Pulse 100 100 Oximetry ED Medical Decision Making - Lab Data Result diagrams: 04/17/21 16:21 04/17/21 16:21 Lab Results 04/17/21 04/17/21 04/17/21 Range/Units 16:05 16:21 16:21 WBC 8.8 (4.5-11.0) K/mm3 RBC 5.86 H (3.65-5.03) M/mm3 Hgb 13.8 (10.1-14.3) gm/dl Hct 44.7 H (30.3-42.9) % MCV 76 L (79-97) fl MCH 24 L (28-32) pg MCHC 31 (30-34) % RDW 14.7 (13.2-15.2) % Plt Count 338 (140-440) K/mm3 Lymph % (Auto) 35.8 H (13.4-35.0) % [place] % (Auto) 3.7 (0.0-7.3) % Eos % (Auto) 3.0 (0.0-4.3) % Baso % (Auto) 1.0 (0.0-1.8) % Lymph # (Auto) 3.2 (1.2-5.4) K/mm3 [place] # (Auto) 0.3 (0.0-0.8) K/mm3 Eos # (Auto) 0.3 (0.0-0.4) K/mm3 Baso # (Auto) 0.1 (0.0-0.1) K/mm3 Seg Neutrophils % 56.5 (40.0-70.0) % Seg Neutrophils # 5.0 (1.8-7.7) K/mm3 Sodium 138 (137-145) mmol/L Potassium 3.8 (3.6-5.0) mmol/L Chloride 101.6 (98-107) mmol/L Carbon Dioxide 19 L (22-30) mmol/L Anion Gap 21 mmol/L BUN 9 (7-17) mg/dL Creatinine 0.8 (0.6-1.2) mg/dL Estimated GFR > 60 ml/min BUN/Creatinine Ratio 11 % Glucose 136 H (65-100) mg/dL POC Glucose 132 H (70-105) mg/dL Calcium 9.6 (8.4-10.2) mg/dL Total Bilirubin 0.20 (0.1-1.2) mg/dL Direct Bilirubin < 0.2 (0-0.2) mg/dL Indirect Bilirubin 0.0 mg/dL AST 77 H (5-40) units/L ALT 130 H (7-56) units/L Alkaline Phosphatase 156 H (35-129) units/L Total Creatine Kinase 207 H (30-135) units/L Troponin T (0.00-0.029) ng/mL Total Protein 7.7 (6.3-8.2) g/dL Albumin 4.7 (3.9-5) g/dL Albumin/Globulin Ratio 1.6 % Lipase 22 (13-60) units/L 12/23/21 Range/Units 16:21 WBC (4.5-11.0) K/mm3 RBC (3.65-5.03) M/mm3 Hgb (10.1-14.3) gm/dl Hct (30.3-42.9) % MCV (79-97) fl MCH (28-32) pg MCHC (30-34) % RDW (13.2-15.2) % Plt Count (140-440) K/mm3 Lymph % (Auto) (13.4-35.0) % [place] % (Auto) (0.0-7.3) % Eos % (Auto) (0.0-4.3) % Baso % (Auto) (0.0-1.8) % Lymph # (Auto) (1.2-5.4) K/mm3 [place] # (Auto) (0.0-0.8) K/mm3 Eos # (Auto) (0.0-0.4) K/mm3 Baso # (Auto) (0.0-0.1) K/mm3 Seg Neutrophils % (40.0-70.0) % Seg Neutrophils # (1.8-7.7) K/mm3 Sodium (137-145) mmol/L Potassium (3.6-5.0) mmol/L Chloride (98-107) mmol/L Carbon Dioxide (22-30) mmol/L Anion Gap mmol/L BUN (7-17) mg/dL Creatinine (0.6-1.2) mg/dL Estimated GFR ml/min BUN/Creatinine Ratio % Glucose (65-100) mg/dL POC Glucose (70-105) mg/dL Calcium (8.4-10.2) mg/dL Total Bilirubin (0.1-1.2) mg/dL Direct Bilirubin (0-0.2) mg/dL Indirect Bilirubin mg/dL AST (5-40) units/L ALT (7-56) units/L Alkaline Phosphatase (35-129) units/L Total Creatine Kinase (30-135) units/L Troponin T < 0.010 (0.00-0.029) ng/mL Total Protein (6.3-8.2) g/dL Albumin (3.9-5) g/dL Albumin/Globulin Ratio % Lipase (13-60) units/L - EKG Data -: EKG Interpreted by Me EKG shows normal: sinus rhythm, axis, intervals, QRS complexes, ST-T waves Rate: normal - EKG Data When compared to previous EKG there are: previous EKG unavailable Interpretation: normal EKG - Radiology Data Radiology results: report reviewed, image reviewed interpreted by me: Chest x-ray does not show any acute process. There are no pleural effusions, obvious pneumonia and there is no pneumothorax. No widened mediastinum. Abdominal x-ray shows nonspecific nonobstructive bowel gas. Increase stool volume. No free air. CT ABDOMEN AND PELVIS WITH CONTRAST INDICATION: Abd pain, hx of SBO, transaminitis. TECHNIQUE: Axial CT images were obtained through the abdomen and pelvis after undocumented amount IV contrast. All CT scans at this location are performed using CT dose reduction for ALARA by means of automated exposure control. COMPARISON: CT abdomen pelvis 01/18/2021 FINDINGS: LOWER CHEST: No significant abnormality. LIVER: No significant abnormality. GALLBLADDER: No significant abnormality. BILE DUCTS: No significant abnormality. PANCREAS: No significant abnormality. SPLEEN: No significant abnormality. ADRENALS: No signif icant abnormality. RIGHT KIDNEY and URETER: No significant abnormality. LEFT KIDNEY and URETER: No significant abnormality. STOMACH and SMALL BOWEL: No significant abnormality. COLON: Moderate amount of solid colonic stool APPENDIX: Normal PERITONEUM: Trace amount of free pelvic fluid No free air. No fluid collection. LYMPH NODES: No significant adenopathy. AORTA and ARTERIES: No significant abnormality. IVC and VEINS: No significant abnormality. URINARY BLADDER: No significant abnormality. REPRODUCTIVE ORGANS: No significant abnormality. ADDITIONAL FINDINGS: None. SKELETAL SYSTEM: No significant abnormality. IMPRESSION: 1. Moderate constipation. 2. Resolution of previously noted small bowel obstruction - Medical Decision Making This patient presents to the emergency department with a complaint of "not feeling well", abdominal pain, and then she had a seizure in triage. The patient does have a seizure history. She was loaded with a gram of Keppra. At first the patient still appeared postictal but has progressively improved throughout her ED course. The patient has been seen AAO x3. There are no focal, motor or sensory deficits and cranial nerves are intact. There is some reproducible abdominal tenderness to palpation but the abdomen is soft, nondistended. Labs have been mostly unremarkable including CBC, metabolic panel, negative t roponin, lipase, CK level, except for some transaminitis that is consistent with previous visits. Chest x-ray does not show any pneumonia, pleural effusions, pneumothorax, widened mediastinum, or any other acute process. Abdominal x-ray shows nonspecific nonobstructive bowel gas, no free air, and increased stool volume. Abdominal x-ray shows increased stool volume showing constipation, but otherwise no acute process or etiology of the patient's pain. She was given a dose of IV analgesia, antiemetic, and a dose of Bentyl. Upon reevaluation she is feeling improved. The patient was seen ambulatory in the emergency department and both appears and feels stable. There has been no further seizure-like activity during more than 5 hours in the emergency department. Vital signs reassuring in cluding being afebrile. For all these reasons the patient appears safe for discharge home at this time. She has outpatient follow-up with primary care and [facility]. She was given an outpatient referral for a neurologist. She will return to the emergency department with any worsening of her symptoms or with any acute distress. Critical Care Time: No Critical care attestation.: If time is entered above; I have spent that time in minutes in the direct care of this critically ill patient, excluding procedure time. ED Disposition Clinical Impression: Seizure, Increased stool volume, Transaminitis Abdominal pain Qualifiers: Abdominal location: unspecified location Qualified Code(s): R10.9 - Unspecified abdominal pain Disposition: HOME / SELF CARE / HOMELESS Is pt being admited?: No Condition: Stable Instructions: Abdominal Pain, Adult, Constipation, Adult, Epilepsy, Abdominal Pain (ED) Additional Instructions: Please follow-up with your primary care physician in the next few days. In case you do not have a neurologist, I am giving a referral for a local neurologist, Dr. Ballard, to follow-up regarding your seizures. Take your seizure medication as previously prescribed. Try to stay away from alcohol, excessive caffeine use, and try to get 8 hours of uninterrupted sleep at night. Because of your seizures, you are not allowed to drive or operate any heavy machinery for at least 6 months or until cleared by your neurologist. Please follow-up with [facility] for your abdominal pain and elevated liver enzymes. Because of the elevated liver enzymes, please avoid any alcohol or Tylenol/acetaminophen use. Return to the emergency department with any worsening of your symptoms, new or concerning symptoms not addressed during this current emergency department visit, or with any acute distress. Prescriptions: Dicyclomine [Bentyl] 10 mg PO QID PRN #20 capsule PRN Reason: Pain , Severe (7-10) Docusate Sodium [Colace CAP] 100 mg PO BID PRN #30 capsule PRN Reason: Constipation Referrals: SHAAN BALLARD MD [Referring] - 3-5 Days [facility] [Provider Group] - 3-5 Days Time of Disposition: 21:21
[2021-04-17 16:42] LABS: Basophils # (Auto) 0.1 K/mm3 (0.0-0.1); Eosinophils # (Auto) 0.3 K/mm3 (0.0-0.4); Lymphocytes # (Auto) 3.2 K/mm3 (1.2-5.4); Lymphocytes % (Auto) 35.8 % (13.4-35.0); Mean Corpuscular HGB Conc 31 % (30-34); Mean Corpuscular Volume 76 fl (79-97); Monocytes # (Auto) 0.3 K/mm3 (0.0-0.8); Monocytes % (Auto) 3.7 % (0.0-7.3); Platelet Count 338 K/mm3 (140-440); Red Blood Count 5.86 M/mm3 (3.65-5.03); Red Cell Distribution Width 14.7 % (13.2-15.2)
--- NOTE | 2021-04-17 16:56 | XRay Report ---
ABDOMEN SERIES WITH ONE VIEW CHEST INDICATION / CLINICAL INFORMATION: Abd pain, SOB. COMPARISON: Abdomen x-ray on 01/20/2021 FINDINGS: TUBES / LINES: None. BOWEL GAS PATTERN: No acute findings. Moderate constipation. FREE AIR / EXTRALUMINAL GAS: None seen. ADDITIONAL FINDINGS: No significant additional findings. LUNGS: Visualized lungs show no significant abnormality. IMPRESSION: 1. Moderate constipation without acute abnormality Signer Name: Jose Stinson MD Signed: 04/17/2021 4:51 PM Workstation Name: [id number]
[2021-04-17 16:58] LABS: Alanine Aminotransferase 130 units/L (7-56); Albumin 4.7 g/dL (3.9-5); BUN/Creatinine Ratio 11; Blood Urea Nitrogen 9 mg/dL (7-17); Calcium 9.6 mg/dL (8.4-10.2); Hemolysis Index 16
[2021-04-17 17:08] LABS: Bilirubin,Direct < 0.2 mg/dL (0-0.2)
[2021-04-17 17:24] LABS: Hematocrit 44.7 % (30.3-42.9); Hemoglobin 13.8 gm/dl (10.1-14.3)
[2021-04-17] MEDS ORDERED: MORPHINE 4 MG/1 ML INJ IV ONE (17:31)
[2021-04-17] MEDS ORDERED: ONDANSETRON 4 MG/2 ML INJ IV ONE (19:22)
--- NOTE | 2021-04-17 19:27 | Cat Scan Report ---
CT ABDOMEN AND PELVIS WITH CONTRAST INDICATION: Abd pain, hx of SBO, transaminitis. TECHNIQUE: Axial CT images were obtained through the abdomen and pelvis after undocumented amount IV contrast. All CT scans at this location are performed using CT dose reduction for ALARA by means of automated e xposure control. COMPARISON: CT abdomen pelvis 01/18/2021 FINDINGS: LOWER CHEST: No significant abnormality. LIVER: No significant abnormality. GALLBLADDER: No significant abnormality. BILE DUCTS: No significant abnormality. PANCREAS: No significant abnormality. SPLEEN: No significant abnormality. ADRENALS: No significant abnormality. RIGHT KIDNEY and URETER: No significant abnormality. LEFT KIDNEY and URETER: No significant abnormality. STOMACH and SMALL BOWEL: No significant abnormality. COLON: Moderate amount of solid colonic stool APPENDIX: Normal PERITONEUM: Trace amount of free pelvic fluid No free air. No fluid collection. LYMPH NODES: No significant adenopathy. AORTA and ARTERIES: No significant abnormality. IVC and VEINS: No significant abnormality. URINARY BLADDER: No significant abnormality. REPRODUCTIVE ORGANS: No significant abnormality. ADDITIONAL FINDINGS: None. SKELETAL SYSTEM: No significant abnormality. IMPRESSION: 1. Moderate constipation. 2. Resolution of previously noted small bowel obstruction Signer Name: Jose Atkinson MD Signed: 04/17/2021 7:22 PM Workstation Name: [id number]
[2021-04-17] MEDS ORDERED: DICYCLOMINE 20 MG TAB PO ONE (20:09)
[2021-04-17 21:09] VITALS: BP 138/93
--- NOTE | 2021-04-21 10:29 | Electrocardiograph Report ---
[facility] Test Date: 2021-04-17 Test Time: 17:31:56 Pat Name: IBAN SARKAR Department: Room: Gender: F Gate Person: GP : 1970 Requested By: HARDY MO Order Number: [id number] Reading MD: Heidy Young Measurements Intervals [place] Rate: 93 P: 44 [place]: 142 QRS: 49 QRSD: 85 T: 65 QT: 339 QTc: 422 Interpretive Statements Sinus rhythm Compared to ECG 09/24/2020 07:24:28 No significant changes Electronically Signed On 04-21-2021 10:28:48 EST by Heidy Young
== END 2021-04-17 21:40 | disposition home or self-care (01) ==
LOC: ED 15:45
DX: R56.9 Unspecified convulsions (principal); R10.9 Unspecified abdominal pain; I10 Essential (primary) hypertension; R74.01 Elevation of levels of liver transaminase levels; K21.9 Gastro-esophageal reflux disease without esophagitis; G43.909 Migraine, unspecified, not intractable, without status migrainosus
CPT/HCPCS: 36415; 74022; 74177; 80048; 80076; 82550; 82962; 83690; 84484; 85025; 93005; 96365; 96375; 99284; J1953; J2270; J2405; J3490; Q9967

== ENCOUNTER 2021-05-22 08:42 | Outpatient (CLI) | payer BC ==
--- NOTE | 2021-05-22 12:22 | Ultrasound Report ---
ULTRASOUND PELVIS INDICATION / CLINICAL INFORMATION: RIGHT UPPER QUADRANT PAIN. TECHNIQUE: Transabdominal and Transvaginal. Duplex Color Doppler used: Yes. COMPARISON: CT abdomen/pelvis 04/17/2021. FINDINGS: UTERUS: Surgically absent. RIGHT ADNEXA: The right ovary is surgically absent. No significant adnexal abnormality. LEFT ADNEXA: The left ovary is surgically absent. No significant adnexal abnormality. URINARY BLADDER: No significant abnormality. FREE FLUID: None. ADDITIONAL FINDINGS: None. IMPRESSION: 1. Prior hysterectomy and bilateral oophorectomy. 2. No significant sonographic abnormality. Scribed by: Carolyn Chiang RDMS, RVT Scribed: 05/22/2021 11:14 AM I have reviewed the images, agree with this report, and edited this report as needed. Signer Name: Cj Ni MD Signed: 05/22/2021 12:18 PM Workstation Name: [id number]
--- NOTE | 2021-05-22 12:22 | Ultrasound Report ---
ULTRASOUND ABDOMEN, COMPLETE INDICATION / CLINICAL INFORMATION: MASTODYNIA. COMPARISON: CT abdomen/pelvis 04/17/2021. FINDINGS: PANCREAS: No significant abnormality. ABDOMINAL AORTA: No significant abnormality. IVC: No significant abnormality. LIVER: The liver is normal in size measuring 12.9 cm with diffusely echogenic appearance. No focal he patic lesion. Normal hepatopedal blood flow within the main portal vein. GALLBLADDER: No significant abnormality. BILE DUCTS: No significant abnormality. Common bile duct measures 3 mm. KIDNEYS: Right: The right kidney measures 10.0 cm. No significant abnormality. Left: The left kidney measures 10.4 cm. No significant abnormality. SPLEEN: The spleen measures 8.3 cm. No significant abnormality. FREE FLUID: None. ADDITIONAL FINDINGS: None. IMPRESSION: 1. Diffusely echogenic appearance of the liver, most commonly seen with steatosis. Scribed by: Carolyn Chiang RDMS [place] Scribed: 05/22/2021 11:17 AM I have reviewed the images, agree with this report, and edited this report as needed. Signer Name: Cj Ni MD Signed: 05/22/2021 12:18 PM Workstation Name: [id number]
--- NOTE | 2021-05-23 17:43 | Mammography Report ---
RIGHT DIGITAL DIAGNOSTIC MAMMOGRAM WITH CAD 05/23/2021 RIGHT COMPLETE BREAST ULTRASOUND INDICATION: The patient reports generalized pain in the right breast for 2 weeks. TECHNIQUE: Digital right mammographic imaging was performed. Complete ultrasound of all four (4) nayla drants was performed. This examination was interpreted with the benefit of Computer-Aided Detection ( CAD) analysis. COMPARISON: Bilateral mammogram, 07/15/2020 and 07/14/2019 FINDINGS: Breast Density: The breasts are heterogeneously dense, which may obscure small masses. MAMMOGRAPHIC FINDINGS: There is no evidence of dominant mass, suspicious calcifications or architectu ral distortion in the right breast. Post-surgical changes are again noted in the right breast. ULTRASOUND FINDINGS: Complete sonographic evaluation of all 4 quadrants and retroareolar region was p erformed. Sonographic evaluation of the right breast demonstrates no suspicious solid mass or shado wing. There is no focal abnormality to account for the patient's right breast pain. IMPRESSION: 1. No mammographic or sonographic abnormality of the right breast. Clinical correlation is recommend ed for the patient's pain. Follow up recommendation: Clinical exam BI-RADS Category 2: BENIGN. A "normal" or negative report should not discourage follow up or biopsy of a clinically significant f inding. A written summary of these findings will be mailed to the patient. The patient will be entered into a mammography reporting system which will generate a reminder letter for the patient's next appointmen t at the appropriate interval. According to the [employer], yearly mammograms are recommended starting at age 40 and continuing as long as a woman is in good health. Breast MRI is recommended for women with an elsie roximately 20-25% or greater lifetime risk of breast cancer, including women with a strong family his tory of breast or ovarian cancer and women who have been treated for Hodgkin's disease. Signer Name: Isela Spears MD Signed: 05/23/2021 5:39 PM Workstation Name: [email or web address]
== END 2021-05-22 08:43 | disposition home or self-care (01) ==
LOC: US 08:42
PROVIDERS: ATTEND Surgery
DX: R10.11 Right upper quadrant pain (principal); N64.4 Mastodynia; D24.1 Benign neoplasm of right breast; Z90.710 Acquired absence of both cervix and uterus
CPT/HCPCS: 76700; 76830; 76856

== ENCOUNTER 2021-06-19 07:42 | Outpatient (CLI) | payer BC ==
[2021-06-19 08:30] LABS: Alanine Aminotransferase 177 units/L (7-56); Albumin 4.7 g/dL (3.9-5); Iron 59 ug/dL (37-170); Total Iron Binding Capacity 281 mcg/dL (250-450)
[2021-06-19 09:19] LABS: Bilirubin,Direct < 0.2 mg/dL (0-0.2)
--- NOTE | 2021-06-19 10:27 | Nuclear Medicine Report ---
NUCLEAR MEDICINE GASTRIC EMPTYING STUDY, SOLID PHASE INDICATION / CLINICAL INFORMATION: R11.2 NON INTRACTABLE VOMITING WITH NAUSEA. TECHNIQUE: 1.0 mCi of Tc-99m sulfur colloid meal was given to the patient by mouth. Images were obtai kitty over the stomach over the course of 1 hours. COMPARISON: No relevant prior imaging study available. FINDINGS: The following % EMPTIED is noted for the following time periods: 60 min (1h): 21 % (normal = 10-70%) ADDITIONAL FINDINGS: None. IMPRESSION: 1. Normal gastric emptying. Signer Name: Howard Perez DO Signed: 06/19/2021 10:22 AM Workstation Name: [id number]
== END 2021-06-19 07:43 | disposition home or self-care (01) ==
LOC: LAB 07:42
PROVIDERS: ATTEND Internal Medicine Gastroenterology
DX: R11.2 Nausea with vomiting, unspecified (principal)
CPT/HCPCS: 36415; 78264; 80076; 82306; 83550; A9541

== ENCOUNTER 2021-08-25 07:43 | Outpatient (CLI) | payer BC ==
--- NOTE | 2021-08-25 09:03 | Mammography Report ---
BILATERAL DIGITAL DIAGNOSTIC MAMMOGRAM WITH CAD CONVENTIONAL, 08/25/2021 BILATERAL LIMITED BREAST ULTRASOUND CLINICAL INFORMATION / INDICATION: Patient presents for evaluation of bilateral breast pain. melissa evans in n64.4 TECHNIQUE: Digital bilateral mammographic imaging was performed. Limited ultrasound was performed. Th is examination was interpreted with the benefit of Computer-Aided Detection (CAD) analysis. COMPARISON: Prior mammogram 07/15/2020 and 07/14/2019 FINDINGS: Breast Density: There are scattered areas of fibroglandular density. MAMMOGRAPHIC FINDINGS: No dominant mass, suspicious calcifications, or architectural distortion in ei ther breast. There is stable benign postsurgical change in the right breast, and a stable biopsy clip in the right breast. There has been no significant change compared with the prior examinations. Ther e is no mammographic abnormality to account for bilateral breast pain, therefore targeted bilateral b reast ultrasound was performed for further evaluation. ULTRASOUND FINDINGS: Targeted ultrasound evaluation was performed of the area of interest. Right breast: Targeted ultrasound of the area of focal pain in the central right breast reveals jillian l fibroglandular tissue. No suspicious cystic or solid lesion identified. Left breast: Targeted ultrasound of the area of focal pain in the central left breast reveals normal fibroglandular tissue. No suspicious cystic or solid lesion identified. IMPRESSION: 1. There is no mammographic or sonographic abnormality identified to account for bilateral breast leatha n, therefore clinical correlation is recommended. Follow up recommendation: Routine yearly BI-RADS Category 2: BENIGN. A "normal" or negative report should not discourage follow up or biopsy of a clinically significant f inding. A written summary of these findings will be mailed to the patient. The patient will be entered into a mammography reporting system which will generate a reminder letter for the patient's next appointmen t at the appropriate interval. According to the [employer], yearly mammograms are recommended starting at age 40 and continuing as long as a woman is in good health. Breast MRI is recommended for women with an elsie roximately 20-25% or greater lifetime risk of breast cancer, including women with a strong family his tory of breast or ovarian cancer and women who have been treated for Hodgkin's disease. Signer Name: Bri Kuhn MD Signed: 08/25/2021 8:58 AM Workstation Name: [id number]
== END 2021-08-25 07:44 | disposition home or self-care (01) ==
LOC: US 07:43
PROVIDERS: ATTEND Surgery
DX: D24.1 Benign neoplasm of right breast (principal); N64.4 Mastodynia
CPT/HCPCS: 77066

== ENCOUNTER 2021-12-02 11:15 | Outpatient (CLI) | payer BC ==
[2021-12-02 12:10] LABS: Alanine Aminotransferase 60 units/L (7-56); Albumin 4.7 g/dL (3.9-5); Blood Urea Nitrogen 7 mg/dL (7-17); Calcium 9.5 mg/dL (8.4-10.2); Hemolysis Index 16
[2021-12-02 12:16] LABS: BUN/Creatinine Ratio 10
== END 2021-12-02 11:16 | disposition home or self-care (01) ==
LOC: LAB 11:15
PROVIDERS: ATTEND Surgery
DX: Z13.228 Encounter for screening for other metabolic disorders (principal)
CPT/HCPCS: 36415; 80053

== ENCOUNTER 2021-12-08 15:09 | Outpatient (CLI) | payer BC | END 2021-12-08 15:10 | disposition home or self-care (01) | LOC: LAB 15:09 | PROVIDERS: ATTEND Student in an Organized Health Care Education/Training Program | DX: R74.01 Elevation of levels of liver transaminase levels (principal) | CPT/HCPCS: 36415; 83516; 83520; 86706; 86709; 86803; 87350 ==

== ENCOUNTER 2021-12-09 07:36 | Outpatient (CLI) | payer BC ==
[2021-12-09] MEDS ORDERED: WATER FOR INJ Sterile (PF) 10 ML ONE (08:55)
[2021-12-09] MEDS ORDERED: SINCALIDE 5 MCG VIAL IV ONE ×2 (08:55→08:59)
[2021-12-09] MEDS ORDERED: WATER FOR INJ Sterile (PF) 10 ML IV ONE (09:00)
--- NOTE | 2021-12-09 10:43 | Nuclear Medicine Report ---
Nuclear medicine HIDA scan INDICATION: Right upper quadrant pain TECHNIQUE: 5.3 millicuries of technetium 99 mebrofenin was injected IV per protocol. 1.0 mcg of CCK injected IV per protocol Multiple planar images in the region of the liver were then obtained. FINDINGS: There is prompt radiotracer uptake identified within the liver. The gallbladder was visuali zed at 15 minutes in the small bowel is identified at 20 minutes. The gallbladder ejection fraction w as measured at 80 %. IMPRESSION: 1. No evidence of biliary obstruction. 2. Normal gallbladder ejection fraction. Exam did not directly reproduce symptoms. Signer Name: Alhaji Hoover MD Signed: 12/09/2021 10:39 AM Workstation Name: [email or web address]
== END 2021-12-09 07:37 | disposition home or self-care (01) ==
LOC: NM 07:36
PROVIDERS: ATTEND Surgery
DX: R10.11 Right upper quadrant pain (principal)
CPT/HCPCS: 78227; A9537; J2805

== ENCOUNTER 2021-12-25 08:41 | Outpatient (CLI) | payer BC ==
--- NOTE | 2021-12-25 13:16 | Fluoroscopy Report ---
UPPER GI HISTORY: K94.10. TECHNIQUE: Single and double contrast barium technique utilized to evaluate the esophagus, stomach, and duodenal C-loop. FINDINGS: To begin the exam, swallowing was evaluated in the lateral position under direct fluorosco py. Swallowing was normal. No mucosal irregularity, mass, mass effect, or critical stenosis. There were no abnormal tertiary c ontractions as seen with dysmotility. No gastroesophageal reflux. IMPRESSION: Unremarkable exam. Fluoroscopic time: 2.7 minutes Number of fluoroscopic images: 23 Signer Name: Doc Robins Jr, MD Signed: 12/25/2021 1:11 PM Workstation Name: [id number]
--- NOTE | 2021-12-25 16:14 | Fluoroscopy Report ---
SMALL BOWEL FOLLOW-THROUGH HISTORY: K94.10 ABDOMINAL PAIN. TECHNIQUE: Single contrast barium technique utilized to evaluate the small bowel. FINDINGS: Small bowel transit time was 45 minutes which is normal. No fold thickening, mass, mass e ffect, stenosis, or obstruction. The terminal ileum is normal in appearance. IMPRESSION: Unremarkable exam. FLUOROSCOPIC TIME: 0.6 minutes NUMBER OF FLUOROSCOPIC IMAGES: 4 Signer Name: Doc Robins Jr, MD Signed: 12/25/2021 4:10 PM Workstation Name: [id number]
== END 2021-12-25 08:42 | disposition home or self-care (01) ==
LOC: FLUORO 08:41
PROVIDERS: ATTEND Surgery
DX: K94.10 Enterostomy complication, unspecified (principal)
CPT/HCPCS: 74246; 74248